=== PATIENT | male | born 1935 | race Caucasian/White ===

== ENCOUNTER → 2016-11-09 | Outpatient (CLI) | payer MEDICARE, OTHER ==
[~2016-11-09] MED LIST: ACET-703 PO; ALBUAER3 INH; AMLO5TAB96 PO; ASPI1TAB69 PO; ATOR20TA42 PO; ATOR40TA16 PO; CENTTAB8 PO; CENTTAB9 PO; CLOP75TA PO; ECASA PO; FISH500C PO; LATA0.002 EACH EYE; LOSA100T3 PO; LOSA50TA2 PO; METO25TA3 PO; MONT10TA2 PO; MONT10TA4 PO; OCUVTAB4 PO; VITA500015 PO
[2016-11-09 09:47] LABS: MEAN CELL VOLUME 92.1 FL (80.0-100.0); MEAN CORPUSCULAR HEMOGLOBIN 31.4 PG (27.0-34.0); MEAN CORPUSCULAR HGB CONC 34.1 % (32.0-36.0); PLATELET COUNT 223 TH/MM3 (150-450); RED BLOOD COUNT 4.34 MIL/MM3 (4.50-5.90); RED CELL DISTRIBUTION WIDTH 14.4 % (11.6-17.2); REVIEW FLAG FINAL; WHITE BLOOD COUNT 8.3 TH/MM3 (4.0-11.0)
== END ==
LOC: CPRE 08:52
PROVIDERS: ATTEND Orthopaedic Surgery
DX: Z01.812 Encounter for preprocedural laboratory examination (principal); S52.501S Unspecified fracture of the lower end of right radius, sequela; M19.131 Post-traumatic osteoarthritis, right wrist; M79.609 Pain in unspecified limb; I10 Essential (primary) hypertension; M24.831 Other specific joint derangements of right wrist, not elsewhere classified
CPT/HCPCS: 36415; 85027

== ENCOUNTER → 2016-11-11 | Day surgery (SDC) | payer MEDICARE, OTHER ==
[~2016-11-11] VITALS: Ht 172.7 cm; Wt 104.6 kg
[~2016-11-11] MED LIST changes: -AMLO5TAB96 PO; -ATOR20TA42 PO; -CENTTAB9 PO; -ECASA PO; +INSULIN HUMAN REGULAR 1,000 UNITS/10 ML VIAL SQ PRN; +LACTATED RINGER'S 1000 ML IV SCH; -LOSA100T3 PO; +METOPROLOL TARTRATE 25 MG TAB PO PRN; -MONT10TA2 PO; +SODIUM CHLORID 0.9% 500 ML IV SCH; -VITA500015 PO; +ceFAZolin 1,000 MG/NS 100 ML IV SCH
[2016-11-11 06:24] VITALS: BP 147/79; PULSE 66; RESP 18; TEMP 97.6; O2SAT 98
== END | disposition home or self-care (01) ==
LOC: HSDC 05:48
PROVIDERS: ATTEND Orthopaedic Surgery
DX: S52.501P Unspecified fracture of the lower end of right radius, subsequent encounter for closed fracture with malunion (principal); Z53.8 Procedure and treatment not carried out for other reasons
CPT/HCPCS: G0463; J7120; 99211

== ENCOUNTER → 2016-11-18 | Day surgery (SDC) | payer MEDICARE, OTHER ==
[~2016-11-18] VITALS: Ht 174 cm; Wt 104.0 kg
[~2016-11-18] MED LIST changes: +*ONDANSETRON 4 MG VIAL PERIprocedural Use ONLY ONE; +ACETAMINOPHEN 500 MG CPLT PO PRN; +ACETAMINOPHEN/HYDROcodone 325 MG/5 MG TAB PO PRN; +ASPIRIN EC 81 MG TABEC PO SCH; +ATORVASTATIN 40 MG TAB PO SCH; +BUPIVACAINE HCL PF 0.25% 30 ML VIAL ONE; +CLOPIDOGREL 75 MG TAB PO SCH; +DO NOT ADM ANY ANTICOAGULANT DRUGS XX PRN; +GENTAMICIN SULFATE 80 MG/2 ML VIAL ONE; +HYDROCHLOROTHIAZIDE 12.5 MG CAP PO SCH; -INSULIN HUMAN REGULAR 1,000 UNITS/10 ML VIAL SQ PRN; -LACTATED RINGER'S 1000 ML IV SCH; +LATANOPROST 0.005% OPHT SOLN 2.5 ML BTL EACH EYE SCH; +LOSARTAN 50 MG TAB PO SCH; -METOPROLOL TARTRATE 25 MG TAB PO PRN; +METOPROLOL TARTRATE 25 MG TAB PO SCH; +MONTELUKAST SODIUM 10 MG TAB PO SCH; +MORPHINE SULFATE 4 MG/ML INJ IV PUSH PRN; +MULTIVITAMIN-OPHTHALMIC 1 TAB PO SCH; +MULTIVITAMINS/MINERALS THERAPEUTIC TAB PO SCH; +NEOSTIGMINE 3 MG/3 ML SYR IV ONE; +NON-FORMULARY DRUG (Losartan-Hydrochlorothiazide 1 TAB) PO SCH; +ONDANSETRON HCL 4 MG/2 ML VIAL IV PRN; +ONDANSETRON HCL 4 MG/2 ML VIAL IV PUSH ONE; +PROPOFOL 200 MG/20 ML AMP IV ONE; -SODIUM CHLORID 0.9% 500 ML IV SCH; +SODIUM CHLORIDE 0.9% 20 ML VIAL ONE; +SODIUM CHLORIDE 0.9% FLUSH 5 ML FLUSH IVF PRN; +SODIUM CHLORIDE 0.9% FLUSH 5 ML FLUSH IVF SCH; -ceFAZolin 1,000 MG/NS 100 ML IV SCH; +ceFAZolin INJ 1,000 MG VIAL ONE; +ePHEDrine/NS 25 MG/5 ML SYR IV ONE; +ePHEDrine/NS 25 MG/5 ML SYR ONE; +fentaNYL CITRATE 250 MCG/5 ML AMP ONE
[2016-11-18 07:48] VITALS: BP 141/70; PULSE 73; RESP 20; TEMP 97.7; O2SAT 98
[2016-11-18 12:32] VITALS: BP 134/71; PULSE 75; RESP 18; TEMP 98; O2SAT 99
--- NOTE | 2016-11-21 18:46 | MP ---
cc: Yohannes GARVEY. DATE OF SURGERY: 11/18/2016. 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 OPERATIVE PROCEDURE PERFORMED: Darrach procedure, right wrist (resection distal end ulna). SURGEON: Radha Garvey MD ANESTHESIA: General endotracheal with supplemental local. INDICATIONS AND FINDINGS: This 81-year-old man has had limitation of supination since healing of a fracture over 50 years ago. He would like to have full supination. He has tenderness on pronation and supination. His range of motion preoperatively is from zero or neutral degrees to pronation of about 90 degrees. There is prominence of the distal end of the ulna seen on CT scan, x-ray and clinically. The operative findings were consistent with the above with there being significant arthritis in the distal radioulnar joint as well. There is deformity of the distal ulna. DESCRIPTION OF THE PROCEDURE IN DETAIL: The patient was brought to the operating room and a general anesthetic was administered. A pneumatic tourniquet was applied to the right upper arm. The arm was then prepped with alcohol, Hibiclens and Chloraprep and draped in the usual manner with the arm draped free. He received prophylactic antibiotic in the form of Ancef. An appropriate time-out procedure was carried out. A 3 cm incision was then made from tip of the ulnar styloid proximally paralleling the ulnar styloid on the ulnar aspect of the wrist. The incision was deepened through the subcutaneous tissues after elevation of the tourniquet to 200 mmHg. This was carried down to the periosteum of the ulna. The distal ulna was then exposed subperiosteally. A saw was then used to transect the forearm portion of the distal ulna. This was then grasped with a towel clip and shelled out of the periosteum and removed. The range of motion was checked and was found to be nearly 80 degrees of supination to about 90 degrees of pronation, which was much better than what was preoperatively. Hemostasis was carefully achieved with electrocautery. Local anesthesia was administered with Marcaine 0.25% plain. Wound closure then commenced using 3-0 Vicryl interrupted [id number] sutures for the retinacular, capsular and periosteal structures, 3-0 Vicryl interrupted simple sutures with buried knots for the subcutaneous tissues and 4-0 Monocryl continuous subcuticular closure for the skin. The wound was dressed with Steri-Strips followed by dry dressing, sterile Sof-Rol, GAURI bandage. The tourniquet was released at 32 minutes. The patient was transferred to the recovery room in satisfactory condition having tolerated the procedure well. Counts were correct. Specimens none. The estimated blood loss was none. MD JORGE Antoine/YAZ /10:03 AM /6:41 PM
== END | disposition home or self-care (01) ==
LOC: HSDC 07:16
PROVIDERS: ATTEND Orthopaedic Surgery
DX: S52.501S Unspecified fracture of the lower end of right radius, sequela (principal); M19.131 Post-traumatic osteoarthritis, right wrist; M24.831 Other specific joint derangements of right wrist, not elsewhere classified; I10 Essential (primary) hypertension
CPT/HCPCS: 01830; 25240; J0690; J1580; J2405; J2710; J3010

== ENCOUNTER → 2016-12-06 | Outpatient (CLI) | payer MEDICARE, OTHER ==
[~2016-12-06] MED LIST changes: -*ONDANSETRON 4 MG VIAL PERIprocedural Use ONLY ONE; -ACETAMINOPHEN 500 MG CPLT PO PRN; -ACETAMINOPHEN/HYDROcodone 325 MG/5 MG TAB PO PRN; -ASPIRIN EC 81 MG TABEC PO SCH; -ATORVASTATIN 40 MG TAB PO SCH; -BUPIVACAINE HCL PF 0.25% 30 ML VIAL ONE; -CLOPIDOGREL 75 MG TAB PO SCH; -DO NOT ADM ANY ANTICOAGULANT DRUGS XX PRN; -GENTAMICIN SULFATE 80 MG/2 ML VIAL ONE; -HYDROCHLOROTHIAZIDE 12.5 MG CAP PO SCH; -LATANOPROST 0.005% OPHT SOLN 2.5 ML BTL EACH EYE SCH; -LOSARTAN 50 MG TAB PO SCH; -METOPROLOL TARTRATE 25 MG TAB PO SCH; -MONTELUKAST SODIUM 10 MG TAB PO SCH; -MORPHINE SULFATE 4 MG/ML INJ IV PUSH PRN; -MULTIVITAMIN-OPHTHALMIC 1 TAB PO SCH; -MULTIVITAMINS/MINERALS THERAPEUTIC TAB PO SCH; -NEOSTIGMINE 3 MG/3 ML SYR IV ONE; -NON-FORMULARY DRUG (Losartan-Hydrochlorothiazide 1 TAB) PO SCH; -ONDANSETRON HCL 4 MG/2 ML VIAL IV PRN; -ONDANSETRON HCL 4 MG/2 ML VIAL IV PUSH ONE; -PROPOFOL 200 MG/20 ML AMP IV ONE; -SODIUM CHLORIDE 0.9% 20 ML VIAL ONE; -SODIUM CHLORIDE 0.9% FLUSH 5 ML FLUSH IVF PRN; -SODIUM CHLORIDE 0.9% FLUSH 5 ML FLUSH IVF SCH; -ceFAZolin INJ 1,000 MG VIAL ONE; -ePHEDrine/NS 25 MG/5 ML SYR IV ONE; -ePHEDrine/NS 25 MG/5 ML SYR ONE; -fentaNYL CITRATE 250 MCG/5 ML AMP ONE
--- NOTE | 2016-12-06 12:42 | RADRPT ---
EXAM DATE/TIME: 12/06/2016 11:45 [facility] COMPARISON: No previous studies available for comparison. INDICATIONS : Short of breath MEDICAL HISTORY : Hypertension. Asthma SURGICAL HISTORY : CABG. ENCOUNTER: Initial ACUITY: 1 day PAIN SCORE: 0/10 LOCATION: chest FINDINGS: The heart is mildly enlarged. There are postsurgical changes consistent with prior CABG. Mild interstitial prominence is noted throughout the lungs. There is no evidence of consolidating air space disease, metastases or significant pleural fluid accumulation. 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 Mild cardiomegaly with evidence of prior CABG. No evidence of acute airspace disease. Benjamin Velasquez MD on December 06, 2016 at 12:38 Board Certified Radiologist. This report was verified electronically.
--- NOTE | 2016-12-28 10:09 | RSPPFT ---
DATE OF PROCEDURE: 12/06/16 COMMENTS: Spirometry with FVC of 1.9 predicted 3.8, FEV1 of 1.5 predicted 2.4, FEV1/FVC ratio 76% predicted 63%. Post-bronchodilator FVC increases to 2.3. Lung volumes are marginally decreased and residual volume is increased. IMPRESSION: On the basis of the above, patient has an obstructive lung defect with responsiveness to acutely inhaled bronchodilator.
== END ==
LOC: HRSP 10:26
PROVIDERS: ATTEND Family Medicine
DX: J45.30 Mild persistent asthma, uncomplicated (principal); R06.00 Dyspnea, unspecified
CPT/HCPCS: 71020; 94060; 94620; 94726; 94729

== ENCOUNTER 2017-06-27 11:26 | Inpatient (IN) | payer MEDICARE, OTHER ==
[~2017-06-27] VITALS: Ht 172.7 cm; Wt 102.6 kg
[2017-06-27 11:29] VITALS: BP 198/84; PULSE 46; RESP 17; TEMP 97.6; O2SAT 98
--- NOTE | 2017-06-27 11:35 | PD ---
Physical Exam Date Seen by Provider: Jun 27, 2017 Time Seen by Provider: 11:29 Narrative 82-year-old white male presents to emergency department with a complaint of shortness of breath. Patient's symptom present now for 2 weeks. His granddaughter is a nurse practitioner. She feels that he is having spells of slow and intermittent fast heartbeat with associated shortness of breath, dizziness, feeling as if he is going to pass out. No associated chest pain, nausea, vomiting or diaphoresis. He was seen earlier this past week with Dr. Rodriguez performed a EKG and has referred him to the [facility] for further evaluation. Patient is currently on Plavix. History of DE and coronary artery bypass graft. As well as a CVA in the past. VIital signs reviewed. Pt. waiting for bed placement. [facility] Medical Record Reviewed: No Supervised Visit with TOYA: Tim Hicks Jun 27, 2017 11:35
--- NOTE | 2017-06-27 11:35 | PD ---
Physical Exam Date Seen by Provider: Jun 27, 2017 Time Seen by Provider: 11:29 Narrative 82-year-old white male presents to emergency department with a complaint of shortness of breath. Patient's symptom present now for 2 weeks. His granddaughter is a nurse practitioner. She feels that he is having spells of slow and intermittent fast heartbeat with associated shortness of breath, dizziness, feeling as if he is going to pass out. No associated chest pain, nausea, vomiting or diaphoresis. He was seen earlier this past week with Dr. Rodriguez performed a EKG and has referred him to the [facility] for further evaluation. Patient is currently on Plavix. History of MD and coronary artery bypass graft. As well as a CVA in the past. VIital signs reviewed. Pt. waiting for bed placement. [facility] Medical Record Reviewed: No Supervised Visit with TOYA: Tim Hicks Jun 27, 2017 11:35
--- NOTE | 2017-06-27 11:35 | PD ---
Physical Exam Date Seen by Provider: Jun 27, 2017 Time Seen by Provider: 11:29 Narrative 82-year-old white male presents to emergency department with a complaint of shortness of breath. Patient's symptom present now for 2 weeks. His granddaughter is a nurse practitioner. She feels that he is having spells of slow and intermittent fast heartbeat with associated shortness of breath, dizziness, feeling as if he is going to pass out. No associated chest pain, nausea, vomiting or diaphoresis. He was seen earlier this past week with Dr. Rodriguez performed a EKG and has referred him to the [facility] for further evaluation. Patient is currently on Plavix. History of [place] and coronary artery bypass graft. As well as a CVA in the past. VIital signs reviewed. Pt. waiting for bed placement. [facility] Medical Record Reviewed: No Supervised Visit with TOYA: Tim Hicks Jun 27, 2017 11:35
--- NOTE | 2017-06-27 11:55 | PD ---
HPI Chief Complaint: Respiratory Symptoms Time Seen by Provider: 11:42 Travel History International Travel<30 days: No Contact w/Intl Traveler<30days: No Traveled to known affect area: No History of Present Illness HPI 82-year-old male presents with his for evaluation. For the past 3 weeks he 's been experiencing episodes of dyspnea, generalized weakness, lightheadedness. He reports that symptoms last for about 15-20 minutes at a time and then resolved. Episodes of been occurring one to 3 times a day and various times of no obvious aggravating or alleviating factors. He denies nausea, vomiting, chest pain, cough or congestion, fevers, flank pain, dysuria, abdominal pain. He reports that prior to starting the symptoms he was prescribed Lasix by his motion picture equipment machinist office Tuesday symptoms started he discontinued the Lasix with improvement of his symptoms. He reports that he saw his motion picture equipment machinist, Dr. Hutchison, one week ago he was being referred to a specialist at the [facility], he believes a picker packer, in order to receive further workup of a symptoms. This morning at 7 AM he had an episode of dizziness and weakness since dyspnea and this is what prompted the evaluation today. He is currently asymptomatic. He has a history of coronary artery disease with CABG, multiple stents, asthma, hyperlipidemia, GERD, hypertension, sleep apnea, CVA. PFSH Past Medical History Hx Anticoagulant Therapy: Yes (plavix) Arthritis: Yes Asthma: Yes Heart Rhythm Problems: No Cancer: Yes (PROSTATE, MELANOMA, SKIN CANCER) Cardiovascular Problems: Yes High Cholesterol: Yes Chemotherapy: No Chest Pain: No Congestive Heart Failure: No COPD: No Cerebrovascular Accident: Yes Diabetes: No Endocrine: No GERD: Yes (PRIOR TO BARIATRIC SURGERY) Genitourinary: Yes (HX PROSTATE CANCER) Hepatitis: No Hiatal Hernia: No Hypertension: Yes Immune Disorder: No Implanted Vascular Access Dvce: Yes Kidney Stones: No Musculoskeletal: Yes (ARTHRITIS) Neurologic: Yes (STROKE 12/2015) Psychiatric: No Reproductive: No Respiratory: Yes (ASTHMA WITH ALLERGY, SOB WITH EXERTION) Radiation Therapy: Yes (RADIOACTIVE SEEDING FOR PROSTATE CA (1995)) Renal Failure: No Sleep Apnea: Yes (HX OF, NO LONGER A PROBLEM) Thyroid Disease: No Ulcer: No Past Surgical History Abdominal Surgery: Yes ( BARIATRIC SURGERY 2009, APPENDECTOMY, CHOLECYSTECTOMY) AICD: No Appendectomy: Yes Arteriovenous Shunt: No Body Medical Devices: CARDIAC STENTS (5), STERNAL WIRES, RT FOREARM PIN Cardiac Surgery: Yes (CARDIAC STENTS 2004, CABG X3 1984) Cholecystectomy: Yes Coronary Artery Bypass Graft: Yes Ear Surgery: No Endocrine Surgery: No Eye Surgery: Yes (BILATERAL CATARACT EXTRACT.) Genitourinary Surgery: No Insulin Pump: No Joint Replacement: Yes (RIGHT HIP, RIGHT KNEE AND LEFT KNEE) Oral Surgery: Yes (TONSILLECTOMY) Pacemaker: No Thoracic Surgery: No Tonsillectomy: Yes Other Surgery: Yes Social History Alcohol Use: No Tobacco Use: No Substance Use: No Allergies-Medications (Allergen,Severity, Reaction): Coded Allergies: dog dander (Unverified Allergy, Severe, ASTHMA, 06/27/17) Reported Meds & Prescriptions Reported Meds & Active Scripts Active Reported Dulera 120 Act Inh (Mometasone-Formoterol 120 Act Inh) 100-5 Mcg/Act Inh 2 Puff INH BID Aspirin 81 Mg Chew 81 Mg CHEW DAILY Proair Hfa 8.5 GM Inh (Albuterol Sulfate) 90 Mcg/Act Aer 2 Puff INH Q4-6H PRN 108 mcg/actuation Fish Oil (Edgar-3 Fatty Acids) 500 Mg Cap Unknown Dose PO DAILY Preservision Areds (Multiple Vitamins W/ Minerals) 1 Tab 1 Tab PO DAILY Latanoprost Opth Drops (Latanoprost) 0.005% Drops 1 Drop EACH EYE HS Refrigerate until opened. Metoprolol Tartrate 25 Mg Tab 25 Mg PO BID Clopidogrel (Clopidogrel Bisulfate) 75 Mg Tab 75 Mg PO DAILY Losartan-Hydrochlorothiazide 50-12.5 Mg Tab 1 Tab PO DAILY Atorvastatin (Atorvastatin Calcium) 40 Mg Tab 40 Mg PO HS Montelukast (Montelukast Sodium) 10 Mg Tab 10 Mg PO DAILY Review of Systems Except as stated in HPI: all other systems reviewed are Neg Physical Exam Narrative GENERAL: Well-developed well-nourished male in no acute distress resting, in hospital bed. SKIN: Warm and dry. HEAD: Atraumatic. Normocephalic. EYES: Pupils equal and round. No scleral icterus. No injection or drainage. ENT: No nasal bleeding or discharge. Mucous membranes pink and moist. NECK: Trachea midline. No JVD. CARDIOVASCULAR: Bradycardic, heart rate between 45 and 55. No murmur appreciated. RESPIRATORY: No accessory muscle use. Clear to auscultation. Breath sounds equal bilaterally. GASTROINTESTINAL: Abdomen soft, non-tender, nondistended. Hepatic and splenic margins not palpable. MUSCULOSKELETAL: No obvious deformities. Trace tibial edema bilaterally. NEUROLOGICAL: Awake and alert. No obvious cranial nerve deficits. Motor grossly within normal limits. Normal speech. PSYCHIATRIC: Appropriate mood and affect; insight and judgment normal. Data Data Last Documented VS Vital Signs Date Time Temp Pulse Resp B/P (MAP) Pulse Ox O2 Delivery O2 Flow Rate FiO2 06/27/17 12:03 48 166/72 (103) 152/65 (94) 06/27/17 12:02 99 Room Air 06/27/17 11:29 97.6 17 Orders Orders Electrocardiogram (06/27/17 11:53) Basic Metabolic Panel (Bmp) (06/27/17 11:53) Ckmb (Isoenzyme) Profile (06/27/17 11:53) Complete Blood Count With Diff (06/27/17 11:53) Magnesium (Mg) (06/27/17 11:53) Prothrombin Time / Inr (Pt) (06/27/17 11:53) Act Partial Throm Time (Ptt) (06/27/17 11:53) Troponin I (06/27/17 11:53) Chest, Single Ap (06/27/17 11:53) Ecg Monitoring (06/27/17 11:53) Bilateral Bp Monitoring (06/27/17 11:53) Iv Access Insert/Monitor (06/27/17 11:53) Oximetry (06/27/17 11:53) Oxygen Administration (06/27/17 11:53) Sodium Chloride 0.9% Flush (Ns Flush) (06/27/17 12:00) B-Type Natriuretic Peptide (06/27/17 11:55) CKMB (06/27/17 12:00) CKMB% (06/27/17 12:00) Consult Cardiology (06/27/17 ) Admit To Inpatient (06/27/17 ) Vital Signs (Adult) Q4H (06/27/17 13:43) Activity Oob With Assistance (06/27/17 13:43) Microarray Operations Vice President / Telemetry .CONTINUOUS (06/27/17 13:43) Intake + Output DINESH.QSHIFT (06/27/17 13:43) Diet Heart Healthy (06/27/17 Lunch) Sodium Chloride 0.9% Flush (Ns Flush) (06/27/17 13:45) Sodium Chloride 0.9% Flush (Ns Flush) (06/27/17 21:00) Acetaminophen (Tylenol) (06/27/17 13:45) Ondansetron Inj (Zofran Inj) (06/27/17 13:45) Comprehensive Metabolic Panel (06/28/17 06:00) Complete Blood Count With Diff (06/28/17 06:00) Troponin I (06/27/17 13:43) Troponin I (06/27/17 19:43) Electrocardiogram (06/27/17 13:43) Electrocardiogram (06/27/17 19:43) Resp Oxygen Irwin C Titrat 1-4 L (06/27/17 ) Pt Request For Service (06/27/17 13:43) Case Management Consult (06/27/17 13:43) Enoxaparin Inj (Lovenox Inj) (06/27/17 13:45) Scd Bilateral/Knee High DINESH.BID (06/27/17 13:43) Elia Bilateral/Knee High DINESH.QSHIFT (06/27/17 13:43) Naloxone Inj (Narcan Inj) (06/27/17 13:45) Docusate Sodium-Senna (Karen-Colace) (06/27/17 21:00) Magnesium Hydroxide Liq (Milk Of Magnesi (06/27/17 13:45) Sennosides (Senokot) (06/27/17 13:45) Bisacodyl Supp (Dulcolax Supp) (06/27/17 13:45) Lactulose Liq (Lactulose Liq) (06/27/17 13:45) Inpatient Certification (06/27/17 ) Admit Order (Ed Use Only) (06/27/17 13:44) Labs Laboratory Tests Test 06/27/17 12:00 White Blood Count 9.5 TH/MM3 Red Blood Count 4.50 MIL/MM3 Hemoglobin 14.5 GM/DL Hematocrit 42.5 % Mean Corpuscular Volume 94.4 FL Mean Corpuscular Hemoglobin 32.3 PG Mean Corpuscular Hemoglobin Concent 34.2 % Red Cell Distribution Width 14.6 % Platelet Count 231 TH/MM3 Mean Platelet Volume 7.5 FL Neutrophils (%) (Auto) 73.0 % Lymphocytes (%) (Auto) 17.8 % Monocytes (%) (Auto) 7.3 % Eosinophils (%) (Auto) 1.4 % Basophils (%) (Auto) 0.5 % Neutrophils # (Auto) 7.0 TH/MM3 Lymphocytes # (Auto) 1.7 TH/MM3 Monocytes # (Auto) 0.7 TH/MM3 Eosinophils # (Auto) 0.1 TH/MM3 Basophils # (Auto) 0.0 TH/MM3 CBC Comment DIFF FINAL Differential Comment Prothrombin Time 11.7 SEC Prothromb Time International Ratio 1.1 RATIO Activated Partial Thromboplast Time 24.6 SEC Blood Urea Nitrogen 28 MG/DL Creatinine 1.08 MG/DL Random Glucose 127 MG/DL Calcium Level 9.1 MG/DL Magnesium Level 2.2 MG/DL Sodium Level 133 MEQ/L Potassium Level 5.0 MEQ/L Chloride Level 101 MEQ/L Carbon Dioxide Level 24.9 MEQ/L Anion Gap 7 MEQ/L Estimat Glomerular Filtration Rate 65 ML/MIN Total Creatine Kinase 145 U/L Creatine Kinase MB 2.6 NG/ML Troponin I 0.06 NG/ML B-Type Natriuretic Peptide 564 PG/ML MDM Medical Decision Making Medical Screen Exam Complete: Yes Emergency Medical Condition: Yes Medical Record Reviewed: Yes Differential Diagnosis Symptomatic bradycardia, heart block, sick sinus syndrome, dehydration, electrolyte abnormality Narrative Course The patient will be placed on ECG monitoring pulse oximetry. An EKG will be obtained. Plan is for basic lab work, chest x-ray. The patient was monitored and his heart rate seems to be bradycardic with a rate between 45 and 55 during most of this observation period. Lab work reveals a troponin of 0.06, review of his records reveals that his troponin was 0.08 and a visit in December 2015. His BUN is elevated at 28. His BNP is elevated at 564. His EKG reveals a bradycardic sinus rhythm with a prolonged ND interval. Plan will be to admit the patient for further evaluation, telemetry. Discussed with Dr. Hawkins who is agreeable with admission. Diagnosis Primary Impression: Symptomatic bradycardia Additional Impression: Near syncope Admitting Information Admitting Physician Requests: Admit Andrea Doe Jun 27, 2017 11:55
[2017-06-27] MEDS ORDERED: DULE100A INH (11:58)
[2017-06-27] MEDS ORDERED: ASPI81CH CHEW (11:58)
[2017-06-27] MEDS ORDERED: SODIUM CHLORIDE 0.9% FLUSH 10 ML FLUSH IVF PRN (12:00)
[2017-06-27 12:02] VITALS: O2SAT 99
[2017-06-27 12:03] VITALS: BP_SYST 152; BP_SYST 166; BP_DIAS 65; BP_DIAS 72; PULSE 48
[2017-06-27 12:23] LABS: BASOPHIL % 0.5 % (0.0-2.0); EOSINOPHIL # 0.1 TH/MM3 (0-0.4); EOSINOPHIL % 1.4 % (0.0-4.0); HEMATOCRIT 42.5 % (39.0-51.0); HEMOGLOBIN 14.5 GM/DL (13.0-17.0); LYMPH % 17.8 % (9.0-44.0); LYMPHOCYTE # 1.7 TH/MM3 (1.0-4.8); MEAN CELL VOLUME 94.4 FL (80.0-100.0); MEAN CORPUSCULAR HEMOGLOBIN 32.3 PG (27.0-34.0); MEAN CORPUSCULAR HGB CONC 34.2 % (32.0-36.0); MEAN PLATELET VOLUME 7.5 FL (7.0-11.0); MONO % 7.3 % (0.0-8.0); MONOCYTE # 0.7 TH/MM3 (0-0.9); PLATELET COUNT 231 TH/MM3 (150-450); RED CELL DISTRIBUTION WIDTH 14.6 % (11.6-17.2); WHITE BLOOD COUNT 9.5 TH/MM3 (4.0-11.0)
[2017-06-27 12:33] LABS: INTERNATIONAL NORMALIZED RATIO 1.1 RATIO; PROTHROMBIN TIME - PATIENT 11.7 SEC (9.8-11.6)
--- NOTE | 2017-06-27 12:44 | RADRPT ---
EXAM DATE/TIME: 06/27/2017 12:20 [facility] COMPARISON: CHEST PA & LAT, December 06, 2016, 11:45. INDICATIONS : Shortness of breath. MEDICAL HISTORY : Hypertension. Asthma SURGICAL HISTORY : CABG. ENCOUNTER: Initial ACUITY: 2 days PAIN SCORE: 0/10 LOCATION: Bilateral chest FINDINGS: A single view of the chest demonstrates the lungs to be symmetrically aerated without evidence of mas s, infiltrate or effusion. Median sternotomy wires in place. Cardiac silhouette is enlarged. Osseous structures are intact. CONCLUSION: 1. Postsurgical features with compensated cardiomegaly. 2. No acute abnormality or interval change. Darrin Roger MD on June 27, 2017 at 12:41 Board Certified Radiologist. This report was verified electronically.
[2017-06-27 12:52] LABS: BICARBONATE 24.9 MEQ/L (21.0-32.0); BLOOD UREA NITROGEN 28 MG/DL (7-18); CALCIUM 9.1 MG/DL (8.5-10.1); CHLORIDE 101 MEQ/L (98-107); CREATININE 1.08 MG/DL (0.60-1.30); GLOMERULAR FILTRATION RATE 65 ML/MIN (>89); GLUCOSE,RANDOM 127 MG/DL (74-106); SODIUM (NA) 133 MEQ/L (136-145); TROPONIN I 0.06 NG/ML (0.02-0.05)
[2017-06-27 12:54] LABS: MAGNESIUM 2.2 MG/DL (1.5-2.5)
[2017-06-27] MEDS ORDERED: NALOXONE HCL 0.4 MG/ML AMP IV PUSH PRN (13:45)
[2017-06-27] MEDS ORDERED: ONDANSETRON HCL 4 MG/2 ML VIAL IVP PRN (13:45)
[2017-06-27] MEDS ORDERED: LACTULOSE SYRUP 20 GM/30 ML CUP PO PRN (13:45)
[2017-06-27] MEDS ORDERED: SODIUM CHLORIDE 0.9% FLUSH 10 ML FLUSH IV FLUSH PRN (13:45)
[2017-06-27] MEDS ORDERED: SENNOSIDES 8.6 MG TAB PO PRN (13:45)
[2017-06-27] MEDS ORDERED: BISACODYL 10 MG SUPP RECTAL PRN (13:45)
[2017-06-27] MEDS ORDERED: ACETAMINOPHEN 325 MG TAB PO PRN (13:45)
[2017-06-27] MEDS ORDERED: MAGNESIUM HYDROXIDE SUSP 30 ML CUP PO PRN (13:45)
--- NOTE | 2017-06-27 13:48 | HHI.HP ---
[facility] Service [facility] Primary Care Physician Raymon Dixon DO Admission Diagnosis Diagnoses: Chief Complaint: dyspnea, lightheadedness Travel History International Travel<30 Days: No Contact w/Intl Traveler <30 Da: No Traveled to Known Affected Are: No History of Present Illness Written by Catalina Shore, acting as scribe for Dr. Hawkins on 06/27/17 at 13: 42. 82-year-old male with history of CAD s/p CABG x3 and stents x5, asthma, HTN, HLD , LIZZIE, CVA with residual right arm weakness, GERD, presents with a 3-4 week history of intermittent shortness of breath, lightheadedness, and weakness. The patient reports these episodes will last 15-20 minutes and occur 2-3 times per day then subside spontaneously on its own. He cannot identify any aggravating or alleviating factors. He denies any associated chest pain or palpitations. This morning around 7am the patient had another episode of dizziness, weakness, and shortness of breath therefore he presented to the ED. His granddaughter is an BOLT SORTER who works at a hospital in [place] who also urged him to come to the ER. The granddaughter has been checking his pulse and reportedly his heart rate went down to 39 last night. The patient reports he was very symptomatic with lightheadedness and shortness of breath when his heart rate was this low. He takes metoprolol daily and has not missed any doses. He was previously fairly active, goes to the gym daily, lifts weights and uses stationary bicycle; however he has had no energy recently and has been unable to go to the gym in the past 10 days. He sees upholstery tech Dr. Hutchison, last seen 1.5 weeks ago, and was referred to [facility], has an upcoming appointment on 07/18. His last heart catheterization was 7years ago. He also has seen a customer training specialist in [place]. The patient denies any other medical complaints including no fevers/ chills, cough, chest pain, abdominal pain, nausea/vomiting, diarrhea/ constipation, or urinary complaints. Review of Systems Except as stated in HPI: all other systems reviewed are Neg Past Family Social History Past Medical History CAD s/p CABG and stents asthma HTN HLD LIZZIE but cannot tolerate CPAP CVA GERD arthritis Prostate cancer Past Surgical History CABG [id number] Cardiac catheterization with stents x5 Gastric bypass surgery Right forearm surgery with elvia and pin placement Right wrist bone shaved Bilateral cataract extractions Right total hip arthroplasty Bilateral knee surgery Tonsillectomy Prostate seed placement Reported Medications Dulera 120 Act Inh (Mometasone-Formoterol 120 Act Inh) 100-5 Mcg/Act Inh 2 Puff INH BID Aspirin 81 Mg Chew 81 Mg CHEW DAILY Proair Hfa 8.5 GM Inh (Albuterol Sulfate) 90 Mcg/Act Aer 2 Puff INH Q4-6H PRN 108 mcg/actuation Fish Oil ([place]-3 Fatty Acids) 500 Mg Cap Unknown Dose PO DAILY Preservision Areds (Multiple Vitamins W/ Minerals) 1 Tab 1 Tab PO DAILY Latanoprost Opth Drops (Latanoprost) 0.005% Drops 1 Drop EACH EYE HS Refrigerate until opened. Metoprolol Tartrate 25 Mg Tab 25 Mg PO BID Clopidogrel (Clopidogrel Bisulfate) 75 Mg Tab 75 Mg PO DAILY Losartan-Hydrochlorothiazide 50-12.5 Mg Tab 1 Tab PO DAILY Atorvastatin (Atorvastatin Calcium) 40 Mg Tab 40 Mg PO HS Montelukast (Montelukast Sodium) 10 Mg Tab 10 Mg PO DAILY Allergies: Coded Allergies: dog dander (Unverified Allergy, Severe, ASTHMA, 06/27/17) Active Ordered Medications Current Medications Medications (Trade) Dose Ordered Sig/Jenifer Route Start Time Stop Time Status Last Admin (NS Flush) 2 ml UNSCH PRN IVF 06/27/17 12:00 Family History Mother at age 80 secondary to CHF Father at age 67 secondary to UT Brother with lung cancer 2 brothers with UT Social History Lives at home with Denies any tobacco, alcohol, or illicit drug use Physical Exam Vital Signs Vital Signs Date Time Temp Pulse Resp B/P (MAP) Pulse Ox O2 Delivery O2 Flow Rate FiO2 06/27/17 12:03 48 166/72 (103) 152/65 (94) 06/27/17 12:02 99 Room Air 06/27/17 12:02 99 Room Air 06/27/17 11:58 100 06/27/17 11:29 97.6 46 17 198/84 (122) 98 Room Air Physical Exam GENERAL: Well-developed, well-nourished pleasant elderly male patient in [facility]. SKIN: Warm and dry. HEAD: Atraumatic. Normocephalic. EYES: Pupils equal and round. No scleral icterus. No injection or drainage. ENT: No nasal bleeding or discharge. Mucous membranes pink and moist. NECK: Trachea midline. No JVD. CARDIOVASCULAR: Bradycardic, regular rhythm. No murmur appreciated. RESPIRATORY: No accessory muscle use. Clear to auscultation. Breath sounds equal bilaterally. GASTROINTESTINAL: Abdomen soft, non-tender, nondistended. Hepatic and splenic margins not palpable. MUSCULOSKELETAL: No obvious deformities. 2+ bilateral lower extremity pitting edema. NEUROLOGICAL: Awake and alert. No obvious cranial nerve deficits. Motor grossly within normal limits. 5/5 strength throughout LUE/LLE/RLE, 4/5 strength with RUE. Normal speech. PSYCHIATRIC: Appropriate mood and affect; insight and judgment normal. Laboratory Laboratory Tests Test 06/27/17 12:00 White Blood Count 9.5 Red Blood Count 4.50 Hemoglobin 14.5 Hematocrit 42.5 Mean Corpuscular Volume 94.4 Mean Corpuscular Hemoglobin 32.3 Mean Corpuscular Hemoglobin Concent 34.2 Red Cell Distribution Width 14.6 Platelet Count 231 Mean Platelet Volume 7.5 Neutrophils (%) (Auto) 73.0 Lymphocytes (%) (Auto) 17.8 Monocytes (%) (Auto) 7.3 Eosinophils (%) (Auto) 1.4 Basophils (%) (Auto) 0.5 Neutrophils # (Auto) 7.0 Lymphocytes # (Auto) 1.7 Monocytes # (Auto) 0.7 Eosinophils # (Auto) 0.1 Basophils # (Auto) 0.0 CBC Comment DIFF FINAL Differential Comment Prothrombin Time 11.7 Prothromb Time International Ratio 1.1 Activated Partial Thromboplast Time 24.6 Blood Urea Nitrogen 28 Creatinine 1.08 Random Glucose 127 Calcium Level 9.1 Magnesium Level 2.2 Sodium Level 133 Potassium Level 5.0 Chloride Level 101 Carbon Dioxide Level 24.9 Anion Gap 7 Estimat Glomerular Filtration Rate 65 Total Creatine Kinase 145 Creatine Kinase MB 2.6 Troponin I 0.06 B-Type Natriuretic Peptide 564 Result Diagram: 06/27/17 1200 06/27/17 1200 Imaging Last Impressions Chest X-Ray 10/30/17 0283 Signed Impressions: Service Date/Time: Tuesday, June 27, 2017 12:20 - CONCLUSION: 1. Postsurgical features with compensated cardiomegaly. 2. No acute abnormality or interval change. MD Florinda Harris VTE Risk Assessment Florinda VTE Risk Assessment: Mod/High Risk (score >= 2) Jamarcusrini Risk Assessment Model Point Value = 1 Point Value = 2 Point Value = 3 Point Value = 5 Age 41-60 Minor surgery BMI > 25 kg/m2 Swollen legs Varicose veins or History of unexplained or recurrent spontaneous Oral contraceptives or hormone replacement Sepsis (< 1 month) Serious lung disease, including pneumonia (< 1 month) Abnormal pulmonary function Acute myocardial infarction Congestive heart failure (< 1 month) History of inflammatory bowel disease Medical patient at bed rest Age 61-74 Arthroscopic surgery Major open surgery (> 45 min) Laparoscopic surgery (> 45 min) Malignancy Confined to bed (> 72 hours) Immobilizing plaster cast Central venous access Age >= 75 History of VTE Family history of VTE Factor V Leiden Prothrombin [id number] Lupus anticoagulant Anticardiolipin antibodies Elevated serum homocysteine Heparin-induced thrombocytopenia Other congenital or acquired thrombophilia Stroke (< 1 month) Elective arthroplasty Hip, pelvis, or leg fracture Acute spinal cord injury (< 1 month) Prophylaxis Regimen Total Risk Factor Score Risk Level Prophylaxis Regimen 0-1 Low Early ambulation 2 Moderate Order ONE of the following: *Sequential Compression Device (SCD) *Heparin 5000 units SQ BID 3-4 Higher Order ONE of the following medications: *Heparin 5000 units SQ TID *Enoxaparin/Lovenox 40 mg SQ daily (WT < 150 kg, CrCl > 30 mL/min) *Enoxaparin/Lovenox 30 mg SQ daily (WT < 150 kg, CrCl > 10-29 mL/min) *Enoxaparin/Lovenox 30 mg SQ BID (WT < 150 kg, CrCl > 30 mL/min) AND/OR *Sequential Compression Device (SCD) 5 or more Highest Order ONE of the following medications: *Heparin 5000 units SQ TID (Preferred with Epidurals) *Enoxaparin/Lovenox 40 mg SQ daily (WT < 150 kg, CrCl > 30 mL/min) *Enoxaparin/Lovenox 30 mg SQ daily (WT < 150 kg, CrCl > 10-29 mL/min) *Enoxaparin/Lovenox 30 mg SQ BID (WT < 150 kg, CrCl > 30 mL/min) AND *Sequential Compression Device (SCD) Assessment and Plan Problem List: (1) Symptomatic bradycardia ICD Code: R00.1 - Bradycardia, unspecified Status: Acute (2) Near syncope ICD Code: R55 - Syncope and collapse Status: Acute (3) CAD (coronary artery disease) ICD Code: I25.10 - Atherosclerotic heart disease of [place] coronary artery without angina pectoris Status: Chronic (4) Hypertension ICD Code: I10 - Essential (primary) hypertension Status: Chronic (5) Hyperlipidemia ICD Code: E78.5 - Hyperlipidemia, unspecified Status: Chronic (6) CVA (cerebral vascular accident) ICD Code: I63.9 - Cerebral infarction, unspecified Status: Chronic Assessment and Plan 82-year-old male with history of CAD s/p CABG x3 and stents x5, asthma, HTN, HLD , LIZZIE, CVA with residual right arm weakness, GERD, presents with a 3-4 week history of intermittent shortness of breath, lightheadedness, and weakness. Severe Symptomatic Bradycardia with High Degree AV Block: with +dyspnea/ lightheadedness. HR into low 40s on telemetry in the ED. EKG reviewed. Patient takes metoprolol 25mg bid. -Hold patient's metoprolol. -Monitor on telemetry -Outpatient Echo Sep 2016 showed EF 55% -Consulted patient's upholstery tech Dr. Hutchison, seen by Dr. Almonte, recommends monitoring off BB, however if bradycardia persists, may need PPM Elevated Troponin: trops 0.06 x2. Possible component of CHF with BNP 564, although echo in Sep 2016 with EF 55%, unclear if diastolic component. No complaints of chest pain. -continue to trend cardiac enzymes/EKGs -continue home meds -cardiology consulted and following HTN/HLD/CAD s/p CABG & Stenting: chronic, no complaints of chest pain -continue patient's home medications including aspirin, Plavix, statin, losartan, hctz -unable to tolerate BB secondary to bradycardia as above -monitor BP, adjust antihypertensives as needed Asthma: chronic however with recent dyspnea -will continue patient's home medications including albuterol nebs and Dulera CVA: chronic, with residual RUE weakness -continue patient's aspirin, plavix, and statin DVT Prophylaxis: Lovenox, teds/SCDs This note was transcribed by LEEANNE Hummel . I, Dr. Destinee Hawkins personally performed the history, physical exam, and medical decision making; and confirmed the accuracy of the information in the transcribed note. Authenticated by Dr. Destinee Hawkins on 06/27/17 at 13:42. Discussed Condition With Patient, Patient's , ER Catalina Rothman PA-C Jun 27, 2017 13:48 Destinee Hawkins MD Jun 28, 2017 07:36
--- NOTE | 2017-06-27 13:48 | HHI.HP ---
[facility] Service [facility] Primary Care Physician Raymon Dixon DO Admission Diagnosis Diagnoses: Chief Complaint: dyspnea, lightheadedness Travel History International Travel<30 Days: No Contact w/Intl Traveler <30 Da: No Traveled to Known Affected Are: No History of Present Illness Written by Catalina Shore, acting as scribe for Dr. Hawkins on 06/27/17 at 13: 42. 82-year-old male with history of CAD s/p CABG x3 and stents x5, asthma, HTN, HLD , LIZZIE, CVA with residual right arm weakness, GERD, presents with a 3-4 week history of intermittent shortness of breath, lightheadedness, and weakness. The patient reports these episodes will last 15-20 minutes and occur 2-3 times per day then subside spontaneously on its own. He cannot identify any aggravating or alleviating factors. He denies any associated chest pain or palpitations. This morning around 7am the patient had another episode of dizziness, weakness, and shortness of breath therefore he presented to the ED. His granddaughter is an PIPELINE GANG SUPERVISOR who works at a hospital in [place] who also urged him to come to the ER. The granddaughter has been checking his pulse and reportedly his heart rate went down to 39 last night. The patient reports he was very symptomatic with lightheadedness and shortness of breath when his heart rate was this low. He takes metoprolol daily and has not missed any doses. He was previously fairly active, goes to the gym daily, lifts weights and uses stationary bicycle; however he has had no energy recently and has been unable to go to the gym in the past 10 days. He sees departure clerk Dr. Hutchison, last seen 1.5 weeks ago, and was referred to [facility], has an upcoming appointment on 07/18. His last heart catheterization was 7years ago. He also has seen a electrolytic etcher in [place]. The patient denies any other medical complaints including no fevers/ chills, cough, chest pain, abdominal pain, nausea/vomiting, diarrhea/ constipation, or urinary complaints. Review of Systems Except as stated in HPI: all other systems reviewed are Neg Past Family Social History Past Medical History CAD s/p CABG and stents asthma HTN HLD LIZZIE but cannot tolerate CPAP CVA GERD arthritis Prostate cancer Past Surgical History CABG [id number] Cardiac catheterization with stents x5 Gastric bypass surgery Right forearm surgery with elvia and pin placement Right wrist bone shaved Bilateral cataract extractions Right total hip arthroplasty Bilateral knee surgery Tonsillectomy Prostate seed placement Reported Medications Dulera 120 Act Inh (Mometasone-Formoterol 120 Act Inh) 100-5 Mcg/Act Inh 2 Puff INH BID Aspirin 81 Mg Chew 81 Mg CHEW DAILY Proair Hfa 8.5 GM Inh (Albuterol Sulfate) 90 Mcg/Act Aer 2 Puff INH Q4-6H PRN 108 mcg/actuation Fish Oil ([place]-3 Fatty Acids) 500 Mg Cap Unknown Dose PO DAILY Preservision Areds (Multiple Vitamins W/ Minerals) 1 Tab 1 Tab PO DAILY Latanoprost Opth Drops (Latanoprost) 0.005% Drops 1 Drop EACH EYE HS Refrigerate until opened. Metoprolol Tartrate 25 Mg Tab 25 Mg PO BID Clopidogrel (Clopidogrel Bisulfate) 75 Mg Tab 75 Mg PO DAILY Losartan-Hydrochlorothiazide 50-12.5 Mg Tab 1 Tab PO DAILY Atorvastatin (Atorvastatin Calcium) 40 Mg Tab 40 Mg PO HS Montelukast (Montelukast Sodium) 10 Mg Tab 10 Mg PO DAILY Allergies: Coded Allergies: dog dander (Unverified Allergy, Severe, ASTHMA, 06/27/17) Active Ordered Medications Current Medications Medications (Trade) Dose Ordered Sig/Jenifer Route Start Time Stop Time Status Last Admin (NS Flush) 2 ml UNSCH PRN IVF 06/27/17 12:00 Family History Mother at age 80 secondary to CHF Father at age 67 secondary to ID Brother with lung cancer 2 brothers with ID Social History Lives at home with Denies any tobacco, alcohol, or illicit drug use Physical Exam Vital Signs Vital Signs Date Time Temp Pulse Resp B/P (MAP) Pulse Ox O2 Delivery O2 Flow Rate FiO2 06/27/17 12:03 48 166/72 (103) 152/65 (94) 06/27/17 12:02 99 Room Air 06/27/17 12:02 99 Room Air 06/27/17 11:58 100 06/27/17 11:29 97.6 46 17 198/84 (122) 98 Room Air Physical Exam GENERAL: Well-developed, well-nourished pleasant elderly male patient in [facility]. SKIN: Warm and dry. HEAD: Atraumatic. Normocephalic. EYES: Pupils equal and round. No scleral icterus. No injection or drainage. ENT: No nasal bleeding or discharge. Mucous membranes pink and moist. NECK: Trachea midline. No JVD. CARDIOVASCULAR: Bradycardic, regular rhythm. No murmur appreciated. RESPIRATORY: No accessory muscle use. Clear to auscultation. Breath sounds equal bilaterally. GASTROINTESTINAL: Abdomen soft, non-tender, nondistended. Hepatic and splenic margins not palpable. MUSCULOSKELETAL: No obvious deformities. 2+ bilateral lower extremity pitting edema. NEUROLOGICAL: Awake and alert. No obvious cranial nerve deficits. Motor grossly within normal limits. 5/5 strength throughout LUE/LLE/RLE, 4/5 strength with RUE. Normal speech. PSYCHIATRIC: Appropriate mood and affect; insight and judgment normal. Laboratory Laboratory Tests Test 06/27/17 12:00 White Blood Count 9.5 Red Blood Count 4.50 Hemoglobin 14.5 Hematocrit 42.5 Mean Corpuscular Volume 94.4 Mean Corpuscular Hemoglobin 32.3 Mean Corpuscular Hemoglobin Concent 34.2 Red Cell Distribution Width 14.6 Platelet Count 231 Mean Platelet Volume 7.5 Neutrophils (%) (Auto) 73.0 Lymphocytes (%) (Auto) 17.8 Monocytes (%) (Auto) 7.3 Eosinophils (%) (Auto) 1.4 Basophils (%) (Auto) 0.5 Neutrophils # (Auto) 7.0 Lymphocytes # (Auto) 1.7 Monocytes # (Auto) 0.7 Eosinophils # (Auto) 0.1 Basophils # (Auto) 0.0 CBC Comment DIFF FINAL Differential Comment Prothrombin Time 11.7 Prothromb Time International Ratio 1.1 Activated Partial Thromboplast Time 24.6 Blood Urea Nitrogen 28 Creatinine 1.08 Random Glucose 127 Calcium Level 9.1 Magnesium Level 2.2 Sodium Level 133 Potassium Level 5.0 Chloride Level 101 Carbon Dioxide Level 24.9 Anion Gap 7 Estimat Glomerular Filtration Rate 65 Total Creatine Kinase 145 Creatine Kinase MB 2.6 Troponin I 0.06 B-Type Natriuretic Peptide 564 Result Diagram: 06/27/17 1200 06/27/17 1200 Imaging Last Impressions Chest X-Ray 10/30/17 3023 Signed Impressions: Service Date/Time: Tuesday, June 27, 2017 12:20 - CONCLUSION: 1. Postsurgical features with compensated cardiomegaly. 2. No acute abnormality or interval change. MD Florinda Harris VTE Risk Assessment Florinda VTE Risk Assessment: Mod/High Risk (score >= 2) Jamarcusrini Risk Assessment Model Point Value = 1 Point Value = 2 Point Value = 3 Point Value = 5 Age 41-60 Minor surgery BMI > 25 kg/m2 Swollen legs Varicose veins or History of unexplained or recurrent spontaneous Oral contraceptives or hormone replacement Sepsis (< 1 month) Serious lung disease, including pneumonia (< 1 month) Abnormal pulmonary function Acute myocardial infarction Congestive heart failure (< 1 month) History of inflammatory bowel disease Medical patient at bed rest Age 61-74 Arthroscopic surgery Major open surgery (> 45 min) Laparoscopic surgery (> 45 min) Malignancy Confined to bed (> 72 hours) Immobilizing plaster cast Central venous access Age >= 75 History of VTE Family history of VTE Factor V Leiden Prothrombin [id number] Lupus anticoagulant Anticardiolipin antibodies Elevated serum homocysteine Heparin-induced thrombocytopenia Other congenital or acquired thrombophilia Stroke (< 1 month) Elective arthroplasty Hip, pelvis, or leg fracture Acute spinal cord injury (< 1 month) Prophylaxis Regimen Total Risk Factor Score Risk Level Prophylaxis Regimen 0-1 Low Early ambulation 2 Moderate Order ONE of the following: *Sequential Compression Device (SCD) *Heparin 5000 units SQ BID 3-4 Higher Order ONE of the following medications: *Heparin 5000 units SQ TID *Enoxaparin/Lovenox 40 mg SQ daily (WT < 150 kg, CrCl > 30 mL/min) *Enoxaparin/Lovenox 30 mg SQ daily (WT < 150 kg, CrCl > 10-29 mL/min) *Enoxaparin/Lovenox 30 mg SQ BID (WT < 150 kg, CrCl > 30 mL/min) AND/OR *Sequential Compression Device (SCD) 5 or more Highest Order ONE of the following medications: *Heparin 5000 units SQ TID (Preferred with Epidurals) *Enoxaparin/Lovenox 40 mg SQ daily (WT < 150 kg, CrCl > 30 mL/min) *Enoxaparin/Lovenox 30 mg SQ daily (WT < 150 kg, CrCl > 10-29 mL/min) *Enoxaparin/Lovenox 30 mg SQ BID (WT < 150 kg, CrCl > 30 mL/min) AND *Sequential Compression Device (SCD) Assessment and Plan Problem List: (1) Symptomatic bradycardia ICD Code: R00.1 - Bradycardia, unspecified Status: Acute (2) Near syncope ICD Code: R55 - Syncope and collapse Status: Acute (3) CAD (coronary artery disease) ICD Code: I25.10 - Atherosclerotic heart disease of [place] coronary artery without angina pectoris Status: Chronic (4) Hypertension ICD Code: I10 - Essential (primary) hypertension Status: Chronic (5) Hyperlipidemia ICD Code: E78.5 - Hyperlipidemia, unspecified Status: Chronic (6) CVA (cerebral vascular accident) ICD Code: I63.9 - Cerebral infarction, unspecified Status: Chronic Assessment and Plan 82-year-old male with history of CAD s/p CABG x3 and stents x5, asthma, HTN, HLD , LIZZIE, CVA with residual right arm weakness, GERD, presents with a 3-4 week history of intermittent shortness of breath, lightheadedness, and weakness. Severe Symptomatic Bradycardia with High Degree AV Block: with +dyspnea/ lightheadedness. HR into low 40s on telemetry in the ED. EKG reviewed. Patient takes metoprolol 25mg bid. -Hold patient's metoprolol. -Monitor on telemetry -Outpatient Echo Sep 2016 showed EF 55% -Consulted patient's departure clerk Dr. Hutchison, seen by Dr. Almonte, recommends monitoring off BB, however if bradycardia persists, may need PPM Elevated Troponin: trops 0.06 x2. Possible component of CHF with BNP 564, although echo in Sep 2016 with EF 55%, unclear if diastolic component. No complaints of chest pain. -continue to trend cardiac enzymes/EKGs -continue home meds -cardiology consulted and following HTN/HLD/CAD s/p CABG & Stenting: chronic, no complaints of chest pain -continue patient's home medications including aspirin, Plavix, statin, losartan, hctz -unable to tolerate BB secondary to bradycardia as above -monitor BP, adjust antihypertensives as needed Asthma: chronic however with recent dyspnea -will continue patient's home medications including albuterol nebs and Dulera CVA: chronic, with residual RUE weakness -continue patient's aspirin, plavix, and statin DVT Prophylaxis: Lovenox, teds/SCDs This note was transcribed by LEEANNE Hummel . I, Dr. Destinee Hawkins personally performed the history, physical exam, and medical decision making; and confirmed the accuracy of the information in the transcribed note. Authenticated by Dr. Destinee Hawkins on 06/27/17 at 13:42. Discussed Condition With Patient, Patient's , ER Catalina Rothman PA-C Jun 27, 2017 13:48 Destinee Hawkins MD Jun 28, 2017 07:36
--- NOTE | 2017-06-27 13:48 | HHI.HP ---
[facility] Service [facility] Primary Care Physician Raymon Dixon DO Admission Diagnosis Diagnoses: Chief Complaint: dyspnea, lightheadedness Travel History International Travel<30 Days: No Contact w/Intl Traveler <30 Da: No Traveled to Known Affected Are: No History of Present Illness Written by Catalina Shore, acting as scribe for Dr. Hawkins on 06/27/17 at 13: 42. 82-year-old male with history of CAD s/p CABG x3 and stents x5, asthma, HTN, HLD , LIZZIE, CVA with residual right arm weakness, GERD, presents with a 3-4 week history of intermittent shortness of breath, lightheadedness, and weakness. The patient reports these episodes will last 15-20 minutes and occur 2-3 times per day then subside spontaneously on its own. He cannot identify any aggravating or alleviating factors. He denies any associated chest pain or palpitations. This morning around 7am the patient had another episode of dizziness, weakness, and shortness of breath therefore he presented to the ED. His granddaughter is an VICE PRESIDENT OF TALENT MANAGEMENT who works at a hospital in [place] who also urged him to come to the ER. The granddaughter has been checking his pulse and reportedly his heart rate went down to 39 last night. The patient reports he was very symptomatic with lightheadedness and shortness of breath when his heart rate was this low. He takes metoprolol daily and has not missed any doses. He was previously fairly active, goes to the gym daily, lifts weights and uses stationary bicycle; however he has had no energy recently and has been unable to go to the gym in the past 10 days. He sees ultrasonic welding machine operator Dr. Hutchison, last seen 1.5 weeks ago, and was referred to [facility], has an upcoming appointment on 07/18. His last heart catheterization was 7years ago. He also has seen a fire equipment inspector in [place]. The patient denies any other medical complaints including no fevers/ chills, cough, chest pain, abdominal pain, nausea/vomiting, diarrhea/ constipation, or urinary complaints. Review of Systems Except as stated in HPI: all other systems reviewed are Neg Past Family Social History Past Medical History CAD s/p CABG and stents asthma HTN HLD LIZZIE but cannot tolerate CPAP CVA GERD arthritis Prostate cancer Past Surgical History CABG [id number] Cardiac catheterization with stents x5 Gastric bypass surgery Right forearm surgery with elvia and pin placement Right wrist bone shaved Bilateral cataract extractions Right total hip arthroplasty Bilateral knee surgery Tonsillectomy Prostate seed placement Reported Medications Dulera 120 Act Inh (Mometasone-Formoterol 120 Act Inh) 100-5 Mcg/Act Inh 2 Puff INH BID Aspirin 81 Mg Chew 81 Mg CHEW DAILY Proair Hfa 8.5 GM Inh (Albuterol Sulfate) 90 Mcg/Act Aer 2 Puff INH Q4-6H PRN 108 mcg/actuation Fish Oil (Rochelle-3 Fatty Acids) 500 Mg Cap Unknown Dose PO DAILY Preservision Areds (Multiple Vitamins W/ Minerals) 1 Tab 1 Tab PO DAILY Latanoprost Opth Drops (Latanoprost) 0.005% Drops 1 Drop EACH EYE HS Refrigerate until opened. Metoprolol Tartrate 25 Mg Tab 25 Mg PO BID Clopidogrel (Clopidogrel Bisulfate) 75 Mg Tab 75 Mg PO DAILY Losartan-Hydrochlorothiazide 50-12.5 Mg Tab 1 Tab PO DAILY Atorvastatin (Atorvastatin Calcium) 40 Mg Tab 40 Mg PO HS Montelukast (Montelukast Sodium) 10 Mg Tab 10 Mg PO DAILY Allergies: Coded Allergies: dog dander (Unverified Allergy, Severe, ASTHMA, 06/27/17) Active Ordered Medications Current Medications Medications (Trade) Dose Ordered Sig/Jenifer Route Start Time Stop Time Status Last Admin (NS Flush) 2 ml UNSCH PRN IVF 06/27/17 12:00 Family History Mother at age 80 secondary to CHF Father at age 67 secondary to MT Brother with lung cancer 2 brothers with MT Social History Lives at home with Denies any tobacco, alcohol, or illicit drug use Physical Exam Vital Signs Vital Signs Date Time Temp Pulse Resp B/P (MAP) Pulse Ox O2 Delivery O2 Flow Rate FiO2 06/27/17 12:03 48 166/72 (103) 152/65 (94) 06/27/17 12:02 99 Room Air 06/27/17 12:02 99 Room Air 06/27/17 11:58 100 06/27/17 11:29 97.6 46 17 198/84 (122) 98 Room Air Physical Exam GENERAL: Well-developed, well-nourished pleasant elderly male patient in [facility]. SKIN: Warm and dry. HEAD: Atraumatic. Normocephalic. EYES: Pupils equal and round. No scleral icterus. No injection or drainage. ENT: No nasal bleeding or discharge. Mucous membranes pink and moist. NECK: Trachea midline. No JVD. CARDIOVASCULAR: Bradycardic, regular rhythm. No murmur appreciated. RESPIRATORY: No accessory muscle use. Clear to auscultation. Breath sounds equal bilaterally. GASTROINTESTINAL: Abdomen soft, non-tender, nondistended. Hepatic and splenic margins not palpable. MUSCULOSKELETAL: No obvious deformities. 2+ bilateral lower extremity pitting edema. NEUROLOGICAL: Awake and alert. No obvious cranial nerve deficits. Motor grossly within normal limits. 5/5 strength throughout LUE/LLE/RLE, 4/5 strength with RUE. Normal speech. PSYCHIATRIC: Appropriate mood and affect; insight and judgment normal. Laboratory Laboratory Tests Test 06/27/17 12:00 White Blood Count 9.5 Red Blood Count 4.50 Hemoglobin 14.5 Hematocrit 42.5 Mean Corpuscular Volume 94.4 Mean Corpuscular Hemoglobin 32.3 Mean Corpuscular Hemoglobin Concent 34.2 Red Cell Distribution Width 14.6 Platelet Count 231 Mean Platelet Volume 7.5 Neutrophils (%) (Auto) 73.0 Lymphocytes (%) (Auto) 17.8 Monocytes (%) (Auto) 7.3 Eosinophils (%) (Auto) 1.4 Basophils (%) (Auto) 0.5 Neutrophils # (Auto) 7.0 Lymphocytes # (Auto) 1.7 Monocytes # (Auto) 0.7 Eosinophils # (Auto) 0.1 Basophils # (Auto) 0.0 CBC Comment DIFF FINAL Differential Comment Prothrombin Time 11.7 Prothromb Time International Ratio 1.1 Activated Partial Thromboplast Time 24.6 Blood Urea Nitrogen 28 Creatinine 1.08 Random Glucose 127 Calcium Level 9.1 Magnesium Level 2.2 Sodium Level 133 Potassium Level 5.0 Chloride Level 101 Carbon Dioxide Level 24.9 Anion Gap 7 Estimat Glomerular Filtration Rate 65 Total Creatine Kinase 145 Creatine Kinase MB 2.6 Troponin I 0.06 B-Type Natriuretic Peptide 564 Result Diagram: 06/27/17 1200 06/27/17 1200 Imaging Last Impressions Chest X-Ray 10/30/17 4153 Signed Impressions: Service Date/Time: Tuesday, June 27, 2017 12:20 - CONCLUSION: 1. Postsurgical features with compensated cardiomegaly. 2. No acute abnormality or interval change. MD Florinda Harris VTE Risk Assessment Florinda VTE Risk Assessment: Mod/High Risk (score >= 2) Jamarcusrini Risk Assessment Model Point Value = 1 Point Value = 2 Point Value = 3 Point Value = 5 Age 41-60 Minor surgery BMI > 25 kg/m2 Swollen legs Varicose veins or History of unexplained or recurrent spontaneous Oral contraceptives or hormone replacement Sepsis (< 1 month) Serious lung disease, including pneumonia (< 1 month) Abnormal pulmonary function Acute myocardial infarction Congestive heart failure (< 1 month) History of inflammatory bowel disease Medical patient at bed rest Age 61-74 Arthroscopic surgery Major open surgery (> 45 min) Laparoscopic surgery (> 45 min) Malignancy Confined to bed (> 72 hours) Immobilizing plaster cast Central venous access Age >= 75 History of VTE Family history of VTE Factor V Leiden Prothrombin [id number] Lupus anticoagulant Anticardiolipin antibodies Elevated serum homocysteine Heparin-induced thrombocytopenia Other congenital or acquired thrombophilia Stroke (< 1 month) Elective arthroplasty Hip, pelvis, or leg fracture Acute spinal cord injury (< 1 month) Prophylaxis Regimen Total Risk Factor Score Risk Level Prophylaxis Regimen 0-1 Low Early ambulation 2 Moderate Order ONE of the following: *Sequential Compression Device (SCD) *Heparin 5000 units SQ BID 3-4 Higher Order ONE of the following medications: *Heparin 5000 units SQ TID *Enoxaparin/Lovenox 40 mg SQ daily (WT < 150 kg, CrCl > 30 mL/min) *Enoxaparin/Lovenox 30 mg SQ daily (WT < 150 kg, CrCl > 10-29 mL/min) *Enoxaparin/Lovenox 30 mg SQ BID (WT < 150 kg, CrCl > 30 mL/min) AND/OR *Sequential Compression Device (SCD) 5 or more Highest Order ONE of the following medications: *Heparin 5000 units SQ TID (Preferred with Epidurals) *Enoxaparin/Lovenox 40 mg SQ daily (WT < 150 kg, CrCl > 30 mL/min) *Enoxaparin/Lovenox 30 mg SQ daily (WT < 150 kg, CrCl > 10-29 mL/min) *Enoxaparin/Lovenox 30 mg SQ BID (WT < 150 kg, CrCl > 30 mL/min) AND *Sequential Compression Device (SCD) Assessment and Plan Problem List: (1) Symptomatic bradycardia ICD Code: R00.1 - Bradycardia, unspecified Status: Acute (2) Near syncope ICD Code: R55 - Syncope and collapse Status: Acute (3) CAD (coronary artery disease) ICD Code: I25.10 - Atherosclerotic heart disease of [place] coronary artery without angina pectoris Status: Chronic (4) Hypertension ICD Code: I10 - Essential (primary) hypertension Status: Chronic (5) Hyperlipidemia ICD Code: E78.5 - Hyperlipidemia, unspecified Status: Chronic (6) CVA (cerebral vascular accident) ICD Code: I63.9 - Cerebral infarction, unspecified Status: Chronic Assessment and Plan 82-year-old male with history of CAD s/p CABG x3 and stents x5, asthma, HTN, HLD , LIZZIE, CVA with residual right arm weakness, GERD, presents with a 3-4 week history of intermittent shortness of breath, lightheadedness, and weakness. Severe Symptomatic Bradycardia with High Degree AV Block: with +dyspnea/ lightheadedness. HR into low 40s on telemetry in the ED. EKG reviewed. Patient takes metoprolol 25mg bid. -Hold patient's metoprolol. -Monitor on telemetry -Outpatient Echo Sep 2016 showed EF 55% -Consulted patient's ultrasonic welding machine operator Dr. Hutchison, seen by Dr. Almonte, recommends monitoring off BB, however if bradycardia persists, may need PPM Elevated Troponin: trops 0.06 x2. Possible component of CHF with BNP 564, although echo in Sep 2016 with EF 55%, unclear if diastolic component. No complaints of chest pain. -continue to trend cardiac enzymes/EKGs -continue home meds -cardiology consulted and following HTN/HLD/CAD s/p CABG & Stenting: chronic, no complaints of chest pain -continue patient's home medications including aspirin, Plavix, statin, losartan, hctz -unable to tolerate BB secondary to bradycardia as above -monitor BP, adjust antihypertensives as needed Asthma: chronic however with recent dyspnea -will continue patient's home medications including albuterol nebs and Dulera CVA: chronic, with residual RUE weakness -continue patient's aspirin, plavix, and statin DVT Prophylaxis: Lovenox, teds/SCDs This note was transcribed by LEEANNE Hummel . I, Dr. Destinee Hawkins personally performed the history, physical exam, and medical decision making; and confirmed the accuracy of the information in the transcribed note. Authenticated by Dr. Destinee Hawkins on 06/27/17 at 13:42. Discussed Condition With Patient, Patient's , ER Catalina Rothman PA-C Jun 27, 2017 13:48 Destinee Hawkins MD Jun 28, 2017 07:36
--- NOTE | 2017-06-27 13:56 | PD ---
Physical Exam Date Seen by Provider: Jun 27, 2017 Time Seen by Provider: 13:40 Narrative Seen this patient with Andrea Workman PA-C. This is a patient presents with several episodes of near syncope. The patient states his daughter is not a PE as checked his pulse when these episodes happen in his found him to be bradycardic. Previous EKG that we see from 2016 shows first-degree AV block. EKG here today shows sinus arrhythmia with CO intervals that are not fixed. Data Data Last Documented VS Vital Signs Date Time Temp Pulse Resp B/P (MAP) Pulse Ox O2 Delivery O2 Flow Rate FiO2 06/27/17 12:03 48 166/72 (103) 152/65 (94) 06/27/17 12:02 99 Room Air 06/27/17 11:29 97.6 17 Orders Orders Electrocardiogram (06/27/17 11:53) Basic Metabolic Panel (Bmp) (06/27/17 11:53) Ckmb (Isoenzyme) Profile (06/27/17 11:53) Complete Blood Count With Diff (06/27/17 11:53) Magnesium (Mg) (06/27/17 11:53) Prothrombin Time / Inr (Pt) (06/27/17 11:53) Act Partial Throm Time (Ptt) (06/27/17 11:53) Troponin I (06/27/17 11:53) Chest, Single Ap (06/27/17 11:53) Ecg Monitoring (06/27/17 11:53) Bilateral Bp Monitoring (06/27/17 11:53) Iv Access Insert/Monitor (06/27/17 11:53) Oximetry (06/27/17 11:53) Oxygen Administration (06/27/17 11:53) Sodium Chloride 0.9% Flush (Ns Flush) (06/27/17 12:00) B-Type Natriuretic Peptide (06/27/17 11:55) CKMB (06/27/17 12:00) CKMB% (06/27/17 12:00) Consult Cardiology (06/27/17 ) Admit To Inpatient (06/27/17 ) Vital Signs (Adult) Q4H (06/27/17 13:43) Activity Oob With Assistance (06/27/17 13:43) Pit Worker Power Shovel / Telemetry .CONTINUOUS (06/27/17 13:43) Intake + Output DINESH.QSHIFT (06/27/17 13:43) Diet Heart Healthy (06/27/17 Lunch) Sodium Chloride 0.9% Flush (Ns Flush) (06/27/17 13:45) Sodium Chloride 0.9% Flush (Ns Flush) (06/27/17 21:00) Acetaminophen (Tylenol) (06/27/17 13:45) Ondansetron Inj (Zofran Inj) (06/27/17 13:45) Comprehensive Metabolic Panel (06/28/17 06:00) Complete Blood Count With Diff (06/28/17 06:00) Troponin I (06/27/17 13:43) Troponin I (06/27/17 19:43) Electrocardiogram (06/27/17 13:43) Electrocardiogram (06/27/17 19:43) Resp Oxygen Irwin C Titrat 1-4 L (06/27/17 ) Pt Request For Service (06/27/17 13:43) Case Management Consult (06/27/17 13:43) Enoxaparin Inj (Lovenox Inj) (06/27/17 13:45) Scd Bilateral/Knee High DINESH.BID (06/27/17 13:43) Elia Bilateral/Knee High DINESH.QSHIFT (06/27/17 13:43) Naloxone Inj (Narcan Inj) (06/27/17 13:45) Docusate Sodium-Senna (Karen-Colace) (06/27/17 21:00) Magnesium Hydroxide Liq (Milk Of Magnesi (06/27/17 13:45) Sennosides (Senokot) (06/27/17 13:45) Bisacodyl Supp (Dulcolax Supp) (06/27/17 13:45) Lactulose Liq (Lactulose Liq) (06/27/17 13:45) Inpatient Certification (06/27/17 ) Admit Order (Ed Use Only) (06/27/17 13:44) Labs Laboratory Tests Test 06/27/17 12:00 White Blood Count 9.5 TH/MM3 Red Blood Count 4.50 MIL/MM3 Hemoglobin 14.5 GM/DL Hematocrit 42.5 % Mean Corpuscular Volume 94.4 FL Mean Corpuscular Hemoglobin 32.3 PG Mean Corpuscular Hemoglobin Concent 34.2 % Red Cell Distribution Width 14.6 % Platelet Count 231 TH/MM3 Mean Platelet Volume 7.5 FL Neutrophils (%) (Auto) 73.0 % Lymphocytes (%) (Auto) 17.8 % Monocytes (%) (Auto) 7.3 % Eosinophils (%) (Auto) 1.4 % Basophils (%) (Auto) 0.5 % Neutrophils # (Auto) 7.0 TH/MM3 Lymphocytes # (Auto) 1.7 TH/MM3 Monocytes # (Auto) 0.7 TH/MM3 Eosinophils # (Auto) 0.1 TH/MM3 Basophils # (Auto) 0.0 TH/MM3 CBC Comment DIFF FINAL Differential Comment Prothrombin Time 11.7 SEC Prothromb Time International Ratio 1.1 RATIO Activated Partial Thromboplast Time 24.6 SEC Blood Urea Nitrogen 28 MG/DL Creatinine 1.08 MG/DL Random Glucose 127 MG/DL Calcium Level 9.1 MG/DL Magnesium Level 2.2 MG/DL Sodium Level 133 MEQ/L Potassium Level 5.0 MEQ/L Chloride Level 101 MEQ/L Carbon Dioxide Level 24.9 MEQ/L Anion Gap 7 MEQ/L Estimat Glomerular Filtration Rate 65 ML/MIN Total Creatine Kinase 145 U/L Creatine Kinase MB 2.6 NG/ML Troponin I 0.06 NG/ML B-Type Natriuretic Peptide 564 PG/ML [facility] Medical Record Reviewed: Yes Supervised Visit with TOYA: Yes Differential Diagnosis 82-year-old male history of coronary artery disease, presents today with complaints of near-syncopal episodes. The patient is noted to have sinus arrhythmia with bradycardic rate. His rate goes from the 40s to the low 50s. Troponin is slightly elevated at 0.06. Given his history, it sounds like he is having cardiac near-syncopal episodes. He'll be admitted to the hospital. The case was discussed with Dr. Hawkins, [facility]. 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 He'll likely need to have a consult with Dr. Hutchison. Diagnosis Primary Impression: Symptomatic bradycardia Additional Impressions: Near syncope CAD (coronary artery disease) Hypertension Hyperlipidemia Admitting Information Admitting Physician Requests: Admit Gokul Ho MD Jun 27, 2017 13:56
[2017-06-27] MEDS ORDERED: ENOXAPARIN SODIUM 40 MG/0.4 ML SYRINGE SQ SCH (15:00)
[2017-06-27] MEDS ORDERED: ALBUTEROL SULFATE 90 MCG/ACT HFA 8 GM INHALER INH PRN (15:00)
[2017-06-27 16:00] VITALS: BP 149/67; PULSE 46; RESP 18; TEMP 98; O2SAT 98
--- NOTE | 2017-06-27 16:23 | MB ---
cc: JOEYAMADEOKILLIAN DATE OF CONSULTATION 06/27/2017 HISTORY Mr. Smith is an 82-year-old white male, a patient of Dr. Hutchison with history of coronary artery disease, three-vessel coronary artery bypass, multiple stents, CVA who presented with generalized weakness, shortness of breath, lightheadedness and presyncope. This has been going on for the last several weeks. He has not had any chest pain. He saw Dr. Hutchison last time on 06/16. He was found to have significant bradycardia. PAST MEDICAL HISTORY Positive for: 1. Coronary artery disease. 2. Three vessel bypass in 1992 and five stents in 2004. 3. Angioplasty in 2009. 4. History of carotid stenosis followed by Dr. Cevallos. 5. Hypertension. 6. Dyslipidemia. 7. Cerebrovascular accident in 12/2015 followed by left carotid endarterectomy in December of 2015. 8. His outpatient monitoring in 06/2016 showed no evidence of atrial fibrillation. 9. Past medical history is also positive for total occlusion of the right internal carotid artery. 10. History of prostate cancer. 11. Obesity. 12. Lap band surgery. 13. Right bundle-branch block. 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 15. Left ventricular hypertrophy. 16. Pulmonary hypertension. 17. Knee surgery. 18. Melanoma surgery right arm. 19. Cataract surgery. 20. Hip replacement. 21. Cholecystectomy. 22. Appendectomy. 23. Right arm and right leg orthopedic surgery. 24. Right wrist surgery. MEDICATIONS At home include: 1. Aspirin. 2. Plavix. 3. Singulair. 4. Losartan. 5. Lipitor. 6. Metoprolol 25 mg twice a day. 7. ProAir. 8. Preservision. 9. Vitamin D. 10. Tylenol. 11. Fish oil. 12. Aleve. 13. Multivitamin. 14. Lisinopril. 15. Dulera which has been discontinued. ALLERGIES None. SOCIAL HISTORY The patient does not smoke, does not drink alcohol. He is accompanied by his . FAMILY HISTORY Positive for heart disease in multiple family members. REVIEW OF SYSTEMS Otherwise negative. PHYSICAL EXAMINATION VITAL SIGNS: Blood pressure 152/65, pulse 47 and irregular. HEENT: Negative. 2+ carotid upstrokes. No bruits. LUNGS: Clear. HEART: Irregular with no murmur, gallop or rub. ABDOMEN: Soft. No bruits. EXTREMITIES: Without edema. 1-2+ distal pulses. NEUROLOGIC: Examination is grossly nonfocal. EKG was reviewed and showed sinus rhythm, high degree A-V block with junctional escape rhythm and occasional captured beats, indeterminate axis, right bundle-branch block. Telemetry shows high degree A-V block. LABORATORY DATA Hemoglobin 14.5. Potassium 5.0, creatinine 1.08, magnesium 2.2. CK 145. Troponin 0.06. BNP 564. DIAGNOSES 1. High degree AV block with severe symptomatic bradycardia. 2. Coronary artery disease, history of coronary bypass and coronary stenting. 3. Peripheral vascular disease, total occlusion of the right internal carotid artery, status post left carotid endarterectomy. 4. History of cerebrovascular accident. 5. Hypertension. 6. Dyslipidemia. DISPOSITION Mr. Smith presented with a high degree AV block and severe symptomatic bradycardia. We will discontinue metoprolol which is likely contributing to his AV block. If his A-V block and severe bradycardia persists off metoprolol, we will consider placement of permanent pacemaker. The patient had an echocardiogram in 09/[address] Hutchison which showed an ejection fraction of 55%. He has not had any recent angina. I will follow him for cardiology during his hospitalization. He will be scheduled to see Dr. Hutchison, his primary machine maintenance mechanic, in his office after discharge. Lizzy Almonte MD OQ/KK /3:33 PM /3:54 PM
[2017-06-27 20:00] VITALS: BP 158/99; PULSE 44; PULSE 50; RESP 20; TEMP 97.6; O2SAT 97
[2017-06-27] MEDS: SODIUM CHLORIDE 0.9% FLUSH 10 ML FLUSH IV FLUSH SCH (20:47)
[2017-06-27] MEDS: DOCUSATE SODIUM 50 MG/SENNA 8.6 MG TAB PO SCH (20:47)
[2017-06-27] MEDS ORDERED: DULERA INH SCH (21:00)
[2017-06-28] VITALS (10 sets, daily range): BP systolic 120–165; BP diastolic 59–87; PULSE 41–53; RESP 18–20; TEMP 97.2–98.2; O2SAT 96–100
[2017-06-28 07:45] LABS: AUTOMATED NEUTROPHIL # 5.7 TH/MM3 (1.8-7.7); BASOPHIL % 0.5 % (0.0-2.0); EOSINOPHIL # 0.2 TH/MM3 (0-0.4); EOSINOPHIL % 2.4 % (0.0-4.0); HEMOGLOBIN 14.7 GM/DL (13.0-17.0); LYMPH % 21.6 % (9.0-44.0); LYMPHOCYTE # 1.8 TH/MM3 (1.0-4.8); MEAN CELL VOLUME 94.1 FL (80.0-100.0); MEAN CORPUSCULAR HEMOGLOBIN 32.9 PG (27.0-34.0); MEAN PLATELET VOLUME 7.7 FL (7.0-11.0); MONO % 8.6 % (0.0-8.0); MONOCYTE # 0.7 TH/MM3 (0-0.9); NEUT % 66.9 % (16.0-70.0); PLATELET COUNT 216 TH/MM3 (150-450); RED BLOOD COUNT 4.46 MIL/MM3 (4.50-5.90); RED CELL DISTRIBUTION WIDTH 14.6 % (11.6-17.2); WHITE BLOOD COUNT 8.5 TH/MM3 (4.0-11.0)
[2017-06-28 08:17] LABS: ALKALINE PHOSPHATASE 87 U/L (45-117); ALT (GPT) 38 U/L (12-78); AST (GOT) 24 U/L (15-37); BICARBONATE 25.8 MEQ/L (21.0-32.0); BLOOD UREA NITROGEN 24 MG/DL (7-18); CALCIUM 9.1 MG/DL (8.5-10.1); CHLORIDE 103 MEQ/L (98-107); CREATININE 0.93 MG/DL (0.60-1.30); GLOMERULAR FILTRATION RATE 78 ML/MIN (>89); GLUCOSE,RANDOM 94 MG/DL (74-106); SODIUM (NA) 136 MEQ/L (136-145); TOTAL BILIRUBIN ADULT 0.8 MG/DL (0.2-1.0); TOTAL PROTEIN 7.6 GM/DL (6.4-8.2)
[2017-06-28] MEDS ORDERED: CLOPIDOGREL 75 MG TAB PO SCH (09:00)
[2017-06-28] MEDS ORDERED: NON-FORMULARY DRUG (Losartan-Hydrochlorothiazide 1 TAB) PO SCH (09:00)
[2017-06-28] MEDS: MONTELUKAST SODIUM 10 MG TAB PO SCH (09:22)
[2017-06-28] MEDS: HYDROCHLOROTHIAZIDE 12.5 MG CAP PO SCH (09:23)
[2017-06-28] MEDS: LOSARTAN 50 MG TAB PO SCH (09:23)
[2017-06-28] MEDS: DOCUSATE SODIUM 50 MG/SENNA 8.6 MG TAB PO SCH ×2 (09:23→20:55)
[2017-06-28] MEDS: ASPIRIN 81 MG CHEW TAB CHEW SCH (09:23)
[2017-06-28] MEDS: SODIUM CHLORIDE 0.9% FLUSH 10 ML FLUSH IV FLUSH SCH ×2 (09:24→20:55)
--- NOTE | 2017-06-28 15:10 | HHI.PR ---
Subjective Remarks Pt seen earlier. and daughter at bedside. Feels better. Still has SOB w ambulation which is chronic for him but no chest pains or lightheadedness or dizziness. Denies any CP/N/V Objective Vitals Vital Signs Date Time Temp Pulse Resp B/P (MAP) Pulse Ox O2 Delivery O2 Flow Rate FiO2 06/28/17 12:00 97.4 47 20 132/87 (102) 98 06/28/17 08:20 96 21 06/28/17 08:02 43 06/28/17 08:00 98.2 47 20 165/71 (102) 98 06/28/17 07:00 Room Air 06/28/17 04:00 Room Air 06/28/17 04:00 97.6 41 20 150/70 (96) 99 06/28/17 00:02 98 06/28/17 00:00 Room Air 06/28/17 00:00 97.6 42 18 133/59 (83) 100 06/27/17 20:00 44 06/27/17 20:00 Room Air 06/27/17 20:00 97.6 50 20 158/99 (118) 97 06/27/17 16:26 06/27/17 16:00 98.0 46 18 149/67 (94) 98 I/O 06/27/17 06/27/17 06/27/17 06/28/17 06/28/17 06/28/17 06:59 14:59 22:59 06:59 14:59 22:59 Intake Total 240 ml 480 ml Output Total 400 ml Balance -160 ml 480 ml Intake Oral 240 ml 480 ml Output Urine Total 400 ml # Voids 3 # Bowel Movements 1 Result Diagram: 06/28/17 0620 06/28/17 0620 Imaging Last Impressions Chest X-Ray 06/27/17 1153 Signed Impressions: Service Date/Time: Tuesday, June 27, 2017 12:20 - CONCLUSION: 1. Postsurgical features with compensated cardiomegaly. 2. No acute abnormality or interval change. Darrin Roger MD Objective Remarks GENERAL: Well-developed, well-nourished pleasant elderly male patient in NAD. EYES: EOMI NECK: Trachea midline. No JVD. CARDIOVASCULAR: Bradycardic, regular rhythm. No murmur appreciated. RESPIRATORY: No accessory muscle use. Clear to auscultation. Breath sounds equal bilaterally. GASTROINTESTINAL: Abdomen soft, non-tender, nondistended. Hepatic and splenic margins not palpable. MUSCULOSKELETAL: No obvious deformities. 2+ bilateral lower extremity pitting edema. NEUROLOGICAL: Awake and alert. No obvious cranial nerve deficits. moves his extremities. Normal speech. PSYCHIATRIC: Appropriate mood and affect; insight and judgment normal. A/P Problem List: (1) Symptomatic bradycardia ICD Code: R00.1 - Bradycardia, unspecified Status: Acute (2) Near syncope ICD Code: R55 - Syncope and collapse Status: Acute (3) CAD (coronary artery disease) ICD Code: I25.10 - Atherosclerotic heart disease of [place] coronary artery without angina pectoris Status: Chronic (4) Hypertension ICD Code: I10 - Essential (primary) hypertension Status: Chronic (5) Hyperlipidemia ICD Code: E78.5 - Hyperlipidemia, unspecified Status: Chronic (6) CVA (cerebral vascular accident) ICD Code: I63.9 - Cerebral infarction, unspecified Status: Chronic Assessment and Plan 82-year-old male with history of CAD s/p CABG x3 and stents x5, asthma, HTN, HLD , LIZZIE, CVA with residual right arm weakness, GERD, presents with a 3-4 week history of intermittent shortness of breath, lightheadedness, and weakness. Severe Symptomatic Bradycardia with High Degree AV Block: with +dyspnea/ lightheadedness. HR into low 40s on telemetry in the ED. EKG reviewed. Patient on metoprolol 25mg bid at home. -cardiology following. Recommends to continue to Hold patient's metoprolol. -Outpatient Echo Sep 2016 showed EF 55% - if bradycardia persists, cards will consider placement of permanent pacemaker Elevated Troponin: trops 0.06 x2 then 0.09. Possible component of CHF with BNP 564, although echo in Sep 2016 with EF 55%, unclear if diastolic component. No complaints of chest pain. -continue home meds -cardiology consulted and following HTN/HLD/CAD s/p CABG & Stenting: chronic, no complaints of chest pain -continue patient's home medications including aspirin, Plavix, statin, losartan, hctz -unable to tolerate BB secondary to bradycardia as above -adjust antihypertensives as needed Asthma: chronic however with recent dyspnea -will continue patient's home medications including albuterol nebs and Dulera CVA: chronic, with residual RUE weakness -continue patient's aspirin, plavix, and statin DVT Prophylaxis: chula Romo/SCDs Discharge Planning awaiting recs from Fela Lr MD Jun 28, 2017 15:10
--- NOTE | 2017-06-28 15:59 | PD.CARD.PN ---
Subjective Subjective Remarks No CP, still SOB and tired Objective Medications Current Medications Medications (Trade) Dose Ordered Sig/Jenifer Route Start Time Stop Time Status Last Admin (NS Flush) 2 ml UNSCH PRN IV FLUSH 06/27/17 13:45 (NS Flush) 2 ml BID IV FLUSH 06/27/17 21:00 06/28/17 09:24 (Tylenol) 650 mg Q4H PRN PO 06/27/17 13:45 (Zofran Inj) 4 mg Q6H PRN IVP 06/27/17 13:45 (Lovenox Inj) 40 mg Q24H SQ 06/27/17 15:00 06/27/17 15:36 (Narcan Inj) 0.4 mg UNSCH PRN IV PUSH 06/27/17 13:45 (Karen-Colace) 1 tab BID PO 06/27/17 21:00 06/28/17 09:23 (Milk Of Magnesia Liq) 30 ml Q12H PRN PO 06/27/17 13:45 (Senokot) 17.2 mg Q12H PRN PO 06/27/17 13:45 (Dulcolax Supp) 10 mg DAILY PRN RECTAL 06/27/17 13:45 (Lactulose Liq) 30 ml DAILY PRN PO 06/27/17 13:45 (Proair Hfa Inh) 2 puff Q4HR PRN INH 06/27/17 15:00 (Aspirin Chew) 81 mg DAILY CHEW 06/28/17 09:00 06/28/17 09:23 (Lipitor) 40 mg HS PO 06/28/17 21:00 (Plavix) 75 mg DAILY PO 06/28/17 09:00 06/28/17 09:22 (Xalatan 0.005% Opth Soln) 1 drop HS EACH EYE 06/28/17 21:00 (Singulair) 10 mg DAILY PO 06/28/17 09:00 06/28/17 09:22 Patient Own Medication PT OWN MED: DULERA (MOMETASONE-FORMOTER... BID INH 06/27/17 21:00 Future Hold (Cozaar) 50 mg DAILY PO 06/28/17 09:00 06/28/17 09:23 (Microzide) 12.5 mg DAILY PO 06/28/17 09:00 06/28/17 09:23 Vital Signs / I&O Vital Signs Date Time Temp Pulse Resp B/P (MAP) Pulse Ox O2 Delivery O2 Flow Rate FiO2 06/28/17 12:00 97.4 47 20 132/87 (102) 98 06/28/17 08:20 96 21 06/28/17 08:02 43 06/28/17 08:00 98.2 47 20 165/71 (102) 98 06/28/17 07:00 Room Air 06/28/17 04:00 Room Air 06/28/17 04:00 97.6 41 20 150/70 (96) 99 06/28/17 00:02 98 06/28/17 00:00 Room Air 06/28/17 00:00 97.6 42 18 133/59 (83) 100 06/27/17 20:00 44 06/27/17 20:00 Room Air 06/27/17 20:00 97.6 50 20 158/99 (118) 97 06/27/17 16:26 06/27/17 16:00 98.0 46 18 149/67 (94) 98 I/O 06/27/17 06/27/17 06/27/17 06/28/17 06/28/17 06/28/17 07:00 15:00 23:00 07:00 15:00 23:00 Intake Total 240 ml 480 ml Output Total 400 ml Balance -160 ml 480 ml Intake Oral 240 ml 480 ml Output Urine Total 400 ml # Voids 3 # Bowel Movements 1 Physical Exam GENERAL: In NAD SKIN: Warm and dry. HEAD: Normocephalic. EYES: No scleral icterus. No injection or drainage. NECK: Supple, trachea midline. No JVD or lymphadenopathy. CARDIOVASCULAR: Irregular, bradycardic, without murmurs, gallops, or rubs. RESPIRATORY: Breath sounds equal bilaterally. No accessory muscle use. GASTROINTESTINAL: Abdomen soft, non-tender, nondistended. MUSCULOSKELETAL: No cyanosis, mild edema. Laboratory Laboratory Tests Test 06/27/17 21:10 06/28/17 06:20 Troponin I 0.09 NG/ML White Blood Count 8.5 TH/MM3 Red Blood Count 4.46 MIL/MM3 Hemoglobin 14.7 GM/DL Hematocrit 42.0 % Mean Corpuscular Volume 94.1 FL Mean Corpuscular Hemoglobin 32.9 PG Mean Corpuscular Hemoglobin Concent 35.0 % Red Cell Distribution Width 14.6 % Platelet Count 216 TH/MM3 Mean Platelet Volume 7.7 FL Neutrophils (%) (Auto) 66.9 % Lymphocytes (%) (Auto) 21.6 % Monocytes (%) (Auto) 8.6 % Eosinophils (%) (Auto) 2.4 % Basophils (%) (Auto) 0.5 % Neutrophils # (Auto) 5.7 TH/MM3 Lymphocytes # (Auto) 1.8 TH/MM3 Monocytes # (Auto) 0.7 TH/MM3 Eosinophils # (Auto) 0.2 TH/MM3 Basophils # (Auto) 0.0 TH/MM3 CBC Comment DIFF FINAL Differential Comment Blood Urea Nitrogen 24 MG/DL Creatinine 0.93 MG/DL Random Glucose 94 MG/DL Total Protein 7.6 GM/DL Albumin 4.0 GM/DL Calcium Level 9.1 MG/DL Alkaline Phosphatase 87 U/L Aspartate Amino Transf (AST/SGOT) 24 U/L Alanine Aminotransferase (ALT/SGPT) 38 U/L Total Bilirubin 0.8 MG/DL Sodium Level 136 MEQ/L Potassium Level 4.1 MEQ/L Chloride Level 103 MEQ/L Carbon Dioxide Level 25.8 MEQ/L Anion Gap 7 MEQ/L Estimat Glomerular Filtration Rate 78 ML/MIN Assessment and Plan Problem List: (1) High degree atrioventricular block ICD Codes: I44.39 - Other atrioventricular block (2) Near syncope ICD Codes: R55 - Syncope and collapse Status: Acute (3) Symptomatic bradycardia ICD Codes: R00.1 - Bradycardia, unspecified Status: Acute (4) CAD (coronary artery disease) ICD Codes: I25.10 - Atherosclerotic heart disease of [place] coronary artery without angina pectoris Status: Chronic (5) Hypertension ICD Codes: I10 - Essential (primary) hypertension Status: Chronic (6) CVA (cerebral vascular accident) ICD Codes: I63.9 - Cerebral infarction, unspecified Status: Chronic (7) Carotid stenosis, right ICD Codes: I65.21 - Occlusion and stenosis of right carotid artery Status: Acute Assessment and Plan Tele with no significant improvement of AV block. Stay off metoprolol, if no improvement, will place DDD pacemaker tomorrow. Hold Plavix. Dr. Hutchison was planning pulm eval; recommend to obtain PFTs and consult pulmonary while the patient is here. D/w pt and . Lizzy Almonte MD Jun 28, 2017 15:59
--- NOTE | 2017-06-28 18:09 | EKG ---
Date Performed: 06/27/2017 Time Performed: 12:00:27 PTAGE: 82 years EKG: ATRIAL FIBRILLATION WITH SLOW VENTRICULAR RESPONSE WITH ABERRANT CONDUCTION OR VENTRICULAR PREMATURE COMPLEXES MARKED RIGHT AXIS DEVIATION RIGHT BUNDLE BRANCH BLOCK POSSIBLE ANTERIOR MYOCARDIA L INFARCTION ABNORMAL ECG Compared to prior tracing no significant change PREVIOUS TRACING : 01/03/2016 16.40.52 DOCTOR: Charu Ruth Interpretating Date/Time 06/28/2017 18:07:56
--- NOTE | 2017-06-28 18:09 | EKG ---
Date Performed: 06/27/2017 Time Performed: 20:03:53 PTAGE: 82 years EKG: ATRIAL FIBRILLATION WITH SLOW VENTRICULAR RESPONSE WITH ABERRANT CONDUCTION OR VENTRICULAR PREMATURE COMPLEXES MARKED RIGHT AXIS DEVIATION RIGHT BUNDLE BRANCH BLOCK SEPTAL MYOCARDIAL INFARCTIO N , OF INDETERMINATE AGE ST DEVIATION AND MODERATE T-WAVE ABNORMALITY, CONSIDER LATERAL ISCHEMIA ST D EVIATION AND MARKED T-WAVE ABNORMALITY, CONSIDER INFERIOR ISCHEMIA ABNORMAL ECG Compared to prior tra cing no significant change PREVIOUS TRACING : 06/27/2017 12.00.27 DOCTOR: Charu Ruth Interpretating Date/Time 06/28/2017 18:08:21
[2017-06-28] MEDS: ATORVASTATIN 40 MG TAB PO SCH (20:55)
[2017-06-28] MEDS: LATANOPROST 0.005% OPHT SOLN 2.5 ML BTL EACH EYE SCH (20:55)
[2017-06-29] VITALS (12 sets, daily range): BP systolic 115–151; BP diastolic 59–68; PULSE 41–106; RESP 16–20; TEMP 96.9–97.7; O2SAT 97–100
[2017-06-29] MEDS: SODIUM CHLORIDE 0.9% FLUSH 10 ML FLUSH IV FLUSH SCH ×2 (09:00→21:51)
[2017-06-29] MEDS: ASPIRIN 81 MG CHEW TAB CHEW SCH (09:00)
[2017-06-29] MEDS: DOCUSATE SODIUM 50 MG/SENNA 8.6 MG TAB PO SCH ×2 (09:11→21:50)
[2017-06-29] MEDS: LOSARTAN 50 MG TAB PO SCH (09:11)
[2017-06-29] MEDS: HYDROCHLOROTHIAZIDE 12.5 MG CAP PO SCH (09:11)
[2017-06-29] MEDS: MONTELUKAST SODIUM 10 MG TAB PO SCH (09:12)
--- NOTE | 2017-06-29 09:48 | HHI.PR ---
Subjective Remarks Pt feels well. No CP/SOB/lightheadedness/dizziness. Objective Vitals Vital Signs Date Time Temp Pulse Resp B/P (MAP) Pulse Ox O2 Delivery O2 Flow Rate FiO2 06/29/17 04:01 Room Air 06/29/17 04:00 97.6 44 20 151/65 (93) 97 06/29/17 00:00 97.7 84 18 116/59 (78) 100 06/28/17 23:53 Room Air 06/28/17 22:58 97.2 42 20 120/68 (85) 99 06/28/17 20:00 Room Air 06/28/17 19:55 45 06/28/17 19:48 21 06/28/17 16:00 97.8 53 20 136/65 (88) 97 06/28/17 12:00 97.4 47 20 132/87 (102) 98 I/O 06/28/17 06/28/17 06/28/17 06/29/17 06/29/17 06/29/17 07:00 15:00 23:00 07:00 15:00 23:00 Intake Total 240 ml 480 ml 240 ml Output Total 400 ml Balance -160 ml 480 ml 240 ml Intake Oral 240 ml 480 ml 240 ml Output Urine Total 400 ml # Voids 3 3 # Bowel Movements 1 1 Result Diagram: 06/28/1761906/28/17 06 Imaging Last Impressions Chest X-Ray 06/27/17 1153 Signed Impressions: Service Date/Time: Tuesday, June 27, 2017 12:20 - CONCLUSION: 1. Postsurgical features with compensated cardiomegaly. 2. No acute abnormality or interval change. Darrin Roger MD Objective Remarks GENERAL: sitting on recliner EYES: EOMI NECK: Trachea midline. No JVD. CARDIOVASCULAR: Bradycardic, regular rhythm. No murmur appreciated. RESPIRATORY: No accessory muscle use. Clear to auscultation. Breath sounds equal bilaterally. GASTROINTESTINAL: Abdomen soft, non-tender, nondistended. MUSCULOSKELETAL: No obvious deformities. 1+ bilateral lower extremity pitting edema. NEUROLOGICAL: Awake and alert. No obvious cranial nerve deficits. moves his extremities. Normal speech. PSYCHIATRIC: Appropriate mood and affect; insight and judgment normal. A/P Problem List: (1) Symptomatic bradycardia ICD Code: R00.1 - Bradycardia, unspecified Status: Acute (2) Near syncope ICD Code: R55 - Syncope and collapse Status: Acute (3) CAD (coronary artery disease) ICD Code: I25.10 - Atherosclerotic heart disease of [place] coronary artery without angina pectoris Status: Chronic (4) Hypertension ICD Code: I10 - Essential (primary) hypertension Status: Chronic (5) Hyperlipidemia ICD Code: E78.5 - Hyperlipidemia, unspecified Status: Chronic (6) CVA (cerebral vascular accident) ICD Code: I63.9 - Cerebral infarction, unspecified Status: Chronic Assessment and Plan 82-year-old male with history of CAD s/p CABG x3 and stents x5, asthma, HTN, HLD , LIZZIE, CVA with residual right arm weakness, GERD, presents with a 3-4 week history of intermittent shortness of breath, lightheadedness, and weakness. Severe Symptomatic Bradycardia with High Degree AV Block: with +dyspnea/ lightheadedness. HR into low 40s on telemetry in the ED. EKG reviewed. Patient on metoprolol 25mg bid at home. -cardiology following. Recommends to continue to Hold patient's metoprolol. -Outpatient Echo Sep 2016 showed EF 55% - Pt scheduled for DDD pacemaker later today. Elevated Troponin: trops 0.06 x2 then 0.09. Possible component of CHF with BNP 564, although echo in Sep 2016 with EF 55%, unclear if diastolic component. No complaints of chest pain. -continue home meds -cardiology following HTN/HLD/CAD s/p CABG & Stenting: chronic, no complaints of chest pain -continue patient's home medications including aspirin, statin, losartan, hctz -unable to tolerate BB secondary to bradycardia as above -adjust antihypertensives as needed Asthma: chronic however with recent dyspnea -will continue patient's home medications. CVA: chronic, with residual RUE weakness -continue patient's aspirin, plavix, and statin. Plavix on hold for procedure. DVT Prophylaxis: Lovenox, teds/SCDs Discharge Planning scheduled for Pacemaker today Per cards recs, Dr. Hutchison was planning pulm eval; cardiology recommends to obtain PFTs and consult pulmonary will be getting PFTs prior to procedure pulm consult in place. Fela Guevara MD Jun 29, 2017 09:48
[2017-06-29] MEDS ORDERED: ceFAZolin INJ 1,000 MG VIAL ONE (13:17)
[2017-06-29] MEDS ORDERED: VANCOMYCIN 500 MG VIAL ONE (13:17)
[2017-06-29] MEDS ORDERED: VANCOMYCIN HCL 1000 MG VIAL ONE (13:17)
[2017-06-29] MEDS ORDERED: LIDOCAINE HCL 2% 50 ML VIAL ONE (13:17)
[2017-06-29] MEDS ORDERED: PROPOFOL 500 MG/50 ML INJ 50 ML ONE (13:23)
--- NOTE | 2017-06-29 14:56 | CATHPROC ---
[employer] HIS Report Study Information Study Number Admission Scheduled Start Study Start [id number] Jun 27 2017 1:46PM 06/29/2017 Jun 29 2017 12:34PM [facility] Service Cardiac Pacer/ICD Admit Source Facility Department Other [facility] - Biomedical Service Engineer Physician and Clinical Staff Initial Lizzy Silvestre Drafter Directional Survey Claire Patel,SUPERVISORY EXAMINER TECH2 Other Anesthesia, CAUSTIC LOADER Recorder Rocio Singer,RN Scrub Jose A Harrington,RT(R) Procedures Performed Procedure Lead Insertion Equipment Time Ui Application Developer Description Size Mfg Part Number Used/Scraped 12:37 [employer] DRAPE, [place] X-RAY 12X17 12X17 D-100 *[id number] Used INTRODUCER SET, 12:37 [employer] FR 5 [id number] *[id number] Used MICROPUNCTURE, STIFFENED INTRODUCER SET, 12:37 [employer] FR 5 [id number] *[id number] Used MICROPUNCTURE, STIFFENED [id number] 12:37 [employer] DRAPE, IOBAN 2 [id number] 26cm x 20cm Used *[id number] TP-1103 12:37 [employer] SUTURE, STRIP PLUS 1/2" * Used *[id number] 12:37 MEDLINE PACER ADHESIVE, MASTISOL 2/3CC 2/3CC 0523-48 Used 12:37 MEDLINE PACER ZIMMERMAN, LIMB * 2530 *[id number] Used [id number] 12:37 MEDLINE PACER PACK, PACER CUSTOM * Used *[id number] 12:37 MEDLINE PACER PEN, SKIN DUAL W/ RULER * Used *[id number] 12:37 [employer] PACER SAFE SHEATH, FR8, 13CM FR 8 [id number] Used 12:37 [employer] MEDICAL PACER SAFE SHEATH, FR8, 13CM FR 8 CLS-1008 Used PROBE COVER, STERILE [id number] 12:37 [employer] * Used ULTRASOUND W/ GEL *[id number] 13:47 Needle Sponge Count 2 22 Used 14:13 Needle Sponge Count 25 1 Used 14:36 Needle Sponge Count 35 Used 13:46 Needle Sponge Count 6 6 Used [id number] *[id number] SUTURE, 0 ETHIBOND [CT1] (CX21D), 8pk SUTURE, 2-0 VICRYL [CT1] ([id number]) SUTURE, 2-0 VICRYL [CT1] ([id number]) SUTURE, 4-0 VICRYL [PS2] (MWP469N) [id number] 12:37 [employer],WARM AIR CCL * Used *[id number] LEAD, TENDRIL ACTIVE FIXATION 14:09 [employer] 58 [id number] Used BIPOLAR 15:02 [employer] SEO MANAGER, TENDRIL MRI 46CM [id number] Used PACEMAKER, CHRYSTAL NAJERA 14:30 [employer] [id number] Used MRI [facility] PAD, ELECTROSURGICAL 12:37 * [id number] *[id number] Used SURGICAL GROUNDING ORANGE [id number] 12:37 [employer] [place]. / * Used *[id number] Equipment Model, Serial, Lot Number and Expiration Data Description Model Number Serial Number Lot Number Expiration Date LEAD, TENDRIL ACTIVE FIXATION [id number] 10-26-2017 BIPOLAR LEAD, TENDRIL MRI [id number] 10-14-2017 PACEMAKER, CHRYSTAL LAURA RF MRI [id number] 12-26-2018 History: Allergies Allergy Reaction dog dander ASTHMA History: Risk Factors Hypertension Dyslipidemia Yes Yes Chronic Lung Disease Labs Hgb (g/dl) Hct (%) RBC (MIL/MM3) WBC (l/cumm) Platelets (thousands) 11.60-17.00 35.00-51.00 4.00-5.90 4.00-11.00 150.00-450.00 14.0 42 4.4 8.5 216 Glucose (mg/dl) BUN (mg/dl) Creatinine (mg/dl) BUN:Creatinine (1:x) 74.00-106.00 7.00-18.00 0.50-1.30 10.00-20.00 94 24 0.9 26.7 Na (meq/l) K (meq/l) 136.00-145.00 3.50-5.10 136 4.1 INR (PTT:PT) 0.90-1.10 1.1 Medication Medication Total Dose (Bolus/Oral) Medication Total Dosage/Unit 2% XYLOCAINE 50 mL Medications (Bolus/Oral) Medication Time Given Dosage/Unit Administered By Reason 2% XYLOCAINE 06/29/2017 1:45:42 PM 50 mL Lizzy Almonte 50 mL 2% XYLOCAINE given in lab by Lizzy Almonte in Left upper chest via Subcutaneous. Ordered by Q uadrat, [place]. Medication (Drip) Medication Time Given Dosage/Unit Concentration/Unit Diluent (ml) Solution ANCEF 06/29/2017 1:33:45 PM 2 g 2 g ANCEF given in lab by Anesthesia, CAUSTIC LOADER in Right Forearm via Peripheral IV. Ordered by Wilton Almonte. Reason: As per physicians verbal order. VANCOMYCIN DRIP 06/29/2017 1:33:23 PM 1 g 1 g VANCOMYCIN DRIP given in lab by Anesthesia, CAUSTIC LOADER in Right Forearm via Peripheral IV. Ordered by Lizzy Garcia. Reason: As per physicians verbal order. Initial Case Assessment Cardiovascular HR Rhythm NIBP Chest Pain 48 chb 163/70 0 Edema Present Skin color Skin None Normal Warm Dry Circulatory - Right Pulses Radial 2 Scale (0,1,2,3,4,d) Circulatory - Left Pulses Radial 2 Scale (0,1,2,3,4,d) Circulatory - Lower Extremities Color Lower Right Color Lower Left Normal Normal Neurological State Oriented to time-place- Alert Moves all extremities person Respiration - General Respiration Rate SpO2 (%) (B/min) 20 100 Final Case Assessment Cardiovascular HR Rhythm NIBP Chest Pain 76 vp software 116/56 0 Edema Present Skin color Skin None Normal Warm Dry Circulatory - Right Pulses Radial 2 Scale (0,1,2,3,4,d) Circulatory - Left Pulses Radial 1 Scale (0,1,2,3,4,d) Circulatory - Lower Extremities Color Lower Right Color Lower Left Normal Normal Neurological State Oriented to time-place- Alert Moves all extremities person Respiration - General Respiration Rate SpO2 (%) O2 (lpm) (B/min) 16 100 6 Chronological Log Time Study Chronological Log 12:59:48 Patient arrived via Bed. 12:59:49 Patient Name, D.O.B, / Armband Verified By R.N. 12:59:50 Consent signed by the physician and the patient and verified by the Biomedical Service Engineer staff. 12:59:50 Pre-op and post- op instructions given; patient acknowledges understanding of instructions. 12:59:51 Verbal Stimulation=2 Physical Stimulation=2 Airway=2 Respiration=2 TOTAL=8. (0=absent, 1=li mited, 2=present) 13:00:01 Patient has been NPO for More than 6Hrs. 13:00:02 Skin Breakdown- generalized purple carol to upper extremities 13:00:03 Patient Warmer Placed on the Table. 13:00:04 Disposable Defibrillator Pads Placed On Patient. 13:00:06 Re Prominences Protected 13:00:07 A # 20 IV was noted in the Antecubital (left). Grade = 0 0.9ns kvo 13:00:08 A # 20 IV was noted in the Forearm (right). Grade = 0 0.9ns kvo 13:00:09 History and physical on the chart or being dictated. Assessment: Initial Case, HR=48 BPM, Rhythm=chb, HNKE=369/70 mmhg, Chest Pain=0, Edema=None, Color=Normal, Skin = Warm, Dry Right Pulses: Radial=2 Left Pulses: Radial=2 13:17:43 Lower Right Extremities: Color=Normal Lower Left Extremities: Color=Normal Neurological: State=Alert, Ox3, JEAN Respiration: Resp=20 B/min, ZmL2=419 % 13:26:29 Table restraints applied according to hospital policy 13:30:09 Anesthesia at bedside. Assumes care of patient. 13:30:52 Left Upper Chest Prepped Times Two. 1 g VANCOMYCIN DRIP given in lab by Anesthesia, CAUSTIC LOADER in Right Forearm via Peripheral IV. Ordere d by Gage, 13:33:23 Lizzy. Reason: As per physicians verbal order. 2 g ANCEF given in lab by Anesthesia, CAUSTIC LOADER in Right Forearm via Peripheral IV. Ordered by Lizzy Vázquez. Reason: 13:33:45 As per physicians verbal order. First Sponge And Instrument Count Done by Jose A Harrington, RT(R). 13:35:18 Hypo's: 6, Sponges: 25 sponges, Bovie/scratch: bovie/scratch Sutures: ~SUTURE~, Blades: ~BLADES~, Instruments: 26, Syveck Patches: 0 13:36:41 Bovie ground pad applied to: left thigh 13:37:15 MD arrived. 13:42:12 2% CHLORHEXIDINE GLUCONATE WASH AND NASAL SWIPE DONE PRIOR TO PROCEDURE. Time Out. Correct patient, procedure, procedure equipment, site and side verified with physicia n present. Time 13:45:00 concurred by MD, individual staff and CAUSTIC LOADER. Time Out #2 - Consents verified, patient in correct position, all results are labled and displa yed, safety precautions 13:45:27 taken, antibiotics administered. Time out concurred by MD, individual staff and CAUSTIC LOADER in procedu re 13:45:41 Case Start 50 mL 2% XYLOCAINE given in lab by Lizzy Almonte in Left upper chest via Subcutaneous. Ordere d by Gage, 13:45:42 Lizzy. 13:47:09 Surgical Incision Made. 13:47:11 A pocket was created at the L Upper Chest. 13:52:03 Reference ECG taken 13:57:37 Vascular access was obtained in the Subclav. Vein (Lft.) Ultrasound. A INTRODUCER SET, MICROPUNCTURE, STIFFENED FR 5 was advanced into the Subclav. Vein (Lft using the Modified 14:01:32 Seldinger technique. 14:02:00 Vascular access was obtained in the Subclav. Vein (Lft.) A INTRODUCER SET, MICROPUNCTURE, STIFFENED FR 5 was advanced into the Subclav. Vein (Lft using the Modified 14:02:07 Seldinger technique. 14:02:15 One antibiotic sponge put into the surgical pocket. 14:03:11 Wire inserted 14:03:12 Wire inserted A SAFE SHEATH, FR8, 13CM FR 8 was exchanged in the Subclav. Vein (Lft.) This was necessary in o rder for catheter 14:04:03 support. 14:06:32 A LEAD, TENDRIL ACTIVE FIXATION BIPOLAR 58 was inserted and positioned in the RV. 14:08:26 The RV lead was sutured to the fascia. 14:09:23 The RV lead impedance and threshold being tested. 14:14:51 A LEAD, TENDRIL MRI 46CM was inserted and positioned in the RA. 14:15:16 Lead placement verified under fluoroscopy 14:18:21 The Atrial lead impedance and threshold is being tested. 14:18:23 The Atrial lead was sutured to the fascia. 14:27:51 Antibiotic sponge removed from the surgical pocket. 14:28:13 Pocket flushed with antibiotic solution 14:29:13 A PACEMAKER, ASSURITY DR NAJERA MRI was connected and placed in the pocket. 14:31:48 Implant Procedure was performed. 14:31:56 A PPM Implant . (Dual) Second Sponge And Instrument Count Done by Jose A Harrington, RT(R). 14:32:12 Hypo's: 6, Sponges: 35, Bovie/scratch: 2 Sutures: 11, Blades: 2, Instruments: 26, Syveck Patches: 0 10 raytec sponges added to table 14:37:25 CICU called. Spoke to Amy 14:37:35 Bedside Report will be given. Assessment: Final Case, HR=76 BPM, Rhythm=vp software, CPZB=308/56 mmhg, Chest Pain=0, Edema=None, [place] r=Normal, Skin = Warm, Dry Right Pulses: Radial=2 Left Pulses: Radial=1 14:40:40 Lower Right Extremities: Color=Normal Lower Left Extremities: Color=Normal Neurological: State=Alert, Ox3, JEAN Respiration: Resp=16 B/min, AcW8=155 %, O2=6 lpm 14:52:40 The pocket was closed. Final Sponge And Instrument Count Done by Jose A Harrington, RT(R). 14:53:14 Hypo's: 6, Sponges: 35, Bovie/scratch: 2 Sutures: 11, Blades: 2, Instruments: 26, Syveck Patches: 0 14:54:57 Steri-strips and a sterile dressing applied to site. 14:55:03 Case End 14:55:18 No case complications noted. 14:55:20 Cine recording checked. 14:55:22 Implantable Device card placed in patient's chart. 14:55:26 Defibrillator and ground pads removed. Skin intact. 14:59:06 A sling was placed on the affected arm. 15:05:30 Patient moved to stretcher End Study - Contrast Media Used In Study Contrast Total Opened (mL) Total Used (mL) Total Wasted (mL) Unspecified 0 0 0 End Study - Maximum Contrast Load Max Contrast Load (mL) 570.5 End Study - Radiation Exposure Fluoro Time (minutes) 3.1 End Study - Patient Disposition Complications Transferred To Interventional Outcome No Telemetry Bed successful
--- NOTE | 2017-06-29 14:56 | CATHPROC ---
[employer] Workflow [employer] HIS Report Study Information Study Number Admission Scheduled Start Study Start [id number] Jun 27 2017 1:46PM 06/29/2017 Jun 29 2017 12:34PM [place] Service Cardiac Pacer/ICD Admit Source Facility Department Other [facility] - Farm Machine Tender Physician and Clinical Staff Initial Lizzy Silvestre Sybase Developer Claire Patel,GEOSPATIAL EXTRACTOR ANALYSIS TECH2 Other Anesthesia, LEAD CYTOGENETIC TECHNOLOGIST Recorder Rocio Singer,RN Scrub Jose A Harrington,RT(R) Procedures Performed Procedure Lead Insertion Equipment Time Cooker Syrup Description Size Mfg Part Number Used/Scraped 12:37 [employer] MEDICAL DRAPE, RAYSHIELD X-RAY 12X17 12X17 D-100 *[id number] Used INTRODUCER SET, 12:37 [employer]. FR 5 [id number] *[id number] Used MICROPUNCTURE, STIFFENED INTRODUCER SET, 12:37 [employer]. FR 5 [id number] *[id number] Used MICROPUNCTURE, STIFFENED [id number] 12:37 [employer] DRAPE, IOBAN 2 [id number] 26cm x 20cm Used *[id number] TP-1103 12:37 [employer] SUTURE, STRIP PLUS 1/2" * Used *[id number] 12:37 MEDLINE PACER ADHESIVE, MASTISOL 2/3CC 2/3CC 0523-48 Used 12:37 MEDLINE PACER ZIMMERMAN, LIMB * 2530 *[id number] Used [id number] 12:37 MEDLINE PACER PACK, PACER CUSTOM * Used *[id number] 12:37 MEDLINE PACER PEN, SKIN DUAL W/ RULER * Used *[id number] 12:37 [employer]ni[employer] PACER SAFE SHEATH, FR8, 13CM FR 8 CLS-1008 Used 12:37 Spring[employer] MEDICAL PACER SAFE SHEATH, FR8, 13CM FR 8 CLS-1008 Used PROBE COVER, STERILE [id number] 12:37 [employer] MEDICAL * Used ULTRASOUND W/ GEL *[id number] 13:47 Needle Sponge Count 2 22 Used 14:13 Needle Sponge Count 25 1 Used 14:36 Needle Sponge Count 35 Used 13:46 Needle Sponge Count 6 6 Used [id number] *[id number] SUTURE, 0 ETHIBOND [CT1] (CX21D), 8pk SUTURE, 2-0 VICRYL [CT1] (ACX967C) SUTURE, 2-0 VICRYL [CT1] (PAS417I) SUTURE, 4-0 VICRYL [PS2] (EEP267D) [id number] 12:37 [employer] BLANKET,WARM AIR CCL * Used *[id number] LEAD, TENDRIL ACTIVE FIXATION 14:09 [employer] MED[employer] 58 [id number] Used BIPOLAR 15:02 [facility] JEWELRY POLISHER, TENDRIL MRI 46CM [id number] Used PACEMAKER, CHRYSTAL NAJERA 14:30 [facility] MEDICAL [id number] Used MRI [facility] PAD, ELECTROSURGICAL 12:37 * [id number] *[id number] Used SURGICAL GROUNDING ORANGE 1483-9030 12:37 [employer] PEYTON. / * Used *76691 Equipment Model, Serial, Lot Number and Expiration Data Description Model Number Serial Number Lot Number Expiration Date LEAD, TENDRIL ACTIVE FIXATION [id number] 10-26-2017 BIPOLAR LEAD, TENDRIL MRI [id number] 10-14-2017 PACEMAKER, CHRYSTAL LAURA RF MRI [id number] 12-26-2018 History: Allergies Allergy Reaction dog dander ASTHMA History: Risk Factors Hypertension Dyslipidemia Yes Yes Chronic Lung Disease Labs Hgb (g/dl) Hct (%) RBC (MIL/MM3) WBC (l/cumm) Platelets (thousands) 11.60-17.00 35.00-51.00 4.00-5.90 4.00-11.00 150.00-450.00 14.0 42 4.4 8.5 216 Glucose (mg/dl) BUN (mg/dl) Creatinine (mg/dl) BUN:Creatinine (1:x) 74.00-106.00 7.00-18.00 0.50-1.30 10.00-20.00 94 24 0.9 26.7 Na (meq/l) K (meq/l) 136.00-145.00 3.50-5.10 136 4.1 INR (PTT:PT) 0.90-1.10 1.1 Medication Medication Total Dose (Bolus/Oral) Medication Total Dosage/Unit 2% XYLOCAINE 50 mL Medications (Bolus/Oral) Medication Time Given Dosage/Unit Administered By Reason 2% XYLOCAINE 06/29/2017 1:45:42 PM 50 mL Lizzy Almonte 50 mL 2% XYLOCAINE given in lab by Lizzy Almonte in Left upper chest via Subcutaneous. Ordered by Q uadrat, [place]. Medication (Drip) Medication Time Given Dosage/Unit Concentration/Unit Diluent (ml) Solution ANCEF 06/29/2017 1:33:45 PM 2 g 2 g ANCEF given in lab by Anesthesia, LEAD CYTOGENETIC TECHNOLOGIST in Right Forearm via Peripheral IV. Ordered by Wilton Almonte. Reason: As per physicians verbal order. VANCOMYCIN DRIP 06/29/2017 1:33:23 PM 1 g 1 g VANCOMYCIN DRIP given in lab by Anesthesia, LEAD CYTOGENETIC TECHNOLOGIST in Right Forearm via Peripheral IV. Ordered by Lizzy Garcia. Reason: As per physicians verbal order. Initial Case Assessment Cardiovascular HR Rhythm NIBP Chest Pain 48 chb 163/70 0 Edema Present Skin color Skin None Normal Warm Dry Circulatory - Right Pulses Radial 2 Scale (0,1,2,3,4,d) Circulatory - Left Pulses Radial 2 Scale (0,1,2,3,4,d) Circulatory - Lower Extremities Color Lower Right Color Lower Left Normal Normal Neurological State Oriented to time-place- Alert Moves all extremities person Respiration - General Respiration Rate SpO2 (%) (B/min) 20 100 Final Case Assessment Cardiovascular HR Rhythm NIBP Chest Pain 76 evp chief exploration officer 116/56 0 Edema Present Skin color Skin None Normal Warm Dry Circulatory - Right Pulses Radial 2 Scale (0,1,2,3,4,d) Circulatory - Left Pulses Radial 1 Scale (0,1,2,3,4,d) Circulatory - Lower Extremities Color Lower Right Color Lower Left Normal Normal Neurological State Oriented to time-place- Alert Moves all extremities person Respiration - General Respiration Rate SpO2 (%) O2 (lpm) (B/min) 16 100 6 Chronological Log Time Study Chronological Log 12:59:48 Patient arrived via Bed. 12:59:49 Patient Name, D.O.B, / Armband Verified By R.N. 12:59:50 Consent signed by the physician and the patient and verified by the Farm Machine Tender staff. 12:59:50 Pre-op and post- op instructions given; patient acknowledges understanding of instructions. 12:59:51 Verbal Stimulation=2 Physical Stimulation=2 Airway=2 Respiration=2 TOTAL=8. (0=absent, 1=li mited, 2=present) 13:00:01 Patient has been NPO for More than 6Hrs. 13:00:02 Skin Breakdown- generalized purple carol to upper extremities 13:00:03 Patient Warmer Placed on the Table. 13:00:04 Disposable Defibrillator Pads Placed On Patient. 13:00:06 Re Prominences Protected 13:00:07 A # 20 IV was noted in the Antecubital (left). Grade = 0 0.9ns kvo 13:00:08 A # 20 IV was noted in the Forearm (right). Grade = 0 0.9ns kvo 13:00:09 History and physical on the chart or being dictated. Assessment: Initial Case, HR=48 BPM, Rhythm=chb, AKLD=826/70 mmhg, Chest Pain=0, Edema=None, Color=Normal, Skin = Warm, Dry Right Pulses: Radial=2 Left Pulses: Radial=2 13:17:43 Lower Right Extremities: Color=Normal Lower Left Extremities: Color=Normal Neurological: State=Alert, Ox3, JEAN Respiration: Resp=20 B/min, JzQ8=671 % 13:26:29 Table restraints applied according to hospital policy 13:30:09 Anesthesia at bedside. Assumes care of patient. 13:30:52 Left Upper Chest Prepped Times Two. 1 g VANCOMYCIN DRIP given in lab by Anesthesia, LEAD CYTOGENETIC TECHNOLOGIST in Right Forearm via Peripheral IV. Ordere d by Gage, 13:33:23 Lizzy. Reason: As per physicians verbal order. 2 g ANCEF given in lab by Anesthesia, LEAD CYTOGENETIC TECHNOLOGIST in Right Forearm via Peripheral IV. Ordered by Lizzy Vázquez. Reason: 13:33:45 As per physicians verbal order. First Sponge And Instrument Count Done by Jose A Harrington, RT(R). 13:35:18 Hypo's: 6, Sponges: 25 sponges, Bovie/scratch: bovie/scratch Sutures: ~SUTURE~, Blades: ~BLADES~, Instruments: 26, Syveck Patches: 0 13:36:41 Bovie ground pad applied to: left thigh 13:37:15 MD arrived. 13:42:12 2% CHLORHEXIDINE GLUCONATE WASH AND NASAL SWIPE DONE PRIOR TO PROCEDURE. Time Out. Correct patient, procedure, procedure equipment, site and side verified with physicia n present. Time 13:45:00 concurred by MD, individual staff and LEAD CYTOGENETIC TECHNOLOGIST. Time Out #2 - Consents verified, patient in correct position, all results are labled and displa yed, safety precautions 13:45:27 taken, antibiotics administered. Time out concurred by MD, individual staff and LEAD CYTOGENETIC TECHNOLOGIST in procedu re 13:45:41 Case Start 50 mL 2% XYLOCAINE given in lab by Lizzy Almonte in Left upper chest via Subcutaneous. Ordere d by Gage, 13:45:42 Lizzy. 13:47:09 Surgical Incision Made. 13:47:11 A pocket was created at the L Upper Chest. 13:52:03 Reference ECG taken 13:57:37 Vascular access was obtained in the Subclav. Vein (Lft.) Ultrasound. A INTRODUCER SET, MICROPUNCTURE, STIFFENED FR 5 was advanced into the Subclav. Vein (Lft using the Modified 14:01:32 Seldinger technique. 14:02:00 Vascular access was obtained in the Subclav. Vein (Lft.) A INTRODUCER SET, MICROPUNCTURE, STIFFENED FR 5 was advanced into the Subclav. Vein (Lft using the Modified 14:02:07 Seldinger technique. 14:02:15 One antibiotic sponge put into the surgical pocket. 14:03:11 Wire inserted 14:03:12 Wire inserted A SAFE SHEATH, FR8, 13CM FR 8 was exchanged in the Subclav. Vein (Lft.) This was necessary in o rder for catheter 14:04:03 support. 14:06:32 A LEAD, TENDRIL ACTIVE FIXATION BIPOLAR 58 was inserted and positioned in the RV. 14:08:26 The RV lead was sutured to the fascia. 14:09:23 The RV lead impedance and threshold being tested. 14:14:51 A LEAD, TENDRIL MRI 46CM was inserted and positioned in the RA. 14:15:16 Lead placement verified under fluoroscopy 14:18:21 The Atrial lead impedance and threshold is being tested. 14:18:23 The Atrial lead was sutured to the fascia. 14:27:51 Antibiotic sponge removed from the surgical pocket. 14:28:13 Pocket flushed with antibiotic solution 14:29:13 A PACEMAKER, ASSURITY DR NAJERA MRI was connected and placed in the pocket. 14:31:48 Implant Procedure was performed. 14:31:56 A PPM Implant . (Dual) Second Sponge And Instrument Count Done by Jose A Harrington, RT(R). 14:32:12 Hypo's: 6, Sponges: 35, Bovie/scratch: 2 Sutures: 11, Blades: 2, Instruments: 26, Syveck Patches: 0 10 raytec sponges added to table 14:37:25 CICU called. Spoke to Amy 14:37:35 Bedside Report will be given. Assessment: Final Case, HR=76 BPM, Rhythm=evp chief exploration officer, MXDS=592/56 mmhg, Chest Pain=0, Edema=None, [place] r=Normal, Skin = Warm, Dry Right Pulses: Radial=2 Left Pulses: Radial=1 14:40:40 Lower Right Extremities: Color=Normal Lower Left Extremities: Color=Normal Neurological: State=Alert, Ox3, JEAN Respiration: Resp=16 B/min, OvF6=644 %, O2=6 lpm 14:52:40 The pocket was closed. Final Sponge And Instrument Count Done by Jose A Harrington, RT(R). 14:53:14 Hypo's: 6, Sponges: 35, Bovie/scratch: 2 Sutures: 11, Blades: 2, Instruments: 26, Syveck Patches: 0 14:54:57 Steri-strips and a sterile dressing applied to site. 14:55:03 Case End 14:55:18 No case complications noted. 14:55:20 Cine recording checked. 14:55:22 Implantable Device card placed in patient's chart. 14:55:26 Defibrillator and ground pads removed. Skin intact. 14:59:06 A sling was placed on the affected arm. 15:05:30 Patient moved to stretcher End Study - Contrast Media Used In Study Contrast Total Opened (mL) Total Used (mL) Total Wasted (mL) Unspecified 0 0 0 End Study - Maximum Contrast Load Max Contrast Load (mL) 570.5 End Study - Radiation Exposure Fluoro Time (minutes) 3.1 End Study - Patient Disposition Complications Transferred To Interventional Outcome No Telemetry Bed successful
--- NOTE | 2017-06-29 14:56 | CATHPROC ---
[facility] HIS Report Study Information Study Number Admission Scheduled Start Study Start [id number] Jun 27 2017 1:46PM 06/29/2017 Jun 29 2017 12:34PM [place] Service Cardiac Pacer/ICD Admit Source Facility Department Other [facility] - Tire Adjuster Physician and Clinical Staff Initial Lizzy Silvestre Mechanical Spreader Operator Claire Patel,STRAIGHTENING MACHINE OPERATOR TECH2 Other Anesthesia, POLICY CHANGE CLERK Recorder Rocio Singer,RN Scrub Jose A Harrington,RT(R) Procedures Performed Procedure Lead Insertion Equipment Time Director Of People Description Size Mfg Part Number Used/Scraped 12:37 [employer] MED[employer] DRAPE, RAYSHIELD X-RAY 12X17 12X17 D-100 *[id number] Used INTRODUCER SET, 12:37 [employer] FR 5 [id number] *[id number] Used MICROPUNCTURE, STIFFENED INTRODUCER SET, 12:37 [employer] FR 5 [id number] *[id number] Used MICROPUNCTURE, STIFFENED 6661EZ 12:37 [employer] DRAPE, IOBAN 2 6661EZ 26cm x 20cm Used *[id number] TP-1103 12:37 Line[employer]er SUTURE, STRIP PLUS 1/2" * Used *[id number] 12:37 MEDLINE PACER ADHESIVE, MASTISOL 2/3CC 2/3CC 0523-48 Used 12:37 MEDLINE PACER ZIMMERMAN, LIMB * 2530 *[id number] Used [id number] 12:37 MEDLINE PACER PACK, PACER CUSTOM * Used *[id number] 12:37 MEDLINE PACER PEN, SKIN DUAL W/ RULER * Used *[id number] 12:37 [employer] PACER SAFE SHEATH, FR8, 13CM FR 8 CLS-1008 Used 12:37 [employer] MEDICAL PACER SAFE SHEATH, FR8, 13CM FR 8 CLS-1008 Used PROBE COVER, STERILE [id number] 12:37 [employer] MEDICAL * Used ULTRASOUND W/ GEL *[id number] 13:47 Needle Sponge Count 2 22 Used 14:13 Needle Sponge Count 25 1 Used 14:36 Needle Sponge Count 35 Used 13:46 Needle Sponge Count 6 6 Used [id number] *[id number] SUTURE, 0 ETHIBOND [CT1] (CX21D), 8pk SUTURE, 2-0 VICRYL [CT1] (NHD009D) SUTURE, 2-0 VICRYL [CT1] (SNM182T) SUTURE, 4-0 VICRYL [PS2] (DJH041E) [id number] 12:37 [employer] BLANKET,WARM AIR CCL * Used *[id number] LEAD, TENDRIL ACTIVE FIXATION 14:09 [facility] 58 [id number] Used BIPOLAR 15:02 [facility] HAND TOOL LAPPER, TENDRIL MRI 46CM [id number] Used PACEMAKER, CHRYSTAL NAJERA 14:30 [facility] [facility] [id number] Used MRI [facility] PAD, ELECTROSURGICAL 12:37 * [id number] *[id number] Used SURGICAL GROUNDING ORANGE 0858-6428 12:37 [employer]. / * Used *70524 Equipment Model, Serial, Lot Number and Expiration Data Description Model Number Serial Number Lot Number Expiration Date LEAD, TENDRIL ACTIVE FIXATION [id number] 10-26-2017 BIPOLAR LEAD, TENDRIL MRI [id number] 10-14-2017 PACEMAKER, CHRYSTAL LAURA RF MRI [id number] 12-26-2018 History: Allergies Allergy Reaction dog dander ASTHMA History: Risk Factors Hypertension Dyslipidemia Yes Yes Chronic Lung Disease Labs Hgb (g/dl) Hct (%) RBC (MIL/MM3) WBC (l/cumm) Platelets (thousands) 11.60-17.00 35.00-51.00 4.00-5.90 4.00-11.00 150.00-450.00 14.0 42 4.4 8.5 216 Glucose (mg/dl) BUN (mg/dl) Creatinine (mg/dl) BUN:Creatinine (1:x) 74.00-106.00 7.00-18.00 0.50-1.30 10.00-20.00 94 24 0.9 26.7 Na (meq/l) K (meq/l) 136.00-145.00 3.50-5.10 136 4.1 INR (PTT:PT) 0.90-1.10 1.1 Medication Medication Total Dose (Bolus/Oral) Medication Total Dosage/Unit 2% XYLOCAINE 50 mL Medications (Bolus/Oral) Medication Time Given Dosage/Unit Administered By Reason 2% XYLOCAINE 06/29/2017 1:45:42 PM 50 mL Lizzy Almonte 50 mL 2% XYLOCAINE given in lab by Lizzy Almonte in Left upper chest via Subcutaneous. Ordered by Q uadrat, [place]ar. Medication (Drip) Medication Time Given Dosage/Unit Concentration/Unit Diluent (ml) Solution ANCEF 06/29/2017 1:33:45 PM 2 g 2 g ANCEF given in lab by Anesthesia, POLICY CHANGE CLERK in Right Forearm via Peripheral IV. Ordered by Wilton Almonte. Reason: As per physicians verbal order. VANCOMYCIN DRIP 06/29/2017 1:33:23 PM 1 g 1 g VANCOMYCIN DRIP given in lab by Anesthesia, POLICY CHANGE CLERK in Right Forearm via Peripheral IV. Ordered by Lizzy Garcia. Reason: As per physicians verbal order. Initial Case Assessment Cardiovascular HR Rhythm NIBP Chest Pain 48 chb 163/70 0 Edema Present Skin color Skin None Normal Warm Dry Circulatory - Right Pulses Radial 2 Scale (0,1,2,3,4,d) Circulatory - Left Pulses Radial 2 Scale (0,1,2,3,4,d) Circulatory - Lower Extremities Color Lower Right Color Lower Left Normal Normal Neurological State Oriented to time-place- Alert Moves all extremities person Respiration - General Respiration Rate SpO2 (%) (B/min) 20 100 Final Case Assessment Cardiovascular HR Rhythm NIBP Chest Pain 76 manager assisted living 116/56 0 Edema Present Skin color Skin None Normal Warm Dry Circulatory - Right Pulses Radial 2 Scale (0,1,2,3,4,d) Circulatory - Left Pulses Radial 1 Scale (0,1,2,3,4,d) Circulatory - Lower Extremities Color Lower Right Color Lower Left Normal Normal Neurological State Oriented to time-place- Alert Moves all extremities person Respiration - General Respiration Rate SpO2 (%) O2 (lpm) (B/min) 16 100 6 Chronological Log Time Study Chronological Log 12:59:48 Patient arrived via Bed. 12:59:49 Patient Name, D.O.B, / Armband Verified By R.N. 12:59:50 Consent signed by the physician and the patient and verified by the Tire Adjuster staff. 12:59:50 Pre-op and post- op instructions given; patient acknowledges understanding of instructions. 12:59:51 Verbal Stimulation=2 Physical Stimulation=2 Airway=2 Respiration=2 TOTAL=8. (0=absent, 1=li mited, 2=present) 13:00:01 Patient has been NPO for More than 6Hrs. 13:00:02 Skin Breakdown- generalized purple carol to upper extremities 13:00:03 Patient Warmer Placed on the Table. 13:00:04 Disposable Defibrillator Pads Placed On Patient. 13:00:06 Re Prominences Protected 13:00:07 A # 20 IV was noted in the Antecubital (left). Grade = 0 0.9ns kvo 13:00:08 A # 20 IV was noted in the Forearm (right). Grade = 0 0.9ns kvo 13:00:09 History and physical on the chart or being dictated. Assessment: Initial Case, HR=48 BPM, Rhythm=chb, GPIK=605/70 mmhg, Chest Pain=0, Edema=None, Color=Normal, Skin = Warm, Dry Right Pulses: Radial=2 Left Pulses: Radial=2 13:17:43 Lower Right Extremities: Color=Normal Lower Left Extremities: Color=Normal Neurological: State=Alert, Ox3, JEAN Respiration: Resp=20 B/min, BbW0=201 % 13:26:29 Table restraints applied according to hospital policy 13:30:09 Anesthesia at bedside. Assumes care of patient. 13:30:52 Left Upper Chest Prepped Times Two. 1 g VANCOMYCIN DRIP given in lab by Anesthesia, POLICY CHANGE CLERK in Right Forearm via Peripheral IV. Ordere d by Gage, 13:33:23 Lizzy. Reason: As per physicians verbal order. 2 g ANCEF given in lab by Anesthesia, POLICY CHANGE CLERK in Right Forearm via Peripheral IV. Ordered by Lizzy Vázquez. Reason: 13:33:45 As per physicians verbal order. First Sponge And Instrument Count Done by Jose A Harrington, RT(R). 13:35:18 Hypo's: 6, Sponges: 25 sponges, Bovie/scratch: bovie/scratch Sutures: ~SUTURE~, Blades: ~BLADES~, Instruments: 26, Syveck Patches: 0 13:36:41 Bovie ground pad applied to: left thigh 13:37:15 MD arrived. 13:42:12 2% CHLORHEXIDINE GLUCONATE WASH AND NASAL SWIPE DONE PRIOR TO PROCEDURE. Time Out. Correct patient, procedure, procedure equipment, site and side verified with physicia n present. Time 13:45:00 concurred by MD, individual staff and POLICY CHANGE CLERK. Time Out #2 - Consents verified, patient in correct position, all results are labled and displa yed, safety precautions 13:45:27 taken, antibiotics administered. Time out concurred by MD, individual staff and POLICY CHANGE CLERK in procedu re 13:45:41 Case Start 50 mL 2% XYLOCAINE given in lab by Lizzy Almonte in Left upper chest via Subcutaneous. Ordere d by Gage, 13:45:42 Lizzy. 13:47:09 Surgical Incision Made. 13:47:11 A pocket was created at the L Upper Chest. 13:52:03 Reference ECG taken 13:57:37 Vascular access was obtained in the Subclav. Vein (Lft.) Ultrasound. A INTRODUCER SET, MICROPUNCTURE, STIFFENED FR 5 was advanced into the Subclav. Vein (Lft using the Modified 14:01:32 Seldinger technique. 14:02:00 Vascular access was obtained in the Subclav. Vein (Lft.) A INTRODUCER SET, MICROPUNCTURE, STIFFENED FR 5 was advanced into the Subclav. Vein (Lft using the Modified 14:02:07 Seldinger technique. 14:02:15 One antibiotic sponge put into the surgical pocket. 14:03:11 Wire inserted 14:03:12 Wire inserted A SAFE SHEATH, FR8, 13CM FR 8 was exchanged in the Subclav. Vein (Lft.) This was necessary in o rder for catheter 14:04:03 support. 14:06:32 A LEAD, TENDRIL ACTIVE FIXATION BIPOLAR 58 was inserted and positioned in the RV. 14:08:26 The RV lead was sutured to the fascia. 14:09:23 The RV lead impedance and threshold being tested. 14:14:51 A LEAD, TENDRIL MRI 46CM was inserted and positioned in the RA. 14:15:16 Lead placement verified under fluoroscopy 14:18:21 The Atrial lead impedance and threshold is being tested. 14:18:23 The Atrial lead was sutured to the fascia. 14:27:51 Antibiotic sponge removed from the surgical pocket. 14:28:13 Pocket flushed with antibiotic solution 14:29:13 A PACEMAKER, ASSURITY DR NAJERA MRI was connected and placed in the pocket. 14:31:48 Implant Procedure was performed. 14:31:56 A PPM Implant . (Dual) Second Sponge And Instrument Count Done by Jose A Harrington, RT(R). 14:32:12 Hypo's: 6, Sponges: 35, Bovie/scratch: 2 Sutures: 11, Blades: 2, Instruments: 26, Syveck Patches: 0 10 raytec sponges added to table 14:37:25 CICU called. Spoke to Amy 14:37:35 Bedside Report will be given. Assessment: Final Case, HR=76 BPM, Rhythm=manager assisted living, QVMD=540/56 mmhg, Chest Pain=0, Edema=None, [place] r=Normal, Skin = Warm, Dry Right Pulses: Radial=2 Left Pulses: Radial=1 14:40:40 Lower Right Extremities: Color=Normal Lower Left Extremities: Color=Normal Neurological: State=Alert, Ox3, JEAN Respiration: Resp=16 B/min, ClQ0=803 %, O2=6 lpm 14:52:40 The pocket was closed. Final Sponge And Instrument Count Done by Jose A Harrington, RT(R). 14:53:14 Hypo's: 6, Sponges: 35, Bovie/scratch: 2 Sutures: 11, Blades: 2, Instruments: 26, Syveck Patches: 0 14:54:57 Steri-strips and a sterile dressing applied to site. 14:55:03 Case End 14:55:18 No case complications noted. 14:55:20 Cine recording checked. 14:55:22 Implantable Device card placed in patient's chart. 14:55:26 Defibrillator and ground pads removed. Skin intact. 14:59:06 A sling was placed on the affected arm. 15:05:30 Patient moved to stretcher End Study - Contrast Media Used In Study Contrast Total Opened (mL) Total Used (mL) Total Wasted (mL) Unspecified 0 0 0 End Study - Maximum Contrast Load Max Contrast Load (mL) 570.5 End Study - Radiation Exposure Fluoro Time (minutes) 3.1 End Study - Patient Disposition Complications Transferred To Interventional Outcome No Telemetry Bed successful
--- NOTE | 2017-06-29 15:30 | MB ---
cc: STEFFANIE VALIENTE DATE OF CONSULTATION: 06/29/2017 REASON FOR CONSULTATION Shortness of breath. HISTORY OF PRESENT ILLNESS Mr. Smith is an 82-year-old male who was admitted with syncope and bradycardia. In the analyst microbiology lab at present a pacemaker is being placed. The patient has intermittent shortness of breath and known history of bronchial asthma. He has been using Dulera as well as albuterol on an as-needed basis. There is no cough, no expectoration, fever, chills or hemoptysis. No TB or previous industrial exposure. PAST MEDICAL HISTORY 1. Bronchial asthma on bronchodilator therapy as above. 2. Coronary artery disease, post CABG and stent placement. 3. Hypertension. 4. Hyperlipidemia. 5. Obstructive sleep apnea, could not tolerate CPAP, and is not using it. 6. Previous CVA. 7. History of acid reflux. 8. Degenerative joint disease. 9. History of prostate cancer. 10.Gastric bypass surgery in the past. 11.Bilateral cataract surgeries. 12.Radiatoin to the prostate by seed implants. MEDICATIONS Medications at home: 1. Dulera twice a day. 2. ProAir as needed. 3. Aspirin. 4. Fish oil. 5. Latanoprost eye drops. 6. Metoprolol. 7. Clopidogrel. 8. Atorvastatin. 9. Montelukast 10 mg daily. ALLERGIES DOG DANDER CAUSING SEVERE BRONCHOSPASM. None to medication. SOCIAL HISTORY Does not smoke, does not drink. No TB. No industrial exposure. FAMILY HISTORY Positive for coronary artery disease, heart failure, lung cancer. REVIEW OF SYSTEMS A 12-point review of systems as per HPI and past history, otherwise negative. PHYSICAL EXAMINATION GENERAL: The patient is alert. VITAL SIGNS: Temperature 98, pulse 44, respiration 18, blood pressure 150/60. O2 sat 99% on room air. HEENT: Exam unremarkable. Eyes without icterus. NECK: Without adenopathy or thyroid enlargement. CHEST: Without dullness to percussion, clear to auscultation. CARDIAC: Bradycardia noted. ABDOMEN: Benign. Lax. Bowel sounds audible. EXTREMITIES: Positive for edema. LABORATORY White count 9000, hemoglobin 14, hematocrit 42, platelets 231,000. Sodium 133, potassium 5.0, BUN 28, creatinine 1.0. IMAGING Chest x-ray: Compensated cardiomegaly. No acute abnormality. Sutures of previous sternotomy noted. IMPRESSION 1. Shortness of breath, probably related to the patient's bronchial asthma as mentioned above. He is on bronchodilator therapy. 2. Coronary artery disease, post CABG and stent placement. 3. Hypertension. 4. Hyperlipidemia. 5. Status post CVA. PLAN The patient's oxygenation is quite adequate on room air. Pulmonary function has been ordered and is pending at this time. Would continue bronchodilator therapy as needed during his hospital stay. As mentioned a pacemaker will be placed for the patient's syncope and bradycardia. Will follow-up his care along with you and depending on progress proceed further. Sleep apnea may be treated, however, if he insists I am not treating it. I will discuss this further with him in detail and explain the need for treating obstructive sleep apnea and its complications. I do thank you for asking me to partake in Mr. Smith's care. Steffanie Valiente MD WWW/LARRY /2:05 PM /3:15 PM
--- NOTE | 2017-06-29 15:55 | RADRPT ---
EXAM DATE/TIME: 06/29/2017 15:27 [facility] COMPARISON: CHEST SINGLE AP, June 27, 2017, 12:20. INDICATIONS : Evaluate for pneumothorax. Post pacemaker insertion. MEDICAL HISTORY : Cardiovascular disease. Hypertension Carcinoma, prostatic. Asthma. SURGICAL HISTORY : CABG. Carotid stent. Cholecystectomy. Appendectomy, gastric bypass. Pacemaker ENCOUNTER: Subsequent ACUITY: 2 days PAIN SCORE: 0/10 LOCATION: Bilateral chest FINDINGS: A left subclavian dual lead pacemaker has its tips in the right atrium and right ventricle. There is no pneumothorax. Median sternotomy wires are noted status post cardiac surgery. The heart is enlarge d. Left basilar atelectasis is noted. Degenerative changes and scoliosis of the thoracic spine are n oted. CONCLUSION: 1. Cardiomegaly. 2. Left basilar atelectasis. 3. No pneumothorax status post placement of left subclavian dual lead pacemaker which has its tips in good positions in the right atrium and right ventricle. 4. Degenerative changes and scoliosis of the thoracic spine. Dong Gonzalez MD on June 29, 2017 at 15:50 Board Certified Radiologist. This report was verified electronically.
[2017-06-29] MEDS: LATANOPROST 0.005% OPHT SOLN 2.5 ML BTL EACH EYE SCH (21:00)
[2017-06-29] MEDS: ceFAZolin 2 GM PREMIX 50 ML IV SCH (21:50)
[2017-06-29] MEDS: ATORVASTATIN 40 MG TAB PO SCH (21:50)
[2017-06-30] VITALS (11 sets, daily range): BP systolic 131–146; BP diastolic 64–78; PULSE 76–93; RESP 18; TEMP 97.4–98.1; O2SAT 98–100
[2017-06-30] MEDS ORDERED: VANCOMYCIN INJ 1,000 MG in SODIUM CHLOR 0.9% 250 ML INJ 250 ML IV ONE (01:00)
[2017-06-30] MEDS: ceFAZolin 2 GM PREMIX 50 ML IV SCH (04:36)
--- NOTE | 2017-06-30 08:40 | MR ---
cc: ADRI COOK DATE 06/29/2017 INDICATION High degree AV block (Mobitz type 2) with severe symptomatic bradycardia. PROCEDURE PERFORMED Placement of a [employer] Sean dual-chamber MRI compatible pacemaker. MEDICATIONS Ancef and Vancomycin ANESTHESIA Sedation provided by anesthesia. EQUIPMENT USED A [employer] Sean Assurity MRI model [id number] dual-chamber MRI compatible pacemaker, serial number [id number]. Right ventricle lead, [employer] Sean model [id number] cm screw-in atrial lead serial number [id number]. Right ventricle lead, [employer] Sean model [id number] cm screw-in ventricle lead, serial number [id number]. Both leads are MRI compatible. LEAD TESTING Right atrial lead, R-wave over 5 mV, lead impedance 480 ohms and stable. Pacing threshold, 0.5 volts at 0.5 milliseconds. Pacing at 10 volts, no diaphragmatic stimulation. Right ventricle lead, R-wave 9.2 mV, lead impedance 630 ohms. Pacing threshold, 0.5 volts at 0.5 milliseconds. Pacing at 10 volts, no diaphragmatic stimulation. Parameters, mode DDDR with lower rate 60, upper rate 120. DIAGNOSIS Successful placement of [employer] Sean dual-chamber MRI compatible pacemaker. DISPOSITION Mr. Smith will be monitored on telemetry after his procedure. We will obtain serial EKG's and chest x-ray. He will continue perioperative antibiotics. He will be seen back for a wound check and chronic device reprogramming in our office within two weeks. He is undergoing pulmonary evaluation as well. MD MILTON Gracia/JORJE /2:52 PM /8:35 AM
--- NOTE | 2017-06-30 08:40 | MR ---
cc: ADRI COOK DATE 06/29/2017 INDICATION High degree AV block (Mobitz type 2) with severe symptomatic bradycardia. PROCEDURE PERFORMED Placement of a [employer] Sean dual-chamber MRI compatible pacemaker. MEDICATIONS Ancef and Vancomycin ANESTHESIA Sedation provided by anesthesia. EQUIPMENT USED A [employer] Sean Assurity MRI model [id number] dual-chamber MRI compatible pacemaker, serial number [id number]. Right ventricle lead, [employer] Sean model [id number] cm screw-in atrial lead serial number [id number]. Right ventricle lead, [employer] Sean model [id number] cm screw-in ventricle lead, serial number [id number]. Both leads are MRI compatible. LEAD TESTING Right atrial lead, R-wave over 5 mV, lead impedance 480 ohms and stable. Pacing threshold, 0.5 volts at 0.5 milliseconds. Pacing at 10 volts, no diaphragmatic stimulation. Right ventricle lead, R-wave 9.2 mV, lead impedance 630 ohms. Pacing threshold, 0.5 volts at 0.5 milliseconds. Pacing at 10 volts, no diaphragmatic stimulation. Parameters, mode DDDR with lower rate 60, upper rate 120. DIAGNOSIS Successful placement of [employer] Sean dual-chamber MRI compatible pacemaker. DISPOSITION Mr. Smith will be monitored on telemetry after his procedure. We will obtain serial EKG's and chest x-ray. He will continue perioperative antibiotics. He will be seen back for a wound check and chronic device reprogramming in our office within two weeks. He is undergoing pulmonary evaluation as well. MD MILTON Gracia/JORJE /2:52 PM /8:35 AM
--- NOTE | 2017-06-30 08:40 | MR ---
cc: ADRI COOK DATE 06/29/2017 INDICATION High degree AV block (Mobitz type 2) with severe symptomatic bradycardia. PROCEDURE PERFORMED Placement of a [employer] Sean dual-chamber MRI compatible pacemaker. MEDICATIONS Ancef and Vancomycin ANESTHESIA Sedation provided by anesthesia. EQUIPMENT USED A [employer] Sean Assurity MRI model [id number] dual-chamber MRI compatible pacemaker, serial number [id number]. Right ventricle lead, [employer] Sean model [id number] cm screw-in atrial lead serial number [id number]. Right ventricle lead, [employer] Sean model [id number] cm screw-in ventricle lead, serial number [id number]. Both leads are MRI compatible. LEAD TESTING Right atrial lead, R-wave over 5 mV, lead impedance 480 ohms and stable. Pacing threshold, 0.5 volts at 0.5 milliseconds. Pacing at 10 volts, no diaphragmatic stimulation. Right ventricle lead, R-wave 9.2 mV, lead impedance 630 ohms. Pacing threshold, 0.5 volts at 0.5 milliseconds. Pacing at 10 volts, no diaphragmatic stimulation. Parameters, mode DDDR with lower rate 60, upper rate 120. DIAGNOSIS Successful placement of [employer] Sean dual-chamber MRI compatible pacemaker. DISPOSITION Mr. Smith will be monitored on telemetry after his procedure. We will obtain serial EKG's and chest x-ray. He will continue perioperative antibiotics. He will be seen back for a wound check and chronic device reprogramming in our office within two weeks. He is undergoing pulmonary evaluation as well. MD MILTON Gracia/JORJE /2:52 PM /8:35 AM
[2017-06-30] MEDS: SODIUM CHLORIDE 0.9% FLUSH 10 ML FLUSH IV FLUSH SCH (09:00)
[2017-06-30] MEDS ORDERED: METOPROLOL TARTRATE 25 MG TAB PO SCH (09:00)
--- NOTE | 2017-06-30 09:35 | HHI.PR ---
Subjective Remarks alert up in chair no sob states he feels much better after pacemaker placement Objective Vital Signs Date Time Temp Pulse Resp B/P (MAP) Pulse Ox O2 Delivery O2 Flow Rate FiO2 06/30/17 09:00 88 06/30/17 08:00 97.6 88 18 146/78 (100) 98 06/30/17 08:00 88 06/30/17 07:00 88 06/30/17 06:00 86 06/30/17 05:00 80 06/30/17 04:00 93 06/30/17 04:00 97.4 86 18 131/64 (86) 99 06/30/17 03:00 84 06/30/17 02:00 76 06/30/17 01:00 80 06/30/17 00:00 80 06/30/17 00:00 98.1 85 18 131/69 (89) 100 06/29/17 23:00 106 06/29/17 22:00 82 06/29/17 21:00 80 06/29/17 20:00 84 06/29/17 20:00 96.9 76 18 115/64 (81) 99 06/29/17 19:00 80 06/29/17 18:02 76 06/29/17 17:00 74 06/29/17 16:00 70 06/29/17 16:00 97.6 74 20 116/68 (84) 98 I/O 06/29/17 06/29/17 06/29/17 06/30/17 06/30/17 06/30/17 07:00 15:00 23:00 07:00 15:00 23:00 Intake Total 240 ml 50 ml 840 ml Output Total 1375 ml Balance 240 ml 50 ml -535 ml Intake Oral 240 ml 240 ml IV Total 50 ml 600 ml Output Urine Total 1375 ml # Voids 3 # Bowel Movements 1 0 Result Diagram: 06/28/1761906/28/17 0620 Assessment and Plan Assessment and Plan SOB MARKEDLY IMPROVED O2 SAT 98% RA PLAN CHECK PFT INCREASE ACTIVITY OK FOR D/C OFFICE 1 WEEK Steffanie Valiente MD Jun 30, 2017 09:34
[2017-06-30] MEDS: LOSARTAN 50 MG TAB PO SCH (10:07)
[2017-06-30] MEDS: ASPIRIN 81 MG CHEW TAB CHEW SCH (10:08)
[2017-06-30] MEDS: MONTELUKAST SODIUM 10 MG TAB PO SCH (10:08)
[2017-06-30] MEDS: DOCUSATE SODIUM 50 MG/SENNA 8.6 MG TAB PO SCH (10:08)
[2017-06-30] MEDS: HYDROCHLOROTHIAZIDE 12.5 MG CAP PO SCH (10:09)
--- NOTE | 2017-06-30 10:26 | PD.CARD.PN ---
Subjective Subjective Remarks No CP, mild SOB, feels better Objective Medications Current Medications Medications (Trade) Dose Ordered Sig/Jenifer Route Start Time Stop Time Status Last Admin (NS Flush) 2 ml UNSCH PRN IV FLUSH 06/27/17 13:45 (NS Flush) 2 ml BID IV FLUSH 06/27/17 21:00 06/30/17 09:00 (Tylenol) 650 mg Q4H PRN PO 06/27/17 13:45 (Zofran Inj) 4 mg Q6H PRN IVP 06/27/17 13:45 (Lovenox Inj) 40 mg Q24H SQ 06/27/17 15:00 Future Hold 06/27/17 15:36 (Narcan Inj) 0.4 mg UNSCH PRN IV PUSH 06/27/17 13:45 (Karen-Colace) 1 tab BID PO 06/27/17 21:00 06/30/17 10:08 (Milk Of Magnesia Liq) 30 ml Q12H PRN PO 06/27/17 13:45 (Senokot) 17.2 mg Q12H PRN PO 06/27/17 13:45 (Dulcolax Supp) 10 mg DAILY PRN RECTAL 06/27/17 13:45 (Lactulose Liq) 30 ml DAILY PRN PO 06/27/17 13:45 (Proair Hfa Inh) 2 puff Q4HR PRN INH 06/27/17 15:00 (Aspirin Chew) 81 mg DAILY CHEW 06/28/17 09:00 06/30/17 10:08 (Lipitor) 40 mg HS PO 06/28/17 21:00 06/29/17 21:50 (Plavix) 75 mg DAILY PO 06/28/17 09:00 Future Hold 06/28/17 09:22 (Xalatan 0.005% Opth Soln) 1 drop HS EACH EYE 06/28/17 21:00 06/28/17 20:55 (Singulair) 10 mg DAILY PO 06/28/17 09:00 06/30/17 10:08 Patient Own Medication PT OWN MED: DULERA (MOMETASONE-FORMOTER... BID INH 06/27/17 21:00 Future Hold (Cozaar) 50 mg DAILY PO 06/28/17 09:00 06/30/17 10:07 (Microzide) 12.5 mg DAILY PO 06/28/17 09:00 06/30/17 10:09 Cefazolin Sodium/ Dextrose 50 ml @ 100 mls/hr Q8H IV 06/29/17 21:00 06/30/17 13:29 06/30/17 04:36 (Lopressor) 25 mg Q12HR PO 06/30/17 09:00 06/30/17 10:07 Vital Signs / I&O Vital Signs Date Time Temp Pulse Resp B/P (MAP) Pulse Ox O2 Delivery O2 Flow Rate FiO2 06/30/17 10:10 86 06/30/17 09:00 88 06/30/17 08:00 97.6 88 18 146/78 (100) 98 06/30/17 08:00 88 06/30/17 07:00 88 06/30/17 06:00 86 06/30/17 05:00 80 06/30/17 04:00 93 06/30/17 04:00 97.4 86 18 131/64 (86) 99 06/30/17 03:00 84 06/30/17 02:00 76 06/30/17 01:00 80 06/30/17 00:00 80 06/30/17 00:00 98.1 85 18 131/69 (89) 100 06/29/17 23:00 106 06/29/17 22:00 82 06/29/17 21:00 80 06/29/17 20:00 84 06/29/17 20:00 96.9 76 18 115/64 (81) 99 06/29/17 19:00 80 06/29/17 18:02 76 06/29/17 17:00 74 06/29/17 16:00 70 06/29/17 16:00 97.6 74 20 116/68 (84) 98 I/O 06/29/17 06/29/17 06/29/17 06/30/17 06/30/17 06/30/17 07:00 15:00 23:00 07:00 15:00 23:00 Intake Total 240 ml 50 ml 840 ml Output Total 1375 ml Balance 240 ml 50 ml -535 ml Intake Oral 240 ml 240 ml IV Total 50 ml 600 ml Output Urine Total 1375 ml # Voids 3 # Bowel Movements 1 0 Physical Exam GENERAL: In NAD SKIN: Warm and dry. HEAD: Normocephalic. EYES: No scleral icterus. No injection or drainage. NECK: Supple, trachea midline. No JVD or lymphadenopathy. CARDIOVASCULAR: Regular, without murmurs, gallops, or rubs. RESPIRATORY: Breath sounds equal bilaterally. No accessory muscle use. GASTROINTESTINAL: Abdomen soft, non-tender, nondistended. MUSCULOSKELETAL: No cyanosis, mild edema. Pacemaker wound stable Assessment and Plan Problem List: (1) High degree atrioventricular block ICD Codes: I44.39 - Other atrioventricular block (2) Near syncope ICD Codes: R55 - Syncope and collapse Status: Acute (3) Symptomatic bradycardia ICD Codes: R00.1 - Bradycardia, unspecified Status: Acute (4) CAD (coronary artery disease) ICD Codes: I25.10 - Atherosclerotic heart disease of [place] coronary artery without angina pectoris Status: Chronic (5) Hypertension ICD Codes: I10 - Essential (primary) hypertension Status: Chronic (6) CVA (cerebral vascular accident) ICD Codes: I63.9 - Cerebral infarction, unspecified Status: Chronic (7) Carotid stenosis, right ICD Codes: I65.21 - Occlusion and stenosis of right carotid artery Status: Acute Assessment and Plan Normal pacemaker function. Wound stable. Restart Plavix and metoprolol. Pulmonary evaluation w Dr. Valiente. NM home. F/u for a wound check and chronic pacer programming within 2 weeks. D/w pt and . Lizzy Almonte MD Jun 30, 2017 10:26
--- NOTE | 2017-06-30 10:45 | HHI.FF ---
Face to Face Verification Diagnosis: (1) Status post placement of cardiac pacemaker (2) Near syncope (3) CAD (coronary artery disease) (4) Symptomatic bradycardia Home Health Nursing Order: Medical education Signs/symptoms of disease process Medication education-adverse effect Wound care and dressing changes Nursing assessment with vital signs I have seen patient Nicolas Smith on 06/30/17. My clinical findings support the need for the requested home health care services because: Ltd mobility - disease progression I certify that my clinical findings support that this patient is homebound because: Unsafe to leave home unassisted Baron Smtih MD Jun 30, 2017 10:45
--- NOTE | 2017-06-30 11:14 | HHI.PR ---
Subjective Remarks Mr. Smith is an 82-year-old male who was admitted with syncope and bradycardia. In the cardiovascular lab director at present a pacemaker is being placed. The patient has intermittent shortness of breath and known history of bronchial asthma. He has been using Dulera as well as albuterol on an as-needed basis. There is no cough, no expectoration, fever, chills or hemoptysis. No TB or previous industrial exposure. today the patient is in status post Pacemaker placement also status post PFT and recommended by Cardiology for discharge continue Home medicines Metoprolol and Plavix and as per physical security specialist status post PFT with suspected Asthma and follow in his office in one week. Objective Vital Signs Date Time Temp Pulse Resp B/P (MAP) Pulse Ox O2 Delivery O2 Flow Rate FiO2 06/30/17 10:10 86 06/30/17 09:00 88 06/30/17 08:00 97.6 88 18 146/78 (100) 98 06/30/17 08:00 88 06/30/17 07:00 88 06/30/17 06:00 86 06/30/17 05:00 80 06/30/17 04:00 93 06/30/17 04:00 97.4 86 18 131/64 (86) 99 06/30/17 03:00 84 06/30/17 02:00 76 06/30/17 01:00 80 06/30/17 00:00 80 06/30/17 00:00 98.1 85 18 131/69 (89) 100 06/29/17 23:00 106 06/29/17 22:00 82 06/29/17 21:00 80 06/29/17 20:00 84 06/29/17 20:00 96.9 76 18 115/64 (81) 99 06/29/17 19:00 80 06/29/17 18:02 76 06/29/17 17:00 74 06/29/17 16:00 70 06/29/17 16:00 97.6 74 20 116/68 (84) 98 I/O 06/29/17 06/29/17 06/29/17 06/30/17 06/30/17 06/30/17 06:59 14:59 22:59 06:59 14:59 22:59 Intake Total 240 ml 50 ml 840 ml Output Total 1375 ml Balance 240 ml 50 ml -535 ml Intake Oral 240 ml 240 ml IV Total 50 ml 600 ml Output Urine Total 1375 ml # Voids 3 # Bowel Movements 1 0 Result Diagram: 06/28/1720 06/28/17619 Imaging Last Impressions Chest X-Ray 06/29/17 0000 Signed Impressions: Service Date/Time: Thursday, June 29, 2017 15:27 - CONCLUSION: 1. Cardiomegaly. 2. Left basilar atelectasis. 3. No pneumothorax status post placement of left subclavian dual lead pacemaker which has its tips in good positions in the right atrium and right ventricle. 4. Degenerative changes and scoliosis of the thoracic spine. Dong Gonzalez MD Procedures With Diagnosis of 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 Sean Dual Chamber MRI compatible pacemaker. 06/29/17 Other Results Laboratory Tests Test 06/27/17 12:00 06/27/17 21:10 06/28/17 06:20 Prothrombin Time 11.7 SEC Prothromb Time International Ratio 1.1 RATIO Activated Partial Thromboplast Time 24.6 SEC Blood Urea Nitrogen 28 MG/DL 24 MG/DL Creatinine 1.08 MG/DL 0.93 MG/DL Random Glucose 127 MG/DL 94 MG/DL Calcium Level 9.1 MG/DL 9.1 MG/DL Magnesium Level 2.2 MG/DL Sodium Level 133 MEQ/L 136 MEQ/L Potassium Level 5.0 MEQ/L 4.1 MEQ/L Chloride Level 101 MEQ/L 103 MEQ/L Carbon Dioxide Level 24.9 MEQ/L 25.8 MEQ/L Total Creatine Kinase 145 U/L Creatine Kinase MB 2.6 NG/ML B-Type Natriuretic Peptide 564 PG/ML Troponin I 0.09 NG/ML White Blood Count 8.5 TH/MM3 Red Blood Count 4.46 MIL/MM3 Hemoglobin 14.7 GM/DL Hematocrit 42.0 % Mean Corpuscular Volume 94.1 FL Mean Corpuscular Hemoglobin 32.9 PG Mean Corpuscular Hemoglobin Concent 35.0 % Red Cell Distribution Width 14.6 % Platelet Count 216 TH/MM3 Mean Platelet Volume 7.7 FL Neutrophils (%) (Auto) 66.9 % Lymphocytes (%) (Auto) 21.6 % Monocytes (%) (Auto) 8.6 % Eosinophils (%) (Auto) 2.4 % Basophils (%) (Auto) 0.5 % Neutrophils # (Auto) 5.7 TH/MM3 Lymphocytes # (Auto) 1.8 TH/MM3 Monocytes # (Auto) 0.7 TH/MM3 Eosinophils # (Auto) 0.2 TH/MM3 Basophils # (Auto) 0.0 TH/MM3 CBC Comment DIFF FINAL Differential Comment Total Protein 7.6 GM/DL Albumin 4.0 GM/DL Alkaline Phosphatase 87 U/L Aspartate Amino Transf (AST/SGOT) 24 U/L Alanine Aminotransferase (ALT/SGPT) 38 U/L Total Bilirubin 0.8 MG/DL Anion Gap 7 MEQ/L Estimat Glomerular Filtration Rate 78 ML/MIN Objective Remarks GENERAL: Stable, no acute distress. EYES: EOMI NECK: Trachea midline. No JVD. CARDIOVASCULAR: Bradycardic, regular rhythm. No murmur appreciated. left upper chest with dressed area. RESPIRATORY: No accessory muscle use. Clear to auscultation. Breath sounds equal bilaterally. GASTROINTESTINAL: Abdomen soft, non-tender, nondistended. MUSCULOSKELETAL: No obvious deformities. 1+ bilateral lower extremity pitting edema. NEUROLOGICAL: Awake and alert. No obvious cranial nerve deficits. moves his extremities. Normal speech. PSYCHIATRIC: Appropriate mood and affect; insight and judgment normal. Medications and IVs Current Medications Medications (Trade) Dose Ordered Sig/Jenifer Route Start Time Stop Time Status Last Admin (NS Flush) 2 ml UNSCH PRN IV FLUSH 06/27/17 13:45 (NS Flush) 2 ml BID IV FLUSH 06/27/17 21:00 06/30/17 09:00 (Tylenol) 650 mg Q4H PRN PO 06/27/17 13:45 (Zofran Inj) 4 mg Q6H PRN IVP 06/27/17 13:45 (Lovenox Inj) 40 mg Q24H SQ 06/27/17 15:00 Future Hold 06/27/17 15:36 (Narcan Inj) 0.4 mg UNSCH PRN IV PUSH 06/27/17 13:45 (Karen-Colace) 1 tab BID PO 06/27/17 21:00 06/30/17 10:08 (Milk Of Magnesia Liq) 30 ml Q12H PRN PO 06/27/17 13:45 (Senokot) 17.2 mg Q12H PRN PO 06/27/17 13:45 (Dulcolax Supp) 10 mg DAILY PRN RECTAL 06/27/17 13:45 (Lactulose Liq) 30 ml DAILY PRN PO 06/27/17 13:45 (Proair Hfa Inh) 2 puff Q4HR PRN INH 06/27/17 15:00 (Aspirin Chew) 81 mg DAILY CHEW 06/28/17 09:00 06/30/17 10:08 (Lipitor) 40 mg HS PO 06/28/17 21:00 06/29/17 21:50 (Plavix) 75 mg DAILY PO 06/28/17 09:00 Future Hold 06/28/17 09:22 (Xalatan 0.005% Opth Soln) 1 drop HS EACH EYE 06/28/17 21:00 06/28/17 20:55 (Singulair) 10 mg DAILY PO 06/28/17 09:00 06/30/17 10:08 Patient Own Medication PT OWN MED: DULERA (MOMETASONE-FORMOTER... BID INH 06/27/17 21:00 Future Hold (Cozaar) 50 mg DAILY PO 06/28/17 09:00 06/30/17 10:07 (Microzide) 12.5 mg DAILY PO 06/28/17 09:00 06/30/17 10:09 Cefazolin Sodium/ Dextrose 50 ml @ 100 mls/hr Q8H IV 06/29/17 21:00 06/30/17 13:29 06/30/17 04:36 (Lopressor) 25 mg Q12HR PO 06/30/17 09:00 06/30/17 10:07 A/P Assessment and Plan 82-year-old male with history of CAD s/p CABG x3 and stents x5, asthma, HTN, HLD , LIZZIE, CVA with residual right arm weakness, GERD, presents with a 3-4 week history of intermittent shortness of breath, lightheadedness, and weakness. Severe Symptomatic Bradycardia with High Degree AV Block: with +dyspnea/ lightheadedness. HR into low 40s on telemetry in the ED. EKG reviewed. Patient on metoprolol 25mg bid at home. -cardiology following. Recommends to continue to Hold patient's metoprolol. -Outpatient Echo Sep 2016 showed EF 55% - Status post DDD pacemaker 06/29/17, seen today by regulatory law specialist Doctor Lzizy Almonte and recommended for discharge wound stable, continue Plavix and Metoprolol. Follow up for pacer programming within two weeks. Elevated Troponin: trops 0.06 x2 then 0.09. Possible component of CHF with BNP 564, although echo in Sep 2016 with EF 55%, unclear if diastolic component. No complaints of chest pain. -continue home meds -cardiology following HTN/HLD/CAD s/p CABG & Stenting: chronic, no complaints of chest pain -continue patient's home medications including aspirin, statin, losartan, hctz, also recommended to continue Plavix and Metoprolol as per Cardiology Asthma: chronic however with recent dyspnea -status post PFT and follow with physical security specialist in one week. CVA: chronic, with residual RUE weakness -continue patient's aspirin, Plavix, and statin. DVT Prophylaxis: Lovenox, teds/SCDs Discharge Planning Discharge Home today. Baron Smith MD Jun 30, 2017 11:14
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
--- NOTE | 2017-06-30 11:25 | HHI.DS ---
Discharge Summary Admission Date Jun 27, 2017 at 13:46 Discharge Date: Jun 30, 2017 Admitting Diagnosis (1) Symptomatic bradycardia ICD Code: R00.1 - Bradycardia, unspecified Diagnosis: Principal Status: Acute (2) Near syncope ICD Code: R55 - Syncope and collapse Diagnosis: Principal Status: Acute (3) CAD (coronary artery disease) ICD Code: I25.10 - Atherosclerotic heart disease of [place] coronary artery without angina pectoris Diagnosis: Principal Status: Chronic (4) Hypertension ICD Code: I10 - Essential (primary) hypertension Diagnosis: Secondary Status: Chronic (5) Hyperlipidemia ICD Code: E78.5 - Hyperlipidemia, unspecified Diagnosis: Secondary Status: Chronic (6) CVA (cerebral vascular accident) ICD Code: I63.9 - Cerebral infarction, unspecified Diagnosis: Secondary Status: Chronic Procedures With Diagnosis of 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 Sean Dual Chamber MRI compatible pacemaker. 06/29/17 Brief History - From Admission Written by Catalina Shore, acting as scribe for Dr. Hawkins on 06/27/17 at 13: 42. 82-year-old male with history of CAD s/p CABG x3 and stents x5, asthma, HTN, HLD , LIZZIE, CVA with residual right arm weakness, GERD, presents with a 3-4 week history of intermittent shortness of breath, lightheadedness, and weakness. The patient reports these episodes will last 15-20 minutes and occur 2-3 times per day then subside spontaneously on its own. He cannot identify any aggravating or alleviating factors. He denies any associated chest pain or palpitations. This morning around 7am the patient had another episode of dizziness, weakness, and shortness of breath therefore he presented to the ED. His granddaughter is an LOBSTER CATCHER who works at a hospital in [place] who also urged him to come to the ER. The granddaughter has been checking his pulse and reportedly his heart rate went down to 39 last night. The patient reports he was very symptomatic with lightheadedness and shortness of breath when his heart rate was this low. He takes metoprolol daily and has not missed any doses. He was previously fairly active, goes to the gym daily, lifts weights and uses stationary bicycle; however he has had no energy recently and has been unable to go to the gym in the past 10 days. He sees dish stacker Dr. Hutchison, last seen 1.5 weeks ago, and was referred to [facility], has an upcoming appointment on 07/18. His last heart catheterization was 7years ago. He also has seen a song and dance performer in [place]. The patient denies any other medical complaints including no fevers/ chills, cough, chest pain, abdominal pain, nausea/vomiting, diarrhea/ constipation, or urinary complaints. CBC/BMP: 06/28/17 0620 06/28/17 0620 Significant Findings Laboratory Tests Test 06/27/17 12:00 06/27/17 14:47 06/27/17 21:10 06/28/17 06:20 Neutrophils (%) (Auto) 73.0 % (16.0-70.0) Prothrombin Time 11.7 SEC (9.8-11.6) Blood Urea Nitrogen 28 MG/DL (7-18) 24 MG/DL (7-18) Random Glucose 127 MG/DL (74-106) Sodium Level 133 MEQ/L (136-145) Estimat Glomerular Filtration Rate 65 ML/MIN (>89) 78 ML/MIN (>89) Troponin I 0.06 NG/ML (0.02-0.05) 0.06 NG/ML (0.02-0.05) 0.09 NG/ML (0.02-0.05) B-Type Natriuretic Peptide 564 PG/ML (0-100) Red Blood Count 4.46 MIL/MM3 (4.50-5.90) Monocytes (%) (Auto) 8.6 % (0.0-8.0) Imaging Last Impressions Chest X-Ray 06/29/17 0000 Signed Impressions: Service Date/Time: Thursday, June 29, 2017 15:27 - CONCLUSION: 1. Cardiomegaly. 2. Left basilar atelectasis. 3. No pneumothorax status post placement of left subclavian dual lead pacemaker which has its tips in good positions in the right atrium and right ventricle. 4. Degenerative changes and scoliosis of the thoracic spine. Dong Gonzalez MD PE at Discharge GENERAL: Stable, no acute distress. EYES: EOMI NECK: Trachea midline. No JVD. CARDIOVASCULAR: Bradycardic, regular rhythm. No murmur appreciated. left upper chest with dressed area. RESPIRATORY: No accessory muscle use. Clear to auscultation. Breath sounds equal bilaterally. GASTROINTESTINAL: Abdomen soft, non-tender, nondistended. MUSCULOSKELETAL: No obvious deformities. 1+ bilateral lower extremity pitting edema. NEUROLOGICAL: Awake and alert. No obvious cranial nerve deficits. moves his extremities. Normal speech. PSYCHIATRIC: Appropriate mood and affect; insight and judgment normal. Hospital Course Mr. Smith is an 82-year-old male who was admitted with syncope and bradycardia. In the technical laboratory asst at present a pacemaker is being placed. The patient has intermittent shortness of breath and known history of bronchial asthma. He has been using Dulera as well as albuterol on an as-needed basis. There is no cough, no expectoration, fever, chills or hemoptysis. No TB or previous industrial exposure. today the patient is in status post Pacemaker placement also status post PFT and recommended by Cardiology for discharge continue Home medicines Metoprolol and Plavix and as per grant specialist status post PFT with suspected Asthma and follow in his office in one week. Assessment and Plan 82-year-old male with history of CAD s/p CABG x3 and stents x5, asthma, HTN, HLD , LIZZIE, CVA with residual right arm weakness, GERD, presents with a 3-4 week history of intermittent shortness of breath, lightheadedness, and weakness. Severe Symptomatic Bradycardia with High Degree AV Block: with +dyspnea/ lightheadedness. HR into low 40s on telemetry in the ED. EKG reviewed. Patient on metoprolol 25mg bid at home. -cardiology following. Recommends to continue to Hold patient's metoprolol. -Outpatient Echo Sep 2016 showed EF 55% - Status post DDD pacemaker 06/29/17, seen today by research computing specialist Doctor Lizzy Almonte and recommended for discharge wound stable, continue Plavix and Metoprolol. Follow up for pacer programming within two weeks. Elevated Troponin: trops 0.06 x2 then 0.09. Possible component of CHF with BNP 564, although echo in Sep 2016 with EF 55%, unclear if diastolic component. No complaints of chest pain. -continue home meds -cardiology following HTN/HLD/CAD s/p CABG & Stenting: chronic, no complaints of chest pain -continue patient's home medications including aspirin, statin, losartan, hctz, also recommended to continue Plavix and Metoprolol as per Cardiology Asthma: chronic however with recent dyspnea -status post PFT and follow with grant specialist in one week. CVA: chronic, with residual RUE weakness -continue patient's aspirin, Plavix, and statin. DVT Prophylaxis: Lovenox, teds/SCDs Discharge Planning Discharge Home with [facility] for wound care skilled nurse management. Pt Condition on Discharge: Good Discharge Disposition: Disch w/ Home Health Serv Discharge Time: > 30 minutes Discharge Instructions DIET: Follow Instructions for: Heart Healthy Diet Activities you can perform: Regular-No Restrictions Other Activity Instructions: Follow recommendations for Left Upper arm management after pacemaker placement Baron Smith MD Jun 30, 2017 11:25
--- NOTE | 2017-06-30 11:25 | HHI.DS ---
Discharge Summary Admission Date Jun 27, 2017 at 13:46 Discharge Date: Jun 30, 2017 Admitting Diagnosis (1) Symptomatic bradycardia ICD Code: R00.1 - Bradycardia, unspecified Diagnosis: Principal Status: Acute (2) Near syncope ICD Code: R55 - Syncope and collapse Diagnosis: Principal Status: Acute (3) CAD (coronary artery disease) ICD Code: I25.10 - Atherosclerotic heart disease of [place] coronary artery without angina pectoris Diagnosis: Principal Status: Chronic (4) Hypertension ICD Code: I10 - Essential (primary) hypertension Diagnosis: Secondary Status: Chronic (5) Hyperlipidemia ICD Code: E78.5 - Hyperlipidemia, unspecified Diagnosis: Secondary Status: Chronic (6) CVA (cerebral vascular accident) ICD Code: I63.9 - Cerebral infarction, unspecified Diagnosis: Secondary Status: Chronic Procedures With Diagnosis of 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 Sean Dual Chamber MRI compatible pacemaker. 06/29/17 Brief History - From Admission Written by Catalina Shore, acting as scribe for Dr. Hawkins on 06/27/17 at 13: 42. 82-year-old male with history of CAD s/p CABG x3 and stents x5, asthma, HTN, HLD , LIZZIE, CVA with residual right arm weakness, GERD, presents with a 3-4 week history of intermittent shortness of breath, lightheadedness, and weakness. The patient reports these episodes will last 15-20 minutes and occur 2-3 times per day then subside spontaneously on its own. He cannot identify any aggravating or alleviating factors. He denies any associated chest pain or palpitations. This morning around 7am the patient had another episode of dizziness, weakness, and shortness of breath therefore he presented to the ED. His granddaughter is an SUPERVISOR ALUMINUM FABRICATION who works at a hospital in [place] who also urged him to come to the ER. The granddaughter has been checking his pulse and reportedly his heart rate went down to 39 last night. The patient reports he was very symptomatic with lightheadedness and shortness of breath when his heart rate was this low. He takes metoprolol daily and has not missed any doses. He was previously fairly active, goes to the gym daily, lifts weights and uses stationary bicycle; however he has had no energy recently and has been unable to go to the gym in the past 10 days. He sees environmental systems coordinator Dr. Hutchison, last seen 1.5 weeks ago, and was referred to [facility], has an upcoming appointment on 07/18. His last heart catheterization was 7years ago. He also has seen a masonry installer in [place]. The patient denies any other medical complaints including no fevers/ chills, cough, chest pain, abdominal pain, nausea/vomiting, diarrhea/ constipation, or urinary complaints. CBC/BMP: 06/28/17 0620 06/28/17 0620 Significant Findings Laboratory Tests Test 06/27/17 12:00 06/27/17 14:47 06/27/17 21:10 06/28/17 06:20 Neutrophils (%) (Auto) 73.0 % (16.0-70.0) Prothrombin Time 11.7 SEC (9.8-11.6) Blood Urea Nitrogen 28 MG/DL (7-18) 24 MG/DL (7-18) Random Glucose 127 MG/DL (74-106) Sodium Level 133 MEQ/L (136-145) Estimat Glomerular Filtration Rate 65 ML/MIN (>89) 78 ML/MIN (>89) Troponin I 0.06 NG/ML (0.02-0.05) 0.06 NG/ML (0.02-0.05) 0.09 NG/ML (0.02-0.05) B-Type Natriuretic Peptide 564 PG/ML (0-100) Red Blood Count 4.46 MIL/MM3 (4.50-5.90) Monocytes (%) (Auto) 8.6 % (0.0-8.0) Imaging Last Impressions Chest X-Ray 06/29/17 0000 Signed Impressions: Service Date/Time: Thursday, June 29, 2017 15:27 - CONCLUSION: 1. Cardiomegaly. 2. Left basilar atelectasis. 3. No pneumothorax status post placement of left subclavian dual lead pacemaker which has its tips in good positions in the right atrium and right ventricle. 4. Degenerative changes and scoliosis of the thoracic spine. Dong Gonzalez MD PE at Discharge GENERAL: Stable, no acute distress. EYES: EOMI NECK: Trachea midline. No JVD. CARDIOVASCULAR: Bradycardic, regular rhythm. No murmur appreciated. left upper chest with dressed area. RESPIRATORY: No accessory muscle use. Clear to auscultation. Breath sounds equal bilaterally. GASTROINTESTINAL: Abdomen soft, non-tender, nondistended. MUSCULOSKELETAL: No obvious deformities. 1+ bilateral lower extremity pitting edema. NEUROLOGICAL: Awake and alert. No obvious cranial nerve deficits. moves his extremities. Normal speech. PSYCHIATRIC: Appropriate mood and affect; insight and judgment normal. Hospital Course Mr. Smith is an 82-year-old male who was admitted with syncope and bradycardia. 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 The patient has intermittent shortness of breath and known history of bronchial asthma. He has been using Dulera as well as albuterol on an as-needed basis. There is no cough, no expectoration, fever, chills or hemoptysis. No TB or previous industrial exposure. today the patient is in status post Pacemaker placement also status post PFT and recommended by Cardiology for discharge continue Home medicines Metoprolol and Plavix and as per rangeland management specialist status post PFT with suspected Asthma and follow in his office in one week. Assessment and Plan 82-year-old male with history of CAD s/p CABG x3 and stents x5, asthma, HTN, HLD , LIZZIE, CVA with residual right arm weakness, GERD, presents with a 3-4 week history of intermittent shortness of breath, lightheadedness, and weakness. Severe Symptomatic Bradycardia with High Degree AV Block: with +dyspnea/ lightheadedness. HR into low 40s on telemetry in the ED. EKG reviewed. Patient on metoprolol 25mg bid at home. -cardiology following. Recommends to continue to Hold patient's metoprolol. -Outpatient Echo Sep 2016 showed EF 55% - Status post DDD pacemaker 06/29/17, seen today by vaccine specialist Doctor Lizzy Almonte and recommended for discharge wound stable, continue Plavix and Metoprolol. Follow up for pacer programming within two weeks. Elevated Troponin: trops 0.06 x2 then 0.09. Possible component of CHF with BNP 564, although echo in Sep 2016 with EF 55%, unclear if diastolic component. No complaints of chest pain. -continue home meds -cardiology following HTN/HLD/CAD s/p CABG & Stenting: chronic, no complaints of chest pain -continue patient's home medications including aspirin, statin, losartan, hctz, also recommended to continue Plavix and Metoprolol as per Cardiology Asthma: chronic however with recent dyspnea -status post PFT and follow with rangeland management specialist in one week. CVA: chronic, with residual RUE weakness -continue patient's aspirin, Plavix, and statin. DVT Prophylaxis: Lovenox, teds/SCDs Discharge Planning Discharge Home with [facility] for wound care skilled nurse management. Pt Condition on Discharge: Good Discharge Disposition: Disch w/ Home Health Serv Discharge Time: > 30 minutes Discharge Instructions DIET: Follow Instructions for: Heart Healthy Diet Activities you can perform: Regular-No Restrictions Other Activity Instructions: Follow recommendations for Left Upper arm management after pacemaker placement Baron Smith MD Jun 30, 2017 11:25
--- NOTE | 2017-07-04 10:39 | RSPPFT ---
DATE OF PROCEDURE: 06/30/17 COMMENTS: Spirometry with FVC of 2.1, FEV1 of 1.6, FEV1/FVC ratio at 74%. A positive and significant response to acutely inhaled bronchodilator. IMPRESSION: 1. Moderately severe airways obstruction. 2. Positive and significant response to acutely inhaled bronchodilator.
== END 2017-06-30 11:38 | disposition home health service (06) | DRG 244 ==
LOC: NEPC 11:26 → NEDA 13:46 → N04A 16:15 → HCIS 06-29 13:22 → HCIN 06-29 15:16
PROVIDERS: ADMIT Internal Medicine; ATTEND Internal Medicine
PROC: 02H63JZ Insertion of Pacemaker Lead into Right Atrium, Percutaneous Approach (ICD-10-PCS; 2017-06-29)
PROC: 02HK3JZ Insertion of Pacemaker Lead into Right Ventricle, Percutaneous Approach (ICD-10-PCS; 2017-06-29)
PROC: 0JH606Z Insertion of Pacemaker, Dual Chamber into Chest Subcutaneous Tissue and Fascia, Open Approach (ICD-10-PCS; principal; 2017-06-29 13:30)
DX: I44.1 Atrioventricular block, second degree (principal); I11.0 Hypertensive heart disease with heart failure; I50.9 Heart failure, unspecified; I27.20 Pulmonary hypertension, unspecified; R00.1 Bradycardia, unspecified; I69.331 Monoplegia of upper limb following cerebral infarction affecting right dominant side; I45.10 Unspecified right bundle-branch block; I65.21 Occlusion and stenosis of right carotid artery; Z95.1 Presence of aortocoronary bypass graft; G47.33 Obstructive sleep apnea (adult) (pediatric); R74.8 Abnormal levels of other serum enzymes; I25.2 Old myocardial infarction; I25.10 Atherosclerotic heart disease of native coronary artery without angina pectoris; J45.909 Unspecified asthma, uncomplicated; E78.00 Pure hypercholesterolemia, unspecified; Z96.641 Presence of right artificial hip joint; K21.9 Gastro-esophageal reflux disease without esophagitis; M19.90 Unspecified osteoarthritis, unspecified site; I73.9 Peripheral vascular disease, unspecified; Z92.3 Personal history of irradiation; Z98.41 Cataract extraction status, right eye; Z98.42 Cataract extraction status, left eye; Z82.49 Family history of ischemic heart disease and other diseases of the circulatory system; Z80.1 Family history of malignant neoplasm of trachea, bronchus and lung; Z85.46 Personal history of malignant neoplasm of prostate; Z95.5 Presence of coronary angioplasty implant and graft; Z85.820 Personal history of malignant melanoma of skin; Z98.84 Bariatric surgery status
CPT/HCPCS: 33208; 71010; 76937; 80048; 80053; 82550; 82552; 83735; 83880; 84484; 85025; 85610; 85730; 93005; 94060; C1785; C1898; J0690; J1650; J3370; J7050

== ENCOUNTER → 2017-08-01 | Outpatient (CLI) | payer MEDICARE, OTHER ==
[~2017-08-01] MED LIST changes: -ACET-703 PO; +ASPI-516 CHEW; -ASPI1TAB69 PO; -CENTTAB8 PO; +DULE100A INH
--- NOTE | 2017-08-05 11:57 | RSPPFT ---
DATE OF PROCEDURE: 08/01/17 COMMENTS: VOLUMES DYNAMIC: FVC and FEV1 mildly reduced. STATIC: TLC mildly reduced; FRC and RV normal. FLOWS: FEV1% normal; FEF 25-75 moderately reduced. DIFFUSION: Normal. FLOW VOLUME LOOP: Terminal airflow obstruction. IMPRESSION: Combined mild obstructive and mild restrictive ventilatory defect with normal diffusion. Minimal change post-bronchodilator.
== END ==
LOC: HRSP 08:50
PROVIDERS: ATTEND Internal Medicine
DX: J44.9 Chronic obstructive pulmonary disease, unspecified (principal)
CPT/HCPCS: 94060; 94620; 94726; 94729

== ENCOUNTER 2017-08-08 11:25 | Inpatient (IN) | payer MEDICARE, OTHER ==
[~2017-08-08] VITALS: Ht 174 cm; Wt 101.6 kg
[2017-08-08] VITALS (7 sets, daily range): BP systolic 106–152; BP diastolic 60–82; PULSE 74–106; RESP 16–18; TEMP 98.2–98.5; O2SAT 97–98
[2017-08-08] MEDS ORDERED: LACTULOSE SYRUP 20 GM/30 ML CUP PO PRN (12:30)
[2017-08-08] MEDS ORDERED: BISACODYL 10 MG SUPP RECTAL PRN (12:30)
[2017-08-08] MEDS ORDERED: ONDANSETRON HCL 4 MG/2 ML VIAL IVP PRN (12:30)
[2017-08-08] MEDS ORDERED: NALOXONE HCL 0.4 MG/ML AMP IV PUSH PRN (12:30)
[2017-08-08] MEDS ORDERED: MAGNESIUM HYDROXIDE SUSP 30 ML CUP PO PRN (12:30)
[2017-08-08] MEDS ORDERED: SENNOSIDES 8.6 MG TAB PO PRN (12:30)
--- NOTE | 2017-08-08 13:23 | RADRPT ---
EXAM DATE/TIME: 08/08/2017 12:46 [facility] COMPARISON: CHEST SINGLE AP, June 29, 2017, 15:27. INDICATIONS : Infection. Removal of infected pacemaker. MEDICAL HISTORY : Hypertension. Asthma. SURGICAL HISTORY : CABG. Pacemaker. ENCOUNTER: Initial ACUITY: 1 day PAIN SCORE: 0/10 LOCATION: Bilateral chest FINDINGS: A single view of the chest demonstrates the lungs to be symmetrically aerated without evidence of mas s, infiltrate or effusion. Cardiomegaly. Previous median sternotomy. Left-sided pacemaker. Slight walter vation left hemidiaphragm. The cardiomediastinal contours are unremarkable. Osseous structures are i ntact. CONCLUSION: Slight elevation left hemidiaphragm. Cardiomegaly with left sided pacemaker. Olvin Villarreal MD on August 08, 2017 at 13:20 Board Certified Radiologist. This report was verified electronically.
[2017-08-08 13:36] LABS: AUTOMATED NEUTROPHIL # 5.3 TH/MM3 (1.8-7.7); BASOPHIL % 0.4 % (0.0-2.0); EOSINOPHIL # 0.1 TH/MM3 (0-0.4); HEMATOCRIT 40.9 % (39.0-51.0); HEMO FLAGS DIFF FINAL; LYMPH % 17.3 % (9.0-44.0); LYMPHOCYTE # 1.2 TH/MM3 (1.0-4.8); MEAN CELL VOLUME 92.5 FL (80.0-100.0); MEAN CORPUSCULAR HEMOGLOBIN 32.1 PG (27.0-34.0); MEAN CORPUSCULAR HGB CONC 34.7 % (32.0-36.0); MONO % 8.5 % (0.0-8.0); NEUT % 72.8 % (16.0-70.0); PLATELET COUNT 256 TH/MM3 (150-450); RED BLOOD COUNT 4.42 MIL/MM3 (4.50-5.90); RED CELL DISTRIBUTION WIDTH 14.1 % (11.6-17.2); WHITE BLOOD COUNT 7.2 TH/MM3 (4.0-11.0)
[2017-08-08 13:45] LABS: APTT (PATIENT) 24.7 SEC (24.3-30.1); INTERNATIONAL NORMALIZED RATIO 1.1 RATIO
[2017-08-08 13:59] LABS: ALT (GPT) 40 U/L (12-78); ANION GAP 8 MEQ/L (5-15); AST (GOT) 34 U/L (15-37); BLOOD UREA NITROGEN 21 MG/DL (7-18); CHLORIDE 103 MEQ/L (98-107); GLOMERULAR FILTRATION RATE 83 ML/MIN (>89); POTASSIUM 4.4 MEQ/L (3.5-5.1); SODIUM (NA) 139 MEQ/L (136-145)
[2017-08-08] MEDS ORDERED: HEPARIN SODIUM - SQ 10,000 UNITS/ML VIAL SQ SCH (14:00)
[2017-08-08] MEDS ORDERED: ALBUTEROL SULFATE 90 MCG/ACT HFA 8 GM INHALER INH PRN (14:00)
[2017-08-08] MEDS ORDERED: Vancomycin Consult Pharmacy 1 EA OTHER SCH (14:00)
[2017-08-08 14:02] LABS: ALKALINE PHOSPHATASE 107 U/L (45-117); TOTAL BILIRUBIN ADULT 0.7 MG/DL (0.2-1.0)
[2017-08-08 14:41] LABS: BLOOD, URINE NEG (NEG); COMMENT (UR) CULT NOT INDICATED; CULTURE IF INDICATED CULT NOT INDICATED; GLUCOSE,URINE NEG (NEG); KETONE, URINE NEG (NEG); NITRITE,URINE NEG (NEG); SQUAMOUS EPITHELIAL CELL URINE <1 /hpf (0-5); URINE COLOR LIGHT-YELLOW (YELLW/STRAW)
[2017-08-08] MEDS ORDERED: amLODIPine BESYLATE 5 MG TAB PO PRN (14:45)
--- NOTE | 2017-08-08 14:51 | PD.CONS ---
HPI Service Cardiology Consult Requested By Dr Marinelli Reason for Consult PPM site infection Primary Care Physician Raymon Dixon, DO History of Present Illness The patient is an 82 year old male known to our practice with cardiac history of third degree heart block s/p PPM 06/30/[address] Almonte, ASHD, CVA, carotid stenosis and HTN. Since PPM implant, the patient developed erythema and drainage. He was started on Keflex without improvement of symptoms. He denies fevers, chill, nausea, diaphoresis or pain. He was seen in the office today and elected to direct admit for IV antibiotics and pacemaker removal. (Doretha Wei) Review of Systems Consitutional: DENIES: Fatigue, Fever, Chills, Weight gain, Weight loss Eyes: DENIES: Amaurosis Fugax, Change in vision HEENT: DENIES: Lightheadedness, Change in hearing Respiratory: DENIES: See HPI, Cough, Snoring, Shortness of breath, Wheezing, Sputum production Cardiovascular: DENIES: See HPI, Chest pain, Palpitations, Syncope, Tachycardia Gastrointestinal: DENIES: Nausea, Vomiting, Change in bowel habits, Reflux, Bloody stools, Melena Genitourinary: DENIES: Urinary incontinence, Difficulty voiding Integumentary: DENIES: Rash Neurologic: DENIES: Tingling or numbness, Memory problems, Poor Balance, Stroke symptoms Musculoskeletal: DENIES: Joint pain, Muscle pain, Limited range of motion, Back pain Psychiatric: DENIES: Anxiety, Depression, Sleep disturbances Hematologic: DENIES: Bruising tendencies, Bleeding tendencies Endocrine: DENIES: Weight gain, Weight loss, Thyroid disease (Doretha Wei ) Past Family Social History Allergies: Coded Allergies: dog dander (Unverified Allergy, Severe, ASTHMA, 06/27/17) Past Medical History ASHD 3rd degree heart block CVA Carotid stenosis HLD HTN Obesity Pulmonary hypertension Past Surgical History PPM implant Dr Almonte 06/2017 Left carotid endarterectomy 12/2015 knee surgery 2012 lap band surgery 2010 stents X 5 2004 Reported Medications Reported Meds & Active Scripts Active Reported Dulera 120 Act Inh (Mometasone-Formoterol 120 Act Inh) 100-5 Mcg/Act Inh 2 Puff INH BID Proair Hfa 8.5 GM Inh (Albuterol Sulfate) 90 Mcg/Act Aer 2 Puff INH Q4-6H PRN 108 mcg/actuation Preservision Areds (Multiple Vitamins W/ Minerals) 1 Tab 1 Tab PO DAILY Latanoprost Opth Drops (Latanoprost) 0.005% Drops 1 Drop EACH EYE HS Refrigerate until opened. Losartan-Hydrochlorothiazide 50-12.5 Mg Tab 1 Tab PO DAILY Atorvastatin (Atorvastatin Calcium) 40 Mg Tab 40 Mg PO HS Montelukast (Montelukast Sodium) 10 Mg Tab 10 Mg PO DAILY Active Ordered Medications Current Medications Medications (Trade) Dose Ordered Sig/Jenifer Route Start Time Stop Time Status Last Admin (Tylenol) 650 mg Q4H PRN PO 08/08/17 12:30 (Zofran Inj) 4 mg Q6H PRN IVP 08/08/17 12:30 (Narcan Inj) 0.4 mg UNSCH PRN IV PUSH 08/08/17 12:30 (Karen-Colace) 1 tab BID PO 08/08/17 21:00 (Milk Of Magnesia Liq) 30 ml Q12H PRN PO 08/08/17 12:30 (Senokot) 17.2 mg Q12H PRN PO 08/08/17 12:30 (Dulcolax Supp) 10 mg DAILY PRN RECTAL 08/08/17 12:30 (Lactulose Liq) 30 ml DAILY PRN PO 08/08/17 12:30 Pharmacy Profile Note ml @ 0 mls/hr UNSCH OTHER 08/08/17 14:00 (Proair Hfa Inh) 2 puff Q6HR PRN INH 08/08/17 14:00 (Lipitor) 40 mg HS PO 08/08/17 21:00 (Xalatan 0.005% Opth Soln) 1 drop HS EACH EYE 08/08/17 21:00 (Singulair) 10 mg DAILY PO 08/09/17 09:00 Non-Formulary Medication 2 puff BID INH 08/08/17 21:00 UNV (Ocuvite) 1 tab DAILY PO 08/09/17 09:00 Vancomycin HCl 1500 mg/Sodium Chloride 515 ml @ 250 mls/hr Q18H IV 08/08/17 15:00 Miscellaneous Information SPECIFIC LAB TO BE APOLINAR... ONCE ONCE .XX 08/10/17 20:45 08/10/17 20:46 (Cozaar) 50 mg DAILY PO 08/09/17 09:00 (Microzide) 12.5 mg DAILY PO 08/09/17 09:00 Family History non contributory Social History lives with , no etoh or smoking. (Doretha Wei) Physical Exam Vital Signs Vital Signs Date Time Temp Pulse Resp B/P (MAP) Pulse Ox O2 Delivery O2 Flow Rate FiO2 08/08/17 12:25 74 08/08/17 12:25 98.5 74 18 152/82 (105) 98 Physical Exam GENERAL: Elderly male, no distress, CIC rm 248 SKIN: Warm and dry. HEAD: Atraumatic. Normocephalic. EYES: Pupils equal and round. No scleral icterus. ENT: No nasal bleeding or discharge. Mucous membranes pink and moist. NECK: Trachea midline. No JVD. left CEA scar CARDIOVASCULAR: Regular rate and rhythm. Left PPM pocket open with yellowish- ferrer drainage and surrounding erythema RESPIRATORY: No accessory muscle use. Clear to auscultation. Breath sounds equal bilaterally. GASTROINTESTINAL: Abdomen soft, non-tender, nondistended. MUSCULOSKELETAL: Extremities without clubbing, cyanosis, or edema. No obvious deformities. NEUROLOGICAL: Awake and alert. Normal speech. Right sided deficits PSYCHIATRIC: Appropriate mood and affect; insight and judgment normal. Laboratory Laboratory Tests Test 08/08/17 13:27 08/08/17 14:15 White Blood Count 7.2 Red Blood Count 4.42 Hemoglobin 14.2 Hematocrit 40.9 Mean Corpuscular Volume 92.5 Mean Corpuscular Hemoglobin 32.1 Mean Corpuscular Hemoglobin Concent 34.7 Red Cell Distribution Width 14.1 Platelet Count 256 Mean Platelet Volume 6.8 Neutrophils (%) (Auto) 72.8 Lymphocytes (%) (Auto) 17.3 Monocytes (%) (Auto) 8.5 Eosinophils (%) (Auto) 1.0 Basophils (%) (Auto) 0.4 Neutrophils # (Auto) 5.3 Lymphocytes # (Auto) 1.2 Monocytes # (Auto) 0.6 Eosinophils # (Auto) 0.1 Basophils # (Auto) 0.0 CBC Comment DIFF FINAL Differential Comment Prothrombin Time 11.0 Prothromb Time International Ratio 1.1 Activated Partial Thromboplast Time 24.7 Blood Urea Nitrogen 21 Creatinine 0.88 Random Glucose 102 Total Protein 8.2 Albumin 4.2 Calcium Level 9.7 Alkaline Phosphatase 107 Aspartate Amino Transf (AST/SGOT) 34 Alanine Aminotransferase (ALT/SGPT) 40 Total Bilirubin 0.7 Sodium Level 139 Potassium Level 4.4 Chloride Level 103 Carbon Dioxide Level 28.0 Anion Gap 8 Estimat Glomerular Filtration Rate 83 Date/Time Source Procedure Growth Status 08/08/17 13:06 Blood Peripheral Aerobic Blood Culture Pending Received 08/08/17 13:06 Blood Peripheral Anaerobic Blood Culture Pending Received 08/08/17 13:45 Wound Chest Gram Stain Pending Received 08/08/17 13:45 Wound Chest Wound Culture Pending Received (Doretha Wei) Result Diagram: 08/08/17 1327 08/08/17 1327 Imaging Last 72 hours Impressions Chest X-Ray 08/08/17 0000 Signed Impressions: Service Date/Time: Tuesday, August 08, 2017 12:46 - CONCLUSION: Slight elevation left hemidiaphragm. Cardiomegaly with left sided pacemaker. Olvin Villarreal MD (Doretha Wei) Assessment and Plan Assessment and Plan Concern for left PPM pocket infection Heart block, not pacemaker dependent ASHD CVA Carotid stenosis HTN HLD PLAN: Device extraction tomorrow. Hold NPO tonight. Hold ASA and Plavix. Stop metoprolol Continue antihypertensive. Add amlodipine 2.5 mg PO PRN for SBP > 160 or DBP > 90 ID consult, follow up blood cultures and wound site cultures The patient was seen and evaluated by Dr Hutchison who completed physical exam and participated in evaluation and management. (Doretha Wei) Assessment and Plan The exam, history, and the medical decision-making described in the above note were completed with the assistance of the mid-level provider. I reviewed and agree with the findings presented. I attest that I had a [id number] encounter with the patient on the same day, and personally performed and documented my assessment and findings in the medical record.Will plan removal of pacer/ icd lead sysytem. (Dane Hutchison MD) Doretha Wei Aug 08, 2017 14:51 Dane Hutchison MD Aug 09, 2017 15:02
[2017-08-08] MEDS ORDERED: SODIUM CHLOR 0.9% 1000 ML INJ 1,000 ML IV SCH (14:52)
[2017-08-08] MEDS ORDERED: POVIDONE IODINE 5% (ANTISEPSIS KIT) 4 APPLICATIONS EACH NARE SCH (15:00)
[2017-08-08] MEDS ORDERED: LORazepam 1 MG TAB SL SCH (15:00)
[2017-08-08] MEDS ORDERED: PILL SPLITTER OTHER PRN (15:00)
[2017-08-08] MEDS ORDERED: MUPIROCIN 2% OINT 1 APPLIC/GM SYR NASAL SCH (15:00)
[2017-08-08] MEDS ORDERED: CHLORHEXIDINE GLUCONATE 2 % 1 PACK (2 CLOTHS) TOP SCH (15:00)
--- NOTE | 2017-08-08 16:05 | MB ---
cc: JUANA HOPE MD DATE OF CONSULTATION 08/08/[address] Marinelli. REASON FOR CONSULTATION Pacemaker pocket infection. HISTORY OF PRESENT ILLNESS This is an 82-year-old white male who underwent placement of [employer] dual chamber MRI compatible pacemaker for high degree AV block on 06/29/2017. The patient was subsequently followed up in the shipping supervisor's office and was started on oral Keflex 4 days ago because of concern over possible superficial infection of the pacemaker area. His reported that she noted some drainage on the dressing after the patient was seen by the shipping supervisor and he was eventually admitted to the hospital for further management. The area of the pacemaker was noted to have copious amount of drainage today. A culture was taken and results pending. The patient states that he feels great. He is currently sitting up at the bedside eating. He denies chills, nausea or vomiting or shortness of breath. He is afebrile. White blood cell count is normal. The patient was placed on p.o. Keflex on 08/04. PAST MEDICAL HISTORY 1. Coronary artery disease. 2. Hypertension. 3. Hyperlipidemia. 4. Cerebrovascular accident. 5. Carotid stenosis. 6. History of coronary artery bypass graft surgery approximately 24 years ago. 7. Right hip replacement. 8. Bilateral knee replacement. 9. Left carotid endarterectomy. 10. Bilateral cataract extraction. 11. Bariatric surgery in 2009. 12. Cholecystectomy. 13. History of prostate cancer. 14. Arthritis. ALLERGIES NO KNOWN DRUG ALLERGIES. MEDICATIONS 1. Vancomycin. 2. Cozaar. 3. Singulair. 4. Lipitor. 5. Karen-Colace. 6. Hydrochlorothiazide. SOCIAL HISTORY No tobacco use. No alcohol. No illicit drugs. FAMILY HISTORY Noncontributory. REVIEW OF SYSTEMS Negative on 10-point review. PHYSICAL EXAMINATION GENERAL: This is a well-developed male in no acute distress. VITAL SIGNS: Temperature 98.5, BP 152/82, respirations 18, heart rate 74. HEENT: Extraocular movements grossly intact. Pupils reactive to light. No icterus. Oropharynx no visible lesions. NECK: Supple. No adenopathy. LUNGS: Clear breath sounds bilateral. CARDIOVASCULAR: Regular S1-S2. No murmurs, rubs, or gallops. CHEST: Pacemaker is in place in the left upper chest. There is a tiny ulcerated area at the surgical site approximately 0.5 cm x 1.0 cm crater approximately 2 mm deep. No visible drainage on the dressing currently. No significant erythema is visible at the chest. ABDOMEN: Bowel sounds present, soft, no tenderness. RECTAL: Not performed. EXTREMITIES: No clubbing, cyanosis or edema. SKIN: No rash. NEUROLOGIC: Decreased strength in the right upper extremity. Otherwise nonfocal. PSYCHIATRIC: The patient calm and pleasant and cooperative. LABORATORY DATA WBC 7.2, platelet count 256, 72% neutrophils, 17% lymphocytes, hemoglobin 14.2. Creatinine 0.88, BUN 21, sodium 139. LFTs normal. Blood cultures pending. Wound culture pending. IMPRESSION 1. Pacemaker pocket infection. 2. Patient status post pacemaker insertion for heart block. RECOMMENDATIONS 1. Continue vancomycin. 2. Monitor the culture of the pacemaker pocket drainage. 3. Pacemaker removal to be determined by cardiology. 4. Antibiotic adjustment depending on the culture results. Thank you this consultation. The patient's progress will be followed. Juana Hope MD FD/KK /3:14 PM /3:33 PM MTDD
[2017-08-08] MEDS: VANCOMYCIN INJ 1,500 MG in SODIUM CHLORID 0.9% 500 ML INJ 500 ML IV SCH (16:28)
--- NOTE | 2017-08-08 16:49 | HHI.HP ---
HPI Service [facility] Primary Care Physician Raymon Dixon, DO Admission Diagnosis Diagnoses: Chief Complaint: Patient transferred directly from cardiology office due to possible infected pacemaker Travel History International Travel<30 Days: No Contact w/Intl Traveler <30 Da: No History of Present Illness 82 years old male with history of CVA carotid stenosis hypertension, who recently had pacemaker insertion by Dr. villafana for third-degree heart block on 06/30/2017, send his cardiology Dr. Hutchison with whom I discussed the direct admit. Dr. Hutchison concern about patient developing erythema over the area of the pacer along with drainage. Patient has been placed on Keflex without improvement, he reported. Episodes of chills however no fever no pain, no diaphoresis, I discussed with Dr. Hutchison and agreed to admit patient directly to start antibiotic after getting blood culture, and ID consultation Review of Systems All systems reviewed and was positive for what is mentioned in history of present illness otherwise negative Past Family Social History Past Medical History Hyperlipidemia Hypertension ASHD H/O third degree heart block status post pacemaker Past Surgical History Pacemaker insertion Allergies: Coded Allergies: dog dander (Unverified Allergy, Severe, ASTHMA, 06/27/17) Family History Review with the patient,not aware of significant medical history runs in his family Social History Denied tobacco alcohol or illicit drug abuse Physical Exam Vital Signs Vital Signs Date Time Temp Pulse Resp B/P (MAP) Pulse Ox O2 Delivery O2 Flow Rate FiO2 08/08/17 12:25 74 08/08/17 12:25 98.5 74 18 152/82 (105) 98 Physical Exam GENERAL: This is a well-nourished, well-developed patient, in no apparent distress. SKIN: No rashes, warm and dry, multiple arrhythmia on the left upper chest over the area of the pacemaker along with wound with greenish drainage HEAD: Atraumatic. Normocephalic. EYES: Pupils equal round and reactive. Extraocular motions intact. No scleral icterus. ENT: Nose without bleeding, or drainage, Airway patent. NECK: Trachea midline. Supple CARDIOVASCULAR: Regular rate and rhythm without murmurs, gallops, or rubs. RESPIRATORY: Fair air entry bilaterally. No wheezes, rales, or rhonchi. GASTROINTESTINAL: Abdomen soft, non-tender, nondistended. Positive bowel sounds MUSCULOSKELETAL: Extremities without clubbing, cyanosis, or edema. Pedal pulses appreciated NEUROLOGICAL: Awake and alert. Moves all extremity. Normal speech.no focal neurological deficit Laboratory Laboratory Tests Test 08/08/17 13:27 08/08/17 14:15 White Blood Count 7.2 Red Blood Count 4.42 Hemoglobin 14.2 Hematocrit 40.9 Mean Corpuscular Volume 92.5 Mean Corpuscular Hemoglobin 32.1 Mean Corpuscular Hemoglobin Concent 34.7 Red Cell Distribution Width 14.1 Platelet Count 256 Mean Platelet Volume 6.8 Neutrophils (%) (Auto) 72.8 Lymphocytes (%) (Auto) 17.3 Monocytes (%) (Auto) 8.5 Eosinophils (%) (Auto) 1.0 Basophils (%) (Auto) 0.4 Neutrophils # (Auto) 5.3 Lymphocytes # (Auto) 1.2 Monocytes # (Auto) 0.6 Eosinophils # (Auto) 0.1 Basophils # (Auto) 0.0 CBC Comment DIFF FINAL Differential Comment Prothrombin Time 11.0 Prothromb Time International Ratio 1.1 Activated Partial Thromboplast Time 24.7 Blood Urea Nitrogen 21 Creatinine 0.88 Random Glucose 102 Total Protein 8.2 Albumin 4.2 Calcium Level 9.7 Alkaline Phosphatase 107 Aspartate Amino Transf (AST/SGOT) 34 Alanine Aminotransferase (ALT/SGPT) 40 Total Bilirubin 0.7 Sodium Level 139 Potassium Level 4.4 Chloride Level 103 Carbon Dioxide Level 28.0 Anion Gap 8 Estimat Glomerular Filtration Rate 83 Urine Color LIGHT-YELLOW Urine Turbidity CLEAR Urine pH 7.0 Urine Specific [place] 1.010 Urine Protein NEG Urine Glucose (UA) NEG Urine Ketones NEG Urine Occult Blood NEG Urine Nitrite NEG Urine Bilirubin NEG Urine Urobilinogen LESS THAN 2.0 Urine Leukocyte Esterase NEG Urine RBC 3 Urine WBC LESS THAN 1 Urine Squamous Epithelial Cells <1 Microscopic Urinalysis Comment CULT NOT INDICATED Date/Time Source Procedure Growth Status 08/08/17 13:06 Blood Peripheral Aerobic Blood Culture Pending Received 08/08/17 13:06 Blood Peripheral Anaerobic Blood Culture Pending Received 08/08/17 13:45 Wound Chest Gram Stain Pending Received 08/08/17 13:45 Wound Chest Wound Culture Pending Received Result Diagram: 08/08/17 1327 08/08/17 1327 Imaging Last Impressions Chest X-Ray 08/08/17 0000 Signed Impressions: Service Date/Time: Tuesday, August 08, 2017 12:46 - CONCLUSION: Slight elevation left hemidiaphragm. Cardiomegaly with left sided pacemaker. MD Florinda Harkins VTE Risk Assessment Florinda VTE Risk Assessment: Mod/High Risk (score >= 2) Caprini Risk Assessment Model Point Value = 1 Point Value = 2 Point Value = 3 Point Value = 5 Age 41-60 Minor surgery BMI > 25 kg/m2 Swollen legs Varicose veins or History of unexplained or recurrent spontaneous Oral contraceptives or hormone replacement Sepsis (< 1 month) Serious lung disease, including pneumonia (< 1 month) Abnormal pulmonary function Acute myocardial infarction Congestive heart failure (< 1 month) History of inflammatory bowel disease Medical patient at bed rest Age 61-74 Arthroscopic surgery Major open surgery (> 45 min) Laparoscopic surgery (> 45 min) Malignancy Confined to bed (> 72 hours) Immobilizing plaster cast Central venous access Age >= 75 History of VTE Family history of VTE Factor V Leiden Prothrombin [id number] Lupus anticoagulant Anticardiolipin antibodies Elevated serum homocysteine Heparin-induced thrombocytopenia Other congenital or acquired thrombophilia Stroke (< 1 month) Elective arthroplasty Hip, pelvis, or leg fracture Acute spinal cord injury (< 1 month) Prophylaxis Regimen Total Risk Factor Score Risk Level Prophylaxis Regimen 0-1 Low Early ambulation 2 Moderate Order ONE of the following: *Sequential Compression Device (SCD) *Heparin 5000 units SQ BID 3-4 Higher Order ONE of the following medications: *Heparin 5000 units SQ TID *Enoxaparin/Lovenox 40 mg SQ daily (WT < 150 kg, CrCl > 30 mL/min) *Enoxaparin/Lovenox 30 mg SQ daily (WT < 150 kg, CrCl > 10-29 mL/min) *Enoxaparin/Lovenox 30 mg SQ BID (WT < 150 kg, CrCl > 30 mL/min) AND/OR *Sequential Compression Device (SCD) 5 or more Highest Order ONE of the following medications: *Heparin 5000 units SQ TID (Preferred with Epidurals) *Enoxaparin/Lovenox 40 mg SQ daily (WT < 150 kg, CrCl > 30 mL/min) *Enoxaparin/Lovenox 30 mg SQ daily (WT < 150 kg, CrCl > 10-29 mL/min) *Enoxaparin/Lovenox 30 mg SQ BID (WT < 150 kg, CrCl > 30 mL/min) AND *Sequential Compression Device (SCD) Assessment and Plan Assessment and Plan He continues old male who recently has pacemaker insertion came with Infected device pacemaker History of HTN/HLP History of third-degree AV block status post pacer insertion DVT prophylaxis Plan: Admit directly to inpatient Stat blood culture Start vancomycin ID consultation Consult cardiology, are discussed with Dr. Hutchison for pacer extraction We may need ESTHER depending on the culture result Hold metoprolol, cover with Vasotec DVT prophylaxis to be started postprocedure when okay with cardiology Discussed Condition With Patient and Dr. Hutchison Physician Certification 2 Midnight Certification Type: Admission for Inpatient Services Order for Inpatient Services The services are ordered in accordance with Medicare regulations or non- Medicare payer requirements, as applicable. In the case of services not specified as inpatient-only, they are appropriately provided as inpatient services in accordance with the 2-midnight benchmark. Estimated LOS (days): 2 days is the estimated time the patient will need to remain in the hospital, assuming treatment plan goals are met and no additional complications. Post-Hospital Plan: Not yet determined Kathy Marinelli MD Aug 08, 2017 16:49
[2017-08-08] MEDS: DOCUSATE SODIUM 50 MG/SENNA 8.6 MG TAB PO SCH (20:40)
[2017-08-08] MEDS: ATORVASTATIN 40 MG TAB PO SCH (20:41)
[2017-08-08] MEDS: LATANOPROST 0.005% OPHT SOLN 2.5 ML BTL EACH EYE SCH (20:41)
[2017-08-08] MEDS ORDERED: FORMOTEROL INH SCH (21:00)
[2017-08-08] MEDS ORDERED: MOMETASONE INH SCH (21:00)
[2017-08-09] VITALS (16 sets, daily range): BP systolic 98–117; BP diastolic 54–80; PULSE 73–100; RESP 16–18; TEMP 97.9–98.5; O2SAT 98–100
[2017-08-09] MEDS ORDERED: LACTATED RINGER'S 1000 ML IV PRN (02:45)
[2017-08-09] MEDS ORDERED: POVIDONE IODINE 5% (ANTISEPSIS KIT) 4 APPLICATIONS EACH NARE PRN (02:45)
[2017-08-09] MEDS ORDERED: CHLORHEXIDINE GLUCONATE 2 % 1 PACK (2 CLOTHS) TOPICAL PRN (02:45)
[2017-08-09] MEDS ORDERED: SODIUM CHLORID 0.9% 500 ML IV PRN (02:45)
[2017-08-09] MEDS ORDERED: METOPROLOL TARTRATE 25 MG TAB PO PRN (02:45)
[2017-08-09 06:27] LABS: AUTOMATED NEUTROPHIL # 4.6 TH/MM3 (1.8-7.7); BASOPHIL % 0.4 % (0.0-2.0); EOSINOPHIL # 0.1 TH/MM3 (0-0.4); EOSINOPHIL % 2.1 % (0.0-4.0); HEMATOCRIT 37.2 % (39.0-51.0); HEMO FLAGS DIFF FINAL; LYMPH % 19.5 % (9.0-44.0); LYMPHOCYTE # 1.3 TH/MM3 (1.0-4.8); MEAN CELL VOLUME 92.8 FL (80.0-100.0); MEAN CORPUSCULAR HEMOGLOBIN 32.2 PG (27.0-34.0); MEAN CORPUSCULAR HGB CONC 34.8 % (32.0-36.0); MONO % 11.8 % (0.0-8.0); NEUT % 66.2 % (16.0-70.0); PLATELET COUNT 220 TH/MM3 (150-450); RED BLOOD COUNT 4.01 MIL/MM3 (4.50-5.90); RED CELL DISTRIBUTION WIDTH 14.2 % (11.6-17.2); WHITE BLOOD COUNT 6.9 TH/MM3 (4.0-11.0)
[2017-08-09 06:49] LABS: APTT (PATIENT) 24.8 SEC (24.3-30.1); INTERNATIONAL NORMALIZED RATIO 1.2 RATIO; PROTHROMBIN TIME - PATIENT 11.7 SEC (9.8-11.6)
[2017-08-09 06:51] LABS: BICARBONATE 25.7 MEQ/L (21.0-32.0); POTASSIUM 4.3 MEQ/L (3.5-5.1)
[2017-08-09] MEDS ORDERED: NON-FORMULARY DRUG (Losartan-Hydrochlorothiazide 1 TAB) PO SCH (09:00)
[2017-08-09] MEDS: MONTELUKAST SODIUM 10 MG TAB PO SCH (09:30)
[2017-08-09] MEDS: DOCUSATE SODIUM 50 MG/SENNA 8.6 MG TAB PO SCH ×2 (09:30→21:53)
[2017-08-09] MEDS: LOSARTAN 50 MG TAB PO SCH (09:30)
[2017-08-09] MEDS: MULTIVITAMIN-OPHTHALMIC 1 TAB PO SCH (09:30)
[2017-08-09] MEDS: VANCOMYCIN INJ 1,500 MG in SODIUM CHLORID 0.9% 500 ML INJ 500 ML IV SCH (09:30)
[2017-08-09] MEDS: HYDROCHLOROTHIAZIDE 12.5 MG CAP PO SCH (09:31)
--- NOTE | 2017-08-09 12:06 | HHI.PR ---
Subjective Remarks f/u; infected pacemaker in no acute distress. denies pain. no fever. Objective Vitals Vital Signs Date Time Temp Pulse Resp B/P (MAP) Pulse Ox O2 Delivery O2 Flow Rate FiO2 08/09/17 10:00 98 08/09/17 09:00 98 08/09/17 08:00 100 08/09/17 08:00 98.5 83 16 116/80 (92) 99 08/09/17 06:00 97 08/09/17 05:00 93 08/09/17 04:00 80 08/09/17 03:00 74 08/09/17 03:00 97.9 73 16 103/65 (78) 98 08/09/17 02:00 97 08/09/17 01:00 81 08/09/17 00:00 83 08/08/17 23:00 78 08/08/17 23:00 98.2 76 16 107/67 (80) 97 08/08/17 22:00 106 08/08/17 21:00 90 08/08/17 20:00 90 08/08/17 20:00 98.5 87 16 121/72 (88) 98 08/08/17 19:00 90 08/08/17 15:45 98.5 88 16 106/60 (75) 98 08/08/17 12:25 74 08/08/17 12:25 98.5 74 18 152/82 (105) 98 I/O 08/08/17 08/08/17 08/08/17 08/09/17 08/09/17 08/09/17 07:00 15:00 23:00 07:00 15:00 23:00 Intake Total 1480 ml 240 ml Output Total 450 ml Balance 1030 ml 240 ml Intake Oral 480 ml 240 ml IV Total 1000 ml Output Urine Total 450 ml # Voids 2 # Bowel Movements 0 0 Result Diagram: 08/09/17 0527 08/09/17526 Imaging Last Impressions Chest X-Ray 08/08/17 0000 Signed Impressions: Service Date/Time: Tuesday, August 08, 2017 12:46 - CONCLUSION: Slight elevation left hemidiaphragm. Cardiomegaly with left sided pacemaker. Olvin Villarreal MD Objective Remarks GENERAL: This is a well-nourished, well-developed patient, in no apparent distress. CARDIOVASCULAR: Regular rate and regular rhythm without murmurs, gallops, or rubs. RESPIRATORY: Clear to auscultation. Breath sounds equal bilaterally. No wheezes , rales, or rhonchi. left chest covered with clean dressing. GASTROINTESTINAL: Abdomen soft, non-tender, nondistended. Normal, active bowel sounds MUSCULOSKELETAL: Extremities without clubbing, cyanosis, or edema. NEURO: Alert & Oriented x4 to person, place, time, situation. Moves all ext x4 Medications and IVs Inpatient Medications Acetaminophen (Tylenol) 650 mg Q4H PRN PO TEMP > 100.4; Start 08/08/17 at 12: 30 Albuterol Sulfate (Proair Hfa Inh) 2 puff Q6HR PRN INH SHORTNESS OF BREATH; Start 08/08/17 at 14:00 Amlodipine Besylate (Norvasc) 2.5 mg DAILY PRN PO SBP>160, DBP>90; Start 08/08 at 14:45 Atorvastatin Calcium (Lipitor) 40 mg HS PO Last administered on 08/08/17t 20: 41; Start 08/08/17 at 21:00 Bisacodyl (Dulcolax Supp) 10 mg DAILY PRN RECTAL SEVERE CONSITIPATION; Start 08/08/17 at 12:30 Chlorhexidine Gluconate (Chlorhexidine 2% Cloth) 3 pack WEB CONTENT PRODUCER PRN TOPICAL SEE LABEL COMMENTS; Start 08/09/17 at 02:45; Stop 08/12/17 at 02:44 Heparin Sodium (Porcine) (Heparin Inj) 5,000 units Q8H SQ ; Start 08/08/17 at 14:00; Stop 08/08/17 at 14:00; Status DC Hydrochlorothiazide (Microzide) 12.5 mg DAILY PO Last administered on t 09:31; Start 08/09/17 at 09:00 Lactated Ringer's 1,000 ml @ 30 mls/hr Q24H PRN IV SEE LABEL COMMENTS; Start 08/09/17 at 02:45; Stop 08/12/17 at 02:44 Lactulose (Lactulose Liq) 30 ml DAILY PRN PO SEVERE CONSITIPATION; Start 08/08 at 12:30 Latanoprost (Xalatan 0.005% Opth Soln) 1 drop HS EACH EYE Last administered on 08/08/17 20:41; Start 08/08/17 at 21:00 Lorazepam (Ativan) 1 mg WEB CONTENT PRODUCER SL ; Start 08/08/17 at 15:00; Stop 08/12/17 at 14:59 Losartan Potassium (Cozaar) 50 mg DAILY PO Last administered on 08/09/17 09: 30; Start 08/09/17 at 09:00 Magnesium Hydroxide (Milk Of Magnesia Liq) 30 ml Q12H PRN PO Mild constipation ; Start 08/08/17 at 12:30 Metoprolol Tartrate (Lopressor) 25 mg WEB CONTENT PRODUCER PRN PO SEE LABEL COMMENTS; Start 08/09/17 at 02:45; Stop 08/12/17 at 02:44 Miscellaneous (Pill Splitter) 1 ea UNSCH PRN OTHER SEE LABEL COMMENTS; Start 08/08/17 at 15:00 Miscellaneous Information SPECIFIC LAB TO BE APOLINAR... ONCE ONCE .XX ; Start at 20:45; Stop 08/10/17 at 20:46 Montelukast Sodium (Singulair) 10 mg DAILY PO Last administered on 08/09/17 09:30; Start 08/09/17 at 09:00 Mupirocin (Bactroban Nasal 2% Oint) 1 applic WEB CONTENT PRODUCER NASAL ; Start 08/08/17 at 15:00; Stop 08/12/17 at 14:59 Naloxone HCl (Narcan Inj) 0.4 mg UNSCH PRN IV PUSH SEE LABEL COMMENTS; Start 08/08/17 at 12:30 Ondansetron HCl (Zofran Inj) 4 mg Q6H PRN IVP NAUSEA OR VOMITING; Start at 12:30 Patient Own Medication PT OWN MED: DULERA (MOMETASONE ... BID INH ; Start 08/08 at 21:00; Status Future Hold Pharmacy Profile Note ml @ 0 mls/hr UNSCH OTHER ; Start 08/08/17 at 14:00 Povidone Iodine (Betadine 5% Antisepsis Kit) 1 applic WEB CONTENT PRODUCER PRN EACH NARE SEE LABEL COMMENTS; Start 08/09/17 at 02:45; Stop 08/12/17 at 02:44 Senna/Docusate Sodium (Karen-Colace) 1 tab BID PO Last administered on 09:30; Start 08/08/17 at 21:00 Sennosides (Senokot) 17.2 mg Q12H PRN PO Moderate constipation; Start at 12:30 Sodium Chloride 500 ml @ 30 mls/hr [id number] PRN IV SEE LABEL COMMENTS; Start at 02:45; Stop 08/12/17 at 02:44 Vancomycin HCl 1500 mg/Sodium Chloride 515 ml @ 250 mls/hr Q18H IV Last administered on 08/09/17 09:30; Start 08/08/17 at 15:00 Vit C/Vit E/Zinc/ Copper/Lutein (Ocuvite) 1 tab DAILY PO Last administered on 08/09/17 09:30; Start 08/09/17 at 09:00 A/P Assessment and Plan A/P - infected pacemaker ( patient is s/p pacemaker due to complete heart block). continue IV Vancomycin- follow the cultures- cardiology consult appreciated and plan for pacemaker removal today. ID following. -hypertension; continue cozaar,amlodipine and HCTZ- will monitor and adjust the regimen as needed. -dyslipidemia; continue statin -DVT prophylaxis- pending the planned procedure. Alhaji Kang MD Aug 09, 2017 12:06
[2017-08-09] MEDS ORDERED: VANCOMYCIN 500 MG VIAL ONE ×3 (12:49→13:56)
[2017-08-09] MEDS ORDERED: LIDOCAINE HCL 2% 50 ML VIAL ONE (12:49)
[2017-08-09] MEDS ORDERED: ceFAZolin INJ 1,000 MG VIAL ONE (12:50)
--- NOTE | 2017-08-09 13:36 | EKG ---
Date Performed: 08/08/2017 Time Performed: 14:57:24 PTAGE: 82 years EKG: Atrial fibrillation. Severe right axis deviation Right bundle branch block Inferior infarct - age undetermined Anteroseptal infarct - age undetermined Abnormal ECG Compared to PREVIOUS TRACING , the rhythm has changed. PREVIOUS TRACIN06/27/2017 20.03 DOCTOR: Bon Horton Interpretating Date/Time 08/09/2017 13:25:36
[2017-08-09] MEDS ORDERED: SODIUM CHLOR 0.9% 250 ML INJ 250 ML ONE (14:07)
--- NOTE | 2017-08-09 14:39 | ECHRPT ---
Indication: SEPSIS, ?ENDOCARDITIS CONCLUSIONS There is assymetric septal hypertrophy. The left ventricular systolic function is borderline normal with an estimated ejection fraction of 5 0%. Mild mitral valve regurgitation. There is trace tricuspid valve regurgitation. Mild pulmonary valve regurgitation. Aortic sclerosis. BP: 103 / 65 HR: 74 Rhythm: Sinus Technical Quality:Fair FINDINGS LEFT VENTRICLE There is assymetric septal hypertrophy. The left ventricular systolic function is borderline normal with an estimated ejection fraction of 5 0%. RIGHT VENTRICLE Normal right ventricular size and systolic function. LEFT ATRIUM The left atrial size is normal. RIGHT ATRIUM The right atrial size is normal. ATRIAL SEPTUM Normal atrial septal thickness without atrial level shunting by limited color doppler interrogation. AORTA The aortic root and proximal ascending aorta are normal in size on limited imaging. MITRAL VALVE Mild mitral valve regurgitation. AORTIC VALVE Trileaflet aortic valve. Aortic sclerosis. No aortic valve stenosis or regurgitation. TRICUSPID VALVE There is trace tricuspid valve regurgitation. PULMONARY VALVE Mild pulmonary valve regurgitation. VESSELS The inferior vena cava is normal in size. PERICARDIUM No pericardial effusion. Lizzy Almonte MD, FACC (Electronically Signed) Final Date:09 August 2017 14:38
--- NOTE | 2017-08-09 15:03 | CATHPROC ---
[facility] HIS Report Study Information Study Number Scheduled Start Study Start [id number] 08/09/2017 Aug 09 2017 12:19PM Referring Institution Admit Source Facility Department 1 Other [facility] Physician and Clinical Staff Initial Dane De Jesus Urologic Surgeon Ciera Hodgson,BSRN Urologic Surgeon John Stiles,RAVEN Other Anesthesia, TAPPER OPERATOR Recorder Rod, Shagufta,RT(R) Scrub Skyla Santana,AMMUNITION OFFICER TECH2 Equipment Time Patrol Lady Description Size Mfg Part Number Used/Scraped [id number] 12:23 [employer] IND[employer] SUTURE, STRIP PLUS 1/2" * Used *[id number] 12:23 MEDLINE PACER ADHESIVE, MASTISOL 2/3CC 2/3CC 0523-48 Used 12:23 MEDLINE PACER ZIMMERMAN, LIMB * 2530 *[id number] Used [id number] 12:23 MEDLINE PACER PACK, PACER CUSTOM * Used *[id number] 12:23 MEDLINE PACER PEN, SKIN DUAL W/ RULER * Used *[id number] PROBE COVER, STERILE [id number] 12:23 [employer] MEDICAL * Used ULTRASOUND W/ GEL *[id number] 13:15 Needle Sponge Count 2 2 Used 13:15 Needle Sponge Count 2 22 Used 13:15 Needle Sponge Count 30 1 Used [id number] *[id number] 8066-54 *[id number] SUTURE, 0 SILK [CT1] (CO21D), 8pk SUTURE, 3-0 MONOCRYL [SH] (Y316H) SUTURE, 3-0 MONOCRYL [SH] (Y316H) SUTURE, 4-0 MONOCRYL [PS2] (Y496G) SUTURE, 4-0 MONOCRYL [PS2] (Y496G) [id number] 12:23 [place] [employer],WARM AIR CCL * Used *[id number] [facility] PAD, ELECTROSURGICAL 12:23 * [id number] *[id number] Used SURGICAL GROUNDING ORANGE [id number] 12:23 [employer]. / * Used *[id number] History: Current Medications Medication Dosage/Unit Route Frequency Last Date/Time Taken Statins (any) Beta Sherwin ASA PLAVIX History: Allergies Allergy Reaction dog dander ASTHMA History: Risk Factors Family History of Hypertension Dyslipidemia Previous DE Previous Heart Failure Premature CAD Yes Yes No No No Prior Valve Prior PCI Prior CABG Surgery No No Yes Cerebrovascular Peripheral Artery Chronic Lung On Dialysis Diabetes Disease Disease Disease No Yes No Yes No History: Stress Tests Stress or Imaging Studies Performed No Labs Hgb (g/dl) Hct (%) RBC (MIL/MM3) WBC (l/cumm) Platelets (thousands) 11.60-17.00 35.00-51.00 4.00-5.90 4.00-11.00 150.00-450.00 12.9 37.2 4 6.9 220 Glucose (mg/dl) BUN (mg/dl) Creatinine (mg/dl) BUN:Creatinine (1:x) 74.00-106.00 7.00-18.00 0.50-1.30 10.00-20.00 93 24 0.9 26.7 Na (meq/l) K (meq/l) Cl (meq/l) CO2 (mmol/L) Ca (mg/dl) 136.00-145.00 3.50-5.10 98.00-107.00 21.00-32.00 8.50-10.10 137 4.3 103 25.7 9.1 INR (PTT:PT) 0.90-1.10 1.2 CPK-MB (ng/ML) 0.50-3.60 Not Drawn Medication Medication Total Dose (Bolus/Oral) Medication Total Dosage/Unit 2% XYLOCAINE 50 mL Medications (Bolus/Oral) Medication Time Given Dosage/Unit Administered By Reason 2% XYLOCAINE 08/09/2017 1:44:08 PM 50 mL Dane Hutchison 50 mL 2% XYLOCAINE given in lab by Dane Hutchison in Left shoulder via Subcutaneous. Medication (Drip) Medication Time Given Dosage/Unit Concentration/Unit Diluent (ml) Solution ANCEF 08/09/2017 1:28:56 PM 1 g 1 g ANCEF given in lab by JAMAL Chaidez in Left Antecubital via Peripheral IV. IV Solutions 08/09/2017 1:06:32 PM 0 mL (IV) 500 NaCl .9 IV Solutions given in lab by Ciera Hodgson BSRN in Left Antecubital via Peripheral IV. Pump/Drip Flow = 20 ml/hr using NaCl .9. VANCOMYCIN DRIP 08/09/2017 1:04:37 PM 1 g Patient arrived on 1 g VANCOMYCIN DRIP in Left Antecubital via Peripheral IV. Ordered by Luiz Hutchison. Initial Case Assessment Cardiovascular HR Rhythm NIBP Chest Pain 91 reg 116/61 0 Edema Present Skin color Skin None Normal Warm Circulatory - Right Pulses Dorsalis Pedis Femoral 1 2 Scale (0,1,2,3,4,d) Circulatory - Left Pulses Dorsalis Pedis Femoral 1 1 Scale (0,1,2,3,4,d) Circulatory - Lower Extremities Color Lower Right Color Lower Left Normal Normal Neurological State Oriented to time-place- Alert Moves all extremities person Respiration - General Respiration Rate SpO2 (%) O2 (lpm) (B/min) 13 97 2 Final Case Assessment Cardiovascular HR Rhythm NIBP Chest Pain 69 REG 98/53 0 Edema Present Skin color Skin None Normal Warm Respiration - General Respiration Rate SpO2 (%) O2 (lpm) (B/min) 15 99 2 Chronological Log Time Study Chronological Log 12:40:00 Patient arrived via Bed. 12:42:00 Patient Name, D.O.B, / Armband Verified By R.N. 12:43:00 Consent signed by the physician and the patient and verified by the [facility] staff. 12:44:00 Pre-op and post- op instructions given; patient acknowledges understanding of instructions. 12:45:00 Verbal Stimulation=2 Physical Stimulation=2 Airway=2 Respiration=2 TOTAL=10. (0=absent, 1=l imited, 2=present) 13:04:37 Patient arrived on 1 g VANCOMYCIN DRIP in Left Antecubital via Peripheral IV. Ordered by Dane Benito. 13:05:08 Disposable Defibrillator Pads Placed On Patient. 13:05:13 Bovie ground pad applied to:lower abdomen 13:05:50 Patient has been NPO for More than 6Hrs. 13:05:54 Skin Breakdown-draining wound left upper chest 13:06:13 Patient Warmer Placed on the Table. 13:06:21 A # 20 IV was noted in the Antecubital (left). Grade = 0 IV Solutions given in lab by Ciera Hodgson BSRN in Left Antecubital via Peripheral IV. Pump /Drip Flow = 20 ml/hr 13:06:32 using NaCl .9. 13:07:09 History and physical on the chart or being dictated. 13:08:11 anesthesia notified of pts arrival 13:08:46 Bilateral groins prepped with 2% chlorhexidine, and draped after a 3 minute waiting time. Assessment: Initial Case, HR=91 BPM, Rhythm=reg, PUTL=402/61 mmhg, Chest Pain=0, Edema=None, Co emma=Normal, Skin = Warm Right Pulses: Boris Ped=1, Femoral=2 Left Pulses: Boris Ped=1, Femoral=1 13:09:03 Lower Right Extremities: Color=Normal Lower Left Extremities: Color=Normal Neurological: State=Alert, Ox3, JEAN Respiration: Resp=13 B/min, SpO2=97 %, O2=2 lpm 13:09:25 Reference ECG taken Anesthesia arrived: DAGOBERTO TAPPER OPERATOR 13:13:24 13:14:13 2% CHLORHEXIDINE GLUCONATE WASH AND NASAL SWIPE DONE PRIOR TO PROCEDURE. First Sponge And Instrument Count Done by Ciera Hodgson BSRN. 13:14:28 Hypo's: 2, Sponges: 30, Bovie/scratch: 2 Sutures: 12, Blades: 3, Instruments: 26, Syveck Patches: 0 13:28:56 1 g ANCEF given in lab by Anesthesia, TAPPER OPERATOR in Left Antecubital via Peripheral IV. 13:30:50 MD paged 13:35:36 MD arrived. Time Out. Correct patient, procedure, procedure equipment, site and side verified with physicia n present. Time 13:43:51 concurred by MD, individual staff and TAPPER OPERATOR. Time Out #2 - Consents verified, patient in correct position, all results are labled and displa yed, safety precautions 13:44:00 taken, antibiotics administered. Time out concurred by MD, individual staff and TAPPER OPERATOR in procedu re 13:44:04 Case Start 13:44:08 50 mL 2% XYLOCAINE given in lab by Dane Hutchison in Left shoulder via Subcutaneous. 13:50:24 Surgical Incision Made. 13:52:32 A pocket was created at the Shoulder, Lt.. 13:55:30 CULTURES TAKEN 14:10:25 PACEMAKER DISCONNECTED DEVICE REMOVED 14:13:00 14:20:49 AV LEAD REMOVED 14:29:30 RV LEAD REMOVED 14:30:56 Pocket flushed with BETADINE solution 14:43:55 DRAINAGE TUBE INSERTED 14:46:13 The pocket was closed. Second Sponge And Instrument Count Done by Dane Hutchison. 14:50:34 Hypo's: 2, Sponges: 30, Bovie/scratch: 2 Sutures: ~SUTURE~, Blades: 3, Instruments: 26, Syveck Patches: 0 14:50:50 Implant Procedure was performed. 14:50:59 A PPM Removal . (Dual) 14:51:46 Bedside Report will be given. 14:51:47 Case End 14:51:50 Steri-strips and a sterile dressing applied to site. The Final Sponge And Instrument Count Done by Dane Hutchison. 14:52:57 Hypo's: 2, Sponges: 30, Bovie/scratch: 2 Sutures: 12, Blades: 3, Instruments: 26, Syveck Patches: 0 14:55:23 HR=69 bpm, FLJI=004/58 mmhg, SpO2=99 % Assessment: Final Case, HR=69 BPM, Rhythm=REG, NIBP=98/53 mmhg, Chest Pain=0, Edema=None, [place] r=Normal, 14:55:34 Skin = Warm Respiration: Resp=15 B/min, SpO2=99 %, O2=2 lpm 14:56:13 Sterile dressing applied to site 14:56:21 No case complications noted. 14:56:22 Cine recording checked. 14:56:25 Bedside Report will be given. LARGE HEMATOMA-PRESSURE HELD 15:28:45 STAT ECHO BEING PERFORMED 15:45:45 15:46:03 CONTINUING PRESSURE ON HEMATOMA 16:11:44 HEMATOMA DISSOLVED End Study - Contrast Media Used In Study Contrast Total Opened (mL) Total Used (mL) Total Wasted (mL) Unspecified 0 0 0 End Study - Maximum Contrast Load Max Contrast Load (mL) 554.5 End Study - Radiation Exposure Fluoro Time (minutes) 1.0 End Study - Patient Disposition Complications Transferred To No Outpatient Bed
[2017-08-09] MEDS ORDERED: ATROPINE SULFATE 1 MG/10 ML SYRINGE ONE (15:42)
[2017-08-09] MEDS: PIPERACIL-TAZO 4.5 GM PREMIX 100 ML IV SCH ×2 (17:42→21:54)
[2017-08-09] MEDS: ATORVASTATIN 40 MG TAB PO SCH (21:53)
[2017-08-09] MEDS: LATANOPROST 0.005% OPHT SOLN 2.5 ML BTL EACH EYE SCH (21:53)
[2017-08-10] VITALS (27 sets, daily range): BP systolic 114–149; BP diastolic 59–79; PULSE 43–108; RESP 16–20; TEMP 97.4–98.5; O2SAT 97–100
[2017-08-10] MEDS: VANCOMYCIN INJ 1,500 MG in SODIUM CHLORID 0.9% 500 ML INJ 500 ML IV SCH (02:31)
[2017-08-10] MEDS: PIPERACIL-TAZO 4.5 GM PREMIX 100 ML IV SCH ×4 (03:56→23:00)
--- NOTE | 2017-08-10 07:29 | HHI.PR ---
Subjective Remarks in no acute distress and resting comfortably. denies chest pain. afebrile. Objective Vitals Vital Signs Date Time Temp Pulse Resp B/P (MAP) Pulse Ox O2 Delivery O2 Flow Rate FiO2 08/10/17 06:00 72 08/10/17 05:00 83 08/10/17 04:00 83 08/10/17 03:00 98.3 108 16 134/62 (86) 100 08/10/17 03:00 84 08/10/17 02:00 81 08/10/17 01:00 80 08/10/17 00:00 129/69 (89) 08/10/17 00:00 52 08/09/17 23:00 98.4 81 16 98/56 (70) 100 08/09/17 23:00 82 08/09/17 22:00 80 08/09/17 21:00 94 08/09/17 20:00 98.3 92 16 109/54 (72) 98 08/09/17 20:00 82 08/09/17 19:00 78 08/09/17 18:04 88 18 117/62 (80) 99 08/09/17 10:00 98 08/09/17 09:00 98 08/09/17 08:00 100 08/09/17 08:00 98.5 83 16 116/80 (92) 99 I/O 08/09/17 08/09/17 08/09/17 08/10/17 08/10/17 08/10/17 07:00 15:00 23:00 07:00 15:00 23:00 Intake Total 240 ml 300 ml 100 ml 240 ml 615 ml Output Total 525 ml Balance 240 ml 300 ml 100 ml -285 ml 615 ml Intake Oral 240 ml 240 ml IV Total 300 ml 100 ml 615 ml Output Urine Total 525 ml # Voids 2 2 # Bowel Movements 0 2 Result Diagram: 08/09/17 0527 08/09/17 0527 Imaging Last Impressions Chest X-Ray 08/08/17 0000 Signed Impressions: Service Date/Time: Tuesday, August 08, 2017 12:46 - CONCLUSION: Slight elevation left hemidiaphragm. Cardiomegaly with left sided pacemaker. Olvin Villarreal MD Objective Remarks GENERAL: This is a well-nourished, well-developed patient, in no apparent distress. CARDIOVASCULAR: Regular rate and regular rhythm without murmurs, gallops, or rubs. RESPIRATORY: Clear to auscultation. Breath sounds equal bilaterally. No wheezes , rales, or rhonchi. left chest covered with clean dressing. GASTROINTESTINAL: Abdomen soft, non-tender, nondistended. Normal, active bowel sounds MUSCULOSKELETAL: Extremities without clubbing, cyanosis, or edema. NEURO: Alert & Oriented x4 to person, place, time, situation. Moves all ext x4 Medications and IVs Current Medications Acetaminophen (Tylenol) 650 mg Q4H PRN PO TEMP > 100.4; Start 08/08/17 at 12: 30 Ondansetron HCl (Zofran Inj) 4 mg Q6H PRN IVP NAUSEA OR VOMITING; Start at 12:30 Heparin Sodium (Porcine) (Heparin Inj) 5,000 units Q8H SQ ; Start 08/08/17 at 14:00; Stop 08/08/17 at 14:00; Status DC Naloxone HCl (Narcan Inj) 0.4 mg UNSCH PRN IV PUSH SEE LABEL COMMENTS; Start 08/08/17 at 12:30 Senna/Docusate Sodium (Karen-Colace) 1 tab BID PO Last administered on 21:53; Start 08/08/17 at 21:00 Magnesium Hydroxide (Milk Of Magnesia Liq) 30 ml Q12H PRN PO Mild constipation ; Start 08/08/17 at 12:30 Sennosides (Senokot) 17.2 mg Q12H PRN PO Moderate constipation; Start at 12:30 Bisacodyl (Dulcolax Supp) 10 mg DAILY PRN RECTAL SEVERE CONSITIPATION; Start 08/08/17 at 12:30 Lactulose (Lactulose Liq) 30 ml DAILY PRN PO SEVERE CONSITIPATION; Start 08/08 at 12:30 Pharmacy Profile Note ml @ 0 mls/hr UNSCH OTHER ; Start 08/08/17 at 14:00 Albuterol Sulfate (Proair Hfa Inh) 2 puff Q6HR PRN INH SHORTNESS OF BREATH; Start 08/08/17 at 14:00 Atorvastatin Calcium (Lipitor) 40 mg HS PO Last administered on 08/09/17 21: 53; Start 08/08/17 at 21:00 Latanoprost (Xalatan 0.005% Opt Soln) 1 drop HS EACH EYE Last administered on 08/09/17 21:53; Start 08/08/17 at 21:00 Montelukast Sodium (Singulair) 10 mg DAILY PO Last administered on 08/09/17 09:30; Start 08/09/17 at 09:00 Non-Formulary Medication 1 tab DAILY PO ; Start 08/09/17 at 09:00; Status UNV Patient Own Medication PT OWN MED: DULERA (MOMETASONE ... BID INH ; Start 08/08 at 21:00; Status Future Hold Vit C/Vit E/Zinc/ Copper/Lutein (Ocuvite) 1 tab DAILY PO Last administered on 08/09/17 09:30; Start 08/09/17 at 09:00 Vancomycin HCl 1500 mg/Sodium Chloride 515 ml @ 250 mls/hr Q18H IV Last administered on 08/10/17 02:31; Start 08/08/17 at 15:00 Miscellaneous Information SPECIFIC LAB TO BE APOLINAR... ONCE ONCE .XX ; Start at 20:45; Stop 08/10/17 at 20:46 Losartan Potassium (Cozaar) 50 mg DAILY PO Last administered on 08/09/17 09: 30; Start 08/09/17 at 09:00 Hydrochlorothiazide (Microzide) 12.5 mg DAILY PO Last administered on 09:31; Start 08/09/17 at 09:00 Amlodipine Besylate (Norvasc) 2.5 mg DAILY PRN PO SBP>160, DBP>90; Start 08/08 at 14:45 Miscellaneous (Pill Splitter) 1 ea UNSCH PRN OTHER SEE LABEL COMMENTS; Start 08/08/17 at 15:00 Sodium Chloride 1,000 ml @ 30 mls/hr Q24H IV ; Start 08/08/17 at 14:52; Stop 08/09/17 at 02:37; Status DC Lorazepam (Ativan) 1 mg SALES REPRESENTATIVE GRAPHIC ART SL ; Start 08/08/17 at 15:00; Stop 08/12/17 at 14:59 Povidone Iodine (Betadine 5% Antisepsis Kit) 1 applic SALES REPRESENTATIVE GRAPHIC ART EACH NARE ; Start 08/08/17 at 15:00; Stop 08/12/17 at 14:59 Mupirocin (Bactroban Nasal 2% Oint) 1 applic SALES REPRESENTATIVE GRAPHIC ART NASAL ; Start 08/08/17 at 15:00; Stop 08/12/17 at 14:59 Chlorhexidine Gluconate (Chlorhexidine 2% Cloth) 3 pack SALES REPRESENTATIVE GRAPHIC ART TOP ; Start at 15:00; Stop 08/12/17 at 14:59 Lactated Ringer's 1,000 ml @ 30 mls/hr Q24H PRN IV SEE LABEL COMMENTS; Start 08/09/17 at 02:45; Stop 08/12/17 at 02:44 Sodium Chloride 500 ml @ 30 mls/hr [id number] PRN IV SEE LABEL COMMENTS; Start at 02:45; Stop 08/12/17 at 02:44 Povidone Iodine (Betadine 5% Antisepsis Kit) 1 applic SALES REPRESENTATIVE GRAPHIC ART PRN EACH NARE SEE LABEL COMMENTS; Start 08/09/17 at 02:45; Stop 08/12/17 at 02:44 Chlorhexidine Gluconate (Chlorhexidine 2% Cloth) 3 pack SALES REPRESENTATIVE GRAPHIC ART PRN TOPICAL SEE LABEL COMMENTS; Start 08/09/17 at 02:45; Stop 08/12/17 at 02:44 Metoprolol Tartrate (Lopressor) 25 mg SALES REPRESENTATIVE GRAPHIC ART PRN PO SEE LABEL COMMENTS; Start 08/09/17 at 02:45; Stop 08/12/17 at 02:44 Vancomycin HCl (Vancomycin Inj) 500 mg STK-MED ONCE .ROUTE Last administered on 08/09/17t 12:49; Start 08/09/17 at 12:49; Stop 08/09/17 at 12:50; Status DC Lidocaine HCl (Xylocaine 2% Inj) 50 ml STK-MED ONCE .ROUTE ; Start 08/09/17 at 12:49; Stop 08/09/17 at 12:50; Status DC Cefazolin Sodium (Ancef Inj) 2,000 mg STK-MED ONCE .ROUTE Last administered on 08/09/17t 13:28; Start 08/09/17 at 12:50; Stop 08/09/17 at 12:51; Status DC Vancomycin HCl (Vancomycin Inj) 500 mg STK-MED ONCE .ROUTE ; Start 08/09/17 at 13:44; Stop 08/09/17 at 13:45; Status DC Vancomycin HCl (Vancomycin Inj) 500 mg STK-MED ONCE .ROUTE ; Start 08/09/17 at 13:56; Stop 08/09/17 at 13:57; Status DC Sodium Chloride 250 ml @ As Directed STK-MED ONCE .ROUTE ; Start 08/09/17 at 14:07; Stop 08/09/17 at 14:08; Status DC Piperacillin Sod/ Tazobactam Sod 100 ml @ 200 mls/hr Q6H IV Last administered on 08/10/17t 03:56; Start 08/09/17 at 16:00 Atropine Sulfate (Atropine Inj) 1 mg STK-MED ONCE .ROUTE ; Start 08/09/17 at 15 :42; Stop 08/09/17 at 15:43; Status DC A/P Assessment and Plan A/P - infected pacemaker ( patient is s/p pacemaker due to complete heart block). s/p pacemaker removal- continue IV Vancomycin and Zosyn- follow the cultures- cardiology and ID following. -hypertension; continue cozaar,amlodipine and HCTZ- will monitor and adjust the regimen as needed. -dyslipidemia; continue statin -DVT prophylaxis-SCD's Alhaji Kang MD Aug 10, 2017 07:28
[2017-08-10] MEDS: DOCUSATE SODIUM 50 MG/SENNA 8.6 MG TAB PO SCH ×2 (09:00→21:32)
[2017-08-10] MEDS: MULTIVITAMIN-OPHTHALMIC 1 TAB PO SCH (09:30)
[2017-08-10] MEDS: HYDROCHLOROTHIAZIDE 12.5 MG CAP PO SCH (09:31)
[2017-08-10] MEDS: LOSARTAN 50 MG TAB PO SCH (09:31)
[2017-08-10] MEDS: MONTELUKAST SODIUM 10 MG TAB PO SCH (09:31)
--- NOTE | 2017-08-10 10:21 | ECHRPT ---
Indication: CONCLUSIONS Normal left ventricular size and function. There is no pericardial effusion. BP: / HR: Rhythm: Sinus Technical Quality:Fair FINDINGS LEFT VENTRICLE Normal left ventricular size and function. PERICARDIUM There is no pericardial effusion. Lizzy Almonte MD, FACC (Electronically Signed) Final Date:10 August 2017 10:20
--- NOTE | 2017-08-10 10:34 | PD.CARD.PN ---
Subjective Subjective Remarks The patient had a 40 beat run of asymptomatic WCT. The patient denies complaints of dizziness, lightheadedness, chills, nausea, palpitations or CP. He had bilateral arm soreness that did not correlate with VT. (Doretha Wei) Subjective Remarks The exam, history, and the medical decision-making described in the above note were completed with the assistance of the mid-level provider. I reviewed and agree with the findings presented. I attest that I had a [id number] encounter with the patient on the same day, and personally performed and documented my assessment and findings in the medical record. Will continue antibiotics and watch rhythm; will try to hold off pacer until wound completely healed. (Dane Hutchison MD) Objective Medications Current Medications Medications (Trade) Dose Ordered Sig/Jenifer Route Start Time Stop Time Status Last Admin (Tylenol) 650 mg Q4H PRN PO 08/08/17 12:30 (Zofran Inj) 4 mg Q6H PRN IVP 08/08/17 12:30 (Narcan Inj) 0.4 mg UNSCH PRN IV PUSH 08/08/17 12:30 (Karen-Colace) 1 tab BID PO 08/08/17 21:00 08/09/17 21:53 (Milk Of Magnesia Liq) 30 ml Q12H PRN PO 08/08/17 12:30 (Senokot) 17.2 mg Q12H PRN PO 08/08/17 12:30 (Dulcolax Supp) 10 mg DAILY PRN RECTAL 08/08/17 12:30 (Lactulose Liq) 30 ml DAILY PRN PO 08/08/17 12:30 Pharmacy Profile Note ml @ 0 mls/hr UNSCH OTHER 08/08/17 14:00 (Proair Hfa Inh) 2 puff Q6HR PRN INH 08/08/17 14:00 (Lipitor) 40 mg HS PO 08/08/17 21:00 08/09/17 21:53 (Xalatan 0.005% Opth Soln) 1 drop HS EACH EYE 08/08/17 21:00 08/09/17 21:53 (Singulair) 10 mg DAILY PO 08/09/17 09:00 08/10/17 09:31 Patient Own Medication PT OWN MED: DULERA (MOMETASONE ... BID INH 08/08/17 21:00 Future Hold (Ocuvite) 1 tab DAILY PO 08/09/17 09:00 08/10/17 09:30 Vancomycin HCl 1500 mg/Sodium Chloride 515 ml @ 250 mls/hr Q18H IV 08/08/17 15:00 08/10/17 02:31 Miscellaneous Information SPECIFIC LAB TO BE APOLINAR... ONCE ONCE .XX 08/10/17 20:45 08/10/17 20:46 (Cozaar) 50 mg DAILY PO 08/09/17 09:00 08/10/17 09:31 (Microzide) 12.5 mg DAILY PO 08/09/17 09:00 08/10/17 09:31 (Norvasc) 2.5 mg DAILY PRN PO 08/08/17 14:45 (Pill Splitter) 1 ea UNSCH PRN OTHER 08/08/17 15:00 (Ativan) 1 mg CAR PARK ATTENDANT SL 08/08/17 15:00 08/12/17 14:59 (Betadine 5% Antisepsis Kit) 1 applic CAR PARK ATTENDANT EACH NARE 08/08/17 15:00 08/12/17 14:59 (Bactroban Nasal 2% Oint) 1 applic CAR PARK ATTENDANT NASAL 08/08/17 15:00 08/12/17 14:59 (Chlorhexidine 2% Cloth) 3 pack CAR PARK ATTENDANT TOP 08/08/17 15:00 08/12/17 14:59 Lactated Ringer's 1,000 ml @ 30 mls/hr Q24H PRN IV 08/09/17 02:45 08/12/17 02:44 Sodium Chloride 500 ml @ 30 mls/hr [id number] PRN IV 08/09/17 02:45 08/12/17 02:44 (Betadine 5% Antisepsis Kit) 1 applic CAR PARK ATTENDANT PRN EACH NARE 08/09/17 02:45 08/12/17 02:44 (Chlorhexidine 2% Cloth) 3 pack CAR PARK ATTENDANT PRN TOPICAL 08/09/17 02:45 08/12/17 02:44 (Lopressor) 25 mg CAR PARK ATTENDANT PRN PO 08/09/17 02:45 08/12/17 02:44 Piperacillin Sod/ Tazobactam Sod 100 ml @ 200 mls/hr Q6H IV 08/09/17 16:00 08/10/17 03:56 Vital Signs / I&O Vital Signs Date Time Temp Pulse Resp B/P (MAP) Pulse Ox O2 Delivery O2 Flow Rate FiO2 08/10/17 09:10 97.4 43 16 139/70 (93) 99 08/10/17 06:00 72 08/10/17 05:00 83 08/10/17 04:00 83 08/10/17 03:00 98.3 108 16 134/62 (86) 100 08/10/17 03:00 84 08/10/17 02:00 81 08/10/17 01:00 80 08/10/17 00:00 129/69 (89) 08/10/17 00:00 52 08/09/17 23:00 98.4 81 16 98/56 (70) 100 08/09/17 23:00 82 08/09/17 22:00 80 08/09/17 21:00 94 08/09/17 20:00 98.3 92 16 109/54 (72) 98 08/09/17 20:00 82 08/09/17 19:00 78 08/09/17 18:04 88 18 117/62 (80) 99 I/O 08/09/17 08/09/17 08/09/17 08/10/17 08/10/17 08/10/17 07:00 15:00 23:00 07:00 15:00 23:00 Intake Total 240 ml 300 ml 100 ml 240 ml 615 ml Output Total 525 ml Balance 240 ml 300 ml 100 ml -285 ml 615 ml Intake Oral 240 ml 240 ml IV Total 300 ml 100 ml 615 ml Output Urine Total 525 ml # Voids 2 2 # Bowel Movements 0 2 Physical Exam GENERAL: Elderly male in CIC SKIN: Warm and dry. HEAD: Normocephalic. EYES: No scleral icterus. No injection or drainage. NECK: Supple, trachea midline. CARDIOVASCULAR: Regular rate and rhythm, Left chest incision with julio césar drain , dressing with mod-heavy saturation of dry and fresh blood RESPIRATORY: Breath sounds equal bilaterally. Left distal base rales GASTROINTESTINAL: Abdomen soft, non-tender, nondistended. MUSCULOSKELETAL: No cyanosis BACK: Nontender without obvious deformity. Laboratory PENDING STAT LABS (Doretha Wei) Assessment and Plan Assessment and Plan PPM pocket infection + GNR - POD #1 for device extraction Complete heart block, not pacemaker dependent prior to device extraction Asymptomatic WCT- 40 beat run ASHD CVA Carotid stenosis HTN HLD PLAN: We will continue to follow up with patient closely Follow up wound and blood cultures, titrate ABX appropriately per ID STAT labs this morning Keep pacer pads on. Due to history of symptomatic heart block, we are not able to use antiarrhythmic or negative chronotropic agents at this time. The patient was seen and evaluated by Dr Hutchison who completed physical exam and participated in evaluation and management. (Doretha Wei) Doretha Wei Aug 10, 2017 10:34 Dane Hutchison MD Aug 12, 2017 09:25
[2017-08-10 13:09] LABS: AUTOMATED NEUTROPHIL # 8.5 TH/MM3 (1.8-7.7); BASOPHIL % 0.3 % (0.0-2.0); EOSINOPHIL # 0.2 TH/MM3 (0-0.4); EOSINOPHIL % 1.5 % (0.0-4.0); HEMATOCRIT 36.8 % (39.0-51.0); HEMO FLAGS DIFF FINAL; LYMPH % 10.9 % (9.0-44.0); LYMPHOCYTE # 1.2 TH/MM3 (1.0-4.8); MEAN CELL VOLUME 93.3 FL (80.0-100.0); MEAN CORPUSCULAR HEMOGLOBIN 31.1 PG (27.0-34.0); MEAN CORPUSCULAR HGB CONC 33.4 % (32.0-36.0); MONO % 9.5 % (0.0-8.0); NEUT % 77.8 % (16.0-70.0); PLATELET COUNT 214 TH/MM3 (150-450); RED BLOOD COUNT 3.95 MIL/MM3 (4.50-5.90); RED CELL DISTRIBUTION WIDTH 14.3 % (11.6-17.2)
[2017-08-10 13:38] LABS: ALKALINE PHOSPHATASE 85 U/L (45-117); ALT (GPT) 24 U/L (12-78); ANION GAP 7 MEQ/L (5-15); AST (GOT) 19 U/L (15-37); BICARBONATE 27.2 MEQ/L (21.0-32.0); BLOOD UREA NITROGEN 19 MG/DL (7-18); CHLORIDE 107 MEQ/L (98-107); GLOMERULAR FILTRATION RATE 66 ML/MIN (>89); MAGNESIUM 2.1 MG/DL (1.5-2.5); POTASSIUM 4.2 MEQ/L (3.5-5.1); SODIUM (NA) 141 MEQ/L (136-145); TOTAL BILIRUBIN ADULT 0.7 MG/DL (0.2-1.0)
--- NOTE | 2017-08-10 14:11 | HHI.IDPN ---
Note Infectious Disease Note Patient feels okay. Afebrile. Denies chills, dizziness. Post removal of the pacemaker and debridement of the pacemaker pocket and drainage catheter. PAST MEDICAL HISTORY 1. Coronary artery disease. 2. Hypertension. 3. Hyperlipidemia. 4. Cerebrovascular accident. 5. Carotid stenosis. 6. History of coronary artery bypass graft surgery approximately 24 years ago. 7. Right hip replacement. 8. Bilateral knee replacement. 9. Left carotid endarterectomy. 10. Bilateral cataract extraction. 11. Bariatric surgery in 2009. 12. Cholecystectomy. 13. History of prostate cancer. 14. Arthritis. ALLERGIES NO KNOWN DRUG ALLERGIES. MEDICATIONS 1. Vancomycin. 2. Zosyn OBJECTIVE: Vital Signs Date Time Temp Pulse Resp B/P (MAP) Pulse Ox O2 Delivery O2 Flow Rate FiO2 08/10/17 13:22 92 08/10/17 12:00 72 08/10/17 11:11 98.0 86 16 114/59 (77) 100 08/10/17 11:00 90 08/10/17 10:00 72 08/10/17 09:10 97.4 43 16 139/70 (93) 99 08/10/17 09:00 72 08/10/17 08:00 72 08/10/17 07:00 72 08/10/17 06:00 72 08/10/17 05:00 83 08/10/17 04:00 83 08/10/17 03:00 98.3 108 16 134/62 (86) 100 08/10/17 03:00 84 08/10/17 02:00 81 08/10/17 01:00 80 08/10/17 00:00 129/69 (89) 08/10/17 00:00 52 08/09/17 23:00 98.4 81 16 98/56 (70) 100 08/09/17 23:00 82 08/09/17 22:00 80 08/09/17 21:00 94 08/09/17 20:00 98.3 92 16 109/54 (72) 98 08/09/17 20:00 82 08/09/17 19:00 78 08/09/17 18:04 88 18 117/62 (80) 99 Laboratory Tests Test 08/10/17 12:28 White Blood Count 11.0 TH/MM3 Red Blood Count 3.95 MIL/MM3 Hemoglobin 12.3 GM/DL Hematocrit 36.8 % Mean Corpuscular Volume 93.3 FL Mean Corpuscular Hemoglobin 31.1 PG Mean Corpuscular Hemoglobin Concent 33.4 % Red Cell Distribution Width 14.3 % Platelet Count 214 TH/MM3 Mean Platelet Volume 7.0 FL Neutrophils (%) (Auto) 77.8 % Lymphocytes (%) (Auto) 10.9 % Monocytes (%) (Auto) 9.5 % Eosinophils (%) (Auto) 1.5 % Basophils (%) (Auto) 0.3 % Neutrophils # (Auto) 8.5 TH/MM3 Lymphocytes # (Auto) 1.2 TH/MM3 Monocytes # (Auto) 1.0 TH/MM3 Eosinophils # (Auto) 0.2 TH/MM3 Basophils # (Auto) 0.0 TH/MM3 CBC Comment DIFF FINAL Differential Comment Blood Urea Nitrogen 19 MG/DL Creatinine 1.07 MG/DL Random Glucose 115 MG/DL Total Protein 6.5 GM/DL Albumin 3.2 GM/DL Calcium Level 8.7 MG/DL Magnesium Level 2.1 MG/DL Alkaline Phosphatase 85 U/L Aspartate Amino Transf (AST/SGOT) 19 U/L Alanine Aminotransferase (ALT/SGPT) 24 U/L Total Bilirubin 0.7 MG/DL Sodium Level 141 MEQ/L Potassium Level 4.2 MEQ/L Chloride Level 107 MEQ/L Carbon Dioxide Level 27.2 MEQ/L Anion Gap 7 MEQ/L Estimat Glomerular Filtration Rate 66 ML/MIN IMAGING: Chest X-Ray 08/08/17 0000 Signed Impressions: Service Date/Time: Tuesday, August 08, 2017 12:46 - CONCLUSION: Slight elevation left hemidiaphragm. Cardiomegaly with left sided pacemaker. Olvin Villarreal MD PHYSICAL EXAMINATION GENERAL: No acute distress. HEENT: Extraocular movements grossly intact. Pupils reactive to light. No icterus. Oropharynx no visible lesions. NECK: Supple. No adenopathy. LUNGS: Clear breath sounds. CARDIOVASCULAR: irregular S1-S2. No murmurs, rubs, or gallops. CHEST: Pacemaker site without tenderness. Dark colored drainage. [place] drain catheter has little drainage. ABDOMEN: Bowel sounds present, soft, no tenderness. EXTREMITIES: No clubbing, cyanosis or edema. SKIN: No rash. NEUROLOGIC: Decreased strength in the right upper extremity. Otherwise nonfocal. PSYCHIATRIC: The patient calm and pleasant and cooperative. IMPRESSION 1. Pacemaker pocket infection. Post pacer removal. Proteus on culture. operative culture pending. 2. Patient status post pacemaker insertion for heart block. RECOMMENDATIONS 1. Stop vancomycin. 2. Continue Zosyn. 3. Follow operative culture. Brad Lemus MD Aug 10, 2017 14:11
[2017-08-10] MEDS ORDERED: PHARMACY ORDERED LAB ONE (20:45)
[2017-08-10] MEDS: ATORVASTATIN 40 MG TAB PO SCH (21:32)
[2017-08-10] MEDS: LATANOPROST 0.005% OPHT SOLN 2.5 ML BTL EACH EYE SCH (21:32)
[2017-08-10] MEDS: ACETAMINOPHEN 325 MG TAB PO PRN (21:32)
--- NOTE | 2017-08-10 22:53 | MB ---
cc: STEFFANIE VALIETNE DATE OF CONSULTATION: 08/10/2017 REASON FOR CONSULTATION: COPD HISTORY OF PRESENT ILLNESS Mr. Ferraro is an 82-year-old male with known history of third-degree heart block for which he had a pacemaker placed in June 30, 2017. He has history of COPD for which he uses p.r.n. albuterol. He used to use however, he has stopped using it since he has not been feeling well. He states his shortness of breath is about the same. He had previous history of carotid stenosis previous cerebrovascular accident. The patient is admitted with erythema around pacemaker insertion site. The patient was infected and so it was removed. The patient is alert, oriented, in no distress. No fever, no chills, no cough, no expectoration, no hemoptysis. PAST MEDICAL HISTORY: 1. COPD. 2. Hypertension. 3. Hyperlipidemia. 4. Third-degree heart block. 5. Post pacemaker insertion. ALLERGIES: None to medications. ALLERGIC TO DOG DANDER. FAMILY HISTORY: Noncontributory. SOCIAL HISTORY: Remote smoking history, none at present. He does not use drugs. No TB. No industrial exposure. CURRENT MEDICATIONS: 1. Piperacillin/tazobactam 2. Montelukast. 3. Albuterol p.r.n. 4. Losartan. 5. Metoprolol. 6. Atorvastatin. 7. Xalatan eye drops. 8. Lorazepam as needed. 9. Amlodipine. REVIEW OF SYSTEMS 12-point review of systems as per HPI and past history otherwise negative. PHYSICAL EXAMINATION: VITAL SIGNS: Temperature 98.5, pulse 60, respiratory rate 16, blood pressure 120/70, oxygen saturation 98% on room air. HEENT: Exam unremarkable. Eyes without icterus. Neck: Without adenopathy or thyroid enlargement. Central trachea. Chest: No dullness to percussion, clear to auscultation. Cardiac exam: PMI distant. S1-S2 audible. No murmur or rub. Abdomen: Lax, bowel sounds audible. Extremities: No clubbing, cyanosis or edema. Skin: Normal. No lymphadenopathy. LABORATORY DATA White count 11,000, hemoglobin 12, hematocrit 36, platelets at 214,000, sodium 141, potassium 4.2, BUN 19, creatinine 1.0, INR 1.2. IMPRESSION 1. COPD, stable at present on p.r.n. albuterol. 2. Infected pacemaker, removed. 3. Third-degree heart block. 4. History of CVA. 5. History of carotid stenosis. PLAN: The patient's COPD is stable at present. Chest x-ray is without acute abnormality. His oxygenation is adequate. He will continue his bronchodilator therapy. The patient has been seen in follow up by Dr. Puma Silverio previously, who will follow up his care. I do think you for asking me to partake in Mr. Smith's care. Steffanie Valiente MD WWW/TIGRE /7:03 PM /10:19 PM
[2017-08-11] VITALS (28 sets, daily range): BP systolic 115–148; BP diastolic 62–75; PULSE 46–89; RESP 16–18; TEMP 97.3–98.5; O2SAT 97–100
[2017-08-11] MEDS: PIPERACIL-TAZO 4.5 GM PREMIX 100 ML IV SCH ×4 (03:30→21:30)
--- NOTE | 2017-08-11 09:23 | PD.CARD.PN ---
Subjective Subjective Remarks The patient denies acute complaints. Has variable HR without symptoms of lightheadedness, dizziness, SOB, palpitations or CP. BP is good. (Doretha Wei) Objective Medications Current Medications Medications (Trade) Dose Ordered Sig/Jenifer Route Start Time Stop Time Status Last Admin (Tylenol) 650 mg Q4H PRN PO 08/08/17 12:30 08/10/17 21:32 (Zofran Inj) 4 mg Q6H PRN IVP 08/08/17 12:30 (Narcan Inj) 0.4 mg UNSCH PRN IV PUSH 08/08/17 12:30 (Karen-Colace) 1 tab BID PO 08/08/17 21:00 08/10/17 21:32 (Milk Of Magnesia Liq) 30 ml Q12H PRN PO 08/08/17 12:30 (Senokot) 17.2 mg Q12H PRN PO 08/08/17 12:30 (Dulcolax Supp) 10 mg DAILY PRN RECTAL 08/08/17 12:30 (Lactulose Liq) 30 ml DAILY PRN PO 08/08/17 12:30 (Proair Hfa Inh) 2 puff Q6HR PRN INH 08/08/17 14:00 (Lipitor) 40 mg HS PO 08/08/17 21:00 08/10/17 21:32 (Xalatan 0.005% Opth Soln) 1 drop HS EACH EYE 08/08/17 21:00 08/10/17 21:32 (Singulair) 10 mg DAILY PO 08/09/17 09:00 08/10/17 09:31 Patient Own Medication PT OWN MED: DULERA (MOMETASONE ... BID INH 08/08/17 21:00 Future Hold (Ocuvite) 1 tab DAILY PO 08/09/17 09:00 08/10/17 09:30 (Cozaar) 50 mg DAILY PO 08/09/17 09:00 08/10/17 09:31 (Microzide) 12.5 mg DAILY PO 08/09/17 09:00 08/10/17 09:31 (Norvasc) 2.5 mg DAILY PRN PO 08/08/17 14:45 (Pill Splitter) 1 ea UNSCH PRN OTHER 08/08/17 15:00 (Ativan) 1 mg ELECTRONIC PARTS DESIGNER SL 08/08/17 15:00 08/12/17 14:59 (Betadine 5% Antisepsis Kit) 1 applic ELECTRONIC PARTS DESIGNER EACH NARE 08/08/17 15:00 08/12/17 14:59 (Bactroban Nasal 2% Oint) 1 applic ELECTRONIC [employer]S DESIGNER NASAL 08/08/17 15:00 08/12/17 14:59 (Chlorhexidine 2% Cloth) 3 pack ELECTRONIC PARTS DESIGNER TOP 08/08/17 15:00 08/12/17 14:59 Lactated Ringer's 1,000 ml @ 30 mls/hr Q24H PRN IV 08/09/17 02:45 08/12/17 02:44 Sodium Chloride 500 ml @ 30 mls/hr [id number] PRN IV 08/09/17 02:45 08/12/17 02:44 (Betadine 5% Antisepsis Kit) 1 applic ELECTRONIC PARTS DESIGNER PRN EACH NARE 08/09/17 02:45 08/12/17 02:44 (Chlorhexidine 2% Cloth) 3 pack ELECTRONIC PARTS DESIGNER PRN TOPICAL 08/09/17 02:45 08/12/17 02:44 (Lopressor) 25 mg ELECTRONIC PARTS DESIGNER PRN PO 08/09/17 02:45 08/12/17 02:44 Piperacillin Sod/ Tazobactam Sod 100 ml @ 200 mls/hr Q6H IV 08/09/17 16:00 08/11/17 03:30 Vital Signs / I&O Vital Signs Date Time Temp Pulse Resp B/P (MAP) Pulse Ox O2 Delivery O2 Flow Rate FiO2 08/11/17 07:44 97.3 85 16 133/72 (92) 99 08/11/17 07:00 54 08/11/17 06:00 56 08/11/17 05:00 72 08/11/17 04:00 64 08/11/17 03:00 97.8 82 16 123/67 (85) 98 08/11/17 03:00 88 08/11/17 02:00 76 08/11/17 01:00 78 08/11/17 00:00 82 08/10/17 23:00 85 08/10/17 23:00 98.4 89 20 127/75 (92) 97 08/10/17 22:00 70 08/10/17 21:00 70 08/10/17 20:00 72 08/10/17 19:00 60 08/10/17 19:00 97.8 92 18 149/79 (102) 98 08/10/17 18:42 96 08/10/17 17:18 76 08/10/17 16:00 90 08/10/17 15:21 98.5 65 16 119/68 (85) 98 08/10/17 15:00 79 08/10/17 14:00 79 08/10/17 13:22 92 08/10/17 12:00 72 08/10/17 11:11 98.0 86 16 114/59 (77) 100 08/10/17 11:00 90 08/10/17 10:00 72 I/O 08/10/17 08/10/17 08/10/17 08/11/17 08/11/17 08/11/17 07:00 15:00 23:00 07:00 15:00 23:00 Intake Total 240 ml 615 ml 900 ml 240 ml Output Total 525 ml 100 ml Balance -285 ml 615 ml 800 ml 240 ml Intake Oral 240 ml 900 ml 240 ml IV Total 615 ml Output Urine Total 525 ml 100 ml # Voids 2 6 3 # Bowel Movements 2 1 1 Physical Exam GENERAL: Elderly male in CIC. rm 248 SKIN: Warm and dry. HEAD: Normocephalic. EYES: No scleral icterus. No injection or drainage. NECK: Supple, trachea midline. CARDIOVASCULAR: Regular rate and rhythm, Did gentle expression of device pocket during dressing change today. No evidence of infective drainage. Some expression of fresh blood. No obvious hematoma. [place] in place. RESPIRATORY: Breath sounds equal bilaterally. Left distal base rales GASTROINTESTINAL: Abdomen soft, non-tender, nondistended. MUSCULOSKELETAL: No cyanosis BACK: Nontender without obvious deformity. Laboratory Laboratory Tests Test 08/10/17 12:28 White Blood Count 11.0 TH/MM3 Red Blood Count 3.95 MIL/MM3 Hemoglobin 12.3 GM/DL Hematocrit 36.8 % Mean Corpuscular Volume 93.3 FL Mean Corpuscular Hemoglobin 31.1 PG Mean Corpuscular Hemoglobin Concent 33.4 % Red Cell Distribution Width 14.3 % Platelet Count 214 TH/MM3 Mean Platelet Volume 7.0 FL Neutrophils (%) (Auto) 77.8 % Lymphocytes (%) (Auto) 10.9 % Monocytes (%) (Auto) 9.5 % Eosinophils (%) (Auto) 1.5 % Basophils (%) (Auto) 0.3 % Neutrophils # (Auto) 8.5 TH/MM3 Lymphocytes # (Auto) 1.2 TH/MM3 Monocytes # (Auto) 1.0 TH/MM3 Eosinophils # (Auto) 0.2 TH/MM3 Basophils # (Auto) 0.0 TH/MM3 CBC Comment DIFF FINAL Differential Comment Blood Urea Nitrogen 19 MG/DL Creatinine 1.07 MG/DL Random Glucose 115 MG/DL Total Protein 6.5 GM/DL Albumin 3.2 GM/DL Calcium Level 8.7 MG/DL Magnesium Level 2.1 MG/DL Alkaline Phosphatase 85 U/L Aspartate Amino Transf (AST/SGOT) 19 U/L Alanine Aminotransferase (ALT/SGPT) 24 U/L Total Bilirubin 0.7 MG/DL Sodium Level 141 MEQ/L Potassium Level 4.2 MEQ/L Chloride Level 107 MEQ/L Carbon Dioxide Level 27.2 MEQ/L Anion Gap 7 MEQ/L Estimat Glomerular Filtration Rate 66 ML/MIN (Doretha Wei) Assessment and Plan Assessment and Plan PPM pocket infection + Proteus mirabilis - POD #2 for device extraction Complete heart block, not pacemaker dependent prior to device extraction Asymptomatic WCT/Bradycardia ASHD CVA Carotid stenosis HTN HLD PLAN: We will continue to follow up with patient closely. At this time, we are not planning to place another PPM. ABX per ID. Discussed with Dr Abrams yesterday. Plans to complete 10 days of IV ABX. Hold stool softener The patient was seen and evaluated by Dr Hutchison who completed physical exam and participated in evaluation and management. (Doretha Wei) Assessment and Plan The exam, history, and the medical decision-making described in the above note were completed with the assistance of the mid-level provider. I reviewed and agree with the findings presented. I attest that I had a [id number] encounter with the patient on the same day, and personally performed and documented my assessment and findings in the medical record. Overall stable consider d/c after weekend ( Tuesday) if HR stable and no marked CHB while awake. (Dane Hutchison MD) Doretha Wei Aug 11, 2017 09:23 Dane Hutchison MD Aug 12, 2017 09:27
[2017-08-11] MEDS: DOCUSATE SODIUM 50 MG/SENNA 8.6 MG TAB PO SCH ×2 (09:51→21:31)
[2017-08-11] MEDS: HYDROCHLOROTHIAZIDE 12.5 MG CAP PO SCH (09:52)
[2017-08-11] MEDS: MONTELUKAST SODIUM 10 MG TAB PO SCH (09:52)
[2017-08-11] MEDS: MULTIVITAMIN-OPHTHALMIC 1 TAB PO SCH (09:52)
[2017-08-11] MEDS: LOSARTAN 50 MG TAB PO SCH (09:52)
--- NOTE | 2017-08-11 12:11 | HHI.IDPN ---
Note Infectious Disease Note Patient feels okay. Afebrile. Denies chills, dizziness. Drainage at the left chest wall pacer removal site. Post removal of the pacemaker and debridement of the pacemaker pocket and drainage catheter. PAST MEDICAL HISTORY 1. Coronary artery disease. 2. Hypertension. 3. Hyperlipidemia. 4. Cerebrovascular accident. 5. Carotid stenosis. 6. History of coronary artery bypass graft surgery approximately 24 years ago. 7. Right hip replacement. 8. Bilateral knee replacement. 9. Left carotid endarterectomy. 10. Bilateral cataract extraction. 11. Bariatric surgery in 2009. 12. Cholecystectomy. 13. History of prostate cancer. 14. Arthritis. ALLERGIES NO KNOWN DRUG ALLERGIES. MEDICATIONS Zosyn OBJECTIVE: Vital Signs Date Time Temp Pulse Resp B/P (MAP) Pulse Ox O2 Delivery O2 Flow Rate FiO2 08/11/17 11:31 46 08/11/17 11:25 98.4 65 16 123/75 (91) 97 08/11/17 10:00 64 08/11/17 09:00 78 08/11/17 08:00 70 08/11/17 07:44 97.3 85 16 133/72 (92) 99 08/11/17 07:00 54 08/11/17 06:00 56 08/11/17 05:00 72 08/11/17 04:00 64 08/11/17 03:00 97.8 82 16 123/67 (85) 98 08/11/17 03:00 88 08/11/17 02:00 76 08/11/17 01:00 78 08/11/17 00:00 82 08/10/17 23:00 85 08/10/17 23:00 98.4 89 20 127/75 (92) 97 08/10/17 22:00 70 08/10/17 21:00 70 08/10/17 20:00 72 08/10/17 19:00 60 08/10/17 19:00 97.8 92 18 149/79 (102) 98 08/10/17 18:42 96 08/10/17 17:18 76 08/10/17 16:00 90 08/10/17 15:21 98.5 65 16 119/68 (85) 98 08/10/17 15:00 79 08/10/17 14:00 79 08/10/17 13:22 92 Laboratory Tests Test 08/10/17 12:28 White Blood Count 11.0 TH/MM3 Red Blood Count 3.95 MIL/MM3 Hemoglobin 12.3 GM/DL Hematocrit 36.8 % Mean Corpuscular Volume 93.3 FL Mean Corpuscular Hemoglobin 31.1 PG Mean Corpuscular Hemoglobin Concent 33.4 % Red Cell Distribution Width 14.3 % Platelet Count 214 TH/MM3 Mean Platelet Volume 7.0 FL Neutrophils (%) (Auto) 77.8 % Lymphocytes (%) (Auto) 10.9 % Monocytes (%) (Auto) 9.5 % Eosinophils (%) (Auto) 1.5 % Basophils (%) (Auto) 0.3 % Neutrophils # (Auto) 8.5 TH/MM3 Lymphocytes # (Auto) 1.2 TH/MM3 Monocytes # (Auto) 1.0 TH/MM3 Eosinophils # (Auto) 0.2 TH/MM3 Basophils # (Auto) 0.0 TH/MM3 CBC Comment DIFF FINAL Differential Comment Laboratory Tests Test 08/10/17 12:28 Blood Urea Nitrogen 19 MG/DL Creatinine 1.07 MG/DL Random Glucose 115 MG/DL Total Protein 6.5 GM/DL Albumin 3.2 GM/DL Calcium Level 8.7 MG/DL Magnesium Level 2.1 MG/DL Alkaline Phosphatase 85 U/L Aspartate Amino Transf (AST/SGOT) 19 U/L Alanine Aminotransferase (ALT/SGPT) 24 U/L Total Bilirubin 0.7 MG/DL Sodium Level 141 MEQ/L Potassium Level 4.2 MEQ/L Chloride Level 107 MEQ/L Carbon Dioxide Level 27.2 MEQ/L Anion Gap 7 MEQ/L Estimat Glomerular Filtration Rate 66 ML/MIN Microbiology Date/Time Source Procedure Growth Status 08/08/17 13:06 Blood Peripheral Aerobic Blood Culture - Preliminary NO GROWTH IN 3 DAYS Resulted 08/08/17 13:06 Blood Peripheral Anaerobic Blood Culture - Preliminary NO GROWTH IN 3 DAYS Resulted 08/08/17 13:00 Blood Peripheral Aerobic Blood Culture - Preliminary NO GROWTH IN 3 DAYS Resulted 08/08/17 13:00 Blood Peripheral Anaerobic Blood Culture - Preliminary NO GROWTH IN 3 DAYS Resulted 08/09/17 14:35 Catheter Tip Other Wound Culture - Preliminary NO GROWTH IN 48 HOURS. Resulted 08/09/17 14:30 Catheter Tip Vas Cath Wound Culture - Preliminary NO GROWTH IN 48 HOURS. Resulted 08/09/17 13:50 Wound Other Gram Stain - Final Complete 08/09/17 13:50 Wound Culture - Final Proteus Mirabilis Complete 08/09/17 13:50 Wound Chest Gram Stain - Final Resulted 08/09/17 13:50 Wound Chest Wound Culture - Preliminary NO GROWTH IN 48 HOURS. Resulted 08/09/17 13:50 Wound Chest Gram Stain - Final Complete 08/09/17 13:50 Wound Culture - Final Proteus Mirabilis Complete 08/08/17 13:45 Wound Chest Gram Stain - Final Complete 08/08/17 13:45 Wound Culture - Final Proteus Mirabilis Complete PHYSICAL EXAMINATION GENERAL: No acute distress. HEENT: Extraocular movements grossly intact. Pupils reactive to light. No icterus. Oropharynx: visible lesions. NECK: Supple. No adenopathy. LUNGS: Clear: CARDIOVASCULAR: Irregular S1-S2. No murmurs, rubs, or gallops. CHEST: Pacemaker site without tenderness. Dark colored drainage. Rose drain in place. ABDOMEN: Bowel sounds present, soft, no tenderness. EXTREMITIES: No clubbing, cyanosis or edema. SKIN: No rash. NEUROLOGIC: Decreased strength in the right upper extremity. Otherwise nonfocal. PSYCHIATRIC: The patient calm and pleasant and cooperative. IMPRESSION 1. Pacemaker pocket infection. Post pacer removal. Proteus on culture. Patient status post pacemaker insertion for heart block. RECOMMENDATIONS Continue Zosyn. Plan on antibiotic for 10 days. Brad Lemus MD Aug 11, 2017 12:11
--- NOTE | 2017-08-11 12:46 | HHI.PR ---
Subjective Remarks Discussed with patient and at bedside. Patient denies any chest pain. States he is not short of breath at rest but still gets mildly winded when he gets up with activity. His states this is at his baseline. Objective Vitals Vital Signs Date Time Temp Pulse Resp B/P (MAP) Pulse Ox O2 Delivery O2 Flow Rate FiO2 08/11/17 12:08 61 08/11/17 11:31 46 08/11/17 11:25 98.4 65 16 123/75 (91) 97 08/11/17 10:00 64 08/11/17 09:00 78 08/11/17 08:00 70 08/11/17 07:44 97.3 85 16 133/72 (92) 99 08/11/17 07:00 54 08/11/17 06:00 56 08/11/17 05:00 72 08/11/17 04:00 64 08/11/17 03:00 97.8 82 16 123/67 (85) 98 08/11/17 03:00 88 08/11/17 02:00 76 08/11/17 01:00 78 08/11/17 00:00 82 08/10/17 23:00 85 08/10/17 23:00 98.4 89 20 127/75 (92) 97 08/10/17 22:00 70 08/10/17 21:00 70 08/10/17 20:00 72 08/10/17 19:00 60 08/10/17 19:00 97.8 92 18 149/79 (102) 98 08/10/17 18:42 96 08/10/17 17:18 76 08/10/17 16:00 90 08/10/17 15:21 98.5 65 16 119/68 (85) 98 08/10/17 15:00 79 08/10/17 14:00 79 08/10/17 13:22 92 I/O 08/10/17 08/10/17 08/10/17 08/11/17 08/11/17 08/11/17 07:00 15:00 23:00 07:00 15:00 23:00 Intake Total 240 ml 615 ml 900 ml 240 ml Output Total 525 ml 100 ml Balance -285 ml 615 ml 800 ml 240 ml Intake Oral 240 ml 900 ml 240 ml IV Total 615 ml Output Urine Total 525 ml 100 ml # Voids 2 6 3 # Bowel Movements 2 1 1 Result Diagram: 08/10/17 1228 08/10/17 1228 Objective Remarks GENERAL: Well-nourished, well-developed patient. SKIN: Warm and dry. HEAD: Normocephalic. EYES: No scleral icterus. No injection or drainage. NECK: Supple, trachea midline. No JVD or lymphadenopathy. CARDIOVASCULAR: Regular rate and rhythm without murmurs, gallops, or rubs. Bandage at left chest. RESPIRATORY: Breath sounds equal bilaterally. No accessory muscle use. GASTROINTESTINAL: Abdomen soft, non-tender, nondistended. EXTREMITIES: No cyanosis, or edema. NEUROLOGICAL: Awake, alert, and oriented x 3. Non-focal. 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 s/p pacemaker removal on 08/[address] Hutchison- continue IV Vancomycin and Zosyn- follow the cultures- so far our cultures negative. Initial wound cultures growing Proteus pansensitive. cardiology and ID following. I discussed the patient with Dr. Lemus and Dr. Hutchison. Patient will be continued to monitor overnight for any arrhythmias. If evidence of arrhythmias may need to have pacer implanted prior to discharge. If no pacer is plan patient may be discharged on IV antibiotics. -hypertension; continue cozaar,amlodipine and HCTZ-blood pressure stable. -dyslipidemia; continue statin -DVT prophylaxis-SCD's Maryellen Lopez MD Aug 11, 2017 12:46
[2017-08-11] MEDS: ACETAMINOPHEN 325 MG TAB PO PRN (21:29)
[2017-08-11] MEDS: LATANOPROST 0.005% OPHT SOLN 2.5 ML BTL EACH EYE SCH (21:30)
[2017-08-11] MEDS: ATORVASTATIN 40 MG TAB PO SCH (21:31)
[2017-08-12] VITALS (23 sets, daily range): BP systolic 125–151; BP diastolic 67–87; PULSE 43–89; RESP 14–20; TEMP 97.3–98.1; O2SAT 96–99
[2017-08-12] MEDS: PIPERACIL-TAZO 4.5 GM PREMIX 100 ML IV SCH ×4 (04:01→20:15)
[2017-08-12 07:31] LABS: AUTOMATED NEUTROPHIL # 6.4 TH/MM3 (1.8-7.7); BASOPHIL % 0.4 % (0.0-2.0); EOSINOPHIL # 0.4 TH/MM3 (0-0.4); HEMATOCRIT 33.9 % (39.0-51.0); HEMO FLAGS DIFF FINAL; LYMPH % 16.6 % (9.0-44.0); LYMPHOCYTE # 1.6 TH/MM3 (1.0-4.8); MEAN CELL VOLUME 93.2 FL (80.0-100.0); MEAN CORPUSCULAR HEMOGLOBIN 32.4 PG (27.0-34.0); MEAN CORPUSCULAR HGB CONC 34.8 % (32.0-36.0); MONO % 11.3 % (0.0-8.0); NEUT % 67.7 % (16.0-70.0); PLATELET COUNT 209 TH/MM3 (150-450); RED BLOOD COUNT 3.64 MIL/MM3 (4.50-5.90); RED CELL DISTRIBUTION WIDTH 14.3 % (11.6-17.2); WHITE BLOOD COUNT 9.5 TH/MM3 (4.0-11.0)
[2017-08-12] MEDS: LOSARTAN 50 MG TAB PO SCH (09:29)
[2017-08-12] MEDS: MULTIVITAMIN-OPHTHALMIC 1 TAB PO SCH (09:29)
[2017-08-12] MEDS: HYDROCHLOROTHIAZIDE 12.5 MG CAP PO SCH (09:29)
[2017-08-12] MEDS: DOCUSATE SODIUM 50 MG/SENNA 8.6 MG TAB PO SCH ×2 (09:30→20:15)
[2017-08-12] MEDS: MONTELUKAST SODIUM 10 MG TAB PO SCH (09:30)
--- NOTE | 2017-08-12 10:05 | HHI.PR ---
Subjective Remarks Patient denies any pain. Still having significant drainage from the Rose. Objective Vitals Vital Signs Date Time Temp Pulse Resp B/P (MAP) Pulse Ox O2 Delivery O2 Flow Rate FiO2 08/12/17 10:00 66 08/12/17 09:00 51 08/12/17 08:00 43 08/12/17 07:00 98.1 51 16 125/87 (100) 99 08/12/17 07:00 59 08/12/17 06:00 48 08/12/17 05:00 58 08/12/17 04:00 80 08/12/17 03:00 97.6 80 18 125/67 (86) 97 08/12/17 03:00 67 08/12/17 02:00 74 08/12/17 01:00 72 08/12/17 00:00 50 08/11/17 23:48 97.5 79 18 115/70 (85) 100 08/11/17 23:00 79 08/11/17 22:00 76 08/11/17 21:00 70 08/11/17 20:00 80 08/11/17 20:00 98.5 73 18 148/69 (95) 98 08/11/17 19:00 67 08/11/17 18:15 79 08/11/17 17:38 58 08/11/17 16:00 72 08/11/17 15:10 98.2 89 16 126/62 (83) 99 08/11/17 15:00 86 08/11/17 14:00 86 08/11/17 13:20 66 08/11/17 12:08 61 08/11/17 11:31 46 08/11/17 11:25 98.4 65 16 123/75 (91) 97 I/O 08/11/17 08/11/17 08/11/17 08/12/17 08/12/17 08/12/17 07:00 15:00 23:00 07:00 15:00 23:00 Intake Total 240 ml 720 ml 240 ml Output Total 1000 ml Balance 240 ml -280 ml 240 ml Intake Oral 240 ml 720 ml 240 ml Output Urine Total 1000 ml # Voids 3 3 # Bowel Movements 1 1 0 Result Diagram: 08/12/17 0558 08/10/17 1228 Objective Remarks GENERAL: Well-nourished, well-developed patient. SKIN: Warm and dry. HEAD: Normocephalic. EYES: No scleral icterus. No injection or drainage. NECK: Supple, trachea midline. No JVD or lymphadenopathy. CARDIOVASCULAR: Regular rate and rhythm without murmurs, gallops, or rubs. Bandage at left chest. RESPIRATORY: Breath sounds equal bilaterally. No accessory muscle use. GASTROINTESTINAL: Abdomen soft, non-tender, nondistended. EXTREMITIES: No cyanosis, or edema. NEUROLOGICAL: Awake, alert, and oriented x 3. Non-focal. A/P Problem List: (1) Infection of pacemaker pocket ICD Code: T82.7XXA - Infection and inflammatory reaction due to other cardiac and vascular devices, implants and grafts, initial encounter (2) Proteus infection ICD Code: A49.8 - Other bacterial infections of unspecified site (3) High degree atrioventricular block ICD Code: I44.39 - Other atrioventricular block (4) CVA (cerebral vascular accident) ICD Code: I63.9 - Cerebral infarction, unspecified Status: Chronic (5) Hypertension ICD Code: I10 - Essential (primary) hypertension Status: Chronic (6) Hyperlipidemia ICD Code: E78.5 - Hyperlipidemia, unspecified Status: Chronic (7) CAD (coronary artery disease) ICD Code: I25.10 - Atherosclerotic heart disease of [place] coronary artery without angina pectoris Status: Chronic (8) Status post placement of cardiac pacemaker ICD Code: Z95.0 - Presence of cardiac pacemaker Assessment and Plan - infected pacemaker ( 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 s/p pacemaker removal on 08/[address] Hutchison- continue IV Vancomycin and Zosyn- follow the cultures- so far OR cultures negative. Initial wound cultures growing Proteus pansensitive. cardiology and ID following. I discussed the patient with Dr. Hutchison. Discussed yesterday with Dr. Lemus. Still having significant drainage from the [place] tube so patient will be monitored inpatient. Patient also is high risk for recurrent arrhythmia and will be continued to be monitored on telemetry. After discharge will have an event monitor via Dr. Hutchison. Anticipate discharge to home on Tuesday. Will order PICC line to be placed on Tuesday. -COPD with chronic dyspnea. Appreciate pulmonology input. Stable at baseline. -hypertension; continue cozaar,amlodipine and HCTZ-blood pressure stable. -dyslipidemia; continue statin -DVT prophylaxis-SCD's Maryellen Lopez MD Aug 12, 2017 10:05
--- NOTE | 2017-08-12 11:13 | HHI.IDPN ---
Note Infectious Disease Note Patient feels okay. Afebrile. Denies chills, dizziness. having drainage at the left chest wall pacer removal site. PAST MEDICAL HISTORY 1. Coronary artery disease. 2. Hypertension. 3. Hyperlipidemia. 4. Cerebrovascular accident. 5. Carotid stenosis. 6. History of coronary artery bypass graft surgery approximately 24 years ago. 7. Right hip replacement. 8. Bilateral knee replacement. 9. Left carotid endarterectomy. 10. Bilateral cataract extraction. 11. Bariatric surgery in 2009. 12. Cholecystectomy. 13. History of prostate cancer. 14. Arthritis. ALLERGIES NO KNOWN DRUG ALLERGIES. MEDICATIONS Zosyn OBJECTIVE: Vital Signs Date Time Temp Pulse Resp B/P (MAP) Pulse Ox O2 Delivery O2 Flow Rate FiO2 08/12/17 10:00 66 08/12/17 09:00 51 08/12/17 08:00 43 08/12/17 07:00 98.1 51 16 125/87 (100) 99 08/12/17 07:00 59 08/12/17 06:00 48 08/12/17 05:00 58 08/12/17 04:00 80 08/12/17 03:00 97.6 80 18 125/67 (86) 97 08/12/17 03:00 67 08/12/17 02:00 74 08/12/17 01:00 72 08/12/17 00:00 50 08/11/17 23:48 97.5 79 18 115/70 (85) 100 08/11/17 23:00 79 08/11/17 22:00 76 08/11/17 21:00 70 08/11/17 20:00 80 08/11/17 20:00 98.5 73 18 148/69 (95) 98 08/11/17 19:00 67 08/11/17 18:15 79 08/11/17 17:38 58 08/11/17 16:00 72 08/11/17 15:10 98.2 89 16 126/62 (83) 99 08/11/17 15:00 86 08/11/17 14:00 86 08/11/17 13:20 66 08/11/17 12:08 61 08/11/17 11:31 46 08/11/17 11:25 98.4 65 16 123/75 (91) 97 Laboratory Tests Test 08/10/17 12:28 08/12/17 05:58 White Blood Count 11.0 TH/MM3 9.5 TH/MM3 Red Blood Count 3.95 MIL/MM3 3.64 MIL/MM3 Hemoglobin 12.3 GM/DL 11.8 GM/DL Hematocrit 36.8 % 33.9 % Mean Corpuscular Volume 93.3 FL 93.2 FL Mean Corpuscular Hemoglobin 31.1 PG 32.4 PG Mean Corpuscular Hemoglobin Concent 33.4 % 34.8 % Red Cell Distribution Width 14.3 % 14.3 % Platelet Count 214 TH/MM3 209 TH/MM3 Mean Platelet Volume 7.0 FL 7.4 FL Neutrophils (%) (Auto) 77.8 % 67.7 % Lymphocytes (%) (Auto) 10.9 % 16.6 % Monocytes (%) (Auto) 9.5 % 11.3 % Eosinophils (%) (Auto) 1.5 % 4.0 % Basophils (%) (Auto) 0.3 % 0.4 % Neutrophils # (Auto) 8.5 TH/MM3 6.4 TH/MM3 Lymphocytes # (Auto) 1.2 TH/MM3 1.6 TH/MM3 Monocytes # (Auto) 1.0 TH/MM3 1.1 TH/MM3 Eosinophils # (Auto) 0.2 TH/MM3 0.4 TH/MM3 Basophils # (Auto) 0.0 TH/MM3 0.0 TH/MM3 CBC Comment DIFF FINAL DIFF FINAL Differential Comment Laboratory Tests Test 08/10/17 12:28 Blood Urea Nitrogen 19 MG/DL Creatinine 1.07 MG/DL Random Glucose 115 MG/DL Total Protein 6.5 GM/DL Albumin 3.2 GM/DL Calcium Level 8.7 MG/DL Magnesium Level 2.1 MG/DL Alkaline Phosphatase 85 U/L Aspartate Amino Transf (AST/SGOT) 19 U/L Alanine Aminotransferase (ALT/SGPT) 24 U/L Total Bilirubin 0.7 MG/DL Sodium Level 141 MEQ/L Potassium Level 4.2 MEQ/L Chloride Level 107 MEQ/L Carbon Dioxide Level 27.2 MEQ/L Anion Gap 7 MEQ/L Estimat Glomerular Filtration Rate 66 ML/MIN Microbiology Date/Time Source Procedure Growth Status 08/09/17 14:35 Catheter Tip Other Wound Culture - Final NO GROWTH IN 72 HOURS Complete 08/09/17 14:30 Catheter Tip Vas Cath Wound Culture - Final NO GROWTH IN 72 HOURS Complete 08/09/17 13:50 Wound Other Gram Stain - Final Complete 08/09/17 13:50 Wound Culture - Final Proteus Mirabilis Complete 08/09/17 13:50 Wound Chest Gram Stain - Final Complete 08/09/17 13:50 Wound Chest Wound Culture - Final NO GROWTH IN 72 HRS.--AEROBICALLY OR ... Complete 08/09/17 13:50 Wound Chest Gram Stain - Final Complete 08/09/17 13:50 Wound Culture - Final Proteus Mirabilis Complete PHYSICAL EXAMINATION GENERAL: No acute distress. HEENT: No icterus. Oropharynx: visible lesions. NECK: Supple. No adenopathy. LUNGS: Clear: CARDIOVASCULAR: Irregular S1-S2. No murmurs, rubs, or gallops. CHEST: Pacemaker site without tenderness. Serous drainage. Rose drain in place. ABDOMEN: Bowel sounds present, soft, no tenderness. EXTREMITIES: No clubbing, cyanosis or edema. SKIN: No rash. NEUROLOGIC: Decreased strength in the right upper extremity. Otherwise nonfocal. PSYCHIATRIC: Calm and pleasant and cooperative. 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 Patient status post pacemaker insertion for heart block. RECOMMENDATIONS Continue [place]. Discussed with Dr. Lopez. Brad Lemus MD Aug 12, 2017 11:13
--- NOTE | 2017-08-12 13:34 | PD.CARD.PN ---
Subjective Subjective Remarks The patient denies acute complaints. No fevers, chills, palpitations, CP or SOB. (Doretha Wei) Objective Medications Current Medications Medications (Trade) Dose Ordered Sig/Jenifer Route Start Time Stop Time Status Last Admin (Tylenol) 650 mg Q4H PRN PO 08/08/17 12:30 08/11/17 21:29 (Zofran Inj) 4 mg Q6H PRN IVP 08/08/17 12:30 (Narcan Inj) 0.4 mg UNSCH PRN IV PUSH 08/08/17 12:30 (Karen-Colace) 1 tab BID PO 08/08/17 21:00 08/12/17 09:30 (Milk Of Magnesia Liq) 30 ml Q12H PRN PO 08/08/17 12:30 (Senokot) 17.2 mg Q12H PRN PO 08/08/17 12:30 (Dulcolax Supp) 10 mg DAILY PRN RECTAL 08/08/17 12:30 (Lactulose Liq) 30 ml DAILY PRN PO 08/08/17 12:30 (Proair Hfa Inh) 2 puff Q6HR PRN INH 08/08/17 14:00 (Lipitor) 40 mg HS PO 08/08/17 21:00 08/11/17 21:31 (Xalatan 0.005% Opth Soln) 1 drop HS EACH EYE 08/08/17 21:00 08/11/17 21:30 (Singulair) 10 mg DAILY PO 08/09/17 09:00 08/12/17 09:30 Patient Own Medication PT OWN MED: DULERA (MOMETASONE ... BID INH 08/08/17 21:00 Future Hold (Ocuvite) 1 tab DAILY PO 08/09/17 09:00 08/12/17 09:29 (Cozaar) 50 mg DAILY PO 08/09/17 09:00 08/12/17 09:29 (Microzide) 12.5 mg DAILY PO 08/09/17 09:00 08/12/17 09:29 (Norvasc) 2.5 mg DAILY PRN PO 08/08/17 14:45 (Pill Splitter) 1 ea UNSCH PRN OTHER 08/08/17 15:00 (Ativan) 1 mg PBX MECHANIC SL 08/08/17 15:00 08/12/17 14:59 (Betadine 5% Antisepsis Kit) 1 applic PBX MECHANIC EACH NARE 08/08/17 15:00 08/12/17 14:59 (Bactroban Nasal 2% Oint) 1 applic PBX MECHANIC NASAL 08/08/17 15:00 08/12/17 14:59 (Chlorhexidine 2% Cloth) 3 pack PBX MECHANIC TOP 08/08/17 15:00 08/12/17 14:59 Piperacillin Sod/ Tazobactam Sod 100 ml @ 200 mls/hr Q6H IV 08/09/17 16:00 08/12/17 09:30 Vital Signs / I&O Vital Signs Date Time Temp Pulse Resp B/P (MAP) Pulse Ox O2 Delivery O2 Flow Rate FiO2 08/12/17 11:00 85 08/12/17 11:00 97.3 59 14 127/77 (94) 99 08/12/17 10:00 66 08/12/17 09:00 51 08/12/17 08:00 43 08/12/17 07:00 98.1 51 16 125/87 (100) 99 08/12/17 07:00 59 08/12/17 06:00 48 08/12/17 05:00 58 08/12/17 04:00 80 08/12/17 03:00 97.6 80 18 125/67 (86) 97 08/12/17 03:00 67 08/12/17 02:00 74 08/12/17 01:00 72 08/12/17 00:00 50 08/11/17 23:48 97.5 79 18 115/70 (85) 100 08/11/17 23:00 79 08/11/17 22:00 76 08/11/17 21:00 70 08/11/17 20:00 80 08/11/17 20:00 98.5 73 18 148/69 (95) 98 08/11/17 19:00 67 08/11/17 18:15 79 08/11/17 17:38 58 08/11/17 16:00 72 08/11/17 15:10 98.2 89 16 126/62 (83) 99 08/11/17 15:00 86 08/11/17 14:00 86 I/O 08/11/17 08/11/17 08/11/17 08/12/17 08/12/17 08/12/17 07:00 15:00 23:00 07:00 15:00 23:00 Intake Total 240 ml 720 ml 240 ml Output Total 1000 ml Balance 240 ml -280 ml 240 ml Intake Oral 240 ml 720 ml 240 ml Output Urine Total 1000 ml # Voids 3 3 # Bowel Movements 1 1 0 Physical Exam GENERAL: Elderly male in CIC. rm 248 SKIN: Warm and dry. HEAD: Normocephalic. EYES: No scleral icterus. No injection or drainage. NECK: Supple, trachea midline. CARDIOVASCULAR: Regular rate and rhythm, Expressed wound, had moderate amount of bleeding, pulled back and cut julio césar drain. RESPIRATORY: Breath sounds equal bilaterally. Left distal base rales GASTROINTESTINAL: Abdomen soft, non-tender, nondistended. MUSCULOSKELETAL: No cyanosis BACK: Nontender without obvious deformity. Laboratory Laboratory Tests Test 08/12/17 05:58 White Blood Count 9.5 TH/MM3 Red Blood Count 3.64 MIL/MM3 Hemoglobin 11.8 GM/DL Hematocrit 33.9 % Mean Corpuscular Volume 93.2 FL Mean Corpuscular Hemoglobin 32.4 PG Mean Corpuscular Hemoglobin Concent 34.8 % Red Cell Distribution Width 14.3 % Platelet Count 209 TH/MM3 Mean Platelet Volume 7.4 FL Neutrophils (%) (Auto) 67.7 % Lymphocytes (%) (Auto) 16.6 % Monocytes (%) (Auto) 11.3 % Eosinophils (%) (Auto) 4.0 % Basophils (%) (Auto) 0.4 % Neutrophils # (Auto) 6.4 TH/MM3 Lymphocytes # (Auto) 1.6 TH/MM3 Monocytes # (Auto) 1.1 TH/MM3 Eosinophils # (Auto) 0.4 TH/MM3 Basophils # (Auto) 0.0 TH/MM3 CBC Comment DIFF FINAL Differential Comment (Doretha Wei) Assessment and Plan Assessment and Plan PPM pocket infection + Proteus mirabilis - POD #3 for device extraction Complete heart block, not pacemaker dependent prior to device extraction Asymptomatic WCT and runs of Bradycardia ASHD CVA Carotid stenosis HTN HLD PLAN: We will continue to follow up with patient closely. At this time, we are not planning to place another PPM. ABX per ID. Discussed with Dr Abrams yesterday. Plans to complete 10 days of IV ABX. Continue dressing changes every 12 hours over the week. We will follow up on Tuesday. The patient was seen and evaluated by Dr Hutchison who completed physical exam and participated in evaluation and management. (Doretha Wei) Assessment and Plan The exam, history, and the medical decision-making described in the above note were completed with the assistance of the mid-level provider. I reviewed and agree with the findings presented. I attest that I had a [id number] encounter with the patient on the same day, and personally performed and documented my assessment and findings in the medical record.Drained pocket cut drain. (Dane Hutchison MD) Doretha Wei Aug 12, 2017 13:34 Dane Hutchison MD Aug 12, 2017 15:10
--- NOTE | 2017-08-12 15:16 | EKG ---
Date Performed: 08/12/2017 Time Performed: 11:13:52 PTAGE: 82 years EKG: Possible sinus bradycardia with complete heart block. Nonspecific intraventricular conducti on delay PREVIOUS TRACING : 08/08/2017 14.57 Compared to previous tracing, possible ventricular pa cing is no longer evident. DOCTOR: Basilio Mitchell Interpretating Date/Time 08/12/2017 15:15:57
[2017-08-12] MEDS: LATANOPROST 0.005% OPHT SOLN 2.5 ML BTL EACH EYE SCH (20:15)
[2017-08-12] MEDS: ATORVASTATIN 40 MG TAB PO SCH (20:15)
[2017-08-12] MEDS: ACETAMINOPHEN 325 MG TAB PO PRN (20:36)
[2017-08-13] VITALS (24 sets, daily range): BP systolic 108–142; BP diastolic 47–91; PULSE 54–89; RESP 16–18; TEMP 97.4–98.3; O2SAT 94–100
[2017-08-13] MEDS: PIPERACIL-TAZO 4.5 GM PREMIX 100 ML IV SCH ×4 (03:37→21:25)
[2017-08-13] MEDS: DOCUSATE SODIUM 50 MG/SENNA 8.6 MG TAB PO SCH ×2 (09:32→21:26)
[2017-08-13] MEDS: MONTELUKAST SODIUM 10 MG TAB PO SCH (09:32)
[2017-08-13] MEDS: MULTIVITAMIN-OPHTHALMIC 1 TAB PO SCH (09:32)
[2017-08-13] MEDS: LOSARTAN 50 MG TAB PO SCH (09:33)
[2017-08-13] MEDS: HYDROCHLOROTHIAZIDE 12.5 MG CAP PO SCH (09:33)
--- NOTE | 2017-08-13 13:41 | HHI.PR ---
Subjective Remarks Patient has no complaints. No arrhythmias on telemetry. Objective Vitals Vital Signs Date Time Temp Pulse Resp B/P (MAP) Pulse Ox O2 Delivery O2 Flow Rate FiO2 08/13/17 12:00 78 08/13/17 11:00 77 08/13/17 11:00 98.2 81 16 142/91 (108) 100 08/13/17 10:00 74 08/13/17 09:00 79 08/13/17 08:00 71 08/13/17 07:00 61 08/13/17 07:00 Room Air 08/13/17 07:00 97.4 83 16 109/67 (81) 100 08/13/17 06:00 74 08/13/17 05:00 78 08/13/17 04:00 Room Air 08/13/17 04:00 98.2 84 18 109/47 (67) 98 08/13/17 04:00 84 08/13/17 03:00 82 08/13/17 02:00 69 08/13/17 01:00 71 08/13/17 00:00 98.3 88 18 108/64 (79) 97 08/13/17 00:00 88 08/12/17 23:00 82 08/12/17 22:00 70 08/12/17 21:00 81 08/12/17 20:00 63 08/12/17 20:00 98.0 63 20 151/74 (99) 96 08/12/17 18:00 89 08/12/17 17:44 66 08/12/17 16:30 79 08/12/17 15:00 65 08/12/17 15:00 97.3 74 14 126/74 (91) 96 08/12/17 14:00 79 I/O 08/12/17 08/12/17 08/12/17 08/13/17 08/13/17 08/13/17 07:00 15:00 23:00 07:00 15:00 23:00 Intake Total 240 ml 600 ml 680 ml 0 ml Balance 240 ml 600 ml 680 ml 0 ml Intake Oral 240 ml 600 ml 480 ml 0 ml IV Total 200 ml # Voids 3 6 6 # Bowel Movements 0 1 0 Result Diagram: 08/12/17 0558 08/10/17 1228 Objective Remarks GENERAL: Well-nourished, well-developed patient. SKIN: Warm and dry. HEAD: Normocephalic. EYES: No scleral icterus. No injection or drainage. NECK: Supple, trachea midline. No JVD or lymphadenopathy. CARDIOVASCULAR: Regular rate and rhythm without murmurs, gallops, or rubs. Bandage at left chest. RESPIRATORY: Breath sounds equal bilaterally. No accessory muscle use. GASTROINTESTINAL: Abdomen soft, non-tender, nondistended. EXTREMITIES: No cyanosis, or edema. NEUROLOGICAL: Awake, alert, and oriented x 3. Non-focal. A/P Problem List: (1) Infection of pacemaker pocket ICD Code: T82.7XXA - Infection and inflammatory reaction due to other cardiac and vascular devices, implants and grafts, initial encounter (2) Proteus infection ICD Code: A49.8 - Other bacterial infections of unspecified site (3) High degree atrioventricular block ICD Code: I44.39 - Other atrioventricular block (4) CVA (cerebral vascular accident) ICD Code: I63.9 - Cerebral infarction, unspecified Status: Chronic (5) Hypertension ICD Code: I10 - Essential (primary) hypertension Status: Chronic (6) Hyperlipidemia ICD Code: E78.5 - Hyperlipidemia, unspecified Status: Chronic (7) CAD (coronary artery disease) ICD Code: I25.10 - Atherosclerotic heart disease of [place] coronary artery without angina pectoris Status: Chronic (8) Status post placement of cardiac pacemaker ICD Code: Z95.0 - Presence of cardiac pacemaker Assessment and Plan - infected pacemaker ( 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 s/p pacemaker removal on 08/[address] Hutchison- continue IV Vancomycin and Zosyn- follow the cultures- so far OR cultures negative. Initial wound cultures growing Proteus pansensitive. cardiology and ID following. Still having significant drainage from the [place] tube so patient will be monitored inpatient. Patient also is high risk for recurrent arrhythmia and will be continued to be monitored on telemetry. After discharge will have an event monitor via Dr. Hutchison. Anticipate discharge to home on Tuesday. Midline ordered to be placed on Tuesday. -COPD with chronic dyspnea. Appreciate pulmonology input. Stable at baseline. -hypertension; continue cozaar,amlodipine and HCTZ-blood pressure stable. -dyslipidemia; continue statin -DVT prophylaxis-SCD's Discharge Planning Anticipate discharge home with home health care on Tuesday. Maryellen Lopez MD Aug 13, 2017 13:41
--- NOTE | 2017-08-13 16:21 | PD.CARD.PN ---
Subjective Subjective Remarks NO COMPLAINTS OF CHEST PAIN OR SOB NO SIGNIFICANT BRADYCARDIA OR PAUSES Objective Medications Current Medications Medications (Trade) Dose Ordered Sig/Jenifer Route Start Time Stop Time Status Last Admin (Tylenol) 650 mg Q4H PRN PO 08/08/17 12:30 08/12/17 20:36 (Zofran Inj) 4 mg Q6H PRN IVP 08/08/17 12:30 (Narcan Inj) 0.4 mg UNSCH PRN IV PUSH 08/08/17 12:30 (Karen-Colace) 1 tab BID PO 08/08/17 21:00 08/13/17 09:32 (Milk Of Magnesia Liq) 30 ml Q12H PRN PO 08/08/17 12:30 (Senokot) 17.2 mg Q12H PRN PO 08/08/17 12:30 (Dulcolax Supp) 10 mg DAILY PRN RECTAL 08/08/17 12:30 (Lactulose Liq) 30 ml DAILY PRN PO 08/08/17 12:30 (Proair Hfa Inh) 2 puff Q6HR PRN INH 08/08/17 14:00 (Lipitor) 40 mg HS PO 08/08/17 21:00 08/12/17 20:15 (Xalatan 0.005% Opth Soln) 1 drop HS EACH EYE 08/08/17 21:00 08/12/17 20:15 (Singulair) 10 mg DAILY PO 08/09/17 09:00 08/13/17 09:32 Patient Own Medication PT OWN MED: DULERA (MOMETASONE ... BID INH 08/08/17 21:00 Future Hold (Ocuvite) 1 tab DAILY PO 08/09/17 09:00 08/13/17 09:32 (Cozaar) 50 mg DAILY PO 08/09/17 09:00 08/13/17 09:33 (Microzide) 12.5 mg DAILY PO 08/09/17 09:00 08/13/17 09:33 (Norvasc) 2.5 mg DAILY PRN PO 08/08/17 14:45 (Pill Splitter) 1 ea UNSCH PRN OTHER 08/08/17 15:00 Piperacillin Sod/ Tazobactam Sod 100 ml @ 200 mls/hr Q6H IV 08/09/17 16:00 12/16/17 09:32 Vital Signs / I&O Vital Signs Date Time Temp Pulse Resp B/P (MAP) Pulse Ox O2 Delivery O2 Flow Rate FiO2 08/13/17 16:00 79 08/13/17 15:00 74 08/13/17 15:00 98.3 74 16 127/74 (91) 94 08/13/17 14:00 98 08/13/17 14:00 84 08/13/17 13:00 78 08/13/17 12:00 78 08/13/17 11:00 77 08/13/17 11:00 98.2 81 16 142/91 (108) 100 08/13/17 10:00 74 08/13/17 09:00 79 08/13/17 08:00 71 08/13/17 07:00 61 08/13/17 07:00 Room Air 08/13/17 07:00 97.4 83 16 109/67 (81) 100 08/13/17 06:00 74 08/13/17 05:00 78 08/13/17 04:00 Room Air 08/13/17 04:00 98.2 84 18 109/47 (67) 98 08/13/17 04:00 84 08/13/17 03:00 82 08/13/17 02:00 69 08/13/17 01:00 71 08/13/17 00:00 98.3 88 18 108/64 (79) 97 08/13/17 00:00 88 08/12/17 23:00 82 08/12/17 22:00 70 08/12/17 21:00 81 08/12/17 20:00 63 08/12/17 20:00 98.0 63 20 151/74 (99) 96 08/12/17 18:00 89 08/12/17 17:44 66 08/12/17 16:30 79 I/O 08/12/17 08/12/17 08/12/17 08/13/17 08/13/17 08/13/17 07:00 15:00 23:00 07:00 15:00 23:00 Intake Total 240 ml 600 ml 680 ml 0 ml Balance 240 ml 600 ml 680 ml 0 ml Intake Oral 240 ml 600 ml 480 ml 0 ml IV Total 200 ml # Voids 3 6 6 # Bowel Movements 0 1 0 Physical Exam NAD ANICTERIC NO JVD LUNGS CLEAR REGULAR RATE AND RHYTHM ABD BENIGN Assessment and Plan Assessment and Plan Assessment and Plan PPM pocket infection + Proteus mirabilis - POD #3 for device extraction Complete heart block, not pacemaker dependent prior to device extraction Asymptomatic WCT and runs of Bradycardia ASHD CVA Carotid stenosis HTN HLD PLAN: MEDICATIONS REVIEWED DRESSIING CHANGES IV ABX PER ID. Code Status FULL Discussed Condition With Jim Pruett MD Aug 13, 2017 16:21
[2017-08-13] MEDS: ATORVASTATIN 40 MG TAB PO SCH (21:25)
[2017-08-13] MEDS: LATANOPROST 0.005% OPHT SOLN 2.5 ML BTL EACH EYE SCH (21:26)
[2017-08-14] VITALS (24 sets, daily range): BP systolic 118–142; BP diastolic 58–79; PULSE 62–90; RESP 18; TEMP 97.7–98.1; O2SAT 97–98
[2017-08-14] MEDS: PIPERACIL-TAZO 4.5 GM PREMIX 100 ML IV SCH ×4 (03:44→22:12)
[2017-08-14] MEDS: DOCUSATE SODIUM 50 MG/SENNA 8.6 MG TAB PO SCH ×2 (10:23→20:14)
[2017-08-14] MEDS: MONTELUKAST SODIUM 10 MG TAB PO SCH (10:24)
[2017-08-14] MEDS: MULTIVITAMIN-OPHTHALMIC 1 TAB PO SCH (10:24)
[2017-08-14] MEDS: LOSARTAN 50 MG TAB PO SCH (10:24)
[2017-08-14] MEDS: HYDROCHLOROTHIAZIDE 12.5 MG CAP PO SCH (10:24)
--- NOTE | 2017-08-14 12:24 | HHI.PR ---
Subjective Remarks No complaints other than wanting to go home. No arrhythmias. Objective Vitals Vital Signs Date Time Temp Pulse Resp B/P (MAP) Pulse Ox O2 Delivery O2 Flow Rate FiO2 08/14/17 11:00 78 08/14/17 10:00 90 08/14/17 09:00 68 08/14/17 08:00 78 08/14/17 07:43 Room Air 08/14/17 07:41 97.9 81 18 124/79 (94) 97 08/14/17 07:00 78 08/14/17 06:00 77 08/14/17 05:00 80 08/14/17 04:00 Room Air 08/14/17 04:00 98.0 84 18 118/58 (78) 97 08/14/17 04:00 84 08/14/17 03:00 75 08/14/17 02:00 67 08/14/17 01:00 62 08/14/17 00:00 80 08/13/17 23:53 98.1 80 18 119/70 (86) 96 08/13/17 23:53 Room Air 08/13/17 23:00 62 08/13/17 22:00 54 08/13/17 21:00 89 08/13/17 20:00 Room Air 08/13/17 20:00 83 08/13/17 20:00 98.3 83 18 119/70 (86) 97 08/13/17 18:00 79 08/13/17 17:02 89 08/13/17 16:00 79 08/13/17 15:00 74 08/13/17 15:00 98.3 74 16 127/74 (91) 94 08/13/17 14:00 98 08/13/17 14:00 84 08/13/17 13:00 78 I/O 08/13/17 08/13/17 08/13/17 08/14/17 08/14/17 08/14/17 06:59 14:59 22:59 06:59 14:59 22:59 Intake Total 680 ml 0 ml 650 ml 680 ml Balance 680 ml 0 ml 650 ml 680 ml Intake Oral 480 ml 0 ml 650 ml 480 ml IV Total 200 ml 200 ml # Voids 6 4 5 # Bowel Movements 0 1 0 Result Diagram: 08/12/17 0558 08/10/17 4938 Objective Remarks GENERAL: Well-nourished, well-developed patient. SKIN: Warm and dry. HEAD: Normocephalic. EYES: No scleral icterus. No injection or drainage. NECK: Supple, trachea midline. No JVD or lymphadenopathy. CARDIOVASCULAR: Regular rate and rhythm without murmurs, gallops, or rubs. Bandage at left chest. RESPIRATORY: Breath sounds equal bilaterally. No accessory muscle use. GASTROINTESTINAL: Abdomen soft, non-tender, nondistended. EXTREMITIES: No cyanosis, or edema. NEUROLOGICAL: Awake, alert, and oriented x 3. Non-focal. A/P Problem List: (1) Infection of pacemaker pocket ICD Code: T82.7XXA - Infection and inflammatory reaction due to other cardiac and vascular devices, implants and grafts, initial encounter (2) Proteus infection ICD Code: A49.8 - Other bacterial infections of unspecified site (3) High degree atrioventricular block ICD Code: I44.39 - Other atrioventricular block (4) CVA (cerebral vascular accident) ICD Code: I63.9 - Cerebral infarction, unspecified Status: Chronic (5) Hypertension ICD Code: I10 - Essential (primary) hypertension Status: Chronic (6) Hyperlipidemia ICD Code: E78.5 - Hyperlipidemia, unspecified Status: Chronic (7) CAD (coronary artery disease) ICD Code: I25.10 - Atherosclerotic heart disease of [place] coronary artery without angina pectoris Status: Chronic (8) Status post placement of cardiac pacemaker ICD Code: Z95.0 - Presence of cardiac pacemaker Assessment and Plan - infected pacemaker ( 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 s/p pacemaker removal on 08/[address] Hutchison- continue IV Vancomycin and Zosyn- follow the cultures- OR cultures negative. Initial wound cultures growing Proteus pansensitive. cardiology and ID following. Patient also is high risk for recurrent arrhythmia and will be continued to be monitored on telemetry. After discharge will have an event monitor via Dr. Hutchison. Anticipate discharge to home tomorrow. Midline ordered for tomorrow morning. -COPD with chronic dyspnea. Appreciate pulmonology input. Stable at baseline. -hypertension; continue cozaar,amlodipine and HCTZ-blood pressure stable. -dyslipidemia; continue statin -DVT prophylaxis-SCD's Discharge Planning Anticipate discharge home with home health care tomorrow. Maryellen Lopez MD Aug 14, 2017 12:24
--- NOTE | 2017-08-14 12:25 | HHI.FF ---
Face to Face Verification Diagnosis: (1) Proteus infection (2) Infection of pacemaker pocket Home Health Nursing Order: Medical education Nursing assessment with vital signs IV medication administration I have seen patient Nicolas Smith on 08/14/17. My clinical findings support the need for the requested home health care services because: Need for psychosocial assistance I certify that my clinical findings support that this patient is homebound because: Need for psychosocial assistance Maryellen Lopez MD Aug 14, 2017 12:25
--- NOTE | 2017-08-14 14:42 | PD.CARD.PN ---
Subjective Subjective Remarks NO COMPLAINTS OF CHEST PAIN OR SOB. NO SIGNIFICANT BRADYCARDIA OR PAUSES PICC TOMORROW FOR OUTPT IV ABX Objective Medications Current Medications Medications (Trade) Dose Ordered Sig/Jenifer Route Start Time Stop Time Status Last Admin (Tylenol) 650 mg Q4H PRN PO 08/08/17 12:30 08/12/17 20:36 (Zofran Inj) 4 mg Q6H PRN IVP 08/08/17 12:30 (Narcan Inj) 0.4 mg UNSCH PRN IV PUSH 08/08/17 12:30 (Karen-Colace) 1 tab BID PO 08/08/17 21:00 08/14/17 10:23 (Milk Of Magnesia Liq) 30 ml Q12H PRN PO 08/08/17 12:30 (Senokot) 17.2 mg Q12H PRN PO 08/08/17 12:30 (Dulcolax Supp) 10 mg DAILY PRN RECTAL 08/08/17 12:30 (Lactulose Liq) 30 ml DAILY PRN PO 08/08/17 12:30 (Proair Hfa Inh) 2 puff Q6HR PRN INH 08/08/17 14:00 (Lipitor) 40 mg HS PO 08/08/17 21:00 08/13/17 21:25 (Xalatan 0.005% Opth Soln) 1 drop HS EACH EYE 08/08/17 21:00 08/13/17 21:26 (Singulair) 10 mg DAILY PO 08/09/17 09:00 08/14/17 10:24 Patient Own Medication PT OWN MED: DULERA (MOMETASONE ... BID INH 08/08/17 21:00 Future Hold (Ocuvite) 1 tab DAILY PO 08/09/17 09:00 08/14/17 10:24 (Cozaar) 50 mg DAILY PO 08/09/17 09:00 08/14/17 10:24 (Microzide) 12.5 mg DAILY PO 08/09/17 09:00 08/14/17 10:24 (Norvasc) 2.5 mg DAILY PRN PO 08/08/17 14:45 (Pill Splitter) 1 ea UNSCH PRN OTHER 08/08/17 15:00 Piperacillin Sod/ Tazobactam Sod 100 ml @ 200 mls/hr Q6H IV 08/09/17 16:00 08/14/17 10:28 Vital Signs / I&O Vital Signs Date Time Temp Pulse Resp B/P (MAP) Pulse Ox O2 Delivery O2 Flow Rate FiO2 08/14/17 14:00 84 08/14/17 13:00 86 08/14/17 12:00 82 08/14/17 11:00 98.1 84 18 142/76 (98) 98 08/14/17 11:00 78 08/14/17 10:00 90 08/14/17 09:00 68 08/14/17 08:00 78 08/14/17 07:43 Room Air 08/14/17 07:41 97.9 81 18 124/79 (94) 97 08/14/17 07:00 78 08/14/17 06:00 77 08/14/17 05:00 80 08/14/17 04:00 Room Air 08/14/17 04:00 98.0 84 18 118/58 (78) 97 08/14/17 04:00 84 08/14/17 03:00 75 08/14/17 02:00 67 08/14/17 01:00 62 08/14/17 00:00 80 08/13/17 23:53 98.1 80 18 119/70 (86) 96 08/13/17 23:53 Room Air 08/13/17 23:00 62 08/13/17 22:00 54 08/13/17 21:00 89 08/13/17 20:00 Room Air 08/13/17 20:00 83 08/13/17 20:00 98.3 83 18 119/70 (86) 97 08/13/17 18:00 79 08/13/17 17:02 89 08/13/17 16:00 79 08/13/17 15:00 74 08/13/17 15:00 98.3 74 16 127/74 (91) 94 I/O 08/13/17 08/13/17 08/13/17 08/14/17 08/14/17 08/14/17 07:00 15:00 23:00 07:00 15:00 23:00 Intake Total 680 ml 0 ml 650 ml 680 ml Balance 680 ml 0 ml 650 ml 680 ml Intake Oral 480 ml 0 ml 650 ml 480 ml IV Total 200 ml 200 ml # Voids 6 4 5 # Bowel Movements 0 1 0 Physical Exam NAD ANICTERIC NO JVD LUNGS CLEAR REGULAR RATE AND RHYTHM ABD BENIGN Assessment and Plan Assessment and Plan Assessment and Plan PPM pocket infection + Proteus mirabilis - POD #3 for device extraction Complete heart block, not pacemaker dependent prior to device extraction Asymptomatic WCT and runs of Bradycardia ASHD CVA Carotid stenosis HTN HLD PLAN: MEDICATIONS REVIEWED DRESSIING CHANGES, OPEN WOUND PICC IN AM, IV ABX PER ID. HOPEFULLY CAN DC IN 24-[address] KEBEDE WILL RETURN IN AM Jim Pruett MD Aug 14, 2017 14:42
--- NOTE | 2017-08-14 18:13 | HHI.IDPN ---
Note Infectious Disease Note Patient without complaints. Afebrile. Denies chills, dizziness. having little drainage at the left chest wall pacer removal site. PAST MEDICAL HISTORY 1. Coronary artery disease. 2. Hypertension. 3. Hyperlipidemia. 4. Cerebrovascular accident. 5. Carotid stenosis. 6. History of coronary artery bypass graft surgery approximately 24 years ago. 7. Right hip replacement. 8. Bilateral knee replacement. 9. Left carotid endarterectomy. 10. Bilateral cataract extraction. 11. Bariatric surgery in 2009. 12. Cholecystectomy. 13. History of prostate cancer. 14. Arthritis. ALLERGIES NO KNOWN DRUG ALLERGIES. MEDICATIONS Zosyn OBJECTIVE: Vital Signs Date Time Temp Pulse Resp B/P (MAP) Pulse Ox O2 Delivery O2 Flow Rate FiO2 08/14/17 15:00 97.7 83 18 140/79 (99) 98 08/14/17 15:00 78 08/14/17 14:00 84 08/14/17 13:00 86 08/14/17 12:00 82 08/14/17 11:00 98.1 84 18 142/76 (98) 98 08/14/17 11:00 78 08/14/17 10:00 90 08/14/17 09:00 68 08/14/17 08:00 78 08/14/17 07:43 Room Air 08/14/17 07:41 97.9 81 18 124/79 (94) 97 08/14/17 07:00 78 08/14/17 06:00 77 08/14/17 05:00 80 08/14/17 04:00 Room Air 08/14/17 04:00 98.0 84 18 118/58 (78) 97 08/14/17 04:00 84 08/14/17 03:00 75 08/14/17 02:00 67 08/14/17 01:00 62 08/14/17 00:00 80 08/13/17 23:53 98.1 80 18 119/70 (86) 96 08/13/17 23:53 Room Air 08/13/17 23:00 62 08/13/17 22:00 54 08/13/17 21:00 89 08/13/17 20:00 Room Air 08/13/17 20:00 83 08/13/17 20:00 98.3 83 18 119/70 (86) 97 Laboratory Tests Test 08/10/17 12:28 08/12/17 05:58 White Blood Count 11.0 TH/MM3 9.5 TH/MM3 Red Blood Count 3.95 MIL/MM3 3.64 MIL/MM3 Hemoglobin 12.3 GM/DL 11.8 GM/DL Hematocrit 36.8 % 33.9 % Mean Corpuscular Volume 93.3 FL 93.2 FL Mean Corpuscular Hemoglobin 31.1 PG 32.4 PG Mean Corpuscular Hemoglobin Concent 33.4 % 34.8 % Red Cell Distribution Width 14.3 % 14.3 % Platelet Count 214 TH/MM3 209 TH/MM3 Mean Platelet Volume 7.0 FL 7.4 FL Neutrophils (%) (Auto) 77.8 % 67.7 % Lymphocytes (%) (Auto) 10.9 % 16.6 % Monocytes (%) (Auto) 9.5 % 11.3 % Eosinophils (%) (Auto) 1.5 % 4.0 % Basophils (%) (Auto) 0.3 % 0.4 % Neutrophils # (Auto) 8.5 TH/MM3 6.4 TH/MM3 Lymphocytes # (Auto) 1.2 TH/MM3 1.6 TH/MM3 Monocytes # (Auto) 1.0 TH/MM3 1.1 TH/MM3 Eosinophils # (Auto) 0.2 TH/MM3 0.4 TH/MM3 Basophils # (Auto) 0.0 TH/MM3 0.0 TH/MM3 CBC Comment DIFF FINAL DIFF FINAL Differential Comment Laboratory Tests Test 08/10/17 12:28 Blood Urea Nitrogen 19 MG/DL Creatinine 1.07 MG/DL Random Glucose 115 MG/DL Total Protein 6.5 GM/DL Albumin 3.2 GM/DL Calcium Level 8.7 MG/DL Magnesium Level 2.1 MG/DL Alkaline Phosphatase 85 U/L Aspartate Amino Transf (AST/SGOT) 19 U/L Alanine Aminotransferase (ALT/SGPT) 24 U/L Total Bilirubin 0.7 MG/DL Sodium Level 141 MEQ/L Potassium Level 4.2 MEQ/L Chloride Level 107 MEQ/L Carbon Dioxide Level 27.2 MEQ/L Anion Gap 7 MEQ/L Estimat Glomerular Filtration Rate 66 ML/MIN Microbiology Date/Time Source Procedure Growth Status 08/09/17 14:35 Catheter Tip Other Wound Culture - Final NO GROWTH IN 72 HOURS Complete 08/09/17 14:30 Catheter Tip Vas Cath Wound Culture - Final NO GROWTH IN 72 HOURS Complete 08/09/17 13:50 Wound Other Gram Stain - Final Complete 08/09/17 13:50 Wound Culture - Final Proteus Mirabilis Complete 08/09/17 13:50 Wound Chest Gram Stain - Final Complete 08/09/17 13:50 Wound Chest Wound Culture - Final NO GROWTH IN 72 HRS.--AEROBICALLY OR ... Complete 08/09/17 13:50 Wound Chest Gram Stain - Final Complete 08/09/17 13:50 Wound Culture - Final Proteus Mirabilis Complete PHYSICAL EXAMINATION GENERAL: No acute distress. HEENT: No icterus. Oropharynx: visible lesions. NECK: Supple. No adenopathy. LUNGS: Clear. CARDIOVASCULAR: Irregular S1-S2. No murmurs, rubs, or gallops. CHEST: Pacemaker site without tenderness. Little Serous drainage. Rose drain in place. ABDOMEN: Bowel sounds present, soft, no tenderness. EXTREMITIES: No clubbing, cyanosis or edema. SKIN: No rash. NEUROLOGIC: Decreased strength in the right upper extremity. Otherwise nonfocal. PSYCHIATRIC: Calm and pleasant and cooperative. 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 Patient status post pacemaker insertion for heart block. RECOMMENDATIONS Continue Zosyn today. Change to IV Ceftriaxone tomorrow and continue outpatient after discharge until 08/23. Will reorder PIC/Midline for tomorrow. Antibiotics for outpatient ordered on IV infusion form along with labs. Brad Lemus MD Aug 14, 2017 18:13
--- NOTE | 2017-08-14 18:19 | HHI.FF ---
Infusion Therapy Location of Infusion Therapy: Home Health Care IV Infusion Order Patient Information Patient Weight 101.6 kg Diagnosis: Diagnosis pacemaker pocket infection Coded Allergies: dog dander (Unverified Allergy, Severe, ASTHMA, 06/27/17) Administer Medication Ceftriaxone 2 grams IV q 24 hours Stop Treatment: Aug 23, 2017 Additional Information Venous access: PICC Line Additional Instructions [x] Peripheral flush and dressing changes per protocol [x] Implanted port and central line patrolman: * Implanted port: 10 ml Normal Saline followed by 5 ml Heparin 100 units/ml Heparin flush after each use and monthly to maintain. [] May leave port accessed during therapy. [] May leave peripheral site accessed for duration of therapy. [x] If patient has SOB or respiratory distress, check oxygen saturation. If less than 90% or clinical signs of respiratory distress, administer oxygen at 2 L/min. via nasal cannula and notify physician. [x] Anaphylaxis/Reaction orders: * Stop infusion. * Keep IV line open with saline flush. * Notify physician. * Monitor vital signs every 15 minutes until symptoms resolve. * Check Oxygen saturation; Oxygen at 2 L/min. via nasal cannula if less than 90% or clinical signs of respiratory distress. * Administer diphenhydramine (Benadryl) 25 mg IV STAT, (unless patient has received as pre-med). May repeat once, if necessary. * Solu-Cortef 250 mg IVP over 30-60 seconds, use 100 mg vials for each dissolution. * Epinephrine (1mg/1 ml) 0.3 mg subcutaneously or IVP now with any signs of respiratory distress. * Check with physician for new additional pre-med orders if patient is re- challenged or re-treated. [x] May remove PICC line when treatment complete, after confirming with Physician. [x] If the patient is admitted to the hospital, the ED, or transferred via [facility] , complete transfer form including medication reconciliation order sheet. Laboratory Tests Weekly Labs: BMP Additional Information please call abnormal results to Dr Lemus [phone] Brad Lemus MD Aug 14, 2017 18:19
[2017-08-14] MEDS: ATORVASTATIN 40 MG TAB PO SCH (20:13)
[2017-08-14] MEDS: LATANOPROST 0.005% OPHT SOLN 2.5 ML BTL EACH EYE SCH (20:14)
[2017-08-14] MEDS: ACETAMINOPHEN 325 MG TAB PO PRN (20:15)
[2017-08-15] VITALS (17 sets, daily range): BP systolic 119–136; BP diastolic 64–75; PULSE 64–84; RESP 16–18; TEMP 97.5–98.2; O2SAT 96–100
[2017-08-15] MEDS ORDERED: cefTRIAXone INJ 2,000 MG in SODIUM CHLORIDE 0.9% INJ 100 ML IV SCH (08:00)
[2017-08-15] MEDS: DOCUSATE SODIUM 50 MG/SENNA 8.6 MG TAB PO SCH (09:00)
--- NOTE | 2017-08-15 10:07 | HHI.DS ---
Discharge Summary Admission Date Aug 08, 2017 at 11:25 Discharge Date: Aug 15, 2017 Admitting Diagnosis (1) Infection of pacemaker pocket ICD Code: T82.7XXA - Infection and inflammatory reaction due to other cardiac and vascular devices, implants and grafts, initial encounter (2) Proteus infection ICD Code: A49.8 - Other bacterial infections of unspecified site (3) High degree atrioventricular block ICD Code: I44.39 - Other atrioventricular block (4) CVA (cerebral vascular accident) ICD Code: I63.9 - Cerebral infarction, unspecified Status: Chronic (5) Hypertension ICD Code: I10 - Essential (primary) hypertension Status: Chronic (6) Hyperlipidemia ICD Code: E78.5 - Hyperlipidemia, unspecified Status: Chronic (7) CAD (coronary artery disease) ICD Code: I25.10 - Atherosclerotic heart disease of [place] coronary artery without angina pectoris Status: Chronic (8) Status post placement of cardiac pacemaker ICD Code: Z95.0 - Presence of cardiac pacemaker Procedures removal of pacemaker PICC Brief History - From Admission 82 years old male with history of CVA carotid stenosis hypertension, who recently had pacemaker insertion by Dr. villafana for third-degree heart block on 06/30/2017, send his cardiology Dr. Hutchison with whom I discussed the direct admit. Dr. Hutchison concern about patient developing erythema over the area of the pacer along with drainage. Patient has been placed on Keflex without improvement, he reported. Episodes of chills however no fever no pain, no diaphoresis, I discussed with Dr. Hutchison and agreed to admit patient directly to start antibiotic after getting blood culture, and ID consultation CBC/BMP: 08/12/17 0558 PE at Discharge GENERAL: Well-nourished, well-developed patient. SKIN: Warm and dry. HEAD: Normocephalic. EYES: No scleral icterus. No injection or drainage. NECK: Supple, trachea midline. No JVD or lymphadenopathy. CARDIOVASCULAR: Regular rate and rhythm without murmurs, gallops, or rubs. Bandage at left chest. RESPIRATORY: Breath sounds equal bilaterally. No accessory muscle use. GASTROINTESTINAL: Abdomen soft, non-tender, nondistended. EXTREMITIES: No cyanosis, or edema. NEUROLOGICAL: Awake, alert, and oriented x 3. Non-focal. Hospital Course Patient was admitted to the hospital for infection of pacemaker pocket. Cultures grew Proteus. Pacemaker was removed on August [address] Hutchison. Patient was monitored and had no significant bradycardia. Infectious disease was consulted. Pulmonology was consulted and felt his COPD was stable. Outpatient IV antibiotics with Rocephin have been ordered per infectious disease Dr. Lemus. PICC line placed this morning left arm. Patient will be discharged home today with home health care. He will follow-up with Dr. Hutchison for an event monitor. Pt Condition on Discharge: Stable Discharge Disposition: Disch w/ Home Health Serv Discharge Time: > 30 minutes Discharge Instructions DIET: Follow Instructions for: Heart Healthy Diet Activities you can perform: Regular-No Restrictions Follow up Referrals: Cardiology - 1 Week with Dane Hutchison MD Continued Medications: Albuterol 8.5 GM Inh (Proair Hfa 8.5 GM Inh) 90 Mcg/Act Aer 2 PUFF INH Q4-6H PRN for SHORTNESS OF BREATH, #1 INHALER 0 Refills 108 mcg/actuation Atorvastatin (Atorvastatin) 40 Mg Tab 40 MG PO HS for Cholesterol Management, #30 TAB 0 Refills Latanoprost Opth Drops (Latanoprost Opth Drops) 0.005% Drops 1 DROP EACH EYE HS for Glaucoma, #2.5 ML 0 Refills Refrigerate until opened. Losartan-Hydrochlorothiazide (Losartan-Hydrochlorothiazide) 50-12.5 Mg Tab 1 TAB PO DAILY for Blood Pressure Management, #30 TAB 0 Refills Mometasone-Formoterol 120 Act Inh (Dulera 120 Act Inh) 100-5 Mcg/Act Inh 2 PUFF INH BID for Asthma Management, #1 INHALER 0 Refills Montelukast (Montelukast) 10 Mg Tab 10 MG PO DAILY, #30 TAB 0 Refills Multiple Vitamins W/ Minerals (Preservision Areds) 1 Tab 1 TAB PO DAILY for Nutritional Supplement, TAB 0 Refills Maryellen Lopez MD Aug 15, 2017 10:07
[2017-08-15] MEDS: MONTELUKAST SODIUM 10 MG TAB PO SCH (10:26)
[2017-08-15] MEDS: HYDROCHLOROTHIAZIDE 12.5 MG CAP PO SCH (10:26)
[2017-08-15] MEDS: MULTIVITAMIN-OPHTHALMIC 1 TAB PO SCH (10:27)
[2017-08-15] MEDS: LOSARTAN 50 MG TAB PO SCH (10:27)
--- NOTE | 2017-08-15 14:35 | PD.CARD.PN ---
Subjective Subjective Remarks The patient denies acute complaints. No fevers, chills, palpitations, CP or SOB. No heart block or symptomatic bradycardia (Droetha Wei) Objective Medications Current Medications Medications (Trade) Dose Ordered Sig/Jenifer Route Start Time Stop Time Status Last Admin (Tylenol) 650 mg Q4H PRN PO 08/08/17 12:30 08/14/17 20:15 (Zofran Inj) 4 mg Q6H PRN IVP 08/08/17 12:30 (Narcan Inj) 0.4 mg UNSCH PRN IV PUSH 08/08/17 12:30 (Karen-Colace) 1 tab BID PO 08/08/17 21:00 08/14/17 10:23 (Milk Of Magnesia Liq) 30 ml Q12H PRN PO 08/08/17 12:30 (Senokot) 17.2 mg Q12H PRN PO 08/08/17 12:30 (Dulcolax Supp) 10 mg DAILY PRN RECTAL 08/08/17 12:30 (Lactulose Liq) 30 ml DAILY PRN PO 08/08/17 12:30 (Proair Hfa Inh) 2 puff Q6HR PRN INH 08/08/17 14:00 (Lipitor) 40 mg HS PO 08/08/17 21:00 08/14/17 20:13 (Xalatan 0.005% Opth Soln) 1 drop HS EACH EYE 08/08/17 21:00 08/14/17 20:14 (Singulair) 10 mg DAILY PO 08/09/17 09:00 08/15/17 10:26 Patient Own Medication PT OWN MED: DULERA (MOMETASONE ... BID INH 08/08/17 21:00 Future Hold (Ocuvite) 1 tab DAILY PO 08/09/17 09:00 08/15/17 10:27 (Cozaar) 50 mg DAILY PO 08/09/17 09:00 08/15/17 10:27 (Microzide) 12.5 mg DAILY PO 08/09/17 09:00 08/15/17 10:26 (Norvasc) 2.5 mg DAILY PRN PO 08/08/17 14:45 (Pill Splitter) 1 ea UNSCH PRN OTHER 12/11/17 15:00 Ceftriaxone Sodium 2000 mg/ Sodium Chloride 100 ml @ 200 mls/hr Q24H IV 08/15/17 08:00 08/15/17 10:18 Vital Signs / I&O Vital Signs Date Time Temp Pulse Resp B/P (MAP) Pulse Ox O2 Delivery O2 Flow Rate FiO2 08/15/17 13:10 84 08/15/17 12:07 84 08/15/17 11:34 97.5 80 16 129/75 (93) 100 08/15/17 11:20 79 08/15/17 10:07 Room Air 08/15/17 10:07 97.7 75 16 121/64 (83) 99 08/15/17 10:00 68 08/15/17 09:00 64 08/15/17 08:00 78 08/15/17 07:00 84 08/15/17 06:00 68 08/15/17 05:00 69 08/15/17 04:00 84 08/15/17 04:00 98.2 84 18 136/73 (94) 97 08/15/17 03:00 69 08/15/17 02:00 76 08/15/17 01:00 82 08/15/17 00:00 Room Air 08/15/17 00:00 98.0 81 18 119/72 (88) 96 08/15/17 00:00 81 08/14/17 23:00 77 08/14/17 22:00 75 08/14/17 21:00 84 08/14/17 20:00 Room Air 08/14/17 20:00 97.9 87 18 125/79 (94) 97 08/14/17 20:00 80 08/14/17 18:00 84 08/14/17 17:00 86 08/14/17 16:00 74 08/14/17 15:00 97.7 83 18 140/79 (99) 98 08/14/17 15:00 78 I/O 08/14/17 08/14/17 08/14/17 08/15/17 08/15/17 08/15/17 07:00 15:00 23:00 07:00 15:00 23:00 Intake Total 680 ml 720 ml 240 ml Balance 680 ml 720 ml 240 ml Intake Oral 480 ml 720 ml 240 ml IV Total 200 ml # Voids 5 4 5 # Bowel Movements 0 1 1 Physical Exam GENERAL: Elderly male in CIC. rm 248 SKIN: Warm and dry. HEAD: Normocephalic. EYES: No scleral icterus. No injection or drainage. NECK: Supple, trachea midline. CARDIOVASCULAR: Regular rate and rhythm, Left chest wound. [place] ABSENT RESPIRATORY: Breath sounds equal bilaterally. GASTROINTESTINAL: Abdomen soft, non-tender, nondistended. MUSCULOSKELETAL: No cyanosis BACK: Nontender without obvious deformity. (Doretha Wei) Assessment and Plan Assessment and Plan PPM pocket infection + Proteus mirabilis - s/p device extraction Complete heart block, not pacemaker dependent prior to device extraction Asymptomatic WCT and runs of Bradycardia ASHD CVA Carotid stenosis HTN HLD PLAN: Bedside sterile procedure by Dr Hutchison to locate julio césar drain ABX per ID. Plans to complete 10 days of IV ABX. The patient has midline for outpatient antibiotics. At this time, we are not planning to place another PPM. We will place 30 day MCOT outpatient. The patient was seen and evaluated by Dr Hutchison who completed physical exam and participated in evaluation and management. (Doretha Wei) Assessment and Plan The exam, history, and the medical decision-making described in the above note were completed with the assistance of the mid-level provider. I reviewed and agree with the findings presented. I attest that I had a [id number] encounter with the patient on the same day, and personally performed and documented my assessment and findings in the medical record. [place] drain removed. (Dane Hutchison MD) Doretha Wei Aug 15, 2017 14:35 Dane Hutchison MD Aug 15, 2017 17:22
== END 2017-08-15 16:00 | disposition home health service (06) | DRG 261 ==
LOC: HCIS 11:25
PROVIDERS: ADMIT Family Medicine; ATTEND Family Medicine
PROC: 0JPT0PZ Removal of Cardiac Rhythm Related Device from Trunk Subcutaneous Tissue and Fascia, Open Approach (ICD-10-PCS; principal; 2017-08-09 13:00)
PROC: 02HV33Z Insertion of Infusion Device into Superior Vena Cava, Percutaneous Approach (ICD-10-PCS; 2017-08-15)
DX: T82.7XXA Infection and inflammatory reaction due to other cardiac and vascular devices, implants and grafts, initial encounter (principal); I44.2 Atrioventricular block, complete; I27.20 Pulmonary hypertension, unspecified; I49.5 Sick sinus syndrome; J44.9 Chronic obstructive pulmonary disease, unspecified; I65.29 Occlusion and stenosis of unspecified carotid artery; I10 Essential (primary) hypertension; I25.10 Atherosclerotic heart disease of native coronary artery without angina pectoris; E78.5 Hyperlipidemia, unspecified; B96.4 Proteus (mirabilis) (morganii) as the cause of diseases classified elsewhere; Y83.1 Surgical operation with implant of artificial internal device as the cause of abnormal reaction of the patient, or of later complication, without mention of misadventure at the time of the procedure; E66.9 Obesity, unspecified; Z68.33 Body mass index [BMI] 33.0-33.9, adult; Z85.46 Personal history of malignant neoplasm of prostate; Z86.73 Personal history of transient ischemic attack (TIA), and cerebral infarction without residual deficits; Z87.891 Personal history of nicotine dependence; Z95.1 Presence of aortocoronary bypass graft; Z96.641 Presence of right artificial hip joint; Z96.653 Presence of artificial knee joint, bilateral; Z98.84 Bariatric surgery status
CPT/HCPCS: 33233; 33235; 71010; 76937; 80048; 80053; 81001; 82948; 83735; 85025; 85610; 85730; 87040; 87070; 87071; 87077; 87176; 87186; 87205; 93005; 93306; 93308; J0461; J0690; J0696; J2543; J3370; J7040; J7050

== ENCOUNTER → 2017-09-13 | Outpatient (CLI) | payer MEDICARE, OTHER ==
[~2017-09-13] MED LIST changes: +ALEV220T14 PO; -ASPI-516 CHEW; -CLOP75TA PO; +DIPH25TA31 PO; +DOCU1CAP66; +ECASA81 PO; -FISH500C PO; +FURO1TAB62 PO; +KLOR10TA PO; -METO25TA3 PO; +PLAV75TA29 PO; +SPIR25TA PO; +tylenol pm PO
[2017-09-13 09:52] LABS: CALCIUM 9.4 MG/DL (8.5-10.1)
[2017-09-13 09:53] LABS: ALBUMIN 3.9 GM/DL (3.4-5.0); GLUCOSE,RANDOM 123 MG/DL (74-106)
[2017-09-13 09:55] LABS: BICARBONATE 23.5 MEQ/L (21.0-32.0)
[2017-09-13 09:56] LABS: AST (GOT) 27 U/L (15-37); GLOMERULAR FILTRATION RATE 64 ML/MIN (>89)
[2017-09-13 09:57] LABS: TOTAL PROTEIN 7.8 GM/DL (6.4-8.2)
[2017-09-13 09:58] LABS: ALT (GPT) 34 U/L (12-78); CHLORIDE 107 MEQ/L (98-107); SODIUM (NA) 140 MEQ/L (136-145)
[2017-09-13 09:59] LABS: ALKALINE PHOSPHATASE 109 U/L (45-117)
[2017-09-13 10:03] LABS: BLOOD UREA NITROGEN 33 MG/DL (7-18)
[2017-09-13 10:10] LABS: TOTAL BILIRUBIN ADULT 0.8 MG/DL (0.2-1.0)
== END ==
LOC: PLAB 08:49
PROVIDERS: ATTEND Internal Medicine Cardiovascular Disease
DX: I44.30 Unspecified atrioventricular block (principal); I25.10 Atherosclerotic heart disease of native coronary artery without angina pectoris; R06.02 Shortness of breath; I51.7 Cardiomegaly; Z95.1 Presence of aortocoronary bypass graft
CPT/HCPCS: 36415; 80053; 83880

== ENCOUNTER 2017-09-14 11:25 | Day surgery (SDC) | payer MEDICARE, OTHER ==
[~2017-09-14] VITALS: Ht 172.7 cm; Wt 101.6 kg
[2017-09-14] VITALS (8 sets, daily range): BP systolic 126–191; BP diastolic 65–79; PULSE 45–88; RESP 20; TEMP 97.6–98.2; O2SAT 97–100
[~2017-09-14 11:25] MED LIST changes: -ALEV220T14 PO; -DIPH25TA31 PO; -DOCU1CAP66; -ECASA81 PO; -FURO1TAB62 PO; -KLOR10TA PO; -PLAV75TA29 PO; -SPIR25TA PO; -tylenol pm PO
[2017-09-14] MEDS ORDERED: VANCOMYCIN 1000 MG/NS 250 ML IV SCH ×2 (12:00)
[2017-09-14] MEDS ORDERED: LACTATED RINGER'S 1000 ML IV PRN (12:00)
[2017-09-14] MEDS ORDERED: POVIDONE IODINE 5% (ANTISEPSIS KIT) 4 APPLICATIONS EACH NARE SCH (12:00)
[2017-09-14] MEDS ORDERED: SODIUM CHLORID 0.9% 500 ML IV PRN (12:00)
[2017-09-14] MEDS ORDERED: CHLORHEXIDINE GLUCONATE 2 % 1 PACK (2 CLOTHS) TOPICAL SCH (12:00)
[2017-09-14] MEDS ORDERED: NS 1000 ML IV SCH (12:00)
[2017-09-14] MEDS ORDERED: POVIDONE IODINE 5% (ANTISEPSIS KIT) 4 APPLICATIONS EACH NARE PRN (12:00)
[2017-09-14] MEDS ORDERED: METOPROLOL TARTRATE 25 MG TAB PO PRN (12:00)
[2017-09-14] MEDS ORDERED: PROPOFOL 200 MG/20 ML AMP IV ONE (12:00)
[2017-09-14] MEDS ORDERED: MUPIROCIN 2% OINT 1 APPLIC/GM SYR NASAL SCH (12:00)
[2017-09-14] MEDS ORDERED: CHLORHEXIDINE GLUCONATE 2 % 1 PACK (2 CLOTHS) TOPICAL PRN (12:00)
[2017-09-14] MEDS ORDERED: PLAV75TA29 PO (12:21)
[2017-09-14] MEDS ORDERED: ALEV220T14 PO (12:21)
[2017-09-14] MEDS ORDERED: FURO1TAB62 PO (12:21)
[2017-09-14] MEDS ORDERED: ECASA81 PO (12:21)
[2017-09-14] MEDS ORDERED: tylenol pm PO (12:21)
[2017-09-14] MEDS ORDERED: KLOR10TA PO (12:21)
[2017-09-14] MEDS ORDERED: DOCU1CAP66 (12:21)
[2017-09-14] MEDS ORDERED: SPIR25TA PO (12:21)
[2017-09-14 12:51] LABS: AUTOMATED NEUTROPHIL # 5.9 TH/MM3 (1.8-7.7); BASOPHIL % 0.4 % (0.0-2.0); EOSINOPHIL # 0.1 TH/MM3 (0-0.4); EOSINOPHIL % 1.2 % (0.0-4.0); HEMATOCRIT 36.1 % (39.0-51.0); HEMOGLOBIN 12.1 GM/DL (13.0-17.0); LYMPH % 17.7 % (9.0-44.0); LYMPHOCYTE # 1.5 TH/MM3 (1.0-4.8); MEAN CELL VOLUME 95.1 FL (80.0-100.0); MEAN CORPUSCULAR HEMOGLOBIN 31.8 PG (27.0-34.0); MEAN CORPUSCULAR HGB CONC 33.4 % (32.0-36.0); MONO % 9.3 % (0.0-8.0); MONOCYTE # 0.8 TH/MM3 (0-0.9); NEUT % 71.4 % (16.0-70.0); PLATELET COUNT 220 TH/MM3 (150-450); RED CELL DISTRIBUTION WIDTH 14.8 % (11.6-17.2); WHITE BLOOD COUNT 8.3 TH/MM3 (4.0-11.0)
[2017-09-14 13:00] LABS: INTERNATIONAL NORMALIZED RATIO 1.2 RATIO
[2017-09-14] MEDS ORDERED: MIDAZOLAM HCL 2 MG/2 ML VIAL ONE (13:02)
[2017-09-14 13:06] LABS: BICARBONATE 25.9 MEQ/L (21.0-32.0); CALCIUM 9.5 MG/DL (8.5-10.1); CREATININE 1.31 MG/DL (0.60-1.30)
[2017-09-14] MEDS ORDERED: VANCOMYCIN 500 MG VIAL ONE (13:06)
[2017-09-14] MEDS ORDERED: VANCOMYCIN HCL 1000 MG VIAL ONE (13:06)
[2017-09-14] MEDS ORDERED: SODIUM CHLOR 0.9% 250 ML INJ 250 ML ONE (13:06)
[2017-09-14] MEDS ORDERED: LIDOCAINE HCL 2% 50 ML VIAL ONE (13:06)
--- NOTE | 2017-09-14 15:01 | CATHPROC ---
Patient Name: MECCA DONAHUE Study #: [id number] Initial MD: Dane Hutchison Date of : 1935 Study Date: 09/14/2017 Cardiac Catheterization Report 09/14/2017 3:11:41 PM Financial #: [id number] 1 of 10 Patient Name: MECCA DONAHUE Study #: [id number] Initial MD: Dane Hutchison Date of : 1935 Study Date: 09/14/2017 Entire Case Report Patient Information Patient Name MECCA DONAHUE Date of 1935 Age 82 years Financial # [id number] Gender M AlternateID Lab Number 6 Accession # Room Number Height (in) 68.0 Height (cm) 172.7 BSA 2.17 Weight (lbs) 229.9 Weight (kg) 104.5 Patient Address/Phone Number Home Address [facility] Home Phone Number [address] [facility] [address] [facility] [id number] Study Information Study Number Scheduled Start Study Start [id number] 09/14/2017 Sep 14 2017 1:00PM Referring Institution Admit Source Facility Department [address] [facility] Spray Unit Feeder Physician and Clinical Staff Initial Dane De Jesus Chief Airport Guide Jose A Harrington,RT(R) Chief Airport Guide Светлана ColvinRT(R) TECH2 Other Anesthesia, INSTALLER SOFT TOP Recorder Brandi Quevedo RN Recorder Shagufta Wisdom RN Scrub Shagufta Velasco,RT(R) Procedures Performed Procedure Lead Insertion 09/14/2017 3:11:41 PM Financial #: [id number] 2 of 10 Patient Name: MECCA DONAHUE Study #: [id number] Initial MD: Dane Hutchison Date of : 1935 Study Date: 09/14/2017 Equipment Time Emt/Dispatcher Description Size Mfg Part Number Used/Scraped INTRODUCER SET, 13:02 [employer] FR 5 [id number] *[id number] Used MICROPUNCTURE, STIFFENED INTRODUCER SET, 13:02 [employer] FR 5 [id number] *[id number] Used MICROPUNCTURE, STIFFENED TP-1103 13:01 MED[employer] SUTURE, STRIP PLUS 1/2" * Used *[id number] 13:01 MEDLINE PACER ADHESIVE, MASTISOL 2/3CC 2/3CC 0523-48 Used 13:01 MEDLINE PACER ZIMMERMAN, LIMB * 2530 *[id number] Used [id number] 13:01 MEDLINE PACER PACK, PACER CUSTOM * Used *[id number] 13:01 MEDLINE PACER PEN, SKIN DUAL W/ RULER * Used *[id number] 13:02 [employer] PACER SAFE SHEATH, FR7, 13CM FR 7 CLS-1007 Used 13:02 [employer] PACER SAFE SHEATH, FR7, 13CM FR 7 CLS-1007 Used PROBE COVER, STERILE EF0491 13:01 [employer] MEDICAL * Used ULTRASOUND W/ GEL *[id number] 13:17 Needle Sponge Count 2 22 Used 13:16 Needle Sponge Count 20 200 Used 13:16 Needle Sponge Count 6 6 Used [id number] *50775 8066-54 *[id number] SUTURE, 0 SILK [CT1] (CO21D), 8pk SUTURE, 3-0 MONOCRYL [SH] (Y316H) SUTURE, 3-0 MONOCRYL [SH] (Y316H) SUTURE, 4-0 MONOCRYL [PS2] (Y496G) SUTURE, 4-0 MONOCRYL [PS2] (Y496G) [id number] 13:01 [employer],WARM AIR CCL * Used *[id number] 14:23 [employer] ICD, AIGIS ENVELOPE CMRM-[id number] Used [facility] PAD, ELECTROSURGICAL 13:01 * E7507 *[id number] Used SURGICAL GROUNDING ORANGE LEAD, CAPSURE FIX NOVUS, 4076-45CM 13:52 [employer] 45CM Used 45CM *[id number] LEAD, CAPSURE FIX NOVUS, 4076-52CM 13:48 [employer]IT[employer] 52CM Used 52CM *[id number] PACEMAKER, ADVIS[place] LAURA MRI 14:24 [employer]RON [employer]ON[employer] OEA-DDDR A2DR01 Used S[employer]CAN 4254-3884 13:01 [employer] MEDICAL [place]. / * Used *[id number] 09/14/2017 3:11:41 PM Financial #: [id number] 3 of 10 Patient Name: MECCA DONAHUE Study #: [id number] Initial MD: Dane Hutchison Date of : 1935 Study Date: 8 Equipment Model, Serial, Lot Number and Expiration Data Description Model Number Serial Number Lot Number Expiration Date LEAD, CAPSURE FIX NOVUS, 45CM 4076-45 [id number] 07-05-2019 LEAD, CAPSURE FIX NOVUS, 52CM 4076-52 [id number] 06-28-2019 PACEMAKER, ADVISA MRI A2DR01 [id number] 12-24-2018 [employer] Insurance Information Insurance Payor Medicare Third Republican Third Republican Number MEDICARE A B MCRAB History: Allergies Allergy Reaction Cephalosporins rash to legs dog dander ASTHMA History: Risk Factors Hypertension Dyslipidemia Previous [place] Previous Heart Failure Yes Yes Yes Yes Prior PCI Prior PCIDate Prior CABG Prior CABGDate Yes 08/29/2004 Yes 08/29/1992 Cerebrovascular Chronic Lung Diabetes Disease Disease Yes Yes Yes Labs Hgb (g/dl) 11.60-17.00 12.1 Medication Medication Total Dose (Bolus/Oral) Medication Total Dosage/Unit 2% XYLOCAINE 50 mL Medications (Bolus/Oral) Medication Time Given Dosage/Unit Administered By Reason 2% XYLOCAINE 09/14/2017 1:34:36 PM 50 mL Dane Hutchison 50 mL 2% XYLOCAINE given in lab by Dane Hutchison in Right shoulder via Subcutaneous. Ordered by Dane Benito. 09/14/2017 3:11:41 PM Financial #: [id number] 4 of 10 Patient Name: MECCA DONAHUE Study #: [id number] Initial MD: Dane Hutchison Date of : 1935 Study Date: 09/14/2017 Medication (Drip) Medication Time Given Dosage/Unit Concentration/Unit Diluent (ml) Solution VANCOMYCIN DRIP 09/14/2017 1:11:44 PM 1 g 1 g VANCOMYCIN DRIP given by Anesthesia, INSTALLER SOFT TOP via Peripheral IV. Ordered by Dane Hutchison. Reason: As per physicians verbal order. Initial Case Assessment Cardiovascular HR NIBP 43 208/87 Edema Present Skin color Skin None Normal Warm Dry Circulatory - Right Pulses Dorsalis Pedis 1 Scale (0,1,2,3,4,d) Circulatory - Left Pulses Dorsalis Pedis 1 Scale (0,1,2,3,4,d) Circulatory - Lower Extremities Color Lower Right Color Lower Left Normal Normal Neurological State Oriented to time-place- Alert Moves all extremities person Respiration - General Respiration Rate SpO2 (%) (B/min) 18 100 09/14/2017 3:11:41 PM Financial #: [id number] 5 of 10 Patient Name: MECCA DONAHUE Study #: [id number] Initial MD: Dane Hutchison Date of : 1935 Study Date: 09/14/2017 Final Case Assessment Cardiovascular HR Rhythm NIBP Chest Pain 85 PACED 156/75 0 Edema Present Skin color Skin None Normal Warm Dry Circulatory - Right Pulses Dorsalis Pedis 1 Scale (0,1,2,3,4,d) Circulatory - Left Pulses Dorsalis Pedis 1 Scale (0,1,2,3,4,d) Neurological State Oriented to time-place- Alert Moves all extremities person Respiration - General Respiration Rate SpO2 (%) O2 (lpm) (B/min) 18 100 4 09/14/2017 3:11:41 PM Financial #: [id number] 6 of 10 Patient Name: MECCA DONAHUE Study #: [id number] Initial MD: Dane Hutchison Date of : 1935 Study Date: 09/14/2017 Final Case Assessment Cardiovascular HR Rhythm NIBP 89 paced 160/78 Edema Present Skin color Skin None Normal Warm Dry Circulatory - Right Pulses Dorsalis Pedis 1 Scale (0,1,2,3,4,d) Circulatory - Left Pulses Dorsalis Pedis 1 Scale (0,1,2,3,4,d) Circulatory - Lower Extremities Color Lower Right Color Lower Left Normal Normal Neurological State Oriented to time-place- Drowsy Moves all extremities person Respiration - General Respiration Rate SpO2 (%) (B/min) 14 100 Chronological Log Time Study Chronological Log 12:55:28 Patient arrived via Bed. 12:55:37 Patient Name, D.O.B, / Armband Verified By R.N. 12:55:42 Consent signed by the physician and the patient and verified by the Spray Unit Feeder staff. 12:55:46 Pre-op and post- op instructions given; patient acknowledges understanding of instructions. 12:55:46 Patient has been NPO for More than 6Hrs. 12:55:48 History and physical on the chart. 12:55:50 2% CHLORHEXIDINE GLUCONATE WASH AND NASAL SWIPE DONE PRIOR TO PROCEDURE. 12:55:51 Verbal Stimulation=2 Physical Stimulation=2 Airway=2 Respiration=2 TOTAL=8. (0=absent, 1=li mited, 2=present) 12:58:09 Anesthesia INSTALLER SOFT TOP at bedside- Dr. Bañuelos also present. Assumes care of patient. 09/14/2017 3:11:41 PM Financial #: [id number] Patient Name: MECCA DONAHUE Study #: [id number] Initial MD: Dane Hutchison Date of : 1935 Study Date: 09/14/2017 Assessment: Initial Case, HR=43 BPM, DERD=310/87 mmhg, Edema=None, Color=Normal, Skin = Warm, D ry Right Pulses: Boris Ped=1 Left Pulses: Boris Ped=1 13:00:00 Lower Right Extremities: Color=Normal Lower Left Extremities: Color=Normal Neurological: State=Alert, Ox3, JEAN Respiration: Resp=18 B/min, MwR2=915 % 13:00:07 Patient Warmer Placed on the Table. 13:01:00 Skin Breakdown- none per pt. 13:01:17 Disposable Defibrillator Pads Placed On Patient. 13:01:21 Re Prominences Protected 13:02:20 Bovie ground pad applied to: left hip 13:03:28 A # 20 IV was noted in the Antecubital (right). Grade = 0 0.9% Nacl kvo. 13:03:30 A # 20 IV was noted in the Antecubital (left). Grade = 0 0.9%nacl kvo 13:04:31 Table restraints applied according to hospital policy 13:04:55 Reference ECG taken 1 g VANCOMYCIN DRIP given by Anesthesia, INSTALLER SOFT TOP via Peripheral IV. Ordered by Dane Hutchison. R leandra: As per 13:11:44 physicians verbal order. 13:14:53 Left Upper Chest Prepped Times Two. First Sponge And Instrument Count Done by Shagufta Wisdom RN. 13:14:57 Hypo's: 6, Sponges: 20, Bovie/scratch: 2 Sutures: 12, Blades: 2, Instruments: 26, Syveck Patches: ~SYVECK PATCH~ verified by Jose A García 13:18:03 Draped after a 3 min. waiting time. 13:18:27 MD arrived. 13:18:29 MD paged Time Out. Correct patient, procedure, procedure equipment, site and side verified with physicia n present. Time 13:31:20 concurred by MD, individual staff and INSTALLER SOFT TOP. Time Out #2 - Consents verified, patient in correct position, all results are labled and displa yed, safety precautions 13:32:26 taken, antibiotics administered. Time out concurred by MD, individual staff and INSTALLER SOFT TOP in procedu re 13:32:32 Case Start 50 mL 2% XYLOCAINE given in lab by Dane Hutchison in Right shoulder via Subcutaneous. Ordered by Kianna, 13:34:36 Humayun. 13:37:49 Vascular access was obtained in the Subclav. Vein (Rt). 13:38:02 Surgical Incision Made. 13:38:04 A pocket was created at the R Upper Chest. 13:48:38 A SAFE SHEATH, FR7, 13CM FR 7 was advanced into the Subclav. Vein (Rt) using the Modified S eldinger technique. 13:49:15 A LEAD, CAPSURE FIX NOVUS, 52CM 52CM was inserted and positioned in the RV. 13:49:42 Lead placement verified under fluoroscopy 13:50:55 The RV lead impedance and threshold being tested. 13:51:08 A SAFE SHEATH, FR7, 13CM FR 7 was advanced into the Subclav. Vein (Rt) using the Modified S eldinger technique. 13:51:50 A LEAD, CAPSURE FIX NOVUS, 45CM 45CM was inserted and positioned in the RA. 13:54:50 Lead placement verified under fluoroscopy 09/14/2017 3:11:41 PM Financial #: [id number] 8 of 10 Patient Name: MECCA DONAHUE Study #: [id number] Initial MD: Dane Hutchison Date of : 1935 Study Date: 09/14/2017 14:02:21 The RIGHT Atrial lead impedance and threshold is being tested. 14:03:24 Pt moving around a lot. Anesthesia assessing and addressing sedation. Reverified lead placement under fluoroscopy prior to suture. 14:04:16 14:05:53 The RV lead was sutured to the fascia. 14:05:54 The Atrial lead was sutured to the fascia. 14:28:40 TYRX ABX ENVELOPE WRAPPED DEVICE AND PLACED IN POCKET 14:30:01 A PACEMAKER, TOÑO ANTOINE OEA-DDDR was connected and placed in the pocket. 14:30:41 Implant Procedure was performed. 14:30:49 A PPM Implant . (Dual) SECOND Sponge And Instrument Count Done by Shagufta Velasco, RT(R). 14:32:20 Hypo's: 6, Sponges: 20, Bovie/scratch: 2 Sutures: 12, Blades: 2, Instruments: ~INSTRU~, Syveck Patches: ~SYVECK PATCH~ verified by VERITO Verde 14:56:08 DOCU called. Spoke to FELICIA 14:56:17 A sling was placed on the affected arm. Assessment: Final Case, HR=85 BPM, Rhythm=PACED, UUYP=073/75 mmhg, Chest Pain=0, Edema=None, Color=Normal, Skin = Warm, Dry Right Pulses: Boris Ped=1 14:56:21 Left Pulses: Boris Ped=1 Neurological: State=Alert, Ox3, JEAN Respiration: Resp=18 B/min, GsW7=531 %, O2=4 lpm 14:59:06 Verbal Stimulation=2 Physical Stimulation=2 Airway=2 Respiration=2 TOTAL=8. (0=absent, 1=li mited, 2=present) 15:00:30 Pocket flushed with antibiotic solution FINAL Sponge And Instrument Count Done by Shagufta Wisdom RN. 15:01:47 Hypo's: 6, Sponges: 20, Bovie/scratch: 2 Sutures: 12, Blades: 2, Instruments: 26, Syveck Patches: ~SYVECK PATCH~ verified by Jose A Gacría 15:02:00 The pocket was closed. 15:02:30 Case End 15:03:05 Steri-strips and a sterile dressing applied to site. 15:03:10 Sterile dressing applied to site 15:04:40 No case complications noted. 15:04:40 Cine recording checked. Assessment: Final Case, HR=89 BPM, Rhythm=paced, ZIYP=659/78 mmhg, Edema=None, Color=Normal, Sk in = Warm, Dry Right Pulses: Boris Ped=1 Left Pulses: Boris Ped=1 15:05:47 Lower Right Extremities: Color=Normal Lower Left Extremities: Color=Normal Neurological: State=Drowsy, Ox3, JEAN Respiration: Resp=14 B/min, VzR6=555 % 15:07:54 Implantable Device card placed in patient's chart. 15:08:44 Patient moved to stretcher 15:09:01 Defibrillator and ground pads removed. Skin intact. 15:10:15 Transported to recovery area on r/a, breathing independently with stable vital signs. 09/14/2017 3:11:41 PM Financial #: [id number] 9 of 10 Patient Name: MECCA DONAHUE Study #: [id number] Initial MD: Dane Hutchison Date of : 1935 Study Date: 09/14/2017 End Study - Contrast Media Used In Study Contrast Total Opened (mL) Total Used (mL) Total Wasted (mL) Unspecified 0 0 0 End Study - Radiation Exposure Fluoro Time (minutes) 8.3 End Study - Patient Disposition Complications Transferred To Interventional Outcome No Telemetry Bed successful 09/14/2017 3:11:41 PM Financial #: [id number] 10 of
[2017-09-14] MEDS ORDERED: MAGNESIUM HYDROXIDE SUSP 30 ML CUP PO PRN (19:00)
--- NOTE | 2017-09-14 20:13 | RADRPT ---
EXAM DATE/TIME: 09/14/2017 19:55 [place] COMPARISON: CHEST SINGLE AP, August 08, 2017, 12:46. INDICATIONS : Pneumothorax post procedure. MEDICAL HISTORY : Hypertension. Asthma. SURGICAL HISTORY : CABG. ENCOUNTER: Initial ACUITY: 1 day PAIN SCORE: 0/10 LOCATION: Bilateral chest FINDINGS: A single portable frontal view the chest shows placement of a right-sided pacing device. Leads termin ate in the region of the right atrium and right ventricle respectively. No pneumothorax observed. Hea rt is enlarged. Pulmonary vascular engorgement observed. No infiltrates or effusions. A scoliotic and degenerative spine. Median sternotomy wires. Advanced osteoarthritis of the left shoulder. CONCLUSION: 1. Right-sided pacing device without pneumothorax. 2. Cardiomegaly with pulmonary vascular engorgement. Kevon Mera Jr., MD on September 14, 2017 at 20:11 Board Certified Radiologist. This report was verified electronically.
[2017-09-15] VITALS (10 sets, daily range): BP systolic 129–144; BP diastolic 60–77; PULSE 74–100; RESP 18–20; TEMP 97.7–98.6; O2SAT 96–99
[2017-09-15] MEDS ORDERED: VANCOMYCIN INJ 1,000 MG in SODIUM CHLOR 0.9% 250 ML INJ 250 ML IV ONE (03:00)
--- NOTE | 2017-09-15 09:37 | MP ---
cc: DANE HUTCHISON M.D., JEFFREY DATE OF SURGERY 09/14/2017 PROCEDURE PERFORMED Dual-chamber pacemaker placement. INDICATION Complete heart block. CONSENT A fully informed consent was obtained prior to procedure. The risks of , bleeding, myocardial infarction, perforation, aspiration, foreseen and unforeseen complications were reviewed. The patient fully appeared to understand the risks. PROCEDURAL STATEMENT The patient draped and prepped in the usual manner. Anesthesia Department administered anesthesia/sedation. The pacemaker pocket on the right infraclavicular area was carefully infiltrated with lidocaine. Using ultrasound with a micropuncture technique, the right subclavian vein was entered. Using a one stick procedure, two guidewires were passed to the venous circulation over the two guidewires through sheaths for passive venous circulation. Through one of the sheaths, a ventricular lead was passed into the right ventricular apex and the helical screw advanced into the myocardium. External pacing and sensing parameters were noted. The other sheath, the atrial lead was passed into the area of the right atrial appendage. Excellent pacing and sensing parameters were noted. The lead was also sewn down to the pectoralis fascia. Both leads were then connected to their respective chamber of the pulse generator. The pocket was flushed with vancomycin solution on three occasions. An antibiotic patch, (Medtronic antibiotic) sheet was put deep into the pocket and the pocket was flushed again with vancomycin solution and closed in three layers. CONCLUSION 1. Successful placement of dual-chamber pacemaker Medtronic. 2. Successful placement of Medtronic antibiotic patch given the patient's prior history of pacemaker pocket infection. 3. The patient tolerated the procedure well and was returned to his room in stable condition. Dane Hutchison MD, CARLOS,GÉNESIS LEMONS/JORJE /3:03 PM /9:25 AM MAGUI
[2017-09-15] MEDS ORDERED: FUROSEMIDE 40 MG/4 ML VIAL IV PUSH ONE (11:45)
--- NOTE | 2017-09-15 23:19 | EKG ---
Date Performed: 09/14/2017 Time Performed: 12:23:10 PTAGE: 82 years EKG: Third degree heart block Right bundle branch block Possible anterior infarct - age undeterm ined Inferior/lateral ST-T changes suggest myocardial infarct Abnormal ECG PREVIOUS TRACING : 08/12/2017 11.13 DOCTOR: Cortes Greene Interpretating Date/Time 09/15/2017 23:18:32
[2017-09-17] MEDS ORDERED: DIPH25TA31 PO (19:22)
== END 2017-09-15 15:40 | disposition home or self-care (01) ==
LOC: HDIC 11:25 → HDOC 11:25 → HCIS 15:58 → HDOC 09-15 15:40
PROVIDERS: ATTEND Internal Medicine Cardiovascular Disease
DX: I44.2 Atrioventricular block, complete (principal); I25.10 Atherosclerotic heart disease of native coronary artery without angina pectoris; I27.20 Pulmonary hypertension, unspecified; R06.02 Shortness of breath; I25.2 Old myocardial infarction; E78.5 Hyperlipidemia, unspecified; I65.29 Occlusion and stenosis of unspecified carotid artery; I45.10 Unspecified right bundle-branch block; I51.7 Cardiomegaly; R42 Dizziness and giddiness; Z86.73 Personal history of transient ischemic attack (TIA), and cerebral infarction without residual deficits; Z86.19 Personal history of other infectious and parasitic diseases; Z79.82 Long term (current) use of aspirin; Z79.01 Long term (current) use of anticoagulants
CPT/HCPCS: 00530; 33208; 71045; 80048; 85025; 85610; 93005; C1785; C1898; J1940; J2250; J3010; J3370; J7050

== ENCOUNTER 2017-11-30 11:12 | Day surgery (SDC) | payer MEDICARE, OTHER ==
[~2017-11-30 11:12] MED LIST changes: +ALEV220T14 PO; +DIPH25TA31 PO; +DOCU1CAP66; -DULE100A INH; +ECASA81 PO; +FURO1TAB62 PO; +KLOR10TA PO; -LOSA50TA2 PO; +PLAV75TA29 PO; +SPIR25TA PO
[2017-11-30] MEDS ORDERED: VITA1000 PO (12:23)
--- NOTE | 2017-11-30 15:39 | CF ---
cc: Dane Hutchison MD DATE: 11/30/2017 INDICATIONS FOR PROCEDURE: 1. Mitral regurgitation. 1. Prior history of cardiac surgery. 3. Atrial fibrillation. CONSENT: Fully informed consent was obtained prior to the procedure. The risks of , bleeding, myocardial infarction, perforation, aspiration, foreseen and unforeseen complications were reviewed. The patient appeared to understand and accept the risks. PROCEDURE: The patient was draped and prepped in the usual manner. The patient was anesthetized as per the Anesthesia Department. Full transesophageal echo was performed. FINDINGS: The interatrial septum was intact. The interventricular septum was intact. The tricuspid valve moved normally and showed no evidence of regurgitation. The mitral valve showed moderate regurgitation. There was a small left atrial appendage, possibly truncated with prior history of cardiac surgery. There was evidence of a right ventricular and right atrial pacemaker lead. CONCLUSION: Moderate mitral regurgitation. No evidence of left atrial appendage thrombus. PLAN: Proceed with cardioversion. MD CRISTO Kern/TIMBO , 03:25 PM , 03:38 PM
--- NOTE | 2017-11-30 15:46 | MR ---
cc: Dane Hutchison MD DATE: 11/30/2017 PROCEDURE PERFORMED: Cardioversion. INDICATION FOR PROCEDURE: Atrial flutter. PROCEDURE: The patient was anesthetized by the anesthesia department. A full ESTHER was performed. No left atrial appendage thrombus seen. The patient was given a single 100 joule synchronized shock which converted him to sinus rhythm. CONCLUSION: Successful cardioversion to sinus rhythm with a single 100 joule synchronized shock. Dane Hutchison MD HAJ/TL , 03:26 PM , 03:45 PM
--- NOTE | 2017-12-02 10:26 | EKG ---
Date Performed: 11/30/2017 Time Performed: 11:43:26 PTAGE: 82 years EKG: Ventricular pacing. Pacemaker rhythm - no further analysis Abnormal ECG PREVIOUS TRACING : 09/14/2017 12.23 Since the prior tracing, the rhythm is now paced, where pre viously the patient was in complete heart block. The underlying rhythm on the present tracing is prob ably atrial flutter, but it is difficult to be certain. Interrogation of the device to determine the rhythm would be recommended. DOCTOR: Carolina Coto Interpretating Date/Time 12/02/2017 10:25:21
--- NOTE | 2017-12-02 10:27 | EKG ---
Date Performed: 11/30/2017 Time Performed: 15:40:56 PTAGE: 82 years EKG: Ventricular pacing. Lead(s) unsuitable for analysis: aVL V2 Pacemaker rhythm - no further a nalysis Abnormal ECG PREVIOUS TRACING : 11/30/2017 11.43 Since the prior tracing, the patient is now P-wave synchron ous pacing, and what was probably underlying atrial flutter or fibrillation has resolved. DOCTOR: Carolina Coto Interpretating Date/Time 12/02/2017 10:26:11
== END 2017-11-30 16:54 | disposition home or self-care (01) ==
LOC: HDOC 11:12 → HDIC 11:13 → HDOC 16:54
PROVIDERS: ATTEND Internal Medicine Cardiovascular Disease
DX: I48.92 Unspecified atrial flutter (principal); I48.91 Unspecified atrial fibrillation; I10 Essential (primary) hypertension
CPT/HCPCS: 92960; 93005; 93312; 93320; 93325

== ENCOUNTER → 2017-12-15 | Outpatient (CLI) | payer MEDICARE, OTHER ==
[~2017-12-15] MED LIST changes: -ECASA81 PO; +VITA1000 PO
--- NOTE | 2017-12-21 09:53 | RSPPFT ---
DATE OF PROCEDURE: 12/15/17 COMMENTS: VOLUMES DYNAMIC: FVC and FEV1 mildly reduced. STATIC: FRC, TLC mildly reduced, RV normal. FLOWS: FEV1% normal; FEF 25-75 severely reduced. DIFFUSION; Normal. FLOW VOLUME LOOP: Restrictive configuration,. IMPRESSION: Mild restrictive ventilatory defect with terminal airflow obstruction and no reduction in diffusion. There is no significant improvement post-bronchodilator.
== END ==
LOC: HRSP 10:20
PROVIDERS: ATTEND Internal Medicine
DX: J45.909 Unspecified asthma, uncomplicated (principal)
CPT/HCPCS: 94060; 94618; 94726; 94729; 95012

== ENCOUNTER 2018-08-23 17:10 | Inpatient (IN) ==
--- NOTE | 2018-08-23 18:55 | ED ---
HPI General Chief Complaint: Shortness of Breath/Dyspnea Stated Complaint: Resp / Cardiac Time Seen by Provider: 08/23/18 18:12 History of Present Illness This is an 83-year-old male with a history of amyloid heart disease, who has a pacemaker, presents today with complaints of dyspnea on exertion. Patient states over the last 2 days he is only been able to ambulate more than a few feet before becoming severely winded. The patient states that he seen up at the [facility] and had a pacemaker recently changed out. He states he has been doing well up until a couple days ago when he noted marketed shortness of breath with ambulation. He denies any chest pain, chest pressure. There is no nausea or diaphoresis. He states that he has had some swelling of his feet over the last few weeks and had his Lasix dose increased to a half a tablet extra every other day. He does not believe he has had congestive heart failure in the past. He has no other complaints at the time of my examination. Related Data Home Medications Medication Instructions Recorded Confirmed apixaban [Eliquis] 5 mg PO BID 08/23/18 08/23/18 atorvastatin 40 mg PO DAILY 08/23/18 08/23/18 cholecalciferol (vitamin D3) 2,000 unit PO DAILY 08/23/18 08/23/18 [Vitamin D3] coenzyme Q10 [CoQ-10] 200 mg PO DAILY 08/23/18 08/23/18 dronedarone [Multaq] 400 mg PO BID 08/23/18 08/23/18 furosemide [Lasix] 40 mg PO DAILY 08/23/18 08/23/18 latanoprost 1 drp OPHTHALMIC (EYE) QPM 08/23/18 08/23/18 metoprolol succinate 50 mg PO DAILY 08/23/18 08/23/18 montelukast 10 mg PO QPM 08/23/18 08/23/18 xviiylvs-[id number]-[id number]-lycopen-lutein 1 tab PO DAILY 08/23/18 08/23/18 [Centrum Silver Men] potassium chloride 20 meq PO WEEKLY 08/23/18 08/23/18 spironolactone 25 mg PO BID 08/23/18 08/23/18 Previous Rx's Medication Instructions Recorded pantoprazole [Protonix] 40 mg PO DAILY #30 tab 08/25/18 Allergies Allergy/AdvReac Type Severity Reaction Status Date / Time dog dander Allergy Severe ASTHMA Unverified 06/27/17 11:29 Review of Systems ROS: all other systems reviewed are negative Constitutional Reports system reviewed and no additional complaints, except as docu Eyes Reports system reviewed and no additional complaints, except as docu ENT Reports system reviewed and no additional complaints, except as docu Cardiovascular Denies chest pain, Reports edema (Worsening lower extremity edema), Reports lightheadedness, Denies palpitations, Reports dyspnea and Reports dyspnea on exertion Respiratory Denies chest congestion, Denies cough and Reports dyspnea Gastrointestinal Denies abdominal pain, Denies nausea and Denies vomiting Genitourinary Reports system reviewed and no additional complaints, except as docu Musculoskeletal Reports system reviewed and no additional complaints, except as docu Neurologic Reports system reviewed and no additional complaints, except as docu and Reports dizziness PMF Medical History Medical History Afib (Acute) Congestive heart failure (Acute) High cholesterol (Acute) Hypertension (Acute) Pacemaker (Acute) Prostate cancer (Acute) Stroke (Acute) Family History Family History Other Coronary artery disease Diabetes mellitus Social History Social History Substance History: No History of Abuse Second Hand Smoke Exposure: No Smoking Status: Never smoker How Often Do You Have a Drink Containing Alcohol: Never Recent Travel in [facility] within the Last 8 Weeks: No Recent Out of Country Travel within the Last 8 Weeks: No Immunization History Tetanus Immunization: Unsure Exam Narrative Exam Narrative: GENERAL: Well-developed well-nourished male in no acute respiratory distress on my examination. SKIN: Focused skin assessment warm/dry. HEAD: Atraumatic. Normocephalic. EYES: Slight pale conjunctiva. No scleral icterus. No injection or drainage. ENT: No nasal bleeding or discharge. Mucous membranes pink and moist. NECK: Trachea midline. No JVD. Supple. CARDIOVASCULAR: Paced rhythm with a rate of 90. No murmur appreciated. RESPIRATORY: No accessory muscle use. Clear to auscultation. Fine rales heard at the bilateral bases. GASTROINTESTINAL: Abdomen soft, non-tender, nondistended. MUSCULOSKELETAL: No obvious deformities. No clubbing. No cyanosis. Trace bilateral pretibial edema. NEUROLOGICAL: Awake and alert. No obvious cranial nerve deficits. Motor grossly within normal limits. Normal speech. Procedures Hemaprompt Stool Procedural Steps Taken: specimen placed in appropriate test area, developer placed on specimen and control areas and controls appropriately positive and negative Hemaprompt Stool Result: positive Course Initial Documented Vital Signs Temperature 98.5 F 08/23/18 17:47 Pulse Rate 104 H 08/23/18 17:47 Respiratory Rate 20 08/23/18 17:47 Blood Pressure 128/59 L 08/23/18 17:47 Pulse Oximetry 100 08/23/18 17:47 Last Documented Vital Signs Temperature 97.6 F 08/25/18 11:00 Pulse Rate 92 H 08/25/18 13:00 Respiratory Rate 16 08/25/18 11:00 Blood Pressure 110/63 08/25/18 11:00 Pulse Oximetry 98 08/25/18 11:00 Critical Care Time Critical Care Time: Yes Total Critical Care Time: 30 Attestation: Aggregate critical care time was 30 minutes. Time to perform other separately billable procedures was not included in the critical care time. My time did not include minutes spent treating any other patients simultaneously or on activities that did not directly contribute to the patient's treatment. The services I provided to this patient were to treat and/or prevent clinically significant deterioration that could result in: Elevated troponin, symptomatic anemia, GI bleed, blood transfusion, Protonix bolus and drip I provided critical care services requiring my management, as noted below: Chart data review, documentation time, medication orders and management, vital sign assessments/reviewing monitor data, ordering and reviewing lab tests, ordering and interpreting/reviewing x-rays and diagnostic studies, care of the patient and discussion of the patient with the admitting physicians. Sign Out Sign Out Data: Patient Sign Out occurred on 08/23/18 at 19:30. Patient's care was discussed, and care was transferred from Gokul Ho MD to Rupert Khan. Sign Out Comment: 83-year-old male with a history of amyloid with associated heart disease, who presents today with 2-day history of worsening shortness of breath. Patient has PND as well as exertional shortness of breath. Labs x- rays were all pending at the time of signout. I anticipate he will likely need to be admitted for a 2D cardiac echo. Case was signed out to Dr. Khan. Disposition will be per her. Last updated by Gokul Ho MD at 08/23/18 19:16 Post-Handoff Eval: 83-year-old male came to the emergency room with his family with history of progressive shortness of breath. Patient was seen by the previous ER physician. Please refer to his history and physical for further details. Signout was to follow-up on the blood test results and admit the patient for possible congestive heart failure. CHEST X-RAY: No infiltrate, pneumothorax or mediastinal widening. Has been read by the radiologist as congestive heart failure. Patient's troponin is elevated. His hemoglobin is on the lower side. Patient is on Eliquis. I discussed the test results with the patient and his family. I explained to them about my concerns including the elevated troponin and congestive heart failure. Patient's archival studies professor is Dr. Hutchison. I let them know that the archival studies professor would be consulted will make decision from there on as to what other further testing needed to be done. Patient was given 40 mg of IV Lasix as well by me. Awaiting for the hospitalist to call back. Patient also had a hemoglobin of 8.2 which is significantly lower than his last blood test result. Patient is on Eliquis. I did a Hemoccult of the stool which was positive. I will order 2 units of blood transfusion. I have updated the patient and his about this again. Medical Decision Making MDM Narrative Medical decision making narrative: 83-year-old male with a history of amyloid heart disease, presents today with planes of shortness of breath over the last 2 days. Patient states he can only walk a few steps week before becoming very winded. He denies any chest pain, chest pressure. He does have fine rales at the bases. Labs and x-ray are pending at the time of this dictation. The patient will be signed out to the physician replacing me at change of shift. Disposition will be per her. I anticipate he will need to be admitted and have a 2D cardiac echo in the a.m. Medical Screen Exam Complete: Yes Emergency Medical Condition: Yes Differential Diagnosis Differential Diagnosis: CHF versus cardiomyopathy versus metabolic derangement versus anemia Lab Data Result diagrams: 08/25/18 05:22 08/25/18 05:22 Lab Results 08/23/18 08/23/18 08/23/18 Range/Units 18:20 18:20 18:20 WBC 11.9 H (4.0-11.0) th/mm3 RBC 2.88 L (4.50-5.90) mil/mm3 Hgb 8.2 L (13.0-17.0) gm/dL Hct 25.5 L (39.0-51.0) % MCV 88.7 (80.0-100.0) fL MCH 28.6 (27.0-34.0) pg MCHC 32.2 (32.0-36.0) % RDW 15.2 (11.6-17.2) % Plt Count 383 (150-450) th/mm3 MPV 7.0 (7.0-11.0) fL Neut % (Auto) 75.2 H (16.0-70.0) % Lymph % (Auto) 9.5 (9.0-44.0) % [place] % (Auto) 10.2 H (0.0-8.0) % Eos % (Auto) 4.6 H (0.0-4.0) % Baso % (Auto) 0.5 (0.0-2.0) % Neut # (Auto) 8.9 H (1.8-7.7) th/mm3 Lymph # (Auto) 1.1 (1.0-4.8) th/mm3 [place] # (Auto) 1.2 H (0.0-0.9) th/mm3 Eos # (Auto) 0.5 H (0.0-0.4) th/mm3 Baso # (Auto) 0.1 (0.0-0.2) th/mm3 WBC Differential . Differential Comment Auto diff final Sodium 138 (136-145) meq/L Potassium 4.6 (3.5-5.1) meq/L Chloride 103 (98-107) meq/L Carbon Dioxide 24.7 (21.0-32.0) meq/L Anion Gap 10 (5-15) meq/L BUN 38 H (7-18) mg/dL Creatinine 1.58 H (0.60-1.30) mg/dL Estimated GFR 42 L (>89) mL/min POC Glucose (68-110) mg/dl Random Glucose 117 H (74-106) mg/dL Calcium 9.0 (8.5-10.1) mg/dL Total Bilirubin 0.6 (0.2-1.0) mg/dL AST 31 (15-37) U/L ALT 26 (12-78) U/L Alkaline Phosphatase 95 (45-117) U/L Total Creatine Kinase 72 (39-308) U/L Troponin I 0.25 H (0.02-0.05) ng/mL B-Natriuretic Peptide 491 H (0-100) pg/mL Total Protein 7.6 (6.4-8.2) g/dL Albumin 3.5 (3.4-5.0) g/dL Blood Type Blood Type Recheck Antibody Screen MTS Gel Crossmatch 08/23/18 08/24/18 08/24/18 Range/Units 20:45 00:25 01:22 WBC (4.0-11.0) th/mm3 RBC (4.50-5.90) mil/mm3 Hgb (13.0-17.0) gm/dL Hct (39.0-51.0) % MCV (80.0-100.0) fL MCH (27.0-34.0) pg MCHC (32.0-36.0) % RDW (11.6-17.2) % Plt Count (150-450) th/mm3 MPV (7.0-11.0) fL Neut % (Auto) (16.0-70.0) % Lymph % (Auto) (9.0-44.0) % [place] % (Auto) (0.0-8.0) % Eos % (Auto) (0.0-4.0) % Baso % (Auto) (0.0-2.0) % Neut # (Auto) (1.8-7.7) th/mm3 Lymph # (Auto) (1.0-4.8) th/mm3 [place] # (Auto) (0.0-0.9) th/mm3 Eos # (Auto) (0.0-0.4) th/mm3 Baso # (Auto) (0.0-0.2) th/mm3 WBC Differential Differential Comment Sodium (136-145) meq/L Potassium (3.5-5.1) meq/L Chloride (98-107) meq/L Carbon Dioxide (21.0-32.0) meq/L Anion Gap (5-15) meq/L BUN (7-18) mg/dL Creatinine (0.60-1.30) mg/dL Estimated GFR (>89) mL/min POC Glucose 123 H (68-110) mg/dl Random Glucose (74-106) mg/dL Calcium (8.5-10.1) mg/dL Total Bilirubin (0.2-1.0) mg/dL AST (15-37) U/L ALT (12-78) U/L Alkaline Phosphatase (45-117) U/L Total Creatine Kinase 61 (39-308) U/L Troponin I 0.27 H (0.02-0.05) ng/mL B-Natriuretic Peptide (0-100) pg/mL Total Protein (6.4-8.2) g/dL Albumin (3.4-5.0) g/dL Blood Type A Negative Blood Type Recheck Not needed Antibody Screen Negative MTS Gel Crossmatch See Detail 08/24/18 08/24/18 08/24/18 Range/Units 09:41 09:41 16:29 WBC 11.0 (4.0-11.0) th/mm3 RBC 3.72 L (4.50-5.90) mil/mm3 Hgb 11.2 L D (13.0-17.0) gm/dL Hct 32.1 L (39.0-51.0) % MCV 86.3 (80.0-100.0) fL MCH 30.0 (27.0-34.0) pg MCHC 34.7 (32.0-36.0) % RDW 15.1 (11.6-17.2) % Plt Count 338 (150-450) th/mm3 MPV 6.4 L (7.0-11.0) fL Neut % (Auto) 73.8 H (16.0-70.0) % Lymph % (Auto) 10.3 (9.0-44.0) % [place] % (Auto) 10.9 H (0.0-8.0) % Eos % (Auto) 4.6 H (0.0-4.0) % Baso % (Auto) 0.4 (0.0-2.0) % Neut # (Auto) 8.1 H (1.8-7.7) th/mm3 Lymph # (Auto) 1.1 (1.0-4.8) th/mm3 [place] # (Auto) 1.2 H (0.0-0.9) th/mm3 Eos # (Auto) 0.5 H (0.0-0.4) th/mm3 Baso # (Auto) 0.0 (0.0-0.2) th/mm3 WBC Differential . Differential Comment Auto diff final Sodium 139 (136-145) meq/L Potassium 4.3 (3.5-5.1) meq/L Chloride 103 (98-107) meq/L Carbon Dioxide 27.0 (21.0-32.0) meq/L Anion Gap 9 (5-15) meq/L BUN 34 H (7-18) mg/dL Creatinine 1.38 H (0.60-1.30) mg/dL Estimated GFR 49 L (>89) mL/min POC Glucose (68-110) mg/dl Random Glucose 103 (74-106) mg/dL Calcium 8.9 (8.5-10.1) mg/dL Total Bilirubin (0.2-1.0) mg/dL AST (15-37) U/L ALT (12-78) U/L Alkaline Phosphatase (45-117) U/L Total Creatine Kinase 72 (39-308) U/L Troponin I 0.34 H 0.36 H (0.02-0.05) ng/mL B-Natriuretic Peptide (0-100) pg/mL Total Protein (6.4-8.2) g/dL Albumin (3.4-5.0) g/dL Blood Type Blood Type Recheck Antibody Screen MTS Gel Crossmatch 08/25/18 08/25/18 Range/Units 05:22 05:22 WBC 10.8 (4.0-11.0) th/mm3 RBC 3.47 L (4.50-5.90) mil/mm3 Hgb 10.2 L (13.0-17.0) gm/dL Hct 30.1 L (39.0-51.0) % MCV 87.0 (80.0-100.0) fL MCH 29.3 (27.0-34.0) pg MCHC 33.7 (32.0-36.0) % RDW 15.0 (11.6-17.2) % Plt Count 321 (150-450) th/mm3 MPV 6.6 L (7.0-11.0) fL Neut % (Auto) 74.4 H (16.0-70.0) % Lymph % (Auto) 8.1 L (9.0-44.0) % [place] % (Auto) 10.5 H (0.0-8.0) % Eos % (Auto) 6.5 H (0.0-4.0) % Baso % (Auto) 0.5 (0.0-2.0) % Neut # (Auto) 8.1 H (1.8-7.7) th/mm3 Lymph # (Auto) 0.9 L (1.0-4.8) th/mm3 [place] # (Auto) 1.1 H (0.0-0.9) th/mm3 Eos # (Auto) 0.7 H (0.0-0.4) th/mm3 Baso # (Auto) 0.1 (0.0-0.2) th/mm3 WBC Differential . Differential Comment Auto diff final Sodium 139 (136-145) meq/L Potassium 3.6 (3.5-5.1) meq/L Chloride 103 (98-107) meq/L Carbon Dioxide 26.7 (21.0-32.0) meq/L Anion Gap 9 (5-15) meq/L BUN 31 H (7-18) mg/dL Creatinine 1.34 H (0.60-1.30) mg/dL Estimated GFR 51 L (>89) mL/min POC Glucose (68-110) mg/dl Random Glucose 92 (74-106) mg/dL Calcium 8.7 (8.5-10.1) mg/dL Total Bilirubin 1.2 H (0.2-1.0) mg/dL AST 24 (15-37) U/L ALT 22 (12-78) U/L Alkaline Phosphatase 92 (45-117) U/L Total Creatine Kinase (39-308) U/L Troponin I (0.02-0.05) ng/mL B-Natriuretic Peptide (0-100) pg/mL Total Protein 6.9 D (6.4-8.2) g/dL Albumin 2.9 L D (3.4-5.0) g/dL Blood Type Blood Type Recheck Antibody Screen MTS Gel Crossmatch Imaging Data Radiologist's impression: Chest X-Ray 08/23/18 18:42 CONCLUSION: Stable cardiomegaly with interval development of enlarged and indistinct central bronchopulmonary markings suggesting congestive failure. Discharge Plan Discharge Disposition Patient Disposition: ED Admit(ED Internal Use Only) Discharge Condition Condition: Fair Discharge Order Discharge Orders: Discharge Order (Routine); Ordered 08/25/18 Ordered By: Olvin Gamez ED Use Only Admit Order (Routine); Ordered 08/23/18 Ordered By: Rupert Khan Discharge Details Diagnosis: Dyspnea, PND (paroxysmal nocturnal dyspnea), Cardiomyopathy, Paced cardiac rhythm Physicians Team ED Provider: Rupert Khan Primary Care Provider: Raymon Dixon Attending Provider: Olvin Gamez Other Providers: Dane Hutchison Harsh V Status ED Status: Left Department Discharge Information Discharge Date/Time: 08/23/18 22:00
[2018-08-23 19:03] LABS: Baso # (Auto) 0.1 th/mm3 (0.0-0.2); Baso % (Auto) 0.5 % (0.0-2.0); Eos # (Auto) 0.5 th/mm3 (0.0-0.4); Eos % (Auto) 4.6 % (0.0-4.0); Hematocrit 25.5 % (39.0-51.0); Hemoglobin 8.2 gm/dL (13.0-17.0); Lymph # (Auto) 1.1 th/mm3 (1.0-4.8); Lymph % (Auto) 9.5 % (9.0-44.0); Mean Corpuscular HGB Conc 32.2 % (32.0-36.0); Mean Corpuscular Hemoglobin 28.6 pg (27.0-34.0); Mean Corpuscular Volume 88.7 fL (80.0-100.0); Mono # (Auto) 1.2 th/mm3 (0.0-0.9); Mono % (Auto) 10.2 % (0.0-8.0); Neut # (Auto) 8.9 th/mm3 (1.8-7.7); Neut % (Auto) 75.2 % (16.0-70.0); Platelet Count 383 th/mm3 (150-450); Red Blood Count 2.88 mil/mm3 (4.50-5.90); Red Cell Distribution Width 15.2 % (11.6-17.2); White Blood Count 11.9 th/mm3 (4.0-11.0)
[2018-08-23 19:41] LABS: Albumin 3.5 g/dL (3.4-5.0); Anion Gap 10 meq/L (5-15); Aspartate Aminotransferase 31 U/L (15-37); Blood Urea Nitrogen 38 mg/dL (7-18); Carbon Dioxide 24.7 meq/L (21.0-32.0); Chloride 103 meq/L (98-107); Glomerular Filtration Rate 42 mL/min (>89); Glucose,Random 117 mg/dL (74-106); Potassium 4.6 meq/L (3.5-5.1); Sodium 138 meq/L (136-145)
[2018-08-23 19:42] LABS: Alanine Aminotransferase 26 U/L (12-78)
[2018-08-23 19:45] LABS: Alkaline Phosphatase 95 U/L (45-117); Total Protein 7.6 g/dL (6.4-8.2); Troponin I 0.25 ng/mL (0.02-0.05)
[2018-08-23 19:46] LABS: Creatine Kinase 72 U/L (39-308)
--- NOTE | 2018-08-23 19:47 | XR ---
EXAM DATE: 08/23/2018 7:42 PM EST AGE/SEX: 83 years / Male INDICATIONS: Short of breath. CLINICAL DATA: This is the patient's subsequent encounter. Patient reports that signs and symptoms h ave been present for 2 days and indicates a pain score of 5/10. MEDICAL/SURGICAL HISTORY: Cardiovascular disease. Cardiovascular disease. Prostate cancer.Tonsi llectomy. CABG. Pacemaker. COMPARISON: [facility], XR CHEST PA AND LAT, 10/26/2017. . FINDINGS: Cardiomegaly is stable in severity when compared to September 2017. There is enlargement, indistinctne ss, and blurring of the bronchopulmonary markings in the medial one third of the lung suggesting pulm onary edema or pulmonary venous hypertension. There is stable blunting of the lateral left costophren ic angle. Prior median sternotomy. Cardiac pacer with [address], stable. CONCLUSION: Stable cardiomegaly with interval development of enlarged and indistinct central bronchopulmonary mar kings suggesting congestive failure. Electronically signed by: Kevon Avila MD Board Certified Radiologist 08/23/2018 7:46 PM EST
[2018-08-23] MEDS ORDERED: Pantoprazole Inj 80 MG in Sodium Chlor 0.9% Inj 50 ML IV.SIG ONE (20:30)
[2018-08-23] MEDS ORDERED: Sodium Chlor 0.9% Inj 250 ML IV.SIG SCH (21:00)
[2018-08-23] MEDS: Pantoprazole Inj 80 MG in Sodium Chlor 0.9% Inj 100 ML IV.CONT SCH (21:41)
[2018-08-23] MEDS ORDERED: Acetaminophen 325 MG Tablet PO PRN (22:33)
--- NOTE | 2018-08-23 22:50 | P.HP ---
History of Present Illness Service: [facility] Primary Care Physician: Raymon Dixon DO History of Present Illness: 83-year-old male with a past medical history significant for coronary artery disease, atrial fibrillation anticoagulated on Eliquis, hypertension, hyperlipidemia, congestive heart failure and a history of prostate cancer presents to the emergency department for the evaluation of shortness of breath. The patient reports that he has been short of breath for approximately 2 years but it acutely worsened over the past 2 days. He states he was sitting in his chair today when he became so dyspneic that he felt he needed further evaluation in the emergency department. The patient denies any chest pain. No cough. No fever/chills. He does endorse black, tarry stools for the past 2 days. He is anemic on presentation to the emergency department. He denies any abdominal pain. No nausea/vomiting/diarrhea. No focal neurologic deficits. Inpatient Certification: I certify that the inpatient services were ordered in accordance with Medicare regulations governing the order. This includes certification that hospital inpatient services are reasonable and necessary and in the case of services not specified as inpatient-only under 42 CFR 419.22(n), that they are appropriately provided as inpatient services in accordance to with the 2-midnight benchmark under 43 CFR 412.3(e) Estimated Total Length of Stay (Days): 2 Plans for Post Hospital Care: Not yet determined Review of Systems All other systems reviewed negative except as stated in HPI [facility] - History History Provided By: Patient, Family Member - Medical History Medical History: Medical History (Last Updated 08/23/18 @ 22:40 by Mili Goldsmith MD) Afib Congestive heart failure High cholesterol Hypertension Pacemaker Prostate cancer Stroke - Surgical History Surgical History: Surgical History (Last Reviewed 08/23/18 @ 22:40 by Mili Goldsmith MD) History of appendectomy History of carpal tunnel surgery of left wrist History of carpal tunnel surgery of right wrist History of cholecystectomy History of hip surgery History of open heart surgery History of orthopedic surgery Hx of cardiac cath LAP-BAND surgery status Stented coronary artery Total knee replacement status - Family History Family History: Family History (Last Updated 08/23/18 @ 22:41 by Mili Goldsmith MD) Other Coronary artery disease Diabetes mellitus - Social History I have reviewed the patient's Social History: Yes - Tobacco History Second Hand Smoke Exposure: No Smoking Status: Never smoker - Alcohol History How Often Do You Have a Drink Containing Alcohol: Never - Substance Use History Substance History: No History of Abuse - Travel History Recent Travel in the [place] Within the Last 8 Weeks: No Recent Travel Out of the Country Within the Last 8 Weeks: No - Immunization History Tetanus Immunization: Unsure Medications and Allergies Active Medications: Active Medications Sodium Chloride (Ns Inj) 250 mls @ 15 mls/hr IV.SIG ONCE MICAH Stop: 08/24/18 13:39 Pantoprazole Sodium 80 mg/ (Sodium Chloride) 100 mls @ 10 mls/hr IV.CONT CONT MICAH Last Admin: 08/23/18 21:41 Dose: 10 mls/hr Allergies Allergy/AdvReac Type Severity Reaction Status Date / Time dog dander Allergy Severe ASTHMA Unverified 06/27/17 11:29 Home Medications Medication Instructions Recorded Confirmed Type apixaban [Eliquis] 5 mg PO BID 08/23/18 08/23/18 History atorvastatin 40 mg PO DAILY 08/23/18 08/23/18 History cholecalciferol (vitamin D3) 2,000 unit PO DAILY 08/23/18 08/23/18 History [Vitamin D3] coenzyme Q10 [CoQ-10] 200 mg PO DAILY 08/23/18 08/23/18 History dronedarone [Multaq] 400 mg PO BID 08/23/18 08/23/18 History furosemide [Lasix] 40 mg PO DAILY 08/23/18 08/23/18 History latanoprost 1 drp OPHTHALMIC (EYE) QPM 08/23/18 08/23/18 History metoprolol succinate 50 mg PO DAILY 08/23/18 08/23/18 History montelukast 10 mg PO QPM 08/23/18 08/23/18 History nqilfame-xfd-NX-lycopen-lutein 1 tab PO DAILY 08/23/18 08/23/18 History [Centrum Silver Men] potassium chloride 20 meq PO WEEKLY 08/23/18 08/23/18 History spironolactone 25 mg PO BID 08/23/18 08/23/18 History Exam Vital signs: Vital Signs 08/23/18 17:47 08/23/18 18:00 08/23/18 20:00 Temperature 98.5 F Pulse Rate 104 H 107 H 86 Respiratory Rate 20 20 18 Blood Pressure 128/59 L 131/72 122/78 Pulse Oximetry 100 100 100 08/23/18 20:13 08/23/18 22:02 08/23/18 22:12 Temperature 98.9 F Pulse Rate 88 90 96 H Respiratory Rate 20 18 Blood Pressure 116/59 L 142/91 H Pulse Oximetry 100 96 08/23/18 22:13 Temperature Pulse Rate Respiratory Rate Blood Pressure Pulse Oximetry 100 Intake & Output 08/23/18 08/23/18 08/24/18 06:59 18:59 06:59 Intake Total 50 / 50 Output Total 450 / 450 Balance -400 / -400 Weight 99.79 kg Intake: IV 50 / 50 Protonix Inj 80 MG In NS Inj 50 50 / 50 ML @ 600 mls/hr IV.SIG BOLUS ONE Rx#:[id number] Output: Urine 450 / 450 Narrative: Gen.: No acute distress Head: Normocephalic. Atraumatic. EENT: Pupils equal round and reactive to light. Nose without drainage. Airway intact. Throat without injection. Cardiovascular: Regular rate and rhythm. No murmurs, rubs or gallops. Respiratory: Lungs clear to auscultation bilaterally. No wheezes or rhonchi. Abdomen: Soft, nontender, nondistended. No peritoneal signs. Musculoskeletal: No gross deformities. No edema. Skin: No obvious rashes or erythema. Neuro: Sensory and motor grossly intact. Cranial nerves II through XII grossly intact. Results - Labs CBC & Chem 7: 08/23/18 18:20 08/23/18 18:20 Labs: Laboratory Results - last 24 hr 08/23/18 08/23/18 08/23/18 18:20 18:20 18:20 WBC 11.9 H RBC 2.88 L Hgb 8.2 L Hct 25.5 L MCV 88.7 MCH 28.6 MCHC 32.2 RDW 15.2 Plt Count 383 MPV 7.0 Neut % (Auto) 75.2 H Lymph % (Auto) 9.5 [place] % (Auto) 10.2 H Eos % (Auto) 4.6 H Baso % (Auto) 0.5 Neut # (Auto) 8.9 H Lymph # (Auto) 1.1 [place] # (Auto) 1.2 H Eos # (Auto) 0.5 H Baso # (Auto) 0.1 WBC Differential . Differential Comment Auto diff final Sodium 138 Potassium 4.6 Chloride 103 Carbon Dioxide 24.7 Anion Gap 10 BUN 38 H Creatinine 1.58 H Estimated GFR 42 L Random Glucose 117 H Calcium 9.0 Total Bilirubin 0.6 AST 31 ALT 26 Alkaline Phosphatase 95 Total Creatine Kinase 72 Troponin I 0.25 H B-Natriuretic Peptide 491 H Total Protein 7.6 Albumin 3.5 Blood Type Blood Type Recheck Antibody Screen MTS Gel Crossmatch 08/23/18 20:45 WBC RBC Hgb Hct MCV MCH MCHC RDW Plt Count MPV Neut % (Auto) Lymph % (Auto) [place] % (Auto) Eos % (Auto) Baso % (Auto) Neut # (Auto) Lymph # (Auto) [place] # (Auto) Eos # (Auto) Baso # (Auto) WBC Differential Differential Comment Sodium Potassium Chloride Carbon Dioxide Anion Gap BUN Creatinine Estimated GFR Random Glucose Calcium Total Bilirubin AST ALT Alkaline Phosphatase Total Creatine Kinase Troponin I B-Natriuretic Peptide Total Protein Albumin Blood Type A Negative Blood Type Recheck Not needed Antibody Screen Negative MTS Gel Crossmatch See Detail - Imaging Impressions Chest X-Ray 08/23/18 18:42 CONCLUSION: Stable cardiomegaly with interval development of enlarged and indistinct central bronchopulmonary markings suggesting congestive failure. Caprini VTE Risk Assessment Caprini VTE Risk Assessment: Moderate/High Risk (score >= 2) Caprini Risk Assessment Model: Point Value = 1 Point Value = 2 Point Value = 3 Point Value = 5 Age 41-60 Minor surgery BMI > 25 kg/m2 Swollen legs Varicose veins or History of unexplained or recurrent spontaneous Oral contraceptives or hormone replacement Sepsis (< 1 month) Serious lung disease, including pneumonia (< 1 month) Abnormal pulmonary function Acute myocardial infarction Congestive heart failure (< 1 month) History of inflammatory bowel disease Medical patient at bed rest Age 61-74 Arthroscopic surgery Major open surgery (> 45 min) Laparoscopic surgery (> 45 min) Malignancy Confined to bed (> 72 hours) Immobilizing plaster cast Central venous access Age >= 75 History of VTE Family history of VTE Factor V Leiden Prothrombin [id number] Lupus anticoagulant Anticardiolipin antibodies Elevated serum homocysteine Heparin-induced thrombocytopenia Other congenital or acquired thrombophilia Stroke (< 1 month) Elective arthroplasty Hip, pelvis, or leg fracture Acute spinal cord injury (< 1 month) Prophylaxis Regimen: Total Risk Factor Score Risk Level Prophylaxis Regimen 0-1 Low Early ambulation 2 Moderate Order ONE of the following: *Sequential Compression Device (SCD) *Heparin 5000 units SQ BID 3-4 Higher Order ONE of the following medications: *Heparin 5000 units SQ TID *Enoxaparin/Lovenox 40 mg SQ daily (WT < 150 kg, CrCl > 30 mL/min) *Enoxaparin/Lovenox 30 mg SQ daily (WT < 150 kg, CrCl > 10-29 mL/min) *Enoxaparin/Lovenox 30 mg SQ BID (WT < 150 kg, CrCl > 30 mL/min) AND/OR *Sequential Compression Device (SCD) 5 or more Highest Order ONE of the following medications: *Heparin 5000 units SQ TID (Preferred with Epidurals) *Enoxaparin/Lovenox 40 mg SQ daily (WT < 150 kg, CrCl > 30 mL/min) *Enoxaparin/Lovenox 30 mg SQ daily (WT < 150 kg, CrCl > 10-29 mL/min) *Enoxaparin/Lovenox 30 mg SQ BID (WT < 150 kg, CrCl > 30 mL/min) AND *Sequential Compression Device (SCD) Assessment and Plan - Plan Assessment/plan: 1. Symptomatic anemia/lower GI bleed Hemoccult positive in the emergency department Patient reports 2 days of black stools Anticoagulated on Eliquis for atrial fibrillation H&H 8.2/25.5, baseline hemoglobin 12 Transfuse 2 units packed red blood cells in the setting of coronary artery disease and symptomatic anemia Protonix drip Gastroenterology consulted, appreciate assistance 2. Elevated troponin Troponin 0.25 EKG shows paced rhythm, personally reviewed May be secondary to renal failure Patient denies chest pain ACS rule out pending; serial troponins/EKGs Patient with a significant history of coronary artery disease It Trainer is Dr. Hutchison, consulted, appreciate assistance 3. Atrial fibrillation/coronary artery disease Continue home Multaq Holding Eliquis for GI bleed 4. Congestive heart failure Continue home Lasix Continue Spironolactone Additional Lasix dose between blood transfusion 5. Hypertension/hyperlipidemia Continue home medications 6. Acute on chronic kidney disease Creatinine 1.58, baseline 1.1-1.3 Monitor renal function FEN N.p.o. Electrolytes: Monitor and replete as needed Holding pharmacologic anticoagulation secondary to GI bleed
[2018-08-24 01:07] LABS: Troponin I 0.27 ng/mL (0.02-0.05)
[2018-08-24] MEDS: Spironolactone 25 MG Tablet PO SCH ×2 (08:04→20:52)
[2018-08-24] MEDS: Furosemide 40 MG Tablet PO SCH (08:04)
[2018-08-24] MEDS: Pantoprazole Inj 80 MG in Sodium Chlor 0.9% Inj 100 ML IV.CONT SCH ×2 (08:09→17:30)
--- NOTE | 2018-08-24 08:25 | ECG ---
Date Performed: 08/24/2018 Time Performed: 01:06:34 PTAGE: 83 years EKG: Demand pacing Lead(s) unsuitable for analysis: V6 Pacemaker rhythm - no further analysis Si nce the previous tracing, no significant change noted Abnormal ECG PREVIOUS TRACING : 08/23/2018 18.06 DOCTOR: Charu Ruth Interpretating Date/Time 08/24/2018 08:23:42
--- NOTE | 2018-08-24 08:25 | ECG ---
Date Performed: 08/23/2018 Time Performed: 18:06:45 PTAGE: 83 years EKG: ELECTRONIC VENTRICULAR PACEMAKER ABNORMAL RHYTHM ECG Since the PREVIOUS TRACING , no significant change noted PREVIOUS TRACIN11/30/17 DOCTOR: Charu Ruth Interpretating Date/Time 08/24/2018 08:23:32
--- NOTE | 2018-08-24 09:44 | P.CONCA ---
History of Present Illness Service: Cardiology Consult date: 08/24/18 Requesting Physician: Mili Goldsmith Reason for Consult: Elevated troponin, afib on eliquis Primary Care Provider: Raymon Dixon DO History of Present Illness: This is a 83-year-old male known to Dr. Hutchison with a past medical history of ASHD, CABG X 3 in 1992, [employer] pacemaker placement 09/14/17 due to complete heart block, stroke, carotid stenosis, hypertension, hyperlipidemia, prostate cancer, CVA 2015, LVH, pulmonary hypertension and atrial fibrillation on Eliquis. PET scan on 10/28/2016 was positive for ischemia, moderate risk study, resting LVEF 44%, stress LVEF 38%, no change from PET in 2012. ESTHER/ cardioversion on 11/30/2017. ESTHER showed moderate mitral regurgitation.He states that over the last 2 days, he has became increasingly short of breath and that he has had an increase in swelling of the lower extremities over the last 2 weeks. He was sitting up in his chair yesterday when he became dyspneic, at that time he decided to come to the Emergency Department for further evaluation. He denied any CP, pressure, dizziness or palpitations during this time. On evaluation this morning, he states that he is breathing better but still becomes short of breath with any activity. He denies any CP, pressure, palpitations or dizziness. Review of Systems All other systems reviewed negative except as stated in HPI [facility] - History History Provided By: Patient, Family Member - Medical History Medical History: Medical History (Last Updated 08/23/18 @ 22:40 by Mili Goldsmith MD) Afib Congestive heart failure High cholesterol Hypertension Pacemaker Prostate cancer Stroke - Surgical History Surgical History: Surgical History (Last Reviewed 08/23/18 @ 22:40 by Mili Goldsmith MD) History of appendectomy History of carpal tunnel surgery of left wrist History of carpal tunnel surgery of right wrist History of cholecystectomy History of hip surgery History of open heart surgery History of orthopedic surgery Hx of cardiac cath LAP-BAND surgery status Stented coronary artery Total knee replacement status - Family History Family History: Family History (Last Updated 08/23/18 @ 22:41 by Mili Goldsmith MD) Other Coronary artery disease Diabetes mellitus - Tobacco History Second Hand Smoke Exposure: No Smoking Status: Never smoker - Alcohol History How Often Do You Have a Drink Containing Alcohol: Never - Substance Use History Substance History: No History of Abuse - Travel History Recent Travel in the [place] Within the Last 8 Weeks: No Recent Travel Out of the Country Within the Last 8 Weeks: No - Immunization History Tetanus Immunization: Unsure Medications and Allergies Allergies Allergy/AdvReac Type Severity Reaction Status Date / Time dog dander Allergy Severe ASTHMA Unverified 06/27/17 11:29 Home Medications Medication Instructions Recorded Confirmed Type apixaban [Eliquis] 5 mg PO BID 08/23/18 08/23/18 History atorvastatin 40 mg PO DAILY 08/23/18 08/23/18 History cholecalciferol (vitamin D3) 2,000 unit PO DAILY 08/23/18 08/23/18 History [Vitamin D3] coenzyme Q10 [CoQ-10] 200 mg PO DAILY 08/23/18 08/23/18 History dronedarone [Multaq] 400 mg PO BID 08/23/18 08/23/18 History furosemide [Lasix] 40 mg PO DAILY 08/23/18 08/23/18 History latanoprost 1 drp OPHTHALMIC (EYE) QPM 08/23/18 08/23/18 History metoprolol succinate 50 mg PO DAILY 08/23/18 08/23/18 History montelukast 10 mg PO QPM 08/23/18 08/23/18 History yqxuabut-jlv-AR-lycopen-lutein 1 tab PO DAILY 08/23/18 08/23/18 History [Centrum Silver Men] potassium chloride 20 meq PO WEEKLY 08/23/18 08/23/18 History spironolactone 25 mg PO BID 08/23/18 08/23/18 History Active Medications: Active Medications Acetaminophen (Tylenol) 650 mg PO Q4H PRN PRN Reason: Temp > 100.4 Atorvastatin Calcium (Lipitor) 40 mg PO DAILY [facility] Last Admin: 08/24/18 08:04 Dose: 40 mg Dronedarone (Multaq) 400 mg PO BID [facility] Last Admin: 08/24/18 08:04 Dose: 400 mg Furosemide (Lasix) 40 mg PO DAILY [facility] Last Admin: 08/24/18 08:04 Dose: 40 mg Sodium Chloride (Ns Inj) 250 mls @ 15 mls/hr IV.SIG ONCE MICAH Stop: 08/24/18 13:39 Last Admin: 08/24/18 01:25 Dose: Not Given Pantoprazole Sodium 80 mg/ (Sodium Chloride) 100 mls @ 10 mls/hr IV.CONT CONT [facility] Last Infusion: 08/24/18 08:09 Dose: Infused Ondansetron HCl (Zofran Inj) 4 mg IV.PUSH Q6H PRN PRN Reason: NAUSEA OR VOMITING Sodium Chloride (Ns Flush) 2 ml IV.FLUSH BID [facility] Last Admin: 08/24/18 08:05 Dose: Not Given Sodium Chloride (Ns Flush) 2 ml IV.FLUSH PRN PRN PRN Reason: FLUSH AFTER USING IV ACCESS Spironolactone (Aldactone) 25 mg PO BID [facility] Last Admin: 08/24/18 08:04 Dose: 25 mg Exam Vital signs: Vital Signs 08/23/18 17:47 08/23/18 18:00 08/23/18 20:00 Temperature 98.5 F Pulse Rate 104 H 107 H 86 Respiratory Rate 20 20 18 Blood Pressure 128/59 L 131/72 122/78 Pulse Oximetry 100 100 100 08/23/18 20:13 08/23/18 22:00 08/23/18 22:02 Temperature Pulse Rate 88 94 H 90 Respiratory Rate 20 Blood Pressure 116/59 L Pulse Oximetry 100 08/23/18 22:12 08/23/18 22:13 08/23/18 23:00 Temperature 98.9 F Pulse Rate 96 H 78 Respiratory Rate 18 Blood Pressure 142/91 H Pulse Oximetry 96 100 08/24/18 00:00 08/24/18 00:29 08/24/18 00:48 Temperature 98.3 F Pulse Rate 81 88 95 H Respiratory Rate 16 Blood Pressure 128/69 143/79 H Pulse Oximetry 95 99 08/24/18 01:00 08/24/18 02:00 08/24/18 03:00 Temperature Pulse Rate 92 H 76 74 Respiratory Rate Blood Pressure Pulse Oximetry 08/24/18 04:00 08/24/18 04:31 08/24/18 04:49 Temperature 98.0 F 98.6 F Pulse Rate 74 84 81 Respiratory Rate 16 16 Blood Pressure 125/75 125/69 Pulse Oximetry 99 100 08/24/18 05:00 08/24/18 05:13 08/24/18 06:00 Temperature 98.6 F Pulse Rate 80 76 81 Respiratory Rate 16 Blood Pressure 128/65 Pulse Oximetry 98 08/24/18 07:00 08/24/18 08:43 Temperature 98.3 F 98.2 F Pulse Rate 79 80 Respiratory Rate 16 16 Blood Pressure 128/70 126/68 Pulse Oximetry 100 100 Intake & Output 08/23/18 08/24/18 08/24/18 18:59 06:59 18:59 Intake Total 400 / 400 500 / 500 Output Total 1025 / 1025 Balance -625 / -625 500 / 500 Weight 99.79 kg 94.9 kg Intake: IV 50 / 50 100 / 100 Protonix Inj 80 MG In NS Inj 100 / 100 100 ML @ 10 mls/hr IV.CONT CONT MICAH Rx#:[id number] Protonix Inj 80 MG In NS Inj 50 50 / 50 ML @ 600 mls/hr IV.SIG BOLUS ONE Rx#:[id number] Oral 0 / 0 Intake (Blood Product) Amt 350 / 350 400 / 400 Rbc As-3 Leukoreduced Unit 350 / 350 [id number] Rbc As-3 Leukoreduced Unit 0 / 0 400 / 400 [id number] Output: Urine 1025 / 1025 Other: Date of Last Bowel Movement 08/23/18 08/23/18 - Constitutional no acute distress - Routine HEENT Exam Head: Present: normocephalic Eye: Present: PERRL ENT: Present: mucous membranes moist - Routine Neck Exam Present: full ROM - Routine Respiratory Exam Present: crackles, diminished air movement Comments: crackles noted bilateral lower lobes otherwise clear. - Routine Cardiovascular Exam Present: S1, S2, murmur. Absent: gallop, rubs Comments: paced - Routine Abdominal Exam Present: normoactive bowel sounds - Routine Extremities Exam Present: edema, full ROM, pulses intact, normal capillary refill. Absent: cyanosis, clubbing Comments: trace LE - Routine Skin Exam Present: intact - Routine Neurological Exam Present: oriented X3 Results 08/24/18 09:41 08/24/18 09:41 Cardiac Enzymes 08/23/18 08/23/18 08/24/18 Range/Units 18:20 18:20 00:25 AST 31 (15-37) U/L Troponin I 0.25 H 0.27 H (0.02-0.05) ng/mL B-Natriuretic Peptide 491 H (0-100) pg/mL Coagulation 08/23/18 Range/Units 18:20 B-Natriuretic Peptide 491 H (0-100) pg/mL CBC 08/23/18 Range/Units 18:20 WBC 11.9 H (4.0-11.0) th/mm3 RBC 2.88 L (4.50-5.90) mil/mm3 Hgb 8.2 L (13.0-17.0) gm/dL Hct 25.5 L (39.0-51.0) % Plt Count 383 (150-450) th/mm3 Neut # (Auto) 8.9 H (1.8-7.7) th/mm3 Lymph # (Auto) 1.1 (1.0-4.8) th/mm3 [place] # (Auto) 1.2 H (0.0-0.9) th/mm3 Eos # (Auto) 0.5 H (0.0-0.4) th/mm3 Baso # (Auto) 0.1 (0.0-0.2) th/mm3 Comprehensive Metabolic Panel 08/23/18 Range/Units 18:20 Sodium 138 (136-145) meq/L Potassium 4.6 (3.5-5.1) meq/L Chloride 103 (98-107) meq/L Carbon Dioxide 24.7 (21.0-32.0) meq/L BUN 38 H (7-18) mg/dL Creatinine 1.58 H (0.60-1.30) mg/dL Calcium 9.0 (8.5-10.1) mg/dL AST 31 (15-37) U/L ALT 26 (12-78) U/L Alkaline Phosphatase 95 (45-117) U/L Total Protein 7.6 (6.4-8.2) g/dL Albumin 3.5 (3.4-5.0) g/dL Intake and Output 08/23/18 08/24/18 08/24/18 22:59 06:59 14:59 Intake Total 50 / 50 350 / 350 500 / 500 Output Total 450 / 450 575 / 575 Balance -400 / -400 -225 / -225 500 / 500 Intake: IV 50 / 50 100 / 100 Protonix Inj 80 MG In NS Inj 100 / 100 100 ML @ 10 mls/hr IV.CONT CONT [facility] Rx#:[id number] Protonix Inj 80 MG In NS Inj 50 50 / 50 ML @ 600 mls/hr IV.SIG BOLUS ONE Rx#:[id number] Oral 0 / 0 Intake (Blood Product) Amt 350 / 350 400 / 400 Rbc As-3 Leukoreduced Unit 350 / 350 [id number] Rbc As-3 Leukoreduced Unit 0 / 0 400 / 400 [id number] Output: Urine 450 / 450 575 / 575 Other: Date of Last Bowel Movement 08/23/18 08/23/18 Weight 99.79 kg 94.9 kg - Imaging and Cardiology Imaging: Impressions Chest X-Ray 08/23/18 18:42 CONCLUSION: Stable cardiomegaly with interval development of enlarged and indistinct central bronchopulmonary markings suggesting congestive failure. Assessment and Plan - Assessment (1) Elevated troponin Code(s): R74.8 - Abnormal levels of other serum enzymes Status: Acute (2) CHF (congestive heart failure) Code(s): I50.9 - Heart failure, unspecified Status: Acute (3) GI bleed Code(s): K92.2 - Gastrointestinal hemorrhage, unspecified Status: Acute (4) Dyspnea Code(s): R06.00 - Dyspnea, unspecified Status: Acute (5) PND (paroxysmal nocturnal dyspnea) Code(s): R06.00 - Dyspnea, unspecified Status: Acute (6) Cardiomyopathy Code(s): I42.9 - Cardiomyopathy, unspecified Status: Acute (7) Paced cardiac rhythm Status: Acute (8) History of atrial fibrillation Code(s): Z86.79 - Personal history of other diseases of the circulatory system Status: Acute - Plan Troponin levels slightly elevated, likely secondary to renal insufficiency. Monitor serial enzymes and EKGs. Patient has positive occ stool, GI evaluation in progress. We will continue to hold Eliquis until patient is cleared by GI. We will obtain a 2D echo to evaluate LV function. Continue current treatment plan for CHF. Continue Multaq for the treatment of atrial fibrillation. Continue to monitor patient on telemetry. We will continue to monitor patient during his hospitalization. 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 The patient was seen and evaluated by Dr. Almonte who participated in care, management and decision making. - Attending Attestation Patient seen and examined. I reviewed and agree with the evaluation and plan as presented. Continue monitoring. GI evaluation. Continue antiarrhythmic tx with Multaq. No clear evidence of ACS at this time.
[2018-08-24 09:50] LABS: Baso % (Auto) 0.4 % (0.0-2.0); Eos # (Auto) 0.5 th/mm3 (0.0-0.4); Eos % (Auto) 4.6 % (0.0-4.0); Hematocrit 32.1 % (39.0-51.0); Hemoglobin 11.2 gm/dL (13.0-17.0); Lymph # (Auto) 1.1 th/mm3 (1.0-4.8); Lymph % (Auto) 10.3 % (9.0-44.0); Mean Corpuscular HGB Conc 34.7 % (32.0-36.0); Mean Corpuscular Volume 86.3 fL (80.0-100.0); Mean Platelet Volume 6.4 fL (7.0-11.0); Mono # (Auto) 1.2 th/mm3 (0.0-0.9); Mono % (Auto) 10.9 % (0.0-8.0); Neut # (Auto) 8.1 th/mm3 (1.8-7.7); Neut % (Auto) 73.8 % (16.0-70.0); Platelet Count 338 th/mm3 (150-450); Red Blood Count 3.72 mil/mm3 (4.50-5.90); Red Cell Distribution Width 15.1 % (11.6-17.2)
[2018-08-24 10:18] LABS: Calcium 8.9 mg/dL (8.5-10.1); Potassium 4.3 meq/L (3.5-5.1)
[2018-08-24 10:22] LABS: Troponin I 0.34 ng/mL (0.02-0.05)
--- NOTE | 2018-08-24 10:53 | P.CONGI ---
History of Present Illness Consult date: 08/24/18 Consult reason: Anemia, possible GI bleed patient on Eliquis Chief complaint: Resp Distress/CHF/Elev Trop/GI Bleed/Sympt. Anemia History of Present Illness: This is a obese 83-year-old male who came in the hospital on 08/23/2018 with evaluation of shortness of breath. Patient does note a significant history of heart disease, atrial fibrillation and thinks he has been on Eliquis for approximately 2-1/2 years. Currently Eliquis has been on hold, day 2. Patient also notes history of CVA around the same time and history of pacemaker x2. Patient also notes dark tarry stools 2 days before admission and denies any further history of any GI bleeding. Patient denies any nausea or vomiting or dysphasia. Previous EGD colonoscopy were done in 2008 or approximately 10 years ago. Patient also has history of lap band surgery, no family history of colon cancer. He also notes some chronic constipation which has worsened over the past few months and no diarrhea. Patient is poor historian, patient's is at the bedside and is the main historian. Labs reviewed which show current hemoglobin 8.2, WBC count 11.9, BNP 491, and positive troponins, positive occult blood. Patient is currently being followed and evaluated per cardiology. Gastroenterology has been consulted to also assist with his GI symptoms and plan of care. Review of Systems All other systems reviewed negative except as stated in HPI PMFSH - History History Provided By: Patient, Family Member - Medical History Medical History: Medical History (Last Updated 08/23/18 @ 22:40 by Mili Goldsmith MD) Afib Congestive heart failure High cholesterol Hypertension Pacemaker Prostate cancer Stroke - Surgical History Surgical History: Surgical History (Last Reviewed 08/23/18 @ 22:40 by Mili Goldsmith MD) History of appendectomy History of carpal tunnel surgery of left wrist History of carpal tunnel surgery of right wrist History of cholecystectomy History of hip surgery History of open heart surgery History of orthopedic surgery Hx of cardiac cath LAP-BAND surgery status Stented coronary artery Total knee replacement status - Family History Family History: Family History (Last Updated 08/23/18 @ 22:41 by Mili Goldsmith MD) Other Coronary artery disease Diabetes mellitus - Tobacco History Second Hand Smoke Exposure: No Smoking Status: Never smoker - Alcohol History How Often Do You Have a Drink Containing Alcohol: Never - Substance Use History Substance History: No History of Abuse - Travel History Recent Travel in the [place] Within the Last 8 Weeks: No Recent Travel Out of the Country Within the Last 8 Weeks: No - Immunization History Tetanus Immunization: Unsure Medications and Allergies Active Medications: Active Medications Acetaminophen (Tylenol) 650 mg PO Q4H PRN PRN Reason: Temp > 100.4 Atorvastatin Calcium (Lipitor) 40 mg PO DAILY [facility] Last Admin: 08/24/18 08:04 Dose: 40 mg Dronedarone (Multaq) 400 mg PO BID [facility] Last Admin: 08/24/18 08:04 Dose: 400 mg Furosemide (Lasix) 40 mg PO DAILY [facility] Last Admin: 08/24/18 08:04 Dose: 40 mg Sodium Chloride (Ns Inj) 250 mls @ 15 mls/hr IV.SIG ONCE [facility] Stop: 08/24/18 13:39 Last Admin: 08/24/18 01:25 Dose: Not Given Pantoprazole Sodium 80 mg/ (Sodium Chloride) 100 mls @ 10 mls/hr IV.CONT CONT [facility] Last Infusion: 08/24/18 08:09 Dose: Infused Ondansetron HCl (Zofran Inj) 4 mg IV.PUSH Q6H PRN PRN Reason: NAUSEA OR VOMITING Sodium Chloride (Ns Flush) 2 ml IV.FLUSH BID [facility] Last Admin: 08/24/18 08:05 Dose: Not Given Sodium Chloride (Ns Flush) 2 ml IV.FLUSH PRN PRN PRN Reason: FLUSH AFTER USING IV ACCESS Spironolactone (Aldactone) 25 mg PO BID [facility] Last Admin: 08/24/18 08:04 Dose: 25 mg Allergies Allergy/AdvReac Type Severity Reaction Status Date / Time dog dander Allergy Severe ASTHMA Unverified 06/27/17 11:29 Home Medications Medication Instructions Recorded Confirmed Type apixaban [Eliquis] 5 mg PO BID 08/23/18 08/23/18 History atorvastatin 40 mg PO DAILY 08/23/18 08/23/18 History cholecalciferol (vitamin D3) 2,000 unit PO DAILY 08/23/18 08/23/18 History [Vitamin D3] coenzyme Q10 [CoQ-10] 200 mg PO DAILY 08/23/18 08/23/18 History dronedarone [Multaq] 400 mg PO BID 08/23/18 08/23/18 History furosemide [Lasix] 40 mg PO DAILY 08/23/18 08/23/18 History latanoprost 1 drp OPHTHALMIC (EYE) QPM 08/23/18 08/23/18 History metoprolol succinate 50 mg PO DAILY 08/23/18 08/23/18 History montelukast 10 mg PO QPM 08/23/18 08/23/18 History vztphdvc-eyc-ZE-lycopen-lutein 1 tab PO DAILY 08/23/18 08/23/18 History [Centrum Silver Men] potassium chloride 20 meq PO WEEKLY 08/23/18 08/23/18 History spironolactone 25 mg PO BID 08/23/18 08/23/18 History Exam Vital signs: Vital Signs 08/23/18 17:47 08/23/18 18:00 08/23/18 20:00 Temperature 98.5 F Pulse Rate 104 H 107 H 86 Respiratory Rate 20 20 18 Blood Pressure 128/59 L 131/72 122/78 Pulse Oximetry 100 100 100 08/23/18 20:13 08/23/18 22:00 08/23/18 22:02 Temperature Pulse Rate 88 94 H 90 Respiratory Rate 20 Blood Pressure 116/59 L Pulse Oximetry 100 08/23/18 22:12 08/23/18 22:13 08/23/18 23:00 Temperature 98.9 F Pulse Rate 96 H 78 Respiratory Rate 18 Blood Pressure 142/91 H Pulse Oximetry 96 100 08/24/18 00:00 08/24/18 00:29 08/24/18 00:48 Temperature 98.3 F Pulse Rate 81 88 95 H Respiratory Rate 16 Blood Pressure 128/69 143/79 H Pulse Oximetry 95 99 08/24/18 01:00 08/24/18 02:00 08/24/18 03:00 Temperature Pulse Rate 92 H 76 74 Respiratory Rate Blood Pressure Pulse Oximetry 08/24/18 04:00 08/24/18 04:31 08/24/18 04:49 Temperature 98.0 F 98.6 F Pulse Rate 74 84 81 Respiratory Rate 16 16 Blood Pressure 125/75 125/69 Pulse Oximetry 99 100 08/24/18 05:00 08/24/18 05:13 08/24/18 06:00 Temperature 98.6 F Pulse Rate 80 76 81 Respiratory Rate 16 Blood Pressure 128/65 Pulse Oximetry 98 08/24/18 07:00 08/24/18 08:00 08/24/18 08:43 Temperature 98.3 F 98.2 F Pulse Rate 79 80 Respiratory Rate 16 16 Blood Pressure 128/70 126/68 Pulse Oximetry 100 100 100 Intake & Output 08/23/18 08/24/18 08/24/18 18:59 06:59 18:59 Intake Total 400 / 400 500 / 500 Output Total 1025 / 1025 Balance -625 / -625 500 / 500 Weight 99.79 kg 94.9 kg Intake: IV 50 / 50 100 / 100 Protonix Inj 80 MG In NS Inj 100 / 100 100 ML @ 10 mls/hr IV.CONT CONT [facility] Rx#:[id number] Protonix Inj 80 MG In NS Inj 50 50 / 50 ML @ 600 mls/hr IV.SIG BOLUS ONE Rx#:[id number] Oral 0 / 0 Intake (Blood Product) Amt 350 / 350 400 / 400 Rbc As-3 Leukoreduced Unit 350 / 350 [id number] Rbc As-3 Leukoreduced Unit 0 / 0 400 / 400 [id number] Output: Urine 1025 / 1025 Other: Date of Last Bowel Movement 08/23/18 08/23/18 - Constitutional obese, chronically ill appearing - Routine HEENT Exam Head: Present: normocephalic ENT: Present: mucous membranes moist - Routine Neck Exam Present: supple - Routine Respiratory Exam Present: decreased breath sounds - Routine Cardiovascular Exam Present: S1, S2, irregular rhythm - Routine Abdominal Exam Present: soft (Round, obese, positive bowel sounds, no obvious distention) - Routine Skin Exam Present: intact, pallor Results - Labs CBC & Chem 7: 08/24/18 09:41 08/24/18 09:41 Labs: Laboratory Results - last 24 hr 08/23/18 08/23/18 08/23/18 18:20 18:20 18:20 WBC 11.9 H RBC 2.88 L Hgb 8.2 L Hct 25.5 L MCV 88.7 MCH 28.6 MCHC 32.2 RDW 15.2 Plt Count 383 MPV 7.0 Neut % (Auto) 75.2 H Lymph % (Auto) 9.5 [place] % (Auto) 10.2 H Eos % (Auto) 4.6 H Baso % (Auto) 0.5 Neut # (Auto) 8.9 H Lymph # (Auto) 1.1 [place] # (Auto) 1.2 H Eos # (Auto) 0.5 H Baso # (Auto) 0.1 WBC Differential . Differential Comment Auto diff final Sodium 138 Potassium 4.6 Chloride 103 Carbon Dioxide 24.7 Anion Gap 10 BUN 38 H Creatinine 1.58 H Estimated GFR 42 L POC Glucose Random Glucose 117 H Calcium 9.0 Total Bilirubin 0.6 AST 31 ALT 26 Alkaline Phosphatase 95 Total Creatine Kinase 72 Troponin I 0.25 H B-Natriuretic Peptide 491 H Total Protein 7.6 Albumin 3.5 Blood Type Blood Type Recheck Antibody Screen MTS Gel Crossmatch 08/23/18 08/24/18 08/24/18 20:45 00:25 01:22 WBC RBC Hgb Hct MCV MCH MCHC RDW Plt Count MPV Neut % (Auto) Lymph % (Auto) [place] % (Auto) Eos % (Auto) Baso % (Auto) Neut # (Auto) Lymph # (Auto) [place] # (Auto) Eos # (Auto) Baso # (Auto) WBC Differential Differential Comment Sodium Potassium Chloride Carbon Dioxide Anion Gap BUN Creatinine Estimated GFR POC Glucose 123 H Random Glucose Calcium Total Bilirubin AST ALT Alkaline Phosphatase Total Creatine Kinase 61 Troponin I 0.27 H B-Natriuretic Peptide Total Protein Albumin Blood Type A Negative Blood Type Recheck Not needed Antibody Screen Negative MTS Gel Crossmatch See Detail 08/24/18 08/24/18 09:41 09:41 WBC 11.0 RBC 3.72 L Hgb 11.2 L D Hct 32.1 L MCV 86.3 MCH 30.0 MCHC 34.7 RDW 15.1 Plt Count 338 MPV 6.4 L Neut % (Auto) 73.8 H Lymph % (Auto) 10.3 [place] % (Auto) 10.9 H Eos % (Auto) 4.6 H Baso % (Auto) 0.4 Neut # (Auto) 8.1 H Lymph # (Auto) 1.1 [place] # (Auto) 1.2 H Eos # (Auto) 0.5 H Baso # (Auto) 0.0 WBC Differential . Differential Comment Auto diff final Sodium 139 Potassium 4.3 Chloride 103 Carbon Dioxide 27.0 Anion Gap 9 BUN 34 H Creatinine 1.38 H Estimated GFR 49 L POC Glucose Random Glucose 103 Calcium 8.9 Total Bilirubin AST ALT Alkaline Phosphatase Total Creatine Kinase 72 Troponin I 0.34 H B-Natriuretic Peptide Total Protein Albumin Blood Type Blood Type Recheck Antibody Screen MTS Gel Crossmatch - Imaging Impressions Chest X-Ray 08/23/18 18:42 CONCLUSION: Stable cardiomegaly with interval development of enlarged and indistinct central bronchopulmonary markings suggesting congestive failure. Assessment and Plan - Plan shortness of breath. Patient does note a significant history of heart disease, atrial fibrillation and thinks he has been on Eliquis for approximately 2-1/2 years. Currently Eliquis has been on hold, day 2. Patient also notes history of CVA around the same time and history of pacemaker x2. Melena stools times 2 days before admission denies any previous history of GI bleeding. Patient has been on Eliquis for approximately 2 and half years according to and patient. Previous EGD colonoscopy were done in 2008 or approximately 10 years ago. Patient also has history of lap band surgery, no family history of colon cancer. chronic constipation which has worsened over the past few months and no diarrhea. Patient is poor historian, patient's is at the bedside and is the main historian. Labs reviewed which show current hemoglobin 8.2, WBC count 11.9, BNP 491, and positive troponins, positive occult blood. Patient is currently being followed and evaluated per cardiology. Gastroenterology has been consulted to also assist with his GI symptoms and plan of care. According to patient's symptoms recommendations from gastroenterology is EGD with Eliquis being inhaled at least 2 days but will need cardiac clearance. Plan Diet as tolerated per attending Monitor labs with special attention to bleeding and/or melena stools Recommend EGD but will need cardiac clearance and patient to be off Eliquis at least 2 days. PPI Bowel regimen Supportive care Further recommendations to follow Patient was seen per myself and Dr. Altamirano, note was written on his behalf
--- NOTE | 2018-08-24 11:56 | P.PN ---
Subjective Interval history: Follow-up symptomatic anemia August 24, 2018-patient seen and examined, he was transfused 2 units packed red blood cell. Reports some improvement of shortness of breath since admission. Denies any chest pain. Physical Exam Vital signs: Vital Signs 08/23/18 17:47 08/23/18 18:00 08/23/18 20:00 Temperature 98.5 F Pulse Rate 104 H 107 H 86 Respiratory Rate 20 20 18 Blood Pressure 128/59 L 131/72 122/78 Pulse Oximetry 100 100 100 08/23/18 20:13 08/23/18 22:00 08/23/18 22:02 Temperature Pulse Rate 88 94 H 90 Respiratory Rate 20 Blood Pressure 116/59 L Pulse Oximetry 100 08/23/18 22:12 08/23/18 22:13 08/23/18 23:00 Temperature 98.9 F Pulse Rate 96 H 78 Respiratory Rate 18 Blood Pressure 142/91 H Pulse Oximetry 96 100 08/24/18 00:00 08/24/18 00:29 08/24/18 00:48 Temperature 98.3 F Pulse Rate 81 88 95 H Respiratory Rate 16 Blood Pressure 128/69 143/79 H Pulse Oximetry 95 99 08/24/18 01:00 08/24/18 02:00 08/24/18 03:00 Temperature Pulse Rate 92 H 76 74 Respiratory Rate Blood Pressure Pulse Oximetry 08/24/18 04:00 08/24/18 04:31 08/24/18 04:49 Temperature 98.0 F 98.6 F Pulse Rate 74 84 81 Respiratory Rate 16 16 Blood Pressure 125/75 125/69 Pulse Oximetry 99 100 08/24/18 05:00 08/24/18 05:13 08/24/18 06:00 Temperature 98.6 F Pulse Rate 80 76 81 Respiratory Rate 16 Blood Pressure 128/65 Pulse Oximetry 98 08/24/18 07:00 08/24/18 08:00 08/24/18 08:43 Temperature 98.3 F 98.2 F Pulse Rate 79 80 Respiratory Rate 16 16 Blood Pressure 128/70 126/68 Pulse Oximetry 100 100 100 Intake & Output 08/23/18 08/24/18 08/24/18 18:59 06:59 18:59 Intake Total 400 / 400 500 / 500 Output Total 1025 / 1025 Balance -625 / -625 500 / 500 Weight 99.79 kg 94.9 kg Intake: IV 50 / 50 100 / 100 Protonix Inj 80 MG In NS Inj 100 / 100 100 ML @ 10 mls/hr IV.CONT CONT [facility] Rx#:[id number] Protonix Inj 80 MG In NS Inj 50 50 / 50 ML @ 600 mls/hr IV.SIG BOLUS ONE Rx#:[id number] Oral 0 / 0 Intake (Blood Product) Amt 350 / 350 400 / 400 Rbc As-3 Leukoreduced Unit 350 / 350 [id number] Rbc As-3 Leukoreduced Unit 0 / 0 400 / 400 [id number] Output: Urine 1025 / 1025 Other: Date of Last Bowel Movement 08/23/18 08/23/18 Narrative: GENERAL: NAD SKIN: Warm and dry. HEAD: Normocephalic. EYES: No scleral icterus. No injection or drainage. NECK: Supple, trachea midline. No JVD or lymphadenopathy. CARDIOVASCULAR: Regular rate and rhythm without murmurs, gallops, or rubs. RESPIRATORY: Breath sounds equal bilaterally. No accessory muscle use. GASTROINTESTINAL: Abdomen soft, non-tender, nondistended. MUSCULOSKELETAL: No cyanosis, or edema. BACK: Nontender without obvious deformity. No CVA tenderness. Results - Labs CBC & Chem 7: 08/24/18 09:41 08/24/18 09:41 Laboratory Results - last 24 hr 08/23/18 08/23/18 08/23/18 18:20 18:20 18:20 WBC 11.9 H RBC 2.88 L Hgb 8.2 L Hct 25.5 L MCV 88.7 MCH 28.6 MCHC 32.2 RDW 15.2 Plt Count 383 MPV 7.0 Neut % (Auto) 75.2 H Lymph % (Auto) 9.5 [place] % (Auto) 10.2 H Eos % (Auto) 4.6 H Baso % (Auto) 0.5 Neut # (Auto) 8.9 H Lymph # (Auto) 1.1 [place] # (Auto) 1.2 H Eos # (Auto) 0.5 H Baso # (Auto) 0.1 WBC Differential . Differential Comment Auto diff final Sodium 138 Potassium 4.6 Chloride 103 Carbon Dioxide 24.7 Anion Gap 10 BUN 38 H Creatinine 1.58 H Estimated GFR 42 L POC Glucose Random Glucose 117 H Calcium 9.0 Total Bilirubin 0.6 AST 31 ALT 26 Alkaline Phosphatase 95 Total Creatine Kinase 72 Troponin I 0.25 H B-Natriuretic Peptide 491 H Total Protein 7.6 Albumin 3.5 Blood Type Blood Type Recheck Antibody Screen MTS Gel Crossmatch 08/23/18 08/24/18 08/24/18 20:45 00:25 01:22 WBC RBC Hgb Hct MCV MCH MCHC RDW Plt Count MPV Neut % (Auto) Lymph % (Auto) [place] % (Auto) Eos % (Auto) Baso % (Auto) Neut # (Auto) Lymph # (Auto) [place] # (Auto) Eos # (Auto) Baso # (Auto) WBC Differential Differential Comment Sodium Potassium Chloride Carbon Dioxide Anion Gap BUN Creatinine Estimated GFR POC Glucose 123 H Random Glucose Calcium Total Bilirubin AST ALT Alkaline Phosphatase Total Creatine Kinase 61 Troponin I 0.27 H B-Natriuretic Peptide Total Protein Albumin Blood Type A Negative Blood Type Recheck Not needed Antibody Screen Negative MTS Gel Crossmatch See Detail 08/24/18 08/24/18 09:41 09:41 WBC 11.0 RBC 3.72 L Hgb 11.2 L D Hct 32.1 L MCV 86.3 MCH 30.0 MCHC 34.7 RDW 15.1 Plt Count 338 MPV 6.4 L Neut % (Auto) 73.8 H Lymph % (Auto) 10.3 [place] % (Auto) 10.9 H Eos % (Auto) 4.6 H Baso % (Auto) 0.4 Neut # (Auto) 8.1 H Lymph # (Auto) 1.1 [place] # (Auto) 1.2 H Eos # (Auto) 0.5 H Baso # (Auto) 0.0 WBC Differential . Differential Comment Auto diff final Sodium 139 Potassium 4.3 Chloride 103 Carbon Dioxide 27.0 Anion Gap 9 BUN 34 H Creatinine 1.38 H Estimated GFR 49 L POC Glucose Random Glucose 103 Calcium 8.9 Total Bilirubin AST ALT Alkaline Phosphatase Total Creatine Kinase 72 Troponin I 0.34 H B-Natriuretic Peptide Total Protein Albumin Blood Type Blood Type Recheck Antibody Screen MTS Gel Crossmatch - Imaging Impressions Chest X-Ray 08/23/18 18:42 CONCLUSION: Stable cardiomegaly with interval development of enlarged and indistinct central bronchopulmonary markings suggesting congestive failure. Assessment and Plan - Plan 83-year-old man with 1. Symptomatic anemia/GI bleed Status post 2 unit packed red blood cell transfused Appreciate input from GI and plan for EGD +/- colonoscopy Continue to hold Eliquis Currently on PPI drip and monitor H&H 2. Elevated troponin May be secondary to acute on CKD Appreciate input from cardiology pending 2D echo 3. Atrial fibrillation/coronary artery disease/history of AICD Continue home Multaq Hold Eliquis 4. Congestive heart failure Continue home Lasix, Aldactone 5. Hypertension/hyperlipidemia Continue home medications 6. Acute on chronic kidney disease Continue to monitor DVT prophylaxis: Chemical antiplatelets contraindicated secondary to GI bleed
--- NOTE | 2018-08-24 13:56 | ECHRPT ---
Indication: CARDIOMYOPATHY CONCLUSIONS Normal left ventricular size. Moderate concentric left ventricular hypertrophy. The left ventricular systolic function is normal with an estimated ejection fraction in the range of 55-60% by limited visualization of the LV myocardium. There are distinct regional wall motion abnormalities. Severely hypokinetic qcd-sr-ngxyau anterior wall motion. Severely hypokinetic ndx-iv-snhbml septal wall motion. A pacemaker wire is noted. There is a pacemaker wire present in the right atrial cavity. There is trace tricuspid valve regurgitation. BP: / HR: Rhythm: Sinus MEASUREMENTS (Male / Female) Normal Values Technical Quality:Fair 2D ECHO LV Diastolic Diameter PLAX 4.8 cm 4.2 - 5.9 / 3.9 - 5.3 cm LV Systolic Diameter PLAX 3.0 cm IVS Diastolic Thickness 1.5 cm 0.6 - 1.0 / 0.6 - 0.9 cm LVPW Diastolic Thickness 1.5 cm 0.6 - 1.0 / 0.6 - 0.9 cm LV Relative Wall Thickness 0.6 RV Internal Dim ED PLAX 2.8 cm LVOT Diameter 1.9 cm Aortic Root Diameter 3.0 cm LA Systolic Diameter LX 4.1 cm 3.0 - 4.0 / 2.7 - 3.8 cm M-MODE AV Cusp Separation MM 1.7 cm DOPPLER AV Peak Velocity 92.4 cm/s AV Peak Gradient 3.4 mmHg AV Mean Gradient 2.0 mmHg AV Velocity Time Integral 15.2 cm LVOT Peak Velocity 90.2 cm/s LVOT Peak Gradient 3.3 mmHg LVOT Velocity Time Integral 16.7 cm AV Area Cont Eq vti 3.1 cm AV Area Cont Eq pk 2.8 cm Mitral E Point Velocity 103.0 cm/s Mitral A Point Velocity 96.7 cm/s Mitral E to A Ratio 1.1 LV E' Lateral Velocity 4.6 cm/s Mitral E to LV E' Lateral Ratio 22.4 LV E' Septal Velocity 2.1 cm/s Mitral E to LV E' Septal Ratio 49.3 TR Peak Velocity 159.0 cm/s TR Peak Gradient 10.1 mmHg PV Peak Velocity 55.6 cm/s PV Peak Gradient 1.2 mmHg FINDINGS LEFT VENTRICLE Normal left ventricular size. Moderate concentric left ventricular hypertrophy. The left ventricular systolic function is normal with an estimated ejection fraction in the range of 55-60% by limited visualization of the LV myocardium. There are distinct regional wall motion abnormalities. Severely hypokinetic ndo-iu-akhlyh anterior wall motion. Severely hypokinetic azy-fs-shtrkm septal wall motion. RIGHT VENTRICLE Normal right ventricular size and systolic function. A pacemaker wire is noted. LEFT ATRIUM The left atrial size is normal. RIGHT ATRIUM There is a pacemaker wire present in the right atrial cavity. ATRIAL SEPTUM Normal atrial septal thickness without atrial level shunting by limited color doppler interrogation. AORTA The aortic root and proximal ascending aorta are not well visualized. MITRAL VALVE Structurally normal mitral valve. No mitral valve stenosis or regurgitation. AORTIC VALVE Trileaflet aortic valve. No aortic valve stenosis or regurgitation. TRICUSPID VALVE There is trace tricuspid valve regurgitation. PULMONARY VALVE No pulmonary valve regurgitation or stenosis. VESSELS The inferior vena cava is normal in size. PERICARDIUM No pericardial effusion. Zeferino Vlalejo (Electronically Signed) Final Date:24 August 2018 13:55
[2018-08-24] MEDS ORDERED: Montelukast 10 MG Tablet PO SCH (18:00)
[2018-08-24] MEDS ORDERED: Melatonin 5 MG Tablet PO ONE (19:49)
[2018-08-25] MEDS: Pantoprazole Inj 80 MG in Sodium Chlor 0.9% Inj 100 ML IV.CONT SCH ×3 (02:20→14:12)
[2018-08-25 06:02] LABS: Baso # (Auto) 0.1 th/mm3 (0.0-0.2); Baso % (Auto) 0.5 % (0.0-2.0); Eos # (Auto) 0.7 th/mm3 (0.0-0.4); Eos % (Auto) 6.5 % (0.0-4.0); Hematocrit 30.1 % (39.0-51.0); Hemoglobin 10.2 gm/dL (13.0-17.0); Lymph # (Auto) 0.9 th/mm3 (1.0-4.8); Lymph % (Auto) 8.1 % (9.0-44.0); Mean Corpuscular HGB Conc 33.7 % (32.0-36.0); Mean Corpuscular Hemoglobin 29.3 pg (27.0-34.0); Mean Platelet Volume 6.6 fL (7.0-11.0); Mono # (Auto) 1.1 th/mm3 (0.0-0.9); Mono % (Auto) 10.5 % (0.0-8.0); Neut # (Auto) 8.1 th/mm3 (1.8-7.7); Neut % (Auto) 74.4 % (16.0-70.0); Platelet Count 321 th/mm3 (150-450); Red Blood Count 3.47 mil/mm3 (4.50-5.90); White Blood Count 10.8 th/mm3 (4.0-11.0)
[2018-08-25 06:32] LABS: Alanine Aminotransferase 22 U/L (12-78); Albumin 2.9 g/dL (3.4-5.0); Alkaline Phosphatase 92 U/L (45-117); Anion Gap 9 meq/L (5-15); Aspartate Aminotransferase 24 U/L (15-37); Blood Urea Nitrogen 31 mg/dL (7-18); Calcium 8.7 mg/dL (8.5-10.1); Carbon Dioxide 26.7 meq/L (21.0-32.0); Chloride 103 meq/L (98-107); Glomerular Filtration Rate 51 mL/min (>89); Glucose,Random 92 mg/dL (74-106); Potassium 3.6 meq/L (3.5-5.1); Sodium 139 meq/L (136-145); Total Protein 6.9 g/dL (6.4-8.2)
[2018-08-25] MEDS: Furosemide 40 MG Tablet PO SCH (08:22)
[2018-08-25] MEDS: Spironolactone 25 MG Tablet PO SCH (08:22)
[2018-08-25 08:29] VITALS: RESP 16
--- NOTE | 2018-08-25 10:45 | GIPROC ---
[facility] [address] [facility]. [facility] [place], [address] EGD PROCEDURE REPORT EXAM DATE: 08/25/2018 PATIENT NAME: Nicolas Smith V MR #: [id number] BIRTHDATE: 1935 ATTENDING: Zaira Maria MD ORDER #: [id number] CLAY PRESS OPERATOR: aVnessa Li and Krupa Nunez STATUS: inpatient INDICATIONS: The patient is a 83 yr old male here for an EGD due to melena PROCEDURE PERFORMED: EGD, diagnostic MEDICATIONS: Per Anesthesia and None. TOPICAL ANESTHETIC: none CONSENT: The patient understands the risks and benefits of the procedure and understands that these risks include, but are not limited to: sedation, allergic reaction, infection, perforation and/or bleeding. Alternative means of evaluation and treatment include, among others: physical exam, x-rays, and/or surgical intervention. The patient elects to proceed with this endoscopic procedure. medical equipment was checked for proper function. Hand hygiene and appropriate measures for infection prevention was taken. After the risks, benefits and alternatives of the procedure were thoroughly explained, Informed consent was verified, confirmed and timeout was successfully executed by the treatment team. The patient was anesthetized with topical anesthesia and the Pentax [id number] endoscope was introduced through the mouth and advanced to the second portion of the duodenum. Retroflexed views revealed Evidence of previous Band surgery The gastroscope was then slowly withdrawn and removed. ESOPHAGUS: The mucosa of the esophagus appeared normal. STOMACH: A banded gastroplasty was found characterized as healthy in appearance. Multiple small shallow erosions were found in the gastric antrum. DUODENUM: The duodenal mucosa appeared normal in the ampulla and 2nd part duodenum. ADVERSE EVENTS: There were no complications. IMPRESSIONS: 1. The esophagus appeared normal 2. Banded gastroplasty was found 3. Multiple small erosions were found in the gastric antrum, no biopsies taken while anticoagulated. 4. Normal duodenal mucosa in the ampulla and 2nd part duodenum 5. Retroflexed views revealed Evidence of previous Band surgery 6. No evidence of active or recent bleeding. RECOMMENDATIONS: 1. Continue PPI 2. Check H.Pylori stool antigen 3. Colonoscopy can be done as outpatient, unless actively bleeding again. PATIENT CONDITION: stable DISPOSITION: Observation REPEAT EXAM: NONE Zaira Maria MD eSigned: Zaira Maria MD 08/25/2018 10:45 AM cc: PATIENT NAME: Nicolas Smith V MR#: [id number]
[2018-08-25] MEDS ORDERED: Polyethylene Glycol 3350 17 GM Packet PO SCH (12:15)
[2018-08-25 13:46] VITALS: BP 110/63; TEMP 97.6; O2SAT 98
[2018-08-25 14:06] VITALS: PULSE 92
--- NOTE | 2018-08-25 14:13 | P.PN ---
Subjective Interval history: Follow-up symptomatic anemia August 24, 2018-patient seen and examined, he was transfused 2 units packed red blood cell. Reports some improvement of shortness of breath since admission. Denies any chest pain. August 25, 2018-patient seen and examined, EGD this morning. Denies any significant shortness of breath. Case discussed with cardiology. Physical Exam Vital signs: Vital Signs 08/24/18 15:00 08/24/18 16:00 08/24/18 16:50 Temperature 98.5 F Pulse Rate 94 H 94 H Respiratory Rate 16 Blood Pressure 129/68 Pulse Oximetry 100 100 08/24/18 17:00 08/24/18 18:00 08/24/18 19:00 Temperature 98.3 F Pulse Rate 96 H 88 84 Respiratory Rate 16 Blood Pressure 119/69 Pulse Oximetry 97 08/24/18 20:00 08/24/18 21:00 08/24/18 22:00 Temperature Pulse Rate 76 80 74 Respiratory Rate Blood Pressure Pulse Oximetry 99 08/24/18 23:00 08/25/18 00:00 08/25/18 01:00 Temperature 98.2 F Pulse Rate 72 76 85 Respiratory Rate 14 Blood Pressure 122/65 Pulse Oximetry 99 08/25/18 02:00 08/25/18 03:00 08/25/18 04:00 Temperature 97.8 F Pulse Rate 74 90 78 Respiratory Rate 18 Blood Pressure 144/77 H Pulse Oximetry 98 08/25/18 05:00 08/25/18 06:00 08/25/18 07:00 Temperature 97.9 F Pulse Rate 76 76 90 Respiratory Rate 16 Blood Pressure 138/71 Pulse Oximetry 95 08/25/18 08:00 08/25/18 10:00 08/25/18 11:00 Temperature 97.6 F Pulse Rate 92 H 90 Respiratory Rate 16 Blood Pressure 110/63 Pulse Oximetry 95 95 98 08/25/18 12:00 08/25/18 13:00 Temperature Pulse Rate 87 92 H Respiratory Rate Blood Pressure Pulse Oximetry Intake & Output 08/24/18 08/25/18 08/25/18 18:59 06:59 18:59 Intake Total 1320 / 1320 340 / 340 200 / 200 Output Total 1150 / 1150 400 / 400 Balance 170 / 170 -60 / -60 200 / 200 Weight 93.7 kg Intake: IV 200 / 200 100 / 100 100 / 100 Protonix Inj 80 MG In NS Inj 200 / 200 100 / 100 100 / 100 100 ML @ 10 mls/hr IV.CONT Q10H [facility] Rx#:[id number] Oral 720 / 720 240 / 240 Anesthesia Amount 100 / 100 Intake (Blood Product) Amt 400 / 400 Rbc As-3 Leukoreduced Unit 400 / 400 [id number] Output: Urine 1150 / 1150 400 / 400 Other: Date of Last Bowel Movement 08/23/18 08/23/18 Narrative: GENERAL: NAD SKIN: Warm and dry. HEAD: Normocephalic. EYES: No scleral icterus. No injection or drainage. NECK: Supple, trachea midline. No JVD or lymphadenopathy. CARDIOVASCULAR: Regular rate and rhythm without murmurs, gallops, or rubs. RESPIRATORY: Breath sounds equal bilaterally. No accessory muscle use. GASTROINTESTINAL: Abdomen soft, non-tender, nondistended. MUSCULOSKELETAL: No cyanosis, or edema. BACK: Nontender without obvious deformity. No CVA tenderness. Results - Labs CBC & Chem 7: 08/25/18 05:22 08/25/18 05:22 Laboratory Results - last 24 hr 08/24/18 08/25/18 08/25/18 16:29 05:22 05:22 WBC 10.8 RBC 3.47 L Hgb 10.2 L Hct 30.1 L MCV 87.0 MCH 29.3 MCHC 33.7 RDW 15.0 Plt Count 321 MPV 6.6 L Neut % (Auto) 74.4 H Lymph % (Auto) 8.1 L [place] % (Auto) 10.5 H Eos % (Auto) 6.5 H Baso % (Auto) 0.5 Neut # (Auto) 8.1 H Lymph # (Auto) 0.9 L [place] # (Auto) 1.1 H Eos # (Auto) 0.7 H Baso # (Auto) 0.1 WBC Differential . Differential Comment Auto diff final Sodium 139 Potassium 3.6 Chloride 103 Carbon Dioxide 26.7 Anion Gap 9 BUN 31 H Creatinine 1.34 H Estimated GFR 51 L Random Glucose 92 Calcium 8.7 Total Bilirubin 1.2 H AST 24 ALT 22 Alkaline Phosphatase 92 Troponin I 0.36 H Total Protein 6.9 D Albumin 2.9 L D - Procedures EGD August 25, 2018 Assessment and Plan - Plan 83-year-old man with 1. Symptomatic anemia/GI bleed Status post 2 unit packed red blood cell transfused Appreciate input from GI and status post EGD with no evidence of active or recent bleeding. Resume Eliquis Currently on PPI drip and monitor H&H. With switch to p.o. Protonix 2. Elevated troponin May be secondary to acute on CKD Appreciate input from cardiology 2D echo of AF 55-60% 3. Atrial fibrillation/coronary artery disease/history of AICD Continue home Multaq Resume Eliquis 4. Congestive heart failure Continue home Lasix, Aldactone 5. Hypertension/hyperlipidemia Continue home medications 6. Acute on chronic kidney disease Continue to monitor DVT prophylaxis: Chemical antiplatelets contraindicated secondary to GI bleed
--- NOTE | 2018-08-25 14:16 | P.DS ---
Date of admission: 08/23/18 20:41 Primary care physician: Raymon Dixon DO Brief History from admission: 83-year-old male with a past medical history significant for coronary artery disease, atrial fibrillation anticoagulated on Eliquis, hypertension, hyperlipidemia, congestive heart failure and a history of prostate cancer presents to the emergency department for the evaluation of shortness of breath. The patient reports that he has been short of breath for approximately 2 years but it acutely worsened over the past 2 days. He states he was sitting in his chair today when he became so dyspneic that he felt he needed further evaluation in the emergency department. The patient denies any chest pain. No cough. No fever/chills. He does endorse black, tarry stools for the past 2 days. He is anemic on presentation to the emergency department. He denies any abdominal pain. No nausea/vomiting/diarrhea. No focal neurologic deficits. DS: Medications - Discharge Medications Prescriptions: pantoprazole [Protonix] 40 mg PO DAILY #30 tab DS: Summary Hospital Course: While in hospital, patient was treated for: 1. Symptomatic anemia/GI bleed Status post 2 unit packed red blood cell transfused Appreciate input from GI and status post EGD with no evidence of active or recent bleeding. Eliquis was originally on hold, will resume upon discharge He was started on Protonix drip, will be discharged home on p.o. Protonix 40 mg daily 2. Elevated troponin May be secondary to acute on CKD Appreciate input from cardiology 2D echo of AF 55-60% 3. Atrial fibrillation/coronary artery disease/history of AICD Continue home Multaq Eliquis was held initially, it will resume it upon discharge 4. Congestive heart failure He was treated with home Lasix, Aldactone 5. Hypertension/hyperlipidemia He was continued on his home medications 6. Acute on chronic kidney disease Renal function was monitored - Time Spent with Patient Total time spent providing and/or coordinating discharge services: Less than 30 minutes Exam Vital signs: Vital Signs 08/24/18 15:00 08/24/18 16:00 08/24/18 16:50 Temperature 98.5 F Pulse Rate 94 H 94 H Respiratory Rate 16 Blood Pressure 129/68 Pulse Oximetry 100 100 08/24/18 17:00 08/24/18 18:00 08/24/18 19:00 Temperature 98.3 F Pulse Rate 96 H 88 84 Respiratory Rate 16 Blood Pressure 119/69 Pulse Oximetry 97 08/24/18 20:00 08/24/18 21:00 08/24/18 22:00 Temperature Pulse Rate 76 80 74 Respiratory Rate Blood Pressure Pulse Oximetry 99 08/24/18 23:00 08/25/18 00:00 08/25/18 01:00 Temperature 98.2 F Pulse Rate 72 76 85 Respiratory Rate 14 Blood Pressure 122/65 Pulse Oximetry 99 08/25/18 02:00 08/25/18 03:00 08/25/18 04:00 Temperature 97.8 F Pulse Rate 74 90 78 Respiratory Rate 18 Blood Pressure 144/77 H Pulse Oximetry 98 08/25/18 05:00 08/25/18 06:00 08/25/18 07:00 Temperature 97.9 F Pulse Rate 76 76 90 Respiratory Rate 16 Blood Pressure 138/71 Pulse Oximetry 95 08/25/18 08:00 08/25/18 10:00 08/25/18 11:00 Temperature 97.6 F Pulse Rate 92 H 90 Respiratory Rate 16 Blood Pressure 110/63 Pulse Oximetry 95 95 98 08/25/18 12:00 08/25/18 13:00 Temperature Pulse Rate 87 92 H Respiratory Rate Blood Pressure Pulse Oximetry Intake & Output 08/24/18 08/25/18 08/25/18 18:59 06:59 18:59 Intake Total 1320 / 1320 340 / 340 200 / 200 Output Total 1150 / 1150 400 / 400 Balance 170 / 170 -60 / -60 200 / 200 Weight 93.7 kg Intake: IV 200 / 200 100 / 100 100 / 100 Protonix Inj 80 MG In NS Inj 200 / 200 100 / 100 100 / 100 100 ML @ 10 mls/hr IV.CONT Q10H [facility] Rx#:[id number] Oral 720 / 720 240 / 240 Anesthesia Amount 100 / 100 Intake (Blood Product) Amt 400 / 400 Rbc As-3 Leukoreduced Unit 400 / 400 [id number] Output: Urine 1150 / 1150 400 / 400 Other: Date of Last Bowel Movement 08/23/18 08/23/18 Narrative: GENERAL: NAD SKIN: Warm and dry. HEAD: Normocephalic. EYES: No scleral icterus. No injection or drainage. NECK: Supple, trachea midline. No JVD or lymphadenopathy. CARDIOVASCULAR: Regular rate and rhythm without murmurs, gallops, or rubs. RESPIRATORY: Breath sounds equal bilaterally. No accessory muscle use. GASTROINTESTINAL: Abdomen soft, non-tender, nondistended. MUSCULOSKELETAL: No cyanosis, or edema. BACK: Nontender without obvious deformity. No CVA tenderness. Results Procedures completed during hospitalization: EGD August 25, 2018 Labs on day of discharge: Labs from last 24 hours 08/25/18 08/25/18 08/24/18 05:22 05:22 16:29 WBC 10.8 RBC 3.47 L Hgb 10.2 L Hct 30.1 L MCV 87.0 MCH 29.3 MCHC 33.7 RDW 15.0 Plt Count 321 MPV 6.6 L Neut % (Auto) 74.4 H Lymph % (Auto) 8.1 L [place] % (Auto) 10.5 H Eos % (Auto) 6.5 H Baso % (Auto) 0.5 Neut # (Auto) 8.1 H Lymph # (Auto) 0.9 L [place] # (Auto) 1.1 H Eos # (Auto) 0.7 H Baso # (Auto) 0.1 WBC Differential . Differential Comment Auto diff final Sodium 139 Potassium 3.6 Chloride 103 Carbon Dioxide 26.7 Anion Gap 9 BUN 31 H Creatinine 1.34 H Estimated GFR 51 L Random Glucose 92 Calcium 8.7 Total Bilirubin 1.2 H AST 24 ALT 22 Alkaline Phosphatase 92 Troponin I 0.36 H Total Protein 6.9 D Albumin 2.9 L D - Impressions ITS Impressions Chest X-Ray 08/23/18 18:42 CONCLUSION: Stable cardiomegaly with interval development of enlarged and indistinct central bronchopulmonary markings suggesting congestive failure. Discharge Plan - Discharge Disposition Patient Disposition: 01 Discharge Home - Discharge Condition Condition: Fair - Discharge Order Discharge Orders: Discharge Order (Routine); Ordered 08/25/18 Ordered By: Olvin Gamez - Physicians Team Primary Care Provider: Raymon Dixon Attending Provider: Olvin Gamez Other Providers: Dane Hutchison MD ; Tadeo Altamirano MD
--- NOTE | 2018-08-25 15:56 | P.PNCA ---
Subjective Interval history: No CP or SOB, feels better Medications and Allergies Allergies Allergy/AdvReac Type Severity Reaction Status Date / Time dog dander Allergy Severe ASTHMA Unverified 06/27/17 11:29 Home Medications Medication Instructions Recorded Confirmed Type apixaban [Eliquis] 5 mg PO BID 08/23/18 08/23/18 History atorvastatin 40 mg PO DAILY 08/23/18 08/23/18 History cholecalciferol (vitamin D3) 2,000 unit PO DAILY 08/23/18 08/23/18 History [Vitamin D3] coenzyme Q10 [CoQ-10] 200 mg PO DAILY 08/23/18 08/23/18 History dronedarone [Multaq] 400 mg PO BID 08/23/18 08/23/18 History furosemide [Lasix] 40 mg PO DAILY 08/23/18 08/23/18 History latanoprost 1 drp OPHTHALMIC (EYE) QPM 08/23/18 08/23/18 History metoprolol succinate 50 mg PO DAILY 08/23/18 08/23/18 History montelukast 10 mg PO QPM 08/23/18 08/23/18 History rgxmptni-lkv-SQ-lycopen-lutein 1 tab PO DAILY 08/23/18 08/23/18 History [Centrum Silver Men] potassium chloride 20 meq PO WEEKLY 08/23/18 08/23/18 History spironolactone 25 mg PO BID 08/23/18 08/23/18 History Physical Exam Vital signs: Vital Signs 08/24/18 16:00 08/24/18 16:50 08/24/18 17:00 Temperature Pulse Rate 94 H 96 H Respiratory Rate Blood Pressure Pulse Oximetry 100 08/24/18 18:00 08/24/18 19:00 08/24/18 20:00 Temperature 98.3 F Pulse Rate 88 84 76 Respiratory Rate 16 Blood Pressure 119/69 Pulse Oximetry 97 99 08/24/18 21:00 08/24/18 22:00 08/24/18 23:00 Temperature 98.2 F Pulse Rate 80 74 72 Respiratory Rate 14 Blood Pressure 122/65 Pulse Oximetry 99 08/25/18 00:00 08/25/18 01:00 08/25/18 02:00 Temperature Pulse Rate 76 85 74 Respiratory Rate Blood Pressure Pulse Oximetry 08/25/18 03:00 08/25/18 04:00 08/25/18 05:00 Temperature 97.8 F Pulse Rate 90 78 76 Respiratory Rate 18 Blood Pressure 144/77 H Pulse Oximetry 98 08/25/18 06:00 08/25/18 07:00 08/25/18 08:00 Temperature 97.9 F Pulse Rate 76 90 92 H Respiratory Rate 16 Blood Pressure 138/71 Pulse Oximetry 95 95 08/25/18 10:00 08/25/18 11:00 08/25/18 12:00 Temperature 97.6 F Pulse Rate 90 87 Respiratory Rate 16 Blood Pressure 110/63 Pulse Oximetry 95 98 08/25/18 13:00 Temperature Pulse Rate 92 H Respiratory Rate Blood Pressure Pulse Oximetry Intake & Output 08/24/18 08/25/18 08/25/18 18:59 06:59 18:59 Intake Total 1320 / 1320 340 / 340 200 / 200 Output Total 1150 / 1150 400 / 400 Balance 170 / 170 -60 / -60 200 / 200 Weight 206 lb 9.17 oz Intake: IV 200 / 200 100 / 100 100 / 100 Protonix Inj 80 MG In NS Inj 200 / 200 100 / 100 100 / 100 100 ML @ 10 mls/hr IV.CONT Q10H [facility] Rx#:[id number] Oral 720 / 720 240 / 240 Anesthesia Amount 100 / 100 Intake (Blood Product) Amt 400 / 400 Rbc As-3 Leukoreduced Unit 400 / 400 [id number] Output: Urine 1150 / 1150 400 / 400 Other: Date of Last Bowel Movement 08/23/18 08/23/18 Narrative: GENERAL: In NAD SKIN: Warm and dry. HEAD: Normocephalic. EYES: No scleral icterus. No injection or drainage. NECK: Supple, trachea midline. No JVD or lymphadenopathy. CARDIOVASCULAR: Regular rate and rhythm without murmurs, gallops, or rubs. RESPIRATORY: Breath sounds equal bilaterally. No accessory muscle use. GASTROINTESTINAL: Abdomen soft, non-tender, nondistended. MUSCULOSKELETAL: No cyanosis, or edema. Results 08/25/18 05:22 08/25/18 05:22 Cardiac Enzymes 08/23/18 08/23/18 08/24/18 Range/Units 18:20 18:20 00:25 AST 31 (15-37) U/L Troponin I 0.25 H 0.27 H (0.02-0.05) ng/mL B-Natriuretic Peptide 491 H (0-100) pg/mL 08/24/18 08/24/18 08/25/18 Range/Units 09:41 16:29 05:22 AST 24 (15-37) U/L Troponin I 0.34 H 0.36 H (0.02-0.05) ng/mL B-Natriuretic Peptide (0-100) pg/mL Coagulation 08/23/18 Range/Units 18:20 B-Natriuretic Peptide 491 H (0-100) pg/mL CBC 08/23/18 08/24/18 08/25/18 Range/Units 18:20 09:41 05:22 WBC 11.9 H 11.0 10.8 (4.0-11.0) th/mm3 RBC 2.88 L 3.72 L 3.47 L (4.50-5.90) mil/mm3 Hgb 8.2 L 11.2 L D 10.2 L (13.0-17.0) gm/dL Hct 25.5 L 32.1 L 30.1 L (39.0-51.0) % Plt Count 383 338 321 (150-450) th/mm3 Neut # (Auto) 8.9 H 8.1 H 8.1 H (1.8-7.7) th/mm3 Lymph # (Auto) 1.1 1.1 0.9 L (1.0-4.8) th/mm3 [place] # (Auto) 1.2 H 1.2 H 1.1 H (0.0-0.9) th/mm3 Eos # (Auto) 0.5 H 0.5 H 0.7 H (0.0-0.4) th/mm3 Baso # (Auto) 0.1 0.0 0.1 (0.0-0.2) th/mm3 Comprehensive Metabolic Panel 08/23/18 08/24/18 08/25/18 Range/Units 18:20 09:41 05:22 Sodium 138 139 139 (136-145) meq/L Potassium 4.6 4.3 3.6 (3.5-5.1) meq/L Chloride 103 103 103 (98-107) meq/L Carbon Dioxide 24.7 27.0 26.7 (21.0-32.0) meq/L BUN 38 H 34 H 31 H (7-18) mg/dL Creatinine 1.58 H 1.38 H 1.34 H (0.60-1.30) mg/dL Calcium 9.0 8.9 8.7 (8.5-10.1) mg/dL AST 31 24 (15-37) U/L ALT 26 22 (12-78) U/L Alkaline Phosphatase 95 92 (45-117) U/L Total Protein 7.6 6.9 D (6.4-8.2) g/dL Albumin 3.5 2.9 L D (3.4-5.0) g/dL Intake and Output 08/25/18 08/25/18 08/25/18 06:59 14:59 22:59 Intake Total 340 / 340 200 / 200 Output Total 400 / 400 Balance -60 / -60 200 / 200 Intake: IV 100 / 100 100 / 100 Protonix Inj 80 MG In NS Inj 100 / 100 100 / 100 100 ML @ 10 mls/hr IV.CONT Q10H [facility] Rx#:[id number] Oral 240 / 240 Anesthesia Amount 100 / 100 Output: Urine 400 / 400 Other: Date of Last Bowel Movement 08/23/18 Weight 206 lb 9.17 oz - Imaging and Cardiology Imaging: Impressions Chest X-Ray 08/23/18 18:42 CONCLUSION: Stable cardiomegaly with interval development of enlarged and indistinct central bronchopulmonary markings suggesting congestive failure. Assessment and Plan - Assessment (1) Elevated troponin Code(s): R74.8 - Abnormal levels of other serum enzymes Status: Acute (2) CHF (congestive heart failure) Code(s): I50.9 - Heart failure, unspecified Status: Acute (3) GI bleed Code(s): K92.2 - Gastrointestinal hemorrhage, unspecified Status: Acute (4) Dyspnea Code(s): R06.00 - Dyspnea, unspecified Status: Acute (5) PND (paroxysmal nocturnal dyspnea) Code(s): R06.00 - Dyspnea, unspecified Status: Acute (6) Cardiomyopathy Code(s): I42.9 - Cardiomyopathy, unspecified Status: Acute (7) Paced cardiac rhythm Status: Acute (8) History of atrial fibrillation Code(s): Z86.79 - Personal history of other diseases of the circulatory system Status: Acute - Plan Troponin levels slightly elevated, likely secondary to renal insufficiency. No evidence of ACS. We will continue to hold Eliquis until patient is cleared by GI. Continue current treatment plan for CHF. Continue Multaq for the treatment of atrial fibrillation. OK to discharge home from cardiac standpoint. Patient to follow up with his primary project coordinator, Dr. Hutchison, as outpatient.
== END 2018-08-25 15:21 | disposition home or self-care (01) | DRG 378 ==
LOC: NEPC 17:10 → NEDA 20:41 → HCIS 21:54
PROVIDERS: ADMIT Hospitalist; ATTEND Hospitalist
PROC: PANENDO (2018-08-25 10:23)
CPT/HCPCS: 36430; 71010; 71045; 80048; 80053; 82550; 82948; 82962; 83520; 83880; 84484; 85025; 86677; 86850; 86900; 86901; 86923; 90774; 90784; 93005; 93306; 96374; 99291; C8952; C9113; J1940; P9016